=== PATIENT | female | born 1960 | race Caucasian/White ===

== ENCOUNTER → 2017-02-22 | Day surgery (SDC) | payer SELFPAY ==
[~2017-02-22] VITALS: Ht 165.1 cm; Wt 98.7 kg
[~2017-02-22] MED LIST: *morphine SULFATE 8 MG/ML PERIprocedure ONLY ONE; 1/2 NS + KCL 20 MEQ INJ 1,000 ML IV SCH; ACETAMINOPHEN 1000 MG/100 ML VIAL IV SCH; ACETAMINOPHEN 325MG/HYDROcodone 7.5MG/15ML UDC PO PRN; ALLO100T PO; APREPITANT 40 MG CAP PO SCH; BACT800T5 PO; BUPIVACAINE/EPINEPHRINE 0.25% 50 ML VIAL ONE; CHLORHEXIDINE GLUCONATE 2 % 1 PACK (2 CLOTHS) TOPICAL PRN; DO NOT ADM ANY ANTICOAGULANT DRUGS PRN; ENOXAPARIN SODIUM 40 MG/0.4 ML SYRINGE SQ SCH; ESTR0.5T PO; FAMOTIDINE 20 MG/2 ML VIAL ONE; FLUO1TAB3 PO; FLUO20CA4 PO; FOLI1TAB6 PO; FOLI200T PO; FOLI400T PO; INSULIN HUMAN REGULAR 1,000 UNITS/10 ML VIAL SQ PRN; KETAMINE HCL 500 MG/5 ML VIAL ONE; LACTATED RINGER'S 1000 ML INJ 1,000 ML IV ONE; LACTATED RINGER'S 1000 ML IV PRN; LEVO125T4 PO; LEVO150T7 PO; METHYLENE BLUE 10 MG/ML VIAL NG ONE; METOCLOPRAMIDE HCL 10 MG/2 ML VIAL IV PUSH PRN; METOCLOPRAMIDE HCL 10 MG/2 ML VIAL IV PUSH SCH; METOPROLOL TARTRATE 25 MG TAB PO PRN; MIDAZOLAM HCL 2 MG/2 ML VIAL ONE; NEOSTIGMINE 3 MG/3 ML SYR IV ONE; ONDANSETRON HCL 4 MG/2 ML VIAL IV PRN; ONDANSETRON HCL 4 MG/2 ML VIAL IV PUSH ONE; ONDANSETRON HCL 4 MG/2 ML VIAL IV PUSH SCH; PANTOPRAZOLE SOD 40 MG DELAYED RELEASE TAB PO SCH; PHENYLEPH/NS 1000 MCG/10 ML SYR IV ONE; POVIDONE IODINE 5% (ANTISEPSIS KIT) 4 APPLICATIONS EACH NARE PRN; PROPOFOL 200 MG/20 ML AMP IV ONE; Post-op Orders (for Pharmacy) MISC OTHER ONE; SCOPOLAMINE 1.5 MG PATCH T-DERMAL SCH; SODIUM CHLORID 0.9% 500 ML IV PRN; SODIUM CHLORIDE 0.9% FLUSH 10 ML FLUSH IV FLUSH PRN; SODIUM CHLORIDE 0.9% FLUSH 10 ML FLUSH IV FLUSH SCH; TIRO100C PO; ZOFR4TAB PO; ceFAZolin 2 GM PREMIX 50 ML IV SCH; diphenhydrAMINE HCL 50 MG/ML VIAL IV PRN; diphenhydrAMINE HCL ELIXIR 12.5 MG/5 ML CUP PO PRN; metroNIDAZOLE 500 MG INJ 100 ML IV SCH
--- NOTE | 2017-02-22 14:34 | EKG ---
Date Performed: 02/22/2017 Time Performed: 06:18:30 PTAGE: 56 years EKG: Sinus rhythm NORMAL ECG Compared to prior tracing no significant change PREVIOUS TRACING : 04/14/2015 00.36.30 DOCTOR: Mal Haas Interpretating Date/Time 02/22/2017 14:28:36
[2017-02-22 16:05] VITALS: BP 161/82; PULSE 60; RESP 18; TEMP 97.6; O2SAT 96
--- NOTE | 2017-03-11 15:19 | MP ---
cc: DAVID BURNS DATE OF SURGERY: 02/22/2017 DATE OF : 1960 PREOPERATIVE DIAGNOSIS Severe obesity with a BMI of 36. POSTOPERATIVE DIAGNOSIS Severe obesity with a BMI of 36. PROCEDURE Laparoscopic vertical sleeve gastrectomy over a 36-[place] ViSiGi bougie. SURGEON David Burns. FILLER BLENDER SURGEON Jaime Dolan. ANESTHESIA General endotracheal. ESTIMATED BLOOD LOSS Scant. FINDINGS Adhesions of small bowel to the midline, lower abdomen and omental adhesions in the upper abdomen. SPECIMENS None. COMPLICATIONS None. DETAILS OF PROCEDURE The patient was brought to the operating room and placed on the operating table in the supine position. Bilateral sequential inflation devices were placed on the lower extremities. General anesthesia was instituted. Antibiotics were initiated. The abdomen was prepped and draped sterilely. A point 15 cm distal to the xiphoid in the midline was anesthetized with 0.25% Marcaine with epinephrine. A skin incision was made. A 5 mm OptiView port was placed under direct vision and a pneumoperitoneum created. Under direct vision three 5 mm left upper quadrant, one 15 mm right upper quadrant and one 5 mm right upper quadrant ports were placed. Prior to placement of all ports the skin and peritoneum were anesthetized with 0.25% Marcaine with epinephrine. The patient was placed in reverse Trendelenburg position left side up. A Dottie-Flex retractor was placed. The left lobe of the liver was retracted. The vasculature along the greater curvature of the stomach was using a Harmonic scalpel starting a distance 5 cm proximal to the pylorus and carried towards the angle of His. The angle of His was taken down bluntly. Posterior ligamentous attachments were sharply . A 36-[place] ViSiGi bougie was placed at the start of the case and placed on suction. Division of the stomach started 5 cm proximal to the pylorus and carried towards the angle of His to completely excise approximately 80% of the stomach. This was performed using an Crary Flex stapler at the pylorus. The first firing was with a black load, followed by a green load and four gold loads. All staple loads were reinforced with SeamGuard. A distance of 2 cm was left from the angle incisura and the staple line and a distance of 1 cm left from the GE junction and the staple line. The pylorus was then occluded, methylene blue tinged saline was instilled. There was no evidence of extravasation. The gastrocolic ligament was then sutured to the posterior leaflet of the SeamGuard using 2-0 Vicryl suture in a running manner. Bleeding points were controlled with Evicel. The excised stomach was removed from the peritoneal cavity through the 15 mm port site. The fascia at the 15 mm port site was approximated with 0 Vicryl suture. The CO2 was then released. All ports were removed. All skin incisions were closed with 4-0 Monocryl. The abdominal wall was cleaned and a sterile dressing placed. The patient was awakened and taken to the recovery room. MD RACHEL Ivory/CHRISTI /9:17 AM /3:06 PM MTDD
== END | disposition home or self-care (01) ==
LOC: HSDC 05:27
PROVIDERS: ATTEND Surgery
DX: E66.01 Morbid (severe) obesity due to excess calories (principal); Z68.36 Body mass index [BMI] 36.0-36.9, adult; D64.9 Anemia, unspecified; M54.9 Dorsalgia, unspecified; E11.9 Type 2 diabetes mellitus without complications; M79.673 Pain in unspecified foot; E04.9 Nontoxic goiter, unspecified; M10.9 Gout, unspecified; E78.00 Pure hypercholesterolemia, unspecified; E05.90 Thyrotoxicosis, unspecified without thyrotoxic crisis or storm; K58.9 Irritable bowel syndrome, unspecified; M50.20 Other cervical disc displacement, unspecified cervical region; M72.2 Plantar fascial fibromatosis; R06.02 Shortness of breath; R20.2 Paresthesia of skin; E55.9 Vitamin D deficiency, unspecified; I83.90 Asymptomatic varicose veins of unspecified lower extremity; R35.0 Frequency of micturition; M06.9 Rheumatoid arthritis, unspecified; Z01.810 Encounter for preprocedural cardiovascular examination
CPT/HCPCS: 00797; 43775; 93005; J0131; J0690; J1650; J2250; J2270; J2370; J2405; J2710; J2765; J3010; J7120; J8501

== ENCOUNTER 2017-03-20 20:53 | Inpatient (IN) | payer OTHER ==
[~2017-03-20] VITALS: Ht 165.1 cm; Wt 90.3 kg
[~2017-03-20 20:53] MED LIST changes: -*morphine SULFATE 8 MG/ML PERIprocedure ONLY ONE; -1/2 NS + KCL 20 MEQ INJ 1,000 ML IV SCH; -ACETAMINOPHEN 1000 MG/100 ML VIAL IV SCH; -ACETAMINOPHEN 325MG/HYDROcodone 7.5MG/15ML UDC PO PRN; -ALLO100T PO; -APREPITANT 40 MG CAP PO SCH; -BACT800T5 PO; -BUPIVACAINE/EPINEPHRINE 0.25% 50 ML VIAL ONE; -CHLORHEXIDINE GLUCONATE 2 % 1 PACK (2 CLOTHS) TOPICAL PRN; -DO NOT ADM ANY ANTICOAGULANT DRUGS PRN; -ENOXAPARIN SODIUM 40 MG/0.4 ML SYRINGE SQ SCH; -FAMOTIDINE 20 MG/2 ML VIAL ONE; -FLUO20CA4 PO; -FOLI1TAB6 PO; -FOLI200T PO; -INSULIN HUMAN REGULAR 1,000 UNITS/10 ML VIAL SQ PRN; -KETAMINE HCL 500 MG/5 ML VIAL ONE; -LACTATED RINGER'S 1000 ML INJ 1,000 ML IV ONE; -LACTATED RINGER'S 1000 ML IV PRN; -LEVO150T7 PO; -METHYLENE BLUE 10 MG/ML VIAL NG ONE; -METOCLOPRAMIDE HCL 10 MG/2 ML VIAL IV PUSH PRN; -METOCLOPRAMIDE HCL 10 MG/2 ML VIAL IV PUSH SCH; -METOPROLOL TARTRATE 25 MG TAB PO PRN; -MIDAZOLAM HCL 2 MG/2 ML VIAL ONE; -NEOSTIGMINE 3 MG/3 ML SYR IV ONE; -ONDANSETRON HCL 4 MG/2 ML VIAL IV PRN; -ONDANSETRON HCL 4 MG/2 ML VIAL IV PUSH ONE; -ONDANSETRON HCL 4 MG/2 ML VIAL IV PUSH SCH; -PANTOPRAZOLE SOD 40 MG DELAYED RELEASE TAB PO SCH; -PHENYLEPH/NS 1000 MCG/10 ML SYR IV ONE; -POVIDONE IODINE 5% (ANTISEPSIS KIT) 4 APPLICATIONS EACH NARE PRN; -PROPOFOL 200 MG/20 ML AMP IV ONE; -Post-op Orders (for Pharmacy) MISC OTHER ONE; -SCOPOLAMINE 1.5 MG PATCH T-DERMAL SCH; -SODIUM CHLORID 0.9% 500 ML IV PRN; -SODIUM CHLORIDE 0.9% FLUSH 10 ML FLUSH IV FLUSH PRN; -SODIUM CHLORIDE 0.9% FLUSH 10 ML FLUSH IV FLUSH SCH; -TIRO100C PO; -ZOFR4TAB PO; -ceFAZolin 2 GM PREMIX 50 ML IV SCH; -diphenhydrAMINE HCL 50 MG/ML VIAL IV PRN; -diphenhydrAMINE HCL ELIXIR 12.5 MG/5 ML CUP PO PRN; -metroNIDAZOLE 500 MG INJ 100 ML IV SCH
[2017-03-20 20:56] VITALS: BP 142/74; PULSE 90; RESP 15; TEMP 97.9; O2SAT 98
[2017-03-20 22:44] VITALS: BP 152/69; PULSE 71; RESP 18; O2SAT 98
[2017-03-20] MEDS ORDERED: SODIUM CHLOR 0.9% 1000 ML INJ 1,000 ML IV ONE (23:30)
[2017-03-20] MEDS ORDERED: ONDANSETRON HCL 4 MG/2 ML VIAL IV ONE (23:30)
--- NOTE | 2017-03-20 23:51 | PD ---
HPI Chief Complaint: GI Complaint Time Seen by Provider: 23:11 Travel History International Travel<30 days: Yes Contact w/Intl Traveler<30days: Yes Name of Country Traveled to: [place] Traveled to known affect area: No History of Present Illness HPI Is a 56 year-old woman about 3-4 weeks out from a vertical sleeve gastrectomy done by Dr. Ceballos on 02/19/17 who presents with intractable nausea vomiting. She states for the past week and a half she's had progressive nausea and vomiting with attempts to eat or drink any substance. She is not really had any change in her stools. Only abdominal pain or fevers. She has had decreased urine and dark colored urine. When this first started she was scheduled for a trip to [place] which she did go on. She had worsening symptoms will there return from x-ray: Within the past day or so. She feels like she is dehydrated. She is a history of ulcerative colitis and has a continent ileostomy after colectomy that she had some 20 years ago. History Past Medical History Narrative Medical Hyperlipidemia Hypothyroidism History of ulcerative colitis, status post total colectomy, with cotton and ileostomy Vertical sleeve gastrectomy 02/14/17 Social History Alcohol Use: No Tobacco Use: No Allergies-Medications (Allergen,Severity, Reaction): Coded Allergies: red dye (Unverified Allergy, Severe, hives and hot flashes, 02/22/17) acetaminophen (Verified Adverse Reaction, Severe, Nausea/Vomiting, 02/22/17 ) Reported Meds & Prescriptions Reported Meds & Active Scripts Active Reported Fluoxetine (Fluoxetine HCl) 20 Mg Tab 20 Mg PO DAILY Folic Acid 400 Mcg Tab 400 Mcg PO DAILY Levothyroxine (Levothyroxine Sodium) 125 Mcg Tab 125 Mcg PO DAILY Estradiol 0.5 Mg Tab 0.5 Mg PO DAILY Review of Systems Except as stated in HPI: all other systems reviewed are Neg Physical Exam Narrative GENERAL: 56 year-old woman, appears dehydrated, no acute distress. SKIN: Decreased skin turgor. HEAD: Atraumatic. Normocephalic. EYES: Pupils equal and round. No scleral icterus. No injection or drainage. ENT: No nasal bleeding or discharge. Mucous membranes pink and moist. NECK: Trachea midline. No JVD. CARDIOVASCULAR: Regular rate and rhythm. No murmur appreciated. RESPIRATORY: No accessory muscle use. Clear to auscultation. Breath sounds equal bilaterally. GASTROINTESTINAL: Abdomen soft, non-tender, nondistended. Hepatic and splenic margins not palpable. MUSCULOSKELETAL: No obvious deformities. No edema. NEUROLOGICAL: Awake and alert. No obvious cranial nerve deficits. Motor grossly within normal limits. Normal speech. Data Data Last Documented VS Vital Signs Date Time Temp Pulse Resp B/P (MAP) Pulse Ox O2 Delivery O2 Flow Rate FiO2 03/20/17 22:44 71 18 152/69 (96) 98 Room Air 03/20/17 20:56 97.9 Orders Orders Complete Blood Count With Diff (03/20/17 23:18) Comprehensive Metabolic Panel (03/20/17 23:18) Magnesium (Mg) (03/20/17 23:18) Urinalysis - C+S If Indicated (03/20/17 23:18) Iv Access Insert/Monitor (03/20/17 23:18) Sodium Chlor 0.9% 1000 Ml Inj (Ns 1000 M (03/20/17 23:30) Ondansetron Inj (Zofran Inj) (03/20/17 23:30) Admit Order (Ed Use Only) (03/20/17 ) Upper Gi Series With Kub Byproduct Engineer (03/20/17 ) Labs Laboratory Tests Test 03/20/17 23:24 [facility] Medical Decision Making Medical Screen Exam Complete: Yes Emergency Medical Condition: Yes Differential Diagnosis Obstruction, dehydration, vomiting, other Narrative Course Medical decision making Is a 56 year-old woman presents to the emergency department with gentle nausea vomiting dehydration. Recent gastric sleeve. I spoke with Dr. Dolan. Continue labs we'll check labs. GI swallow upper GI series in the morning. IV fluids. He will admit for observation. Diagnosis Primary Impression: Intractable nausea and vomiting Admitting Information Admitting Physician Requests: Observation Sha Berg MD Mar 20, 2017 23:51
[2017-03-20 23:52] LABS: AUTOMATED NEUTROPHIL # 4.6 TH/MM3 (1.8-7.7); BASOPHIL % 0.6 % (0.0-2.0); EOSINOPHIL # 0.1 TH/MM3 (0-0.4); EOSINOPHIL % 0.9 % (0.0-4.0); HEMATOCRIT 46.7 % (35.0-46.0); HEMO FLAGS DIFF FINAL; LYMPH % 31.3 % (9.0-44.0); LYMPHOCYTE # 2.5 TH/MM3 (1.0-4.8); MEAN CELL VOLUME 92.2 FL (80.0-100.0); MEAN CORPUSCULAR HEMOGLOBIN 30.7 PG (27.0-34.0); MEAN CORPUSCULAR HGB CONC 33.3 % (32.0-36.0); MONO % 10.3 % (0.0-8.0); NEUT % 56.9 % (16.0-70.0); PLATELET COUNT 376 TH/MM3 (150-450); RED BLOOD COUNT 5.06 MIL/MM3 (4.00-5.30); RED CELL DISTRIBUTION WIDTH 14.1 % (11.6-17.2)
[2017-03-21 00:06] LABS: ALT (GPT) 36 U/L (10-53)
[2017-03-21 00:08] LABS: ALKALINE PHOSPHATASE 137 U/L (45-117); TOTAL BILIRUBIN ADULT 0.4 MG/DL (0.2-1.0)
[2017-03-21 00:18] LABS: ANION GAP 14 MEQ/L (5-15); AST (GOT) 39 U/L (15-37); BICARBONATE 13.5 MEQ/L (21.0-32.0); BLOOD UREA NITROGEN 119 MG/DL (7-18); CHLORIDE 105 MEQ/L (98-107); GLOMERULAR FILTRATION RATE 8 ML/MIN (>89); POTASSIUM 4.5 MEQ/L (3.5-5.1); SODIUM (NA) 132 MEQ/L (136-145)
[2017-03-21] MEDS ORDERED: SODIUM CHLOR 0.9% 1000 ML INJ 1,000 ML IV SCH (03:56)
[2017-03-21] MEDS ORDERED: SODIUM CHLORIDE 0.9% FLUSH 10 ML FLUSH IV FLUSH PRN ×2 (04:00→14:30)
[2017-03-21 04:52] VITALS: BP 109/58; PULSE 64; RESP 17; TEMP 97.5; O2SAT 100
[2017-03-21] MEDS ORDERED: SODIUM CHLOR 0.45% 1000 ML INJ 1,000 ML IV ONE (07:15)
[2017-03-21 08:41] VITALS: BP 94/50; PULSE 55; RESP 18; TEMP 98; O2SAT 98
[2017-03-21 08:50] LABS: BACTERIA, URINE RARE /hpf; BLOOD, URINE MOD (NEG); COMMENT (UR) CULT NOT INDICATED; CULTURE IF INDICATED CULT NOT INDICATED; GLUCOSE,URINE NEG (NEG); GRANULAR CAST, URINE 1 /lpf; KETONE, URINE NEG (NEG); NITRITE,URINE NEG (NEG); PH, URINE 5.5 (5.0-8.5); SQUAMOUS EPITHELIAL CELL URINE 2 /hpf (0-5); URINE COLOR YELLOW (YELLW/STRAW)
[2017-03-21] MEDS ORDERED: SODIUM CHLORIDE 0.9% FLUSH 10 ML FLUSH IV FLUSH SCH (09:00)
[2017-03-21 12:24] VITALS: BP 98/54; PULSE 61; RESP 18; TEMP 97.7; O2SAT 100
--- NOTE | 2017-03-21 13:42 | HHI.HP ---
[facility] KIRBY Nicholas Admission Diagnosis intractable vomiting Diagnoses: Chief Complaint: Nausea vomiting Travel History International Travel<30 Days: Yes Contact w/Intl Traveler <30 Da: Yes Name of Country Traveled to: [place] Traveled to Known Affected Are: No History of Present Illness Ms. Mota is a pleasant 56-year-old female with a recent vertical sleeve gastrectomy on 02/19/2017 and history of ulcerative colitis who presents to the emergency department today due to intractable nausea and vomiting. For the past 10 days patient reports worsening nausea and vomiting and unable to eat or drink anything. Review of Systems Except as stated in HPI: all other systems reviewed are Neg Past Family Social History Past Medical History Hyperlipidemia Hypothyroidism History of ulcerative colitis Past Surgical History History of ulcerative colitis, status post total colectomy, with cotton and ileostomy Vertical sleeve gastrectomy 02/14/17 Reported Medications Fluoxetine (Fluoxetine HCl) 20 Mg Tab 20 Mg PO DAILY Folic Acid 400 Mcg Tab 400 Mcg PO DAILY Levothyroxine (Levothyroxine Sodium) 125 Mcg Tab 125 Mcg PO DAILY Estradiol 0.5 Mg Tab 0.5 Mg PO DAILY Allergies: Coded Allergies: red dye (Unverified Allergy, Severe, hives and hot flashes, 03/21/17) acetaminophen (Verified Adverse Reaction, Severe, Nausea/Vomiting, 03/21/17 ) Social History Denies using tobacco or alcohol. Denies using illicit drugs. Physical Exam Vital Signs Vital Signs Date Time Temp Pulse Resp B/P (MAP) Pulse Ox O2 Delivery O2 Flow Rate FiO2 03/21/17 12:24 97.7 61 18 98/54 (69) 100 03/21/17 08:41 98.0 55 18 94/50 (65) 98 03/21/17 04:52 97.5 64 17 109/58 (75) 100 03/20/17 22:44 71 18 152/69 (96) 98 Room Air 03/20/17 20:56 97.9 90 15 142/74 (96) 98 Room Air Physical Exam GENERAL: This is a well-nourished, well-developed patient, in no apparent distress. SKIN: No rashes, ecchymoses or lesions. Warm and dry. HEAD: Atraumatic. Normocephalic. No temporal or scalp tenderness. EYES: Pupils equal round and reactive. No injection or drainage. ENT: Nose without bleeding, purulent drainage or septal hematoma. Airway patent. NECK: Trachea midline. No lymphadenopathy. Supple, nontender, no meningeal signs. CARDIOVASCULAR: Regular rate and rhythm without murmurs, gallops, or rubs. No JVD. RESPIRATORY: Clear to auscultation. Breath sounds equal bilaterally. No wheezes , rales, or rhonchi. GASTROINTESTINAL: Abdomen soft, non-tender, nondistended. No guarding. MUSCULOSKELETAL: Extremities without clubbing, cyanosis, or edema. NEUROLOGICAL: Awake and alert. Cranial nerves II through XII intact. No focal neurological deficits. Normal speech. Laboratory Laboratory Tests Test 03/20/17 23:24 03/21/17 08:00 White Blood Count 8.0 Red Blood Count 5.06 Hemoglobin 15.5 Hematocrit 46.7 Mean Corpuscular Volume 92.2 Mean Corpuscular Hemoglobin 30.7 Mean Corpuscular Hemoglobin Concent 33.3 Red Cell Distribution Width 14.1 Platelet Count 376 Mean Platelet Volume 9.7 Neutrophils (%) (Auto) 56.9 Lymphocytes (%) (Auto) 31.3 Monocytes (%) (Auto) 10.3 Eosinophils (%) (Auto) 0.9 Basophils (%) (Auto) 0.6 Neutrophils # (Auto) 4.6 Lymphocytes # (Auto) 2.5 Monocytes # (Auto) 0.8 Eosinophils # (Auto) 0.1 Basophils # (Auto) 0.0 CBC Comment DIFF FINAL Differential Comment Blood Urea Nitrogen 119 Creatinine 5.64 Random Glucose 117 Total Protein 9.3 Albumin 4.6 Calcium Level 9.8 Magnesium Level 3.0 Alkaline Phosphatase 137 Aspartate Amino Transf (AST/SGOT) 39 Alanine Aminotransferase (ALT/SGPT) 36 Total Bilirubin 0.4 Sodium Level 132 Potassium Level 4.5 Chloride Level 105 Carbon Dioxide Level 13.5 Anion Gap 14 Estimat Glomerular Filtration Rate 8 Urine Color YELLOW Urine Turbidity CLEAR Urine pH 5.5 Urine Specific [place] 1.015 Urine Protein 30 Urine Glucose (UA) NEG Urine Ketones NEG Urine Occult Blood MOD Urine Nitrite NEG Urine Bilirubin NEG Urine Urobilinogen LESS THAN 2.0 Urine Leukocyte Esterase SMALL Urine RBC 148 Urine WBC 4 Urine Squamous Epithelial Cells 2 Urine Bacteria RARE Urine Granular Casts 1 Microscopic Urinalysis Comment CULT NOT INDICATED Result Diagram: 03/20/17232303/20/172323 Caprini VTE Risk Assessment Caprini VTE Risk Assessment: Mod/High Risk (score >= 2) Caprini Risk Assessment Model Point Value = 1 Point Value = 2 Point Value = 3 Point Value = 5 Age 41-60 Minor surgery BMI > 25 kg/m2 Swollen legs Varicose veins or History of unexplained or recurrent spontaneous Oral contraceptives or hormone replacement Sepsis (< 1 month) Serious lung disease, including pneumonia (< 1 month) Abnormal pulmonary function Acute myocardial infarction Congestive heart failure (< 1 month) History of inflammatory bowel disease Medical patient at bed rest Age 61-74 Arthroscopic surgery Major open surgery (> 45 min) Laparoscopic surgery (> 45 min) Malignancy Confined to bed (> 72 hours) Immobilizing plaster cast Central venous access Age >= 75 History of VTE Family history of VTE Factor V Leiden Prothrombin [id number] Lupus anticoagulant Anticardiolipin antibodies Elevated serum homocysteine Heparin-induced thrombocytopenia Other congenital or acquired thrombophilia Stroke (< 1 month) Elective arthroplasty Hip, pelvis, or leg fracture Acute spinal cord injury (< 1 month) Prophylaxis Regimen Total Risk Factor Score Risk Level Prophylaxis Regimen 0-1 Low Early ambulation 2 Moderate Order ONE of the following: *Sequential Compression Device (SCD) *Heparin 5000 units SQ BID 3-4 Higher Order ONE of the following medications: *Heparin 5000 units SQ TID *Enoxaparin/Lovenox 40 mg SQ daily (WT < 150 kg, CrCl > 30 mL/min) *Enoxaparin/Lovenox 30 mg SQ daily (WT < 150 kg, CrCl > 10-29 mL/min) *Enoxaparin/Lovenox 30 mg SQ BID (WT < 150 kg, CrCl > 30 mL/min) AND/OR *Sequential Compression Device (SCD) 5 or more Highest Order ONE of the following medications: *Heparin 5000 units SQ TID (Preferred with Epidurals) *Enoxaparin/Lovenox 40 mg SQ daily (WT < 150 kg, CrCl > 30 mL/min) *Enoxaparin/Lovenox 30 mg SQ daily (WT < 150 kg, CrCl > 10-29 mL/min) *Enoxaparin/Lovenox 30 mg SQ BID (WT < 150 kg, CrCl > 30 mL/min) AND *Sequential Compression Device (SCD) Assessment and Plan Problem List: (1) Ulcerative colitis ICD Code: K51.90 - Ulcerative colitis, unspecified, without complications (2) Hypothyroidism ICD Code: E03.9 - Hypothyroidism, unspecified (3) Intractable nausea and vomiting ICD Code: R11.2 - Nausea with vomiting, unspecified Status: Acute Billie Teixeira DO Mar 21, 2017 13:42
--- NOTE | 2017-03-21 13:46 | RADRPT ---
EXAM DATE/TIME: 03/21/2017 10:31 [facility] COMPARISON: No previous studies available for comparison. INDICATIONS : Post Gastric bypass one month ago, Vomiting and abdominal pain FLUORO TIME: 1.6 minutes IMAGE COUNT: 5 CONTRAST: 1. Gastroview Liquid E-Z Paque Barium Sulfate (60% w/v, 41% w.w) MEDICAL HISTORY : Gastroesophageal reflux disease. Ulcers. SURGICAL HISTORY : Gastric sleeve ENCOUNTER: Initial ACUITY: 2 days PAIN SCORE: 5/10 LOCATION: Bilateral abdomen FINDINGS: Dispatcher Clerk view of the abdomen demonstrates a nonobstructive bowel gas pattern. There are clips and staple lines overlying the left upper quadrant. Multiple bowel staple lines also overlie the pelvis. There degenerative changes of the lumbar spine. Initially, Gastroview was administered orally in an upright position. No leak is observed. Therefore, thin liquid barium was administered. There is a tapered narrow stomach characteristic of gastric sle glenn procedure. Contrast flows easily through the esophagus, into the narrowed stomach, and into the d uodenum. Duodenal C-loop and proximal jejunum demonstrates no significant abnormality. There are no s igns of obstruction. There is a small diverticulum arising from the medial aspect of the second porti on of the duodenum. CONCLUSION: Stomach demonstrates a normal appearance following gastric sleeve procedure. No obstruction or acute abnormality is identified. Davy Sifuentes MD on March 21, 2017 at 13:42 Board Certified Radiologist. This report was verified electronically.
--- NOTE | 2017-03-21 14:25 | RADRPT ---
EXAM DATE/TIME: 03/21/2017 13:53 [facility] COMPARISON: No previous studies available for comparison. INDICATIONS : Increased BUN and creatinine. MEDICAL HISTORY : Hypothyroidism. Gastroesophageal reflux disease. Renal calculi. Ulcertive colitis. SURGICAL HISTORY : Hysterectomy. Left breast biopsy. Vertical sleeve gastrectomy. ENCOUNTER: Initial ACUITY: 1 day PAIN SCORE: 4/10 LOCATION: Bilateral flank MEASUREMENTS: RIGHT KIDNEY: 12.6 x 5.1 x 4.7 cm LEFT KIDNEY: 10.3 x 5.1 x 5.4 cm FINDINGS: RIGHT KIDNEY: The right kidney is normal in size and shape with diffuse cortical thinning and atrophy. There is no focal mass or hydronephrosis. The kidney is increased in echogenicity compared to the liver. LEFT KIDNEY: The left kidney is normal in size and shape with diffuse cortical thinning and atrophy. The kidney is increased in echogenicity. There is a large echogenic calculus in the upper pole measuring up to 2 x 1.7 x 2.4 cm posterior shadowing. BLADDER: Decompressed and not well-visualized. CONCLUSION: 1. Cortical thinning and increased echogenicity consistent with medical renal disease. 2. Left renal calculus with posterior shadowing and no hydronephrosis. 3. The bladder is decompressed and not well-visualized. Marcelo Jiménez MD on March 21, 2017 at 14:22 Board Certified Radiologist. This report was verified electronically.
[2017-03-21] MEDS ORDERED: ACETAMINOPHEN 325 MG TAB PO PRN (14:30)
[2017-03-21] MEDS ORDERED: SENNOSIDES 8.6 MG TAB PO PRN (14:30)
[2017-03-21] MEDS ORDERED: SODIUM BICARBONATE 8.4% INJ 50 MEQ in SODIUM CHLOR 0.45% 1000 ML INJ 1,000 ML IV SCH (14:30)
[2017-03-21] MEDS ORDERED: NALOXONE HCL 0.4 MG/ML AMP IV PUSH PRN (14:30)
[2017-03-21] MEDS ORDERED: BISACODYL 10 MG SUPP RECTAL PRN (14:30)
[2017-03-21] MEDS ORDERED: MAGNESIUM HYDROXIDE SUSP 30 ML CUP PO PRN (14:30)
[2017-03-21] MEDS ORDERED: LACTULOSE SYRUP 20 GM/30 ML CUP PO PRN (14:30)
[2017-03-21] MEDS ORDERED: SODIUM BICARBONATE 8.4% INJ 75 MEQ in SODIUM CHLOR 0.45% 1000 ML INJ 1,000 ML IV SCH (15:00)
[2017-03-21 18:17] LABS: BICARBONATE 14.1 MEQ/L (21.0-32.0); POTASSIUM 3.6 MEQ/L (3.5-5.1)
[2017-03-21] MEDS ORDERED: [UNRECOGNIZED DRUG - OTHER] IV SCH (20:00)
[2017-03-21] MEDS ORDERED: SODIUM BICARBONATE IV SCH (20:00)
[2017-03-21] MEDS ORDERED: POTASSIUM CHLORIDE IV SCH (20:00)
--- NOTE | 2017-03-21 20:00 | HHI.HP ---
HPI Service [facility] Primary Care Physician KIRBY Nicholas Admission Diagnosis intractable vomiting Diagnoses: (1) Ulcerative colitis (2) Hypothyroidism (3) Intractable nausea and vomiting Travel History International Travel<30 Days: Yes Contact w/Intl Traveler <30 Da: Yes Name of Country Traveled to: [place] Traveled to Known Affected Are: No History of Present Illness Ms. Mota is a pleasant 56-year-old female with a recent Laparoscopic vertical sleeve gastrectomy on 02/22/2017 and history of ulcerative colitis who presents to the emergency department today due to intractable nausea and vomiting. For the past 10 days patient reports worsening nausea and vomiting and unable to eat or drink anything. Any attempt to eat or drink anything causes her to experience nausea, vomiting. She went to a previously planned trip to [place]. However, her intractable nausea, vomiting started prior to the trip. She thought her symptoms would subside and thus she went on the trip. She reports no abdominal pain, diarrhea or constipation. She does report decreased urine output and concentrated dark urine. Denies any chest pain, cough, dyspnea, fever , chills. Review of Systems Except as stated in HPI: all other systems reviewed are Neg Past Family Social History Past Medical History Hyperlipidemia Hypothyroidism History of ulcerative colitis Past Surgical History History of ulcerative colitis, status post total colectomy, with cotton and ileostomy Vertical sleeve gastrectomy 02/14/17 Reported Medications Fluoxetine (Fluoxetine HCl) 20 Mg Tab 20 Mg PO DAILY Folic Acid 400 Mcg Tab 400 Mcg PO DAILY Levothyroxine (Levothyroxine Sodium) 125 Mcg Tab 125 Mcg PO DAILY Estradiol 0.5 Mg Tab 0.5 Mg PO DAILY Allergies: Coded Allergies: red dye (Unverified Allergy, Severe, hives and hot flashes, 03/21/17) acetaminophen (Verified Adverse Reaction, Severe, Nausea/Vomiting, 03/21/17 ) Family History Both parents had heart disease in their 60s. Social History Denies using tobacco or alcohol. Denies using illicit drugs. Physical Exam Vital Signs Vital Signs Date Time Temp Pulse Resp B/P (MAP) Pulse Ox O2 Delivery O2 Flow Rate FiO2 03/21/17 12:24 97.7 61 18 98/54 (69) 100 03/21/17 08:41 98.0 55 18 94/50 (65) 98 03/21/17 04:52 97.5 64 17 109/58 (75) 100 03/20/17 22:44 71 18 152/69 (96) 98 Room Air 03/20/17 20:56 97.9 90 15 142/74 (96) 98 Room Air Physical Exam GENERAL: This is a well-nourished, well-developed patient, in no apparent distress. SKIN: No rashes, ecchymoses or lesions. Warm and dry. HEAD: Atraumatic. Normocephalic. No temporal or scalp tenderness. EYES: Pupils equal round and reactive. No injection or drainage. ENT: Nose without bleeding, purulent drainage or septal hematoma. Airway patent. NECK: Trachea midline. No lymphadenopathy. Supple, nontender, no meningeal signs. CARDIOVASCULAR: Regular rate and rhythm without murmurs, gallops, or rubs. No JVD. RESPIRATORY: Clear to auscultation. Breath sounds equal bilaterally. No wheezes , rales, or rhonchi. GASTROINTESTINAL: Abdomen soft, non-tender, nondistended. No guarding. MUSCULOSKELETAL: Extremities without clubbing, cyanosis, or edema. NEUROLOGICAL: Awake and alert. Cranial nerves II through XII intact. No focal neurological deficits. Normal speech. Laboratory Laboratory Tests Test 03/20/17 23:24 03/21/17 08:00 03/21/17 17:48 White Blood Count 8.0 Red Blood Count 5.06 Hemoglobin 15.5 Hematocrit 46.7 Mean Corpuscular Volume 92.2 Mean Corpuscular Hemoglobin 30.7 Mean Corpuscular Hemoglobin Concent 33.3 Red Cell Distribution Width 14.1 Platelet Count 376 Mean Platelet Volume 9.7 Neutrophils (%) (Auto) 56.9 Lymphocytes (%) (Auto) 31.3 Monocytes (%) (Auto) 10.3 Eosinophils (%) (Auto) 0.9 Basophils (%) (Auto) 0.6 Neutrophils # (Auto) 4.6 Lymphocytes # (Auto) 2.5 Monocytes # (Auto) 0.8 Eosinophils # (Auto) 0.1 Basophils # (Auto) 0.0 CBC Comment DIFF FINAL Differential Comment Blood Urea Nitrogen 119 92 Creatinine 5.64 3.59 Random Glucose 117 97 Total Protein 9.3 Albumin 4.6 Calcium Level 9.8 8.5 Magnesium Level 3.0 Alkaline Phosphatase 137 Aspartate Amino Transf (AST/SGOT) 39 Alanine Aminotransferase (ALT/SGPT) 36 Total Bilirubin 0.4 Sodium Level 132 138 Potassium Level 4.5 3.6 Chloride Level 105 113 Carbon Dioxide Level 13.5 14.1 Anion Gap 14 11 Estimat Glomerular Filtration Rate 8 13 Urine Color YELLOW Urine Turbidity CLEAR Urine pH 5.5 Urine Specific [place] 1.015 Urine Protein 30 Urine Glucose (UA) NEG Urine Ketones NEG Urine Occult Blood MOD Urine Nitrite NEG Urine Bilirubin NEG Urine Urobilinogen LESS THAN 2.0 Urine Leukocyte Esterase SMALL Urine RBC 148 Urine WBC 4 Urine Squamous Epithelial Cells 2 Urine Bacteria RARE Urine Granular Casts 1 Microscopic Urinalysis Comment CULT NOT INDICATED Result Diagram: 03/20/17 2324 03/21/17 1748 Imaging Last Impressions Upper GI Series 03/21/17 0000 Signed Impressions: Service Date/Time: Tuesday, March 21, 2017 10:31 - CONCLUSION: Stomach demonstrates a normal appearance following gastric sleeve procedure. No obstruction or acute abnormality is identified. Davy Sifuentes MD Renal Ultrasound 03/21/17 0000 Signed Impressions: Service Date/Time: Tuesday, March 21, 2017 13:53 - CONCLUSION: 1. Cortical thinning and increased echogenicity consistent with medical renal disease. 2. Left renal calculus with posterior shadowing and no hydronephrosis. 3. The bladder is decompressed and not well-visualized. MD Deni Kennedy VTE Risk Assessment Caprini VTE Risk Assessment: Mod/High Risk (score >= 2) Caprini Risk Assessment Model Point Value = 1 Point Value = 2 Point Value = 3 Point Value = 5 Age 41-60 Minor surgery BMI > 25 kg/m2 Swollen legs Varicose veins or History of unexplained or recurrent spontaneous Oral contraceptives or hormone replacement Sepsis (< 1 month) Serious lung disease, including pneumonia (< 1 month) Abnormal pulmonary function Acute myocardial infarction Congestive heart failure (< 1 month) History of inflammatory bowel disease Medical patient at bed rest Age 61-74 Arthroscopic surgery Major open surgery (> 45 min) Laparoscopic surgery (> 45 min) Malignancy Confined to bed (> 72 hours) Immobilizing plaster cast Central venous access Age >= 75 History of VTE Family history of VTE Factor V Leiden Prothrombin [id number] Lupus anticoagulant Anticardiolipin antibodies Elevated serum homocysteine Heparin-induced thrombocytopenia Other congenital or acquired thrombophilia Stroke (< 1 month) Elective arthroplasty Hip, pelvis, or leg fracture Acute spinal cord injury (< 1 month) Prophylaxis Regimen Total Risk Factor Score Risk Level Prophylaxis Regimen 0-1 Low Early ambulation 2 Moderate Order ONE of the following: *Sequential Compression Device (SCD) *Heparin 5000 units SQ BID 3-4 Higher Order ONE of the following medications: *Heparin 5000 units SQ TID *Enoxaparin/Lovenox 40 mg SQ daily (WT < 150 kg, CrCl > 30 mL/min) *Enoxaparin/Lovenox 30 mg SQ daily (WT < 150 kg, CrCl > 10-29 mL/min) *Enoxaparin/Lovenox 30 mg SQ BID (WT < 150 kg, CrCl > 30 mL/min) AND/OR *Sequential Compression Device (SCD) 5 or more Highest Order ONE of the following medications: *Heparin 5000 units SQ TID (Preferred with Epidurals) *Enoxaparin/Lovenox 40 mg SQ daily (WT < 150 kg, CrCl > 30 mL/min) *Enoxaparin/Lovenox 30 mg SQ daily (WT < 150 kg, CrCl > 10-29 mL/min) *Enoxaparin/Lovenox 30 mg SQ BID (WT < 150 kg, CrCl > 30 mL/min) AND *Sequential Compression Device (SCD) Assessment and Plan Problem List: (1) Intractable nausea and vomiting ICD Code: R11.2 - Nausea with vomiting, unspecified Status: Acute (2) Metabolic acidosis ICD Code: E87.2 - Acidosis (3) LEIGH (acute kidney injury) ICD Code: N17.9 - Acute kidney failure, unspecified (4) Hypothyroidism ICD Code: E03.9 - Hypothyroidism, unspecified (5) Ulcerative colitis ICD Code: K51.90 - Ulcerative colitis, unspecified, without complications Assessment and Plan Ms. Mota is a pleasant 56 year old female with a history of ulcerative colitis and recent vertical sleeve gastrectomy (02/22/2017) who presents to the ED due to 10 day duration of intractable nausea, vomiting. She has been unable to tolerate any food or drink. ED work up indicates likely volume depletion related acute kidney injury. - Intractable nausea, vomiting - Etiology not known. Patient has a hx of Ulcerative colitis s/p ileostomy - Recent Lap sleeve gastrectomy by Dr. Ceballos on 02/22/2017 - Surgery consulted. - Upper GI series, images reviewed by me indicated no obstruction or acute abnormalities. - Will continue supportive treatments with IV fluid, anti-nausea meds. - Acute kidney injury - Metabolic acidosis - Probable volume contraction alkalosis - Hyponatremia - Creatinine 5.64 with eGFR 8 on admission. Baseline creatinine < 1.0. - Likely due to volume depletion. - Started patient on 1/2 NS with 75meQ sodium bicarb @100cc/hour to provide isotonic fluid. - We checked BMP later in the day, shows Creatinine 5.65 --> 3.59 and Na+ 132 --> 138, K+ 4.5 --> 3.6. - In order to avoid hypokalemia and avoid rapid correction of hyponatremia, we changed fluid to 1/2NS with 50meQ sodium Bicarb + 40meQ KCL @ 100cc/hour. - Discussed with RN. Will check BMP in the AM. - Creatinine, metabolic acidosis improving. If creatinine worsen, we will consider Nephrology consultation. - Renal US, images reviewed by me shows evidence of medical renal disease. No hydronephrosis. - Hypothyroidism - continue Levothyroxine 125mcg Qday. - History of ulcerative colitis - Hx of Morbid obesity s/p gastrectomy (02/22/2017). Full code. SCDs, Ambulation. Physician Certification 2 Midnight Certification Type: Admission for Inpatient Services Order for Inpatient Services The services are ordered in accordance with Medicare regulations or non- Medicare payer requirements, as applicable. In the case of services not specified as inpatient-only, they are appropriately provided as inpatient services in accordance with the 2-midnight benchmark. Estimated LOS (days): 2 days is the estimated time the patient will need to remain in the hospital, assuming treatment plan goals are met and no additional complications. Post-Hospital Plan: Billie Verma DO Mar 21, 2017 20:00
[2017-03-21 20:18] VITALS: BP 98/51; PULSE 59; RESP 18; TEMP 98.7; O2SAT 99
[2017-03-21] MEDS: DOCUSATE SODIUM 50 MG/SENNA 8.6 MG TAB PO SCH (20:31)
[2017-03-21] MEDS: ONDANSETRON HCL 4 MG/2 ML VIAL IV PUSH PRN (20:31)
[2017-03-21] MEDS: SODIUM CHLORIDE 0.9% FLUSH 10 ML FLUSH IV FLUSH SCH (20:31)
[2017-03-21 21:45] VITALS: BP 109/55; PULSE 59; RESP 17; TEMP 97.3; O2SAT 100
[2017-03-22] VITALS: BP 102/55; PULSE 63; RESP 17; TEMP 96.5; O2SAT 97
[2017-03-22] MEDS ORDERED: POTASSIUM CHLORIDE INJ 10 MEQ in SODIUM CHLOR 0.9% 1000 ML INJ 1,000 ML IV SCH (00:15)
[2017-03-22] MEDS ORDERED: [UNRECOGNIZED DRUG - OTHER] IV SCH (00:45)
[2017-03-22] MEDS ORDERED: SODIUM BICARBONATE IV SCH (00:45)
[2017-03-22] MEDS ORDERED: POTASSIUM CHLORIDE IV SCH ×2 (00:45→10:30)
[2017-03-22] MEDS: LEVOTHYROXINE SODIUM 125 MCG TAB PO SCH (06:05)
[2017-03-22] MEDS: ONDANSETRON HCL 4 MG/2 ML VIAL IV PUSH PRN ×2 (06:08→17:53)
[2017-03-22 07:14] LABS: AUTOMATED NEUTROPHIL # 2.5 TH/MM3 (1.8-7.7); BASOPHIL % 0.6 % (0.0-2.0); EOSINOPHIL # 0.2 TH/MM3 (0-0.4); EOSINOPHIL % 3.4 % (0.0-4.0); HEMATOCRIT 39.1 % (35.0-46.0); HEMO FLAGS DIFF FINAL; LYMPH % 44.5 % (9.0-44.0); LYMPHOCYTE # 2.7 TH/MM3 (1.0-4.8); MEAN CELL VOLUME 94.9 FL (80.0-100.0); MEAN CORPUSCULAR HEMOGLOBIN 30.6 PG (27.0-34.0); MEAN CORPUSCULAR HGB CONC 32.2 % (32.0-36.0); MONO % 9.6 % (0.0-8.0); NEUT % 41.9 % (16.0-70.0); PLATELET COUNT 216 TH/MM3 (150-450); RED BLOOD COUNT 4.12 MIL/MM3 (4.00-5.30); RED CELL DISTRIBUTION WIDTH 14.3 % (11.6-17.2)
[2017-03-22 07:20] LABS: BICARBONATE 13.8 MEQ/L (21.0-32.0); POTASSIUM 4.1 MEQ/L (3.5-5.1)
[2017-03-22 08:00] VITALS: BP 102/56; PULSE 54; RESP 16; TEMP 96.2; O2SAT 99
[2017-03-22] MEDS: SODIUM CHLORIDE 0.9% FLUSH 10 ML FLUSH IV FLUSH SCH ×2 (09:00→21:00)
[2017-03-22] MEDS: DOCUSATE SODIUM 50 MG/SENNA 8.6 MG TAB PO SCH ×2 (09:00→21:00)
[2017-03-22] MEDS: FOLIC ACID 1 MG TAB PO SCH (09:36)
[2017-03-22] MEDS: FLUoxetine HCL 20 MG CAP PO SCH (09:36)
[2017-03-22] MEDS ORDERED: [UNRECOGNIZED DRUG - OTHER] IV SCH (10:30)
[2017-03-22] MEDS ORDERED: SODIUM BICARB IV SCH (10:30)
--- NOTE | 2017-03-22 10:49 | HHI.PR ---
Subjective Remarks Follow up for intractable nausea, vomiting and acute kidney injury, metabolic acidosis. Patient is currently doing better. Her nausea is controlled with Zofran, has not had any vomiting. Tolerated full liquid diet well. Wants to advance diet. No fever, chills. Urine output is improved. Objective Vitals Vital Signs Date Time Temp Pulse Resp B/P (MAP) Pulse Ox O2 Delivery O2 Flow Rate FiO2 03/22/17 00:00 96.5 63 17 102/55 (71) 97 03/21/17 21:45 97.3 59 17 109/55 (73) 100 03/21/17 20:18 98.7 59 18 98/51 (67) 99 03/21/17 12:24 97.7 61 18 98/54 (69) 100 I/O 03/21/17 03/21/17 03/21/17 03/22/17 03/22/17 03/22/17 07:00 15:00 23:00 07:00 15:00 23:00 Intake Total 675 ml Output Total 200 ml Balance 475 ml Intake Oral 240 ml IV Total 435 ml Output Urine Total 200 ml Result Diagram: 03/22/17 0540 03/22/17 0540 Imaging Last Impressions Upper GI Series 03/21/17 0000 Signed Impressions: Service Date/Time: Tuesday, March 21, 2017 10:31 - CONCLUSION: Stomach demonstrates a normal appearance following gastric sleeve procedure. No obstruction or acute abnormality is identified. Davy Sifuentes MD Renal Ultrasound 03/21/17 0000 Signed Impressions: Service Date/Time: Tuesday, March 21, 2017 13:53 - CONCLUSION: 1. Cortical thinning and increased echogenicity consistent with medical renal disease. 2. Left renal calculus with posterior shadowing and no hydronephrosis. 3. The bladder is decompressed and not well-visualized. Marcelo Jiménez MD Objective Remarks GENERAL: AOX3, NAD. SKIN: Warm and dry. HEAD: Normocephalic. EYES: No scleral icterus. No injection or drainage. NECK: Supple, trachea midline. No JVD or lymphadenopathy. CARDIOVASCULAR: Regular rate and rhythm without murmurs, gallops, or rubs. RESPIRATORY: Breath sounds equal bilaterally. No accessory muscle use. GASTROINTESTINAL: Abdomen soft, non-tender, nondistended. Lap surgical sites appear well healed, no erythema. BS+ MUSCULOSKELETAL: No cyanosis, or edema. BACK: Nontender without obvious deformity. No CVA tenderness. Procedures None. A/P Problem List: (1) Intractable nausea and vomiting ICD Code: R11.2 - Nausea with vomiting, unspecified Status: Acute (2) Metabolic acidosis ICD Code: E87.2 - Acidosis (3) LEIGH (acute kidney injury) ICD Code: N17.9 - Acute kidney failure, unspecified (4) Hypothyroidism ICD Code: E03.9 - Hypothyroidism, unspecified (5) Ulcerative colitis ICD Code: K51.90 - Ulcerative colitis, unspecified, without complications Assessment and Plan Ms. Mota is a pleasant 56 year old female with a history of ulcerative colitis and recent vertical sleeve gastrectomy (02/22/2017) who presents to the ED due to 10 day duration of intractable nausea, vomiting. She has been unable to tolerate any food or drink. ED work up indicates likely volume depletion related acute kidney injury. - Intractable nausea, vomiting - symptoms improving. - Etiology not known. Patient has a hx of Ulcerative colitis s/p ileostomy - Recent Lap sleeve gastrectomy by Dr. Ceballos on 02/22/2017 - Surgery consulted, will appreciate an input from surgery. - Upper GI series, images reviewed by me indicated no obstruction or acute abnormalities. - Will continue supportive treatments with IV fluid, anti-nausea meds. - Acute kidney injury - Metabolic acidosis - Probable volume contraction alkalosis - Hyponatremia - Creatinine 5.64 with eGFR 8 on admission. Baseline creatinine < 1.0. - Renal US, images reviewed by me shows evidence of medical renal disease. No hydronephrosis. - Likely due to volume depletion. Hgb 15.5 --> 12.6, Plt 376 --> 216. These results reflect improvement of hemoconcentration. - Currently patient is on 1/2 NS with 50meQ sodium bicarb + 40meQ of KCL @ 100cc/hour. Bicarb is still on the lower side - around 13 - 14. - Creatinine 5.65 --> 3.59 --> 2.99 and Na+ 132 --> 138 --> 139, K+ 4.5 --> 3.6 --> 4.1. - Will change fluid to : 1/2 NS + 75 meQ sodium bicarb + 40meQ KCL @ 100cc/ hour. - Will check BMP at 1700 and again in the AM. I suspect she will require 1-2 more days of hospitalization. - Encouraged patient to get up and move about in the room and sit in the chair. - Hypothyroidism - continue Levothyroxine 125mcg Qday. - History of ulcerative colitis - Hx of Morbid obesity s/p gastrectomy (02/22/2017). Full code. Ambulation. Will start heparin SQ tonight. Discussed with RN, Dr. Marques (General Surgery). Billie Teixeira DO Mar 22, 2017 10:49
[2017-03-22 12:00] VITALS: BP 101/56; PULSE 59; RESP 18; TEMP 96.9; O2SAT 98
[2017-03-22] MEDS: POTASSIUM CHLORIDE IV SCH (12:19)
[2017-03-22] MEDS: SODIUM BICARBONATE IV SCH (12:19)
[2017-03-22] MEDS: [UNRECOGNIZED DRUG - OTHER] IV SCH (12:19)
[2017-03-22 16:00] VITALS: BP 106/59; PULSE 58; RESP 16; TEMP 96.5; O2SAT 100
--- NOTE | 2017-03-22 17:11 | HHI.PR ---
Subjective Subjective Notes Laying in bed Tolerating full liquids Ileostomy functioning with liquid output and pt is urinating Nausea improving with medication Objective Vitals/I&O Vital Signs Date Time Temp Pulse Resp B/P (MAP) Pulse Ox O2 Delivery O2 Flow Rate FiO2 03/22/17 08:00 96.2 54 16 102/56 (71) 99 03/20/17 22:44 Room Air Labs Laboratory Tests Test 03/21/17 17:48 03/22/17 05:40 Blood Urea Nitrogen 92 83 Creatinine 3.59 2.99 Random Glucose 97 83 Calcium Level 8.5 8.5 Sodium Level 138 139 Potassium Level 3.6 4.1 Chloride Level 113 114 Carbon Dioxide Level 14.1 13.8 Anion Gap 11 11 Estimat Glomerular Filtration Rate 13 16 White Blood Count 6.0 Red Blood Count 4.12 Hemoglobin 12.6 Hematocrit 39.1 Mean Corpuscular Volume 94.9 Mean Corpuscular Hemoglobin 30.6 Mean Corpuscular Hemoglobin Concent 32.2 Red Cell Distribution Width 14.3 Platelet Count 216 Mean Platelet Volume 9.6 Neutrophils (%) (Auto) 41.9 Lymphocytes (%) (Auto) 44.5 Monocytes (%) (Auto) 9.6 Eosinophils (%) (Auto) 3.4 Basophils (%) (Auto) 0.6 Neutrophils # (Auto) 2.5 Lymphocytes # (Auto) 2.7 Monocytes # (Auto) 0.6 Eosinophils # (Auto) 0.2 Basophils # (Auto) 0.0 CBC Comment DIFF FINAL Differential Comment Radiology Last Impressions Upper GI Series 03/21/17 0000 Signed Impressions: Service Date/Time: Tuesday, March 21, 2017 10:31 - CONCLUSION: Stomach demonstrates a normal appearance following gastric sleeve procedure. No obstruction or acute abnormality is identified. Davy Sifuentes MD Renal Ultrasound 03/21/17 0000 Signed Impressions: Service Date/Time: Tuesday, March 21, 2017 13:53 - CONCLUSION: 1. Cortical thinning and increased echogenicity consistent with medical renal disease. 2. Left renal calculus with posterior shadowing and no hydronephrosis. 3. The bladder is decompressed and not well-visualized. Marcelo Jiménez MD Cardiovascular: Regular Lungs: Clear Abdomen: Non-tender Extremities: Perfused A/P Assessment and Plan 56yo F hx of VSG approximately 4 weeks ago with intractable nausea and vomiting resulting in ELIGH -Ambulate the halls at least QID -Continue to monitor UOP and ileostomy output -Continue with full liquid, if tolerated will increase to soft bariatric diet in the morning -Appreciate input from Medicine The exam, history, and the medical decision-making described in the above note were completed with the assistance of the mid-level provider. I reviewed and agree with the findings presented. I attest that I had a [id number] encounter with the patient on the same day, and personally performed and documented my assessment and findings in the medical record. Discharge Planning Depending on hospital course Niles Fontana Mar 22, 2017 17:11 Sterling Burns MD Apr 21, 2017 12:29
[2017-03-22 20:00] VITALS: BP 98/53; PULSE 60; RESP 16; TEMP 96; O2SAT 99
[2017-03-22] MEDS: HEPARIN SODIUM - SQ 10,000 UNITS/ML VIAL SQ SCH (21:49)
[2017-03-23 00:34] VITALS: BP 112/58; PULSE 65; RESP 16; TEMP 97.2; O2SAT 94
[2017-03-23] MEDS: SODIUM BICARBONATE IV SCH ×2 (02:00→14:53)
[2017-03-23] MEDS: [UNRECOGNIZED DRUG - OTHER] IV SCH ×2 (02:00→14:53)
[2017-03-23] MEDS: POTASSIUM CHLORIDE IV SCH ×2 (02:00→14:53)
[2017-03-23] MEDS: LEVOTHYROXINE SODIUM 125 MCG TAB PO SCH (06:23)
[2017-03-23] MEDS: ONDANSETRON HCL 4 MG/2 ML VIAL IV PUSH PRN (06:24)
--- NOTE | 2017-03-23 06:48 | MB ---
cc: DARYL HEADLEY MD DATE OF CONSULTATION 03/21/2017 REASON FOR CONSULTATION Nausea, vomiting. History of gastric sleeve. HISTORY OF PRESENT ILLNESS The patient is a 56-year-old female who had a recent laparoscopic sleeve gastrectomy on 02/22/2017. The patient also with several other medical issues, presented with intractable nausea and vomiting for the past several weeks. The patient noted nausea and vomiting progressively getting worse. She recently went on a planned trip to [place] without improvement and continued to have decreased p.o. intake and difficulties with nausea and vomiting and some mild abdominal pain. She returned to the [facility] and came to the emergency department for further evaluation including laboratory values showing acute kidney injury with dehydration, creatinine of over 5. She denies any fevers, chills or shortness of breath. PAST MEDICAL HISTORY 1. Hyperlipidemia. 2. Hypothyroidism. 3. Ulcerative colitis. PAST SURGICAL HISTORY 1. Status post total colectomy with end-ileostomy. 2. Vertical sleeve gastrectomy. MEDICATIONS See EMR. ALLERGIES ACETAMINOPHEN. RED DYE. FAMILY HISTORY Coronary artery disease. Denies hypertension. SOCIAL HISTORY Denies smoking, EtOH or IVDA. REVIEW OF SYSTEMS GENERAL: Denies fevers or chills. HEENT: Denies eye pain, ear pain. NECK: Denies swelling or pain. LUNGS: Denies cough or wheeze. HEART: Denies palpitation or chest pain. ABDOMEN: Complained of nausea, vomiting, abdominal pain. : Denies dysuria, hematuria. MUSCULOSKELETAL: Denies arthralgias, myalgias. NEUROLOGIC: denies numbness or sensation changes. PHYSICAL EXAMINATION GENERAL: The patient in no acute distress. VITAL SIGNS: Temperature 97.7, pulse 61, respirations 18, blood pressure 98/54, saturation 100%. HEENT: Pupils equal, round, reactive. LUNGS: Clear to auscultation. Bilateral expansion. HEART: S1-S2, regular rhythm. ABDOMEN: Positive tenderness to palpation. Mild. No rebound, no guarding. Well-healed surgical incisions. NECK: Trachea midline. EXTREMITIES: Warm, well-perfused. LABORATORY AND DIAGNOSTIC DATA WBC 8, hemoglobin 15.5, hematocrit 46.7, platelets 379. Sodium 138, potassium 3.6, chloride 113, creatinine 5.6 on admission, BUN 119, AST 39, ALT 36, T-bili 0.4. IMAGING STUDIES Pending. ASSESSMENT The patient is a 56-year-old female who presents with nausea, vomiting, abdominal pain, history of bariatric surgery, gastric sleeve, dehydration, acute kidney injury. PLAN Full clinical radiologic and laboratory workup. The patient with the above-named issues. The patient with significant intractable nausea and vomiting. 1. At this point recommend obtaining upper GI to evaluate gastric sleeve. 2. Further medicine admission for evaluation of acute kidney injury. 3. Recommend IV fluid bolus and rehydration. 4. Continue to check and correct electrolytes. 5. We will follow closely. 6. Keep the patient n.p.o. until upper GI results obtained. MD STAN [place]/CANDACE /10:22 PM /6:31 AM [id number]
[2017-03-23 08:00] VITALS: BP 108/64; PULSE 66; RESP 16; TEMP 96.9; O2SAT 100
[2017-03-23 08:51] LABS: POTASSIUM 4.3 MEQ/L (3.5-5.1)
[2017-03-23] MEDS: SODIUM CHLORIDE 0.9% FLUSH 10 ML FLUSH IV FLUSH SCH ×2 (09:00→20:40)
[2017-03-23] MEDS: DOCUSATE SODIUM 50 MG/SENNA 8.6 MG TAB PO SCH ×2 (09:00→20:40)
[2017-03-23] MEDS: FLUoxetine HCL 20 MG CAP PO SCH (09:05)
[2017-03-23] MEDS: FOLIC ACID 1 MG TAB PO SCH (09:06)
[2017-03-23] MEDS: HEPARIN SODIUM - SQ 10,000 UNITS/ML VIAL SQ SCH ×2 (09:06→20:39)
--- NOTE | 2017-03-23 10:20 | HHI.PR ---
Subjective Remarks Follow up for intractable nausea, vomiting and acute kidney injury, metabolic acidosis. Patient is doing well. No chest pain, shortness of breath, fever, chills. She is making more urine. She requests an advanced diet. Objective Vitals Vital Signs Date Time Temp Pulse Resp B/P (MAP) Pulse Ox O2 Delivery O2 Flow Rate FiO2 03/23/17 08:00 96.9 66 16 108/64 (79) 100 03/23/17 00:34 97.2 65 16 112/58 (76) 94 03/22/17 20:00 96.0 60 16 98/53 (68) 99 03/22/17 16:00 96.5 58 16 106/59 (75) 100 03/22/17 12:00 96.9 59 18 101/56 (71) 98 I/O 03/22/17 03/22/17 03/22/17 03/23/17 03/23/17 03/23/17 07:00 15:00 23:00 07:00 15:00 23:00 Intake Total 675 ml 565 ml 2516 ml 621 ml Output Total 200 ml 800 ml 500 ml Balance 475 ml 565 ml 1716 ml 121 ml Intake Oral 240 ml 1600 ml IV Total 435 ml 565 ml 916 ml 621 ml Output Urine Total 200 ml 500 ml Stool Total 800 ml # Voids 4 Result Diagram: 03/22/17 0540 03/23/17 0708 Imaging Last Impressions Upper GI Series 03/21/17 0000 Signed Impressions: Service Date/Time: Tuesday, March 21, 2017 10:31 - CONCLUSION: Stomach demonstrates a normal appearance following gastric sleeve procedure. No obstruction or acute abnormality is identified. Davy Sifuentes MD Renal Ultrasound 03/21/17 0000 Signed Impressions: Service Date/Time: Tuesday, March 21, 2017 13:53 - CONCLUSION: 1. Cortical thinning and increased echogenicity consistent with medical renal disease. 2. Left renal calculus with posterior shadowing and no hydronephrosis. 3. The bladder is decompressed and not well-visualized. Marcelo Jiménez MD Objective Remarks GENERAL: AOX3, NAD. SKIN: Warm and dry. HEAD: Normocephalic. EYES: No scleral icterus. No injection or drainage. NECK: Supple, trachea midline. No JVD or lymphadenopathy. CARDIOVASCULAR: Regular rate and rhythm without murmurs, gallops, or rubs. RESPIRATORY: Breath sounds equal bilaterally. No accessory muscle use. GASTROINTESTINAL: Abdomen soft, non-tender, nondistended. Lap surgical sites appear well healed, no erythema. BS+ MUSCULOSKELETAL: No cyanosis, or edema. BACK: Nontender without obvious deformity. No CVA tenderness. Procedures None. A/P Problem List: (1) Intractable nausea and vomiting ICD Code: R11.2 - Nausea with vomiting, unspecified Status: Acute (2) Metabolic acidosis ICD Code: E87.2 - Acidosis (3) LEIGH (acute kidney injury) ICD Code: N17.9 - Acute kidney failure, unspecified (4) Hypothyroidism ICD Code: E03.9 - Hypothyroidism, unspecified (5) Ulcerative colitis ICD Code: K51.90 - Ulcerative colitis, unspecified, without complications Assessment and Plan Ms. Mota is a pleasant 56 year old female with a history of ulcerative colitis and recent vertical sleeve gastrectomy (02/22/2017) who presents to the ED due to 10 day duration of intractable nausea, vomiting. She has been unable to tolerate any food or drink. ED work up indicates likely volume depletion related acute kidney injury. - Intractable nausea, vomiting - symptoms improving. - Etiology not known. Patient has a hx of Ulcerative colitis s/p ileostomy - Recent Lap sleeve gastrectomy by Dr. Ceballos on 02/22/2017 - Surgery consulted. Diet per surgery team. - Upper GI series, images reviewed by me indicated no obstruction or acute abnormalities. - supportive treatments with IV fluid, anti-nausea meds. - Acute kidney injury - Metabolic acidosis - Probable volume contraction alkalosis - Hyponatremia - Creatinine 5.64 with eGFR 8 on admission. Baseline creatinine < 1.0. - Renal US, images reviewed by me shows evidence of medical renal disease. No hydronephrosis. - Likely due to volume depletion. Hgb 15.5 --> 12.6, Plt 376 --> 216. These results reflect improvement of hemoconcentration. - Creatinine 5.65 --> 3.59 --> 2.99--> 2.61 and Na+ 132 --> 138 --> 139 --> 142, K+ 4.5 --> 3.6 --> 4.1 --> 4.3. - Continue 1/2 NS + 75 meQ sodium bicarb + 40meQ KCL @ 100cc/hour. - If Potassium is increased further, consider changing the fluid to 1/2 NS + 75meQ Bicarb + 20meQ KCL @100cc/hour. - BMP in the AM. - Encouraged patient to get up and move about in the room and sit in the chair. - Hypothyroidism - continue Levothyroxine 125mcg Qday. - History of ulcerative colitis - Hx of Morbid obesity s/p gastrectomy (02/22/2017). Full code. Heparin SQ. Billie Teixeira DO Mar 23, 2017 10:20
[2017-03-23 12:00] VITALS: BP 97/58; PULSE 63; RESP 17; TEMP 96.6; O2SAT 99
--- NOTE | 2017-03-23 14:38 | HHI.PR ---
Subjective Subjective Notes Laying in bed Tolerating full liquids Nausea improved Kidney function improving Objective Vitals/I&O Vital Signs Date Time Temp Pulse Resp B/P (MAP) Pulse Ox O2 Delivery O2 Flow Rate FiO2 03/23/17 12:00 96.6 63 17 97/58 (71) 99 03/20/17 22:44 Room Air Labs Laboratory Tests Test 03/23/17 07:08 Blood Urea Nitrogen 58 Creatinine 2.61 Random Glucose 88 Calcium Level 8.3 Sodium Level 142 Potassium Level 4.3 Chloride Level 114 Carbon Dioxide Level 18.0 Anion Gap 10 Estimat Glomerular Filtration Rate 19 Radiology Last Impressions Upper GI Series 03/21/17 0000 Signed Impressions: Service Date/Time: Tuesday, March 21, 2017 10:31 - CONCLUSION: Stomach demonstrates a normal appearance following gastric sleeve procedure. No obstruction or acute abnormality is identified. Davy Sifuentes MD Renal Ultrasound 03/21/17 0000 Signed Impressions: Service Date/Time: Tuesday, March 21, 2017 13:53 - CONCLUSION: 1. Cortical thinning and increased echogenicity consistent with medical renal disease. 2. Left renal calculus with posterior shadowing and no hydronephrosis. 3. The bladder is decompressed and not well-visualized. Marcelo Jiménez MD Cardiovascular: Regular Lungs: Clear Abdomen: Non-tender Extremities: Perfused A/P Assessment and Plan 56yo F hx of VSG approximately 4 weeks ago with intractable nausea and vomiting resulting in LEIGH -Ambulate the halls at least QID -Continue to monitor UOP and ileostomy output -Increase diet to soft bariatric diet, needs to stay away from breads, grains, concentrated sweets, potatoes, and harsher, cloth drier foods like grilled chicken and beef -Appreciate input from Medicine The exam, history, and the medical decision-making described in the above note were completed with the assistance of the mid-level provider. I reviewed and agree with the findings presented. I attest that I had a [id number] encounter with the patient on the same day, and personally performed and documented my assessment and findings in the medical record. Discharge Planning Depending on hospital course, from a bariatric standpoint she is progressing well Niles Fontana Mar 23, 2017 14:38 Sterling Burns MD Apr 21, 2017 12:33
[2017-03-23 16:00] VITALS: BP 109/68; PULSE 58; RESP 18; TEMP 97.3; O2SAT 100
[2017-03-23 20:40] VITALS: BP 107/59; PULSE 64; RESP 16; TEMP 97.2; O2SAT 97
[2017-03-24] VITALS: BP 100/54; PULSE 66; RESP 22; TEMP 97.1; O2SAT 97
[2017-03-24] MEDS: ONDANSETRON HCL 4 MG/2 ML VIAL IV PUSH PRN (00:02)
[2017-03-24] MEDS: POTASSIUM CHLORIDE IV SCH (02:26)
[2017-03-24] MEDS: SODIUM BICARBONATE IV SCH (02:26)
[2017-03-24] MEDS: [UNRECOGNIZED DRUG - OTHER] IV SCH (02:26)
[2017-03-24] MEDS: LEVOTHYROXINE SODIUM 125 MCG TAB PO SCH (06:09)
[2017-03-24 08:00] VITALS: BP 105/63; PULSE 66; RESP 16; TEMP 96.9; O2SAT 98
[2017-03-24] MEDS: HEPARIN SODIUM - SQ 10,000 UNITS/ML VIAL SQ SCH ×2 (08:49→21:15)
[2017-03-24] MEDS: DOCUSATE SODIUM 50 MG/SENNA 8.6 MG TAB PO SCH ×2 (08:49→21:00)
[2017-03-24] MEDS: FOLIC ACID 1 MG TAB PO SCH (08:49)
[2017-03-24] MEDS: FLUoxetine HCL 20 MG CAP PO SCH (08:49)
[2017-03-24] MEDS: SODIUM CHLORIDE 0.9% FLUSH 10 ML FLUSH IV FLUSH SCH ×2 (08:50→21:00)
--- NOTE | 2017-03-24 09:11 | HHI.PR ---
Subjective Subjective Notes Laying in bed Nausea much improved with Zofran Tolerating soft diet UOP improving Objective Vitals/I&O Vital Signs Date Time Temp Pulse Resp B/P (MAP) Pulse Ox O2 Delivery O2 Flow Rate FiO2 03/24/17 08:00 96.9 66 16 105/63 (77) 98 03/20/17 22:44 Room Air Labs Laboratory Tests Test 03/21/17 08:00 03/24/17 13:14 Urine Color YELLOW Urine Turbidity CLEAR Urine pH 5.5 Urine Specific [place] 1.015 Urine Protein 30 mg/dL Urine Glucose (UA) NEG mg/dL Urine Ketones NEG mg/dL Urine Occult Blood MOD Urine Nitrite NEG Urine Bilirubin NEG Urine Urobilinogen LESS THAN 2.0 MG/DL Urine Leukocyte Esterase SMALL Urine RBC 148 /hpf Urine WBC 4 /hpf Urine Squamous Epithelial Cells 2 /hpf Urine Bacteria RARE /hpf Urine Granular Casts 1 /lpf Microscopic Urinalysis Comment CULT NOT INDICATED White Blood Count 6.5 TH/MM3 Red Blood Count 3.80 MIL/MM3 Hemoglobin 11.8 GM/DL Hematocrit 35.2 % Mean Corpuscular Volume 92.7 FL Mean Corpuscular Hemoglobin 31.1 PG Mean Corpuscular Hemoglobin Concent 33.6 % Red Cell Distribution Width 14.1 % Platelet Count 302 TH/MM3 Mean Platelet Volume 9.7 FL Neutrophils (%) (Auto) 54.8 % Lymphocytes (%) (Auto) 32.7 % Monocytes (%) (Auto) 8.3 % Eosinophils (%) (Auto) 3.5 % Basophils (%) (Auto) 0.7 % Neutrophils # (Auto) 3.6 TH/MM3 Lymphocytes # (Auto) 2.1 TH/MM3 Monocytes # (Auto) 0.5 TH/MM3 Eosinophils # (Auto) 0.2 TH/MM3 Basophils # (Auto) 0.0 TH/MM3 CBC Comment DIFF FINAL Differential Comment Blood Urea Nitrogen 32 MG/DL Creatinine 1.92 MG/DL Random Glucose 89 MG/DL Total Protein 6.1 GM/DL Albumin 2.9 GM/DL Calcium Level 8.3 MG/DL Phosphorus Level 1.8 MG/DL Magnesium Level 1.7 MG/DL Alkaline Phosphatase 66 U/L Aspartate Amino Transf (AST/SGOT) 22 U/L Alanine Aminotransferase (ALT/SGPT) 15 U/L Total Bilirubin 0.2 MG/DL Sodium Level 142 MEQ/L Potassium Level 5.0 MEQ/L Chloride Level 115 MEQ/L Carbon Dioxide Level 21.2 MEQ/L Anion Gap 6 MEQ/L Estimat Glomerular Filtration Rate 27 ML/MIN Radiology Last Impressions Upper GI Series 03/21/17 0000 Signed Impressions: Service Date/Time: Tuesday, March 21, 2017 10:31 - CONCLUSION: Stomach demonstrates a normal appearance following gastric sleeve procedure. No obstruction or acute abnormality is identified. Davy Sifuentes MD Renal Ultrasound 03/21/17 0000 Signed Impressions: Service Date/Time: Tuesday, March 21, 2017 13:53 - CONCLUSION: 1. Cortical thinning and increased echogenicity consistent with medical renal disease. 2. Left renal calculus with posterior shadowing and no hydronephrosis. 3. The bladder is decompressed and not well-visualized. Marcelo Jiménez MD Cardiovascular: Regular Lungs: Clear Abdomen: Non-tender Extremities: Perfused A/P Assessment and Plan 56yo F hx of VSG approximately 4 weeks ago with intractable nausea and vomiting resulting in LEIGH -Ambulate the halls at least QID -Continue to monitor UOP and ileostomy output -Increase diet to soft bariatric diet, needs to stay away from breads, grains, concentrated sweets, potatoes, and harsher, tunnel drier operator foods like grilled chicken and beef -From a bariatric stand point pt is ok for discharge The exam, history, and the medical decision-making described in the above note were completed with the assistance of the mid-level provider. I reviewed and agree with the findings presented. I attest that I had a [id number] encounter with the patient on the same day, and personally performed and documented my assessment and findings in the medical record. Discharge Planning When deemed appropriate by Niles Mendez Mar 24, 2017 09:11 Sterling Burns MD Apr 21, 2017 12:34
[2017-03-24 12:00] VITALS: BP 96/65; PULSE 75; RESP 17; TEMP 96.8; O2SAT 98
[2017-03-24 13:40] LABS: AUTOMATED NEUTROPHIL # 3.6 TH/MM3 (1.8-7.7); BASOPHIL % 0.7 % (0.0-2.0); EOSINOPHIL # 0.2 TH/MM3 (0-0.4); EOSINOPHIL % 3.5 % (0.0-4.0); HEMATOCRIT 35.2 % (35.0-46.0); HEMO FLAGS DIFF FINAL; LYMPH % 32.7 % (9.0-44.0); LYMPHOCYTE # 2.1 TH/MM3 (1.0-4.8); MEAN CELL VOLUME 92.7 FL (80.0-100.0); MEAN CORPUSCULAR HEMOGLOBIN 31.1 PG (27.0-34.0); MEAN CORPUSCULAR HGB CONC 33.6 % (32.0-36.0); MONO % 8.3 % (0.0-8.0); NEUT % 54.8 % (16.0-70.0); PLATELET COUNT 302 TH/MM3 (150-450); RED CELL DISTRIBUTION WIDTH 14.1 % (11.6-17.2); WHITE BLOOD COUNT 6.5 TH/MM3 (4.0-11.0)
[2017-03-24 14:03] LABS: ALKALINE PHOSPHATASE 66 U/L (45-117); ALT (GPT) 15 U/L (10-53); ANION GAP 6 MEQ/L (5-15); AST (GOT) 22 U/L (15-37); BICARBONATE 21.2 MEQ/L (21.0-32.0); BLOOD UREA NITROGEN 32 MG/DL (7-18); CHLORIDE 115 MEQ/L (98-107); GLOMERULAR FILTRATION RATE 27 ML/MIN (>89); MAGNESIUM 1.7 MG/DL (1.5-2.5); SODIUM (NA) 142 MEQ/L (136-145); TOTAL BILIRUBIN ADULT 0.2 MG/DL (0.2-1.0)
[2017-03-24 16:00] VITALS: BP 145/59; PULSE 76; RESP 16; TEMP 97.6; O2SAT 99
--- NOTE | 2017-03-24 16:34 | HHI.PR ---
Subjective Remarks Patient denies cp/sob states has good urine output denies fevers or chills nausea improving Objective Vitals Vital Signs Date Time Temp Pulse Resp B/P (MAP) Pulse Ox O2 Delivery O2 Flow Rate FiO2 03/24/17 12:00 96.8 75 17 96/65 (75) 98 03/24/17 08:00 96.9 66 16 105/63 (77) 98 03/24/17 00:00 97.1 66 22 100/54 (69) 97 03/23/17 20:40 97.2 64 16 107/59 (75) 97 I/O 03/23/17 03/23/17 03/23/17 03/24/17 03/24/17 03/24/17 07:00 15:00 23:00 07:00 15:00 23:00 Intake Total 621 ml 653 ml 796 ml 480 ml 800 ml Output Total 500 ml 350 ml Balance 121 ml 653 ml 796 ml 130 ml 800 ml Intake Oral 480 ml 480 ml IV Total 621 ml 653 ml 316 ml 800 ml Output Urine Total 500 ml 350 ml # Voids 4 1 # Bowel Movements 4 2 Result Diagram: 03/24/17 1314 03/24/17 1314 Imaging Last Impressions Upper GI Series 03/21/17 0000 Signed Impressions: Service Date/Time: Tuesday, March 21, 2017 10:31 - CONCLUSION: Stomach demonstrates a normal appearance following gastric sleeve procedure. No obstruction or acute abnormality is identified. Davy Sifuentes MD Renal Ultrasound 03/21/17 0000 Signed Impressions: Service Date/Time: Tuesday, March 21, 2017 13:53 - CONCLUSION: 1. Cortical thinning and increased echogenicity consistent with medical renal disease. 2. Left renal calculus with posterior shadowing and no hydronephrosis. 3. The bladder is decompressed and not well-visualized. Marcelo Jiménez MD Objective Remarks GENERAL: AOX3, NAD. SKIN: Warm and dry. HEAD: Normocephalic. EYES: No scleral icterus. No injection or drainage. NECK: Supple, trachea midline. No JVD or lymphadenopathy. CARDIOVASCULAR: Regular rate and rhythm without murmurs, gallops, or rubs. RESPIRATORY: Breath sounds equal bilaterally. No accessory muscle use. GASTROINTESTINAL: Abdomen soft, non-tender, nondistended. Lap surgical sites appear well healed, no erythema. BS+ MUSCULOSKELETAL: No cyanosis, or edema. BACK: Nontender without obvious deformity. No CVA tenderness. Procedures None. Medications and IVs Current Medications Medications (Trade) Dose Ordered Sig/Espinoza Route Start Time Stop Time Status Last Admin (PROzac) 20 mg DAILY PO 03/22/17 09:00 03/24/17 08:49 (Folate) 1 mg DAILY PO 03/22/17 09:00 03/24/17 08:49 (Synthroid) 125 mcg DAILY@0600 PO 03/22/17 06:00 03/24/17 06:09 (NS Flush) 2 ml UNSCH PRN IV FLUSH 03/21/17 14:30 (NS Flush) 2 ml BID IV FLUSH 03/21/17 21:00 03/21/17 20:31 (Tylenol) 650 mg Q4H PRN PO 03/21/17 14:30 (Narcan Inj) 0.4 mg UNSCH PRN IV PUSH 03/21/17 14:30 (Maria Del Carmen-Colace) 1 tab BID PO 03/21/17 21:00 (Milk Of Magnesia Liq) 30 ml Q12H PRN PO 03/21/17 14:30 (Senokot) 17.2 mg Q12H PRN PO 03/21/17 14:30 (Dulcolax Supp) 10 mg DAILY PRN RECTAL 03/21/17 14:30 (Lactulose Liq) 30 ml DAILY PRN PO 03/21/17 14:30 (Zofran Inj) 4 mg Q6HR PRN IV PUSH 03/21/17 14:30 03/24/17 00:02 (Heparin Inj) 5,000 units Q12HR SQ 03/22/17 21:00 03/24/17 21:15 Sodium Bicarbonate 75 meq/Potassium Chloride 40 meq/ Sodium Chloride 1,095 ml @ 100 mls/hr [id number] IV 03/22/17 12:00 03/24/17 02:26 A/P Problem List: (1) Intractable nausea and vomiting ICD Code: R11.2 - Nausea with vomiting, unspecified Status: Resolved (2) Metabolic acidosis ICD Code: E87.2 - Acidosis Status: Resolved (3) LEIGH (acute kidney injury) ICD Code: N17.9 - Acute kidney failure, unspecified Status: Acute (4) Hypothyroidism ICD Code: E03.9 - Hypothyroidism, unspecified Status: Chronic (5) Ulcerative colitis ICD Code: K51.90 - Ulcerative colitis, unspecified, without complications Status: Chronic Assessment and Plan Ms. Mota is a pleasant 56 year old female with a history of ulcerative colitis and recent vertical sleeve gastrectomy (02/22/2017) who presents to the ED due to 10 day duration of intractable nausea, vomiting. She has been unable to tolerate any food or drink. ED work up indicates likely volume depletion related acute kidney injury. - Intractable nausea, vomiting - symptoms improving. - Etiology not known. Patient has a hx of Ulcerative colitis s/p ileostomy - Recent Lap sleeve gastrectomy by Dr. Ceballos on 02/22/2017 - Surgery consulted. Diet per surgery team. - Upper GI series, images indicated no obstruction or acute abnormalities. - supportive treatments with IV fluid, anti-nausea meds. - Cleared for DC by surgery. - Acute kidney injury - Metabolic acidosis - Hyponatremia - Hypophosphatemia - due to nutritional deficiency. Will give K phos x1. - Creatinine 5.64 with eGFR 8 on admission. Baseline creatinine < 1.0. - Renal US, images reviewed by me shows evidence of medical renal disease. No hydronephrosis. - 03/24 Potassium trending up - switch fluids to normal saline. DC 1/2 ns + Na bicarb + K. Creatinine continues to trend down, today 1.9. - Metabolic acidosis resolving - likely the result of dehydration. Continue IV fluids. - Hypothyroidism - continue Levothyroxine 125mcg Qday. - History of ulcerative colitis - Hx of Morbid obesity s/p gastrectomy (02/22/2017). Full code. Heparin SQ. Discharge Planning DC pending improvement of creatinine to < 1.5. Possible Dc in am. Jameson Robles MD Mar 24, 2017 16:34
[2017-03-24 20:00] VITALS: BP 124/60; PULSE 61; RESP 16; TEMP 98; O2SAT 100
[2017-03-24] MEDS ORDERED: POTASSIUM PHOSPHATE/SODIUM PHOSPHATE 250 MG TAB PO ONE (23:45)
[2017-03-24] MEDS ORDERED: SODIUM CHLOR 0.9% 1000 ML INJ 1,000 ML IV SCH (23:45)
[2017-03-25] VITALS: BP 125/63; PULSE 63; RESP 16; TEMP 98; O2SAT 99
[2017-03-25] MEDS: LEVOTHYROXINE SODIUM 125 MCG TAB PO SCH (06:21)
[2017-03-25 08:00] VITALS: BP 117/50; PULSE 66; RESP 17; TEMP 98; O2SAT 99
[2017-03-25] MEDS: FOLIC ACID 1 MG TAB PO SCH (08:42)
[2017-03-25] MEDS: FLUoxetine HCL 20 MG CAP PO SCH (08:42)
[2017-03-25] MEDS: DOCUSATE SODIUM 50 MG/SENNA 8.6 MG TAB PO SCH ×2 (08:43→21:00)
[2017-03-25] MEDS: HEPARIN SODIUM - SQ 10,000 UNITS/ML VIAL SQ SCH ×2 (08:43→21:27)
[2017-03-25] MEDS: SODIUM CHLORIDE 0.9% FLUSH 10 ML FLUSH IV FLUSH SCH ×2 (09:00→21:00)
[2017-03-25] MEDS: ONDANSETRON HCL 4 MG/2 ML VIAL IV PUSH PRN ×2 (09:37→21:26)
[2017-03-25 12:00] VITALS: BP 107/55; PULSE 64; RESP 17; TEMP 98; O2SAT 98
[2017-03-25 13:54] LABS: BICARBONATE 17.3 MEQ/L (21.0-32.0); POTASSIUM 4.9 MEQ/L (3.5-5.1)
[2017-03-25 16:00] VITALS: BP 112/59; PULSE 66; RESP 17; TEMP 97; O2SAT 100
--- NOTE | 2017-03-25 17:08 | HHI.PR ---
Subjective Remarks Patient felt nauseous and vomited twice today states nausea has resolved denies abdominal or epigastric pain Patient is requesting a regular diet Objective Vitals Vital Signs Date Time Temp Pulse Resp B/P (MAP) Pulse Ox O2 Delivery O2 Flow Rate FiO2 03/25/17 16:00 97.0 66 17 112/59 (76) 100 03/25/17 12:00 98.0 64 17 107/55 (72) 98 03/25/17 08:00 98.0 66 17 117/50 (72) 99 03/25/17 00:00 98.0 63 16 125/63 (83) 99 03/24/17 20:00 98.0 61 16 124/60 (81) 100 I/O 03/24/17 03/24/17 03/24/17 03/25/17 03/25/17 03/25/17 07:00 15:00 23:00 07:00 15:00 23:00 Intake Total 480 ml 800 ml 3450 ml 720 ml Output Total 350 ml 300 ml Balance 130 ml 800 ml 3150 ml 720 ml Intake Oral 480 ml 1450 ml 720 ml IV Total 800 ml 2000 ml Output Urine Total 350 ml 300 ml # Voids 1 3 3 # Bowel Movements 2 3 3 Result Diagram: 03/24/17 1314 03/25/17 1230 Imaging Last Impressions Upper GI Series 03/21/17 0000 Signed Impressions: Service Date/Time: Tuesday, March 21, 2017 10:31 - CONCLUSION: Stomach demonstrates a normal appearance following gastric sleeve procedure. No obstruction or acute abnormality is identified. Davy Sifuentes MD Renal Ultrasound 03/21/17 0000 Signed Impressions: Service Date/Time: Tuesday, March 21, 2017 13:53 - CONCLUSION: 1. Cortical thinning and increased echogenicity consistent with medical renal disease. 2. Left renal calculus with posterior shadowing and no hydronephrosis. 3. The bladder is decompressed and not well-visualized. Marcelo Jiménez MD Objective Remarks GENERAL: AOX3, NAD. SKIN: Warm and dry. HEAD: Normocephalic. EYES: No scleral icterus. No injection or drainage. NECK: Supple, trachea midline. No JVD or lymphadenopathy. CARDIOVASCULAR: Regular rate and rhythm without murmurs, gallops, or rubs. RESPIRATORY: Breath sounds equal bilaterally. No accessory muscle use. GASTROINTESTINAL: Abdomen soft, non-tender, nondistended. Lap surgical sites appear well healed, no erythema. BS+ MUSCULOSKELETAL: No cyanosis, or edema. BACK: Nontender without obvious deformity. No CVA tenderness. Procedures None. Medications and IVs Current Medications Medications (Trade) Dose Ordered Sig/Espinoza Route Start Time Stop Time Status Last Admin (PROzac) 20 mg DAILY PO 03/22/17 09:00 03/25/17 08:42 (Folate) 1 mg DAILY PO 03/22/17 09:00 03/25/17 08:42 (Synthroid) 125 mcg DAILY@0600 PO 03/22/17 06:00 03/25/17 06:21 (NS Flush) 2 ml UNSCH PRN IV FLUSH 03/21/17 14:30 (NS Flush) 2 ml BID IV FLUSH 03/21/17 21:00 03/21/17 20:31 (Tylenol) 650 mg Q4H PRN PO 03/21/17 14:30 (Narcan Inj) 0.4 mg UNSCH PRN IV PUSH 03/21/17 14:30 (Maria Del Carmen-Colace) 1 tab BID PO 03/21/17 21:00 (Milk Of Magnesia Liq) 30 ml Q12H PRN PO 03/21/17 14:30 (Senokot) 17.2 mg Q12H PRN PO 03/21/17 14:30 (Dulcolax Supp) 10 mg DAILY PRN RECTAL 03/21/17 14:30 (Lactulose Liq) 30 ml DAILY PRN PO 03/21/17 14:30 (Zofran Inj) 4 mg Q6HR PRN IV PUSH 03/21/17 14:30 03/25/17 09:37 (Heparin Inj) 5,000 units Q12HR SQ 03/22/17 21:00 03/25/17 08:43 Sodium Chloride 1,000 ml @ 84 mls/hr [id number] IV 03/24/17 23:45 03/25/17 11:59 Urinary Catheter: No Vascular Central Line Catheter: No A/P Problem List: (1) Intractable nausea and vomiting ICD Code: R11.2 - Nausea with vomiting, unspecified Status: Resolved (2) LEIGH (acute kidney injury) ICD Code: N17.9 - Acute kidney failure, unspecified Status: Acute (3) Hypothyroidism ICD Code: E03.9 - Hypothyroidism, unspecified Status: Chronic (4) Ulcerative colitis ICD Code: K51.90 - Ulcerative colitis, unspecified, without complications Status: Chronic (5) Hyperchloremic metabolic acidosis ICD Code: E87.2 - Acidosis Assessment and Plan Ms. Mota is a pleasant 56 year old female with a history of ulcerative colitis and recent vertical sleeve gastrectomy (02/22/2017) who presents to the ED due to 10 day duration of intractable nausea, vomiting. She has been unable to tolerate any food or drink. ED work up indicates likely volume depletion related acute kidney injury. - Intractable nausea, vomiting - symptoms improving. - Etiology not known. Patient has a hx of Ulcerative colitis s/p ileostomy - Recent Lap sleeve gastrectomy by Dr. Ceballos on 02/22/2017 - Surgery consulted. Diet per surgery team. - Upper GI series, images indicated no obstruction or acute abnormalities. - supportive treatments with IV fluid, anti-nausea meds. - Cleared for DC by surgery. - 03/26 Patient had nausea and vomiting, will start on Protonix if nausea and vomiting continues then will consult GI. - Acute kidney injury - Metabolic acidosis - Hyponatremia - Hypophosphatemia - due to nutritional deficiency. Sp K phos. - Hyperchloremic metabolic acidosis - DC NS and start Lactated Ringers. - Creatinine 5.64 with eGFR 8 on admission. Baseline creatinine < 1.0. - Renal US, images reviewed by me shows evidence of medical renal disease. No hydronephrosis. - Creatinine continues to slowly trend down 1.9 - 1.7, Continue IV fluids, monitor Bun and creatinine, avoid nephrotoxins. - Hypothyroidism - continue Levothyroxine 125mcg Qday. - History of ulcerative colitis - Hx of Morbid obesity s/p gastrectomy (02/22/2017). Full code. Heparin SQ. Discharge Planning DC pending improvement of creatinine to < 1.5. and improvement of nausea and vomiting. Poss DC in am. Jameson Robles MD Mar 25, 2017 17:08
[2017-03-25] MEDS: LACTATED RINGER'S 1000 ML INJ 1,000 ML IV SCH (17:48)
[2017-03-25] MEDS: PANTOPRAZOLE SOD 40 MG DELAYED RELEASE TAB PO SCH (17:50)
[2017-03-25 20:00] VITALS: BP 97/60; PULSE 79; RESP 18; TEMP 97.9; O2SAT 98
[2017-03-26] VITALS: BP 114/54; PULSE 71; RESP 18; TEMP 98.4; O2SAT 97
[2017-03-26] MEDS: LACTATED RINGER'S 1000 ML INJ 1,000 ML IV SCH ×2 (01:38→09:32)
[2017-03-26 04:37] VITALS: BP 97/52; PULSE 62; RESP 18; TEMP 96.9; O2SAT 97
[2017-03-26] MEDS: LEVOTHYROXINE SODIUM 125 MCG TAB PO SCH (05:40)
[2017-03-26 08:00] VITALS: BP 103/59; PULSE 66; RESP 19; TEMP 96.9; O2SAT 98
[2017-03-26] MEDS: DOCUSATE SODIUM 50 MG/SENNA 8.6 MG TAB PO SCH (08:07)
[2017-03-26] MEDS: HEPARIN SODIUM - SQ 10,000 UNITS/ML VIAL SQ SCH (08:11)
[2017-03-26] MEDS: FOLIC ACID 1 MG TAB PO SCH (08:11)
[2017-03-26] MEDS: PANTOPRAZOLE SOD 40 MG DELAYED RELEASE TAB PO SCH (08:11)
[2017-03-26] MEDS: FLUoxetine HCL 20 MG CAP PO SCH (08:11)
[2017-03-26] MEDS: SODIUM CHLORIDE 0.9% FLUSH 10 ML FLUSH IV FLUSH SCH (08:11)
[2017-03-26] MEDS ORDERED: FOLI1TAB6 PO (11:39)
[2017-03-26 11:43] LABS: BICARBONATE 18.3 MEQ/L (21.0-32.0); POTASSIUM 4.4 MEQ/L (3.5-5.1)
[2017-03-26 12:00] VITALS: BP 111/59; PULSE 61; RESP 19; TEMP 97.5; O2SAT 99
--- NOTE | 2017-03-26 12:01 | HHI.DCPOC ---
Discharge Care Plan Diagnosis: (1) Intractable nausea and vomiting (2) LEIGH (acute kidney injury) (3) Hyperchloremic metabolic acidosis (4) Hypothyroidism Goals to Promote Your Health * To prevent worsening of your condition and complications * To maintain your health at the optimal level Directions to Meet Your Goals Take your medications as prescribed Follow your dietary instruction Follow activity as directed Keep your appointments as scheduled Take your immunizations and boosters as scheduled If your symptoms worsen call your PCP, if no PCP go to Urgent Care Center or Emergency Room Smoking is Dangerous to Your Health. Avoid second hand smoke Call the 24-hour hour crisis hotline for domestic abuse at Jameson Robles MD Mar 26, 2017 12:01
--- NOTE | 2017-03-26 12:04 | HHI.DS ---
Discharge Summary Admission Date Mar 21, 2017 at 14:41 Discharge Date: Mar 26, 2017 Admitting Diagnosis intractable vomiting (1) Intractable nausea and vomiting ICD Code: R11.2 - Nausea with vomiting, unspecified Diagnosis: Principal Status: Resolved (2) LEIGH (acute kidney injury) ICD Code: N17.9 - Acute kidney failure, unspecified Diagnosis: Principal Status: Acute (3) Hyperchloremic metabolic acidosis ICD Code: E87.2 - Acidosis Diagnosis: Principal (4) Hypothyroidism ICD Code: E03.9 - Hypothyroidism, unspecified Diagnosis: Secondary Status: Chronic (5) Ulcerative colitis ICD Code: K51.90 - Ulcerative colitis, unspecified, without complications Diagnosis: Secondary Status: Chronic Procedures None. Brief History - From Admission Ms. Mota is a pleasant 56-year-old female with a recent Laparoscopic vertical sleeve gastrectomy on 02/22/2017 and history of ulcerative colitis who presents to the emergency department today due to intractable nausea and vomiting. For the past 10 days patient reports worsening nausea and vomiting and unable to eat or drink anything. Any attempt to eat or drink anything causes her to experience nausea, vomiting. She went to a previously planned trip to [place]. However, her intractable nausea, vomiting started prior to the trip. She thought her symptoms would subside and thus she went on the trip. She reports no abdominal pain, diarrhea or constipation. She does report decreased urine output and concentrated dark urine. Denies any chest pain, cough, dyspnea, fever , chills. CBC/BMP: 03/24/17 1314 03/26/17 1109 Significant Findings Laboratory Tests Test 03/24/17 13:14 03/25/17 12:30 03/26/17 11:09 Red Blood Count 3.80 MIL/MM3 (4.00-5.30) Monocytes (%) (Auto) 8.3 % (0.0-8.0) Blood Urea Nitrogen 32 MG/DL (7-18) 24 MG/DL (7-18) Creatinine 1.92 MG/DL (0.50-1.00) 1.71 MG/DL (0.50-1.00) 1.64 MG/DL (0.50-1.00) Total Protein 6.1 GM/DL (6.4-8.2) Albumin 2.9 GM/DL (3.4-5.0) Calcium Level 8.3 MG/DL (8.5-10.1) 8.4 MG/DL (8.5-10.1) 8.4 MG/DL (8.5-10.1) Phosphorus Level 1.8 MG/DL (2.5-4.9) Chloride Level 115 MEQ/L (98-107) 114 MEQ/L (98-107) 114 MEQ/L (98-107) Estimat Glomerular Filtration Rate 27 ML/MIN (>89) 31 ML/MIN (>89) 32 ML/MIN (>89) Carbon Dioxide Level 17.3 MEQ/L (21.0-32.0) 18.3 MEQ/L (21.0-32.0) Imaging Last Impressions Upper GI Series 03/21/17 0000 Signed Impressions: Service Date/Time: Tuesday, March 21, 2017 10:31 - CONCLUSION: Stomach demonstrates a normal appearance following gastric sleeve procedure. No obstruction or acute abnormality is identified. Davy Sifuentes MD Renal Ultrasound 03/21/17 0000 Signed Impressions: Service Date/Time: Tuesday, March 21, 2017 13:53 - CONCLUSION: 1. Cortical thinning and increased echogenicity consistent with medical renal disease. 2. Left renal calculus with posterior shadowing and no hydronephrosis. 3. The bladder is decompressed and not well-visualized. Marcelo Jiménez MD PE at Discharge GENERAL: AOX3, NAD. SKIN: Warm and dry. HEAD: Normocephalic. EYES: No scleral icterus. No injection or drainage. NECK: Supple, trachea midline. No JVD or lymphadenopathy. CARDIOVASCULAR: Regular rate and rhythm without murmurs, gallops, or rubs. RESPIRATORY: Breath sounds equal bilaterally. No accessory muscle use. GASTROINTESTINAL: Abdomen soft, non-tender, nondistended. Lap surgical sites appear well healed, no erythema. BS+ MUSCULOSKELETAL: No cyanosis, or edema. BACK: Nontender without obvious deformity. No CVA tenderness. Pt update on day of discharge The patient denies any nausea or vomiting. Denies diarrhea or abdominal pain. Wants to go home. Hospital Course Ms. Mota is a pleasant 56 year old female with a history of ulcerative colitis and recent vertical sleeve gastrectomy (02/22/2017) who presents to the ED due to 10 day duration of intractable nausea, vomiting. She has been unable to tolerate any food or drink. ED work up indicated likely volume depletion related acute kidney injury. The patient was admitted to the medical floor for intractable nausea and vomiting and treated with IV fluids in the form of half-normal saline with bicarbonate. The patient had a recent lab sleeve gastrectomy by Dr. Ceballos on 02/22/17. Surgery consulted. The patient was placed on clear liquid diet and a GI series did not show any obstruction or acute abnormalities. The patient's nausea and vomiting gradually started improving and the patient was advanced to a bariatric diet. I discussed the case with the surgery PA Esau mora on the day of discharge. Nausea and vomiting is secondary to diet noncompliance. The patient should be on a bariatric diet which she clearly has not been following. Indeed on 03/25 the patient concurs me to change her diet to regular. The patient was advised to continue her diet as indicated by her surgeon. The patient was cleared to be discharged by surgery. Patient's acute kidney injury slowly improved during hospitalization. On admission patient's creatinine was 5.64 with an EGFR of 8, renal ultrasound did not show any hydronephrosis but indeed it showed some evidence of medical renal disease. Creatinine on discharge is 1.6 and is trending down with normal BUNs. Patient was also hyponatremic from hypovolemic hyponatremia which was treated with IV normal saline and resolved prior to discharge. Hypophosphatemia secondary to nutritional deficiency which was repeated orally with K-Phos. We will thyroxine at home dose was continued during hospital stay for the patient's hypothyroidism which seems to be stable. Patient also had history of ulcerative colitis, however this likely was not the problem. The patient history of morbid obesity status post gastrectomy as mentioned above. The patient was placed on heparin subcutaneously for DVT prophylaxis. The patient was advised to follow-up with her primary care physician in 2-3 days and to have a BMP retaken at that time. The patient was also encouraged to follow-up with Dr. Ceballos and apparently the patient has a regular scheduled appointment. 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 like grilled chicken and beef Activities you can perform: Regular-No Restrictions Follow up Referrals: PCP Follow-up - 1 Week Patient needs a follow up BMP Surgical - 2 Weeks with Sterling Burns MD New Medications: Ondansetron (Zofran) 4 Mg Tab 4 MG PO Q6HR PRN for NAUSEA OR VOMITING, #30 TAB 0 Refills Folic Acid (Folic Acid) 1 Mg Tablet 1 MG PO DAILY for gastric bypass, #31 TAB-CAP Continued Medications: Estradiol (Estradiol) 0.5 Mg Tab 0.5 MG PO DAILY for Estrogen Supplements, #30 TAB 0 Refills Fluoxetine (Fluoxetine) 20 Mg Tab 20 MG PO DAILY, #30 TAB 0 Refills Levothyroxine (Levothyroxine) 125 Mcg Tab 125 MCG PO DAILY for Thyroid, #30 TAB 0 Refills Discontinued Medications: Folic Acid (Folic Acid) 400 Mcg Tab 400 MCG PO DAILY for Nutritional Supplement, TAB 0 Refills Jameson Robles MD Mar 26, 2017 12:03
[2017-03-26] MEDS ORDERED: ZOFR4TAB PO (12:15)
== END 2017-03-26 12:43 | disposition home or self-care (01) | DRG 392 ==
LOC: NEPC 20:53 → NEDA 23:27 → NEDH 03-21 03:35 → NEPHCDU 03-21 04:42 → OBSVTOIN 03-21 14:41 → N07A 03-21 21:30
PROVIDERS: ADMIT Hospitalist; ATTEND Hospitalist
DX: R11.2 Nausea with vomiting, unspecified (principal); N17.9 Acute kidney failure, unspecified; E87.4 Mixed disorder of acid-base balance; K51.90 Ulcerative colitis, unspecified, without complications; E87.1 Hypo-osmolality and hyponatremia; E86.0 Dehydration; E03.9 Hypothyroidism, unspecified; Z98.84 Bariatric surgery status; Z91.11 Patient's noncompliance with dietary regimen; Z90.49 Acquired absence of other specified parts of digestive tract; Z93.2 Ileostomy status; E83.39 Other disorders of phosphorus metabolism; E66.01 Morbid (severe) obesity due to excess calories; Z68.33 Body mass index [BMI] 33.0-33.9, adult; E78.5 Hyperlipidemia, unspecified
CPT/HCPCS: 74241; 76775; 76937; 80048; 80053; 81001; 83735; 84100; 85025; 96374; G0378; J1644; J2405; J3480; J7030; J7120

== ENCOUNTER 2017-03-30 09:46 | Emergency (ER) | payer OTHER ==
[~2017-03-30] VITALS: Ht 165.1 cm; Wt 90.0 kg
[~2017-03-30 09:46] MED LIST changes: +FOLI1TAB6 PO; -FOLI400T PO; +ZOFR4TAB PO
[2017-03-30 09:49] VITALS: BP 126/56; PULSE 68; RESP 18; TEMP 98.4; O2SAT 99
[2017-03-30] MEDS ORDERED: SODIUM CHLOR 0.9% 1000 ML INJ 1,000 ML IV SCH (10:07)
[2017-03-30 10:08] VITALS: O2SAT 99
[2017-03-30] MEDS ORDERED: SODIUM CHLORIDE 0.9% FLUSH 10 ML FLUSH IV FLUSH PRN (10:15)
--- NOTE | 2017-03-30 10:36 | PD ---
HPI Chief Complaint: Complaint Time Seen by Provider: 10:06 Travel History International Travel<30 days: Yes Contact w/Intl Traveler<30days: Yes Name of Country Traveled to: [place] Traveled to known affect area: Yes History of Present Illness HPI 56-year-old female patient with history of ulcerative colitis, previous multiple bowel resections, previous renal failure secondary dehydration, recent admission for intractable vomiting, presents to the ER today because of decreased urination for the last 2 days. She states that she has been trying to even drink but has been having intermittent vomiting and only had small amounts urine. She denies any fevers, chest pains, shortness of breath, or any other symptoms. Modifying Factors: None Associated Signs & Symptoms: Intermittent nausea, vomiting, decreased urination Risk Factors: Recent renal issues, dehydration PFSH Past Medical History Arthritis: Yes Asthma: No Autoimmune Disease: No Anxiety: No Depression: Yes (zoloft for 6 yrs) Heart Rhythm Problems: No Cancer: No Cardiovascular Problems: Yes High Cholesterol: No Chemotherapy: No Chest Pain: No Congestive Heart Failure: No COPD: No Cerebrovascular Accident: No Diabetes: No Diminished Hearing: No Endocrine: Yes Gastrointestinal Disorders: Yes (ibs, ulcerative colitis) GERD: Yes (gerd) Genitourinary: Yes Hepatitis: No Hiatal Hernia: No Immune Disorder: No Implanted Vascular Access Dvce: Yes Kidney Stones: Yes Medical other: Yes (ulcerative colitis) Musculoskeletal: Yes (gout, rt tibial frax) Neurologic: Yes (head trauma) Psychiatric: Yes Reproductive: No Respiratory: No Migraines: No Radiation Therapy: No Renal Failure: No Seizures: No Sickle Cell Disease: No Sleep Apnea: No Thyroid Disease: Yes (hypothyroidism) Ulcer: Yes Tetanus Vaccination: < 5 Years ?: Not Past Surgical History Abdominal Surgery: Yes (BCIR procedure, multiple surgeries x26 kock pouch with revision and reversa) AICD: No Arteriovenous Shunt: No Body Medical Devices: GASTRIC SLEEVE Cardiac Surgery: No Ear Surgery: No Endocrine Surgery: No Eye Surgery: No Genitourinary Surgery: Yes (hx of kidney stones) Gynecologic Surgery: Yes (hysterectomy, lt breast bx) Insulin Pump: No Joint Replacement: No Oral Surgery: No Pacemaker: No Thoracic Surgery: No Other Surgery: Yes Social History Alcohol Use: No Tobacco Use: No Substance Use: No Allergies-Medications (Allergen,Severity, Reaction): Coded Allergies: red dye (Unverified Allergy, Severe, hives and hot flashes, 03/30/17) acetaminophen (Verified Adverse Reaction, Severe, Nausea/Vomiting, 03/30/17 ) Reported Meds & Prescriptions Reported Meds & Active Scripts Active Zofran (Ondansetron HCl) 4 Mg Tab 4 Mg PO Q6HR PRN Folic Acid 1 Mg Tablet 1 Mg PO DAILY Reported Fluoxetine (Fluoxetine HCl) 20 Mg Tab 20 Mg PO DAILY Levothyroxine (Levothyroxine Sodium) 125 Mcg Tab 125 Mcg PO DAILY Estradiol 0.5 Mg Tab 0.5 Mg PO DAILY Review of Systems Except as stated in HPI: all other systems reviewed are Neg Physical Exam Narrative GENERAL: Well-developed middle age female patient currently in mild distress. Awake and oriented 3. SKIN: Focused skin assessment warm/dry. HEAD: Atraumatic. Normocephalic. EYES: Pupils equal and round. No scleral icterus. No injection or drainage. ENT: No nasal bleeding or discharge. Mucous membranes pink and moist. NECK: Trachea midline. No JVD. CARDIOVASCULAR: Regular rate and rhythm. No murmur appreciated. RESPIRATORY: No accessory muscle use. Clear to auscultation. Breath sounds equal bilaterally. GASTROINTESTINAL: Abdomen soft, non-tender, nondistended. Hepatic and splenic margins not palpable. MUSCULOSKELETAL: No obvious deformities. No clubbing. No cyanosis. No edema. NEUROLOGICAL: Awake and alert. No obvious cranial nerve deficits. Motor grossly within normal limits. Normal speech. PSYCHIATRIC: Appropriate mood and affect; insight and judgment normal. Data Data Last Documented VS Vital Signs Date Time Temp Pulse Resp B/P (MAP) Pulse Ox O2 Delivery O2 Flow Rate FiO2 03/30/17 10:08 99 03/30/17 09:49 98.4 68 18 Room Air Orders Orders Complete Blood Count With Diff (03/30/17 10:07) Comprehensive Metabolic Panel (03/30/17 10:07) Urinalysis - C+S If Indicated (03/30/17 10:07) Iv Access Insert/Monitor (03/30/17 10:07) Ecg Monitoring (03/30/17 10:07) Oximetry (03/30/17 10:07) Sodium Chlor 0.9% 1000 Ml Inj (Ns 1000 M (03/30/17 10:07) Sodium Chloride 0.9% Flush (Ns Flush) (03/30/17 10:15) Urine Culture (03/30/17 10:10) Labs Laboratory Tests Test 03/30/17 10:10 White Blood Count 9.3 TH/MM3 Red Blood Count 4.28 MIL/MM3 Hemoglobin 13.4 GM/DL Hematocrit 40.4 % Mean Corpuscular Volume 94.4 FL Mean Corpuscular Hemoglobin 31.3 PG Mean Corpuscular Hemoglobin Concent 33.1 % Red Cell Distribution Width 14.3 % Platelet Count 237 TH/MM3 Mean Platelet Volume 9.1 FL Neutrophils (%) (Auto) 63.1 % Lymphocytes (%) (Auto) 26.8 % Monocytes (%) (Auto) 6.1 % Eosinophils (%) (Auto) 3.3 % Basophils (%) (Auto) 0.7 % Neutrophils # (Auto) 5.9 TH/MM3 Lymphocytes # (Auto) 2.5 TH/MM3 Monocytes # (Auto) 0.6 TH/MM3 Eosinophils # (Auto) 0.3 TH/MM3 Basophils # (Auto) 0.1 TH/MM3 CBC Comment DIFF FINAL Differential Comment Urine Color YELLOW Urine Turbidity HAZY Urine pH 5.5 Urine Specific [place] 1.020 Urine Protein 30 mg/dL Urine Glucose (UA) NEG mg/dL Urine Ketones NEG mg/dL Urine Occult Blood TRACE Urine Nitrite NEG Urine Bilirubin NEG Urine Urobilinogen LESS THAN 2.0 MG/DL Urine Leukocyte Esterase SMALL Urine RBC 2 /hpf Urine WBC 12 /hpf Urine Squamous Epithelial Cells 2 /hpf Urine Bacteria RARE /hpf Urine Hyaline Casts 13 /lpf Microscopic Urinalysis Comment CULTURE INDICATED Blood Urea Nitrogen 30 MG/DL Creatinine 2.15 MG/DL Random Glucose 93 MG/DL Total Protein 7.5 GM/DL Albumin 3.6 GM/DL Calcium Level 9.5 MG/DL Alkaline Phosphatase 102 U/L Aspartate Amino Transf (AST/SGOT) 59 U/L Alanine Aminotransferase (ALT/SGPT) 66 U/L Total Bilirubin 0.4 MG/DL Sodium Level 138 MEQ/L Potassium Level 4.4 MEQ/L Chloride Level 111 MEQ/L Carbon Dioxide Level 14.7 MEQ/L Anion Gap 12 MEQ/L Estimat Glomerular Filtration Rate 24 ML/MIN [facility] Medical Decision Making Medical Screen Exam Complete: Yes Emergency Medical Condition: Yes Medical Record Reviewed: Yes Interpretation(s) Laboratory Tests Test 03/30/17 10:10 Urine Turbidity HAZY (CLEAR) Urine Protein 30 mg/dL (NEG-TRACE) Urine Occult Blood TRACE (NEG) Urine Leukocyte Esterase SMALL (NEG) Urine WBC 12 /hpf (0-5) Urine Bacteria RARE /hpf (NONE) Blood Urea Nitrogen 30 MG/DL (7-18) Creatinine 2.15 MG/DL (0.50-1.00) Aspartate Amino Transf (AST/SGOT) 59 U/L (15-37) Alanine Aminotransferase (ALT/SGPT) 66 U/L (10-53) Chloride Level 111 MEQ/L (98-107) Carbon Dioxide Level 14.7 MEQ/L (21.0-32.0) Estimat Glomerular Filtration Rate 24 ML/MIN (>89) Differential Diagnosis Intermittent nausea and vomiting, decreased urination: Acute renal failure versus dehydration versus metabolic issues Narrative Course Abdomen is benign and I do not suspect an acute intra-abdominal process. She has not vomited since yesterday. She was able to take by mouth fluids although she has had decreased fluid intake in the last few days because of her gastric bypass, she states that she only is able to drink a few glasses of milk yesterday. Lab work shows mild elevation of creatinine of 2, up from 1.6, and she may have some underlying dehydration. IV fluids was given in the ER. Other electrolytes are not remarkable. She does have a UTI which I plan to treat. My plan would be to release her at this point with close follow-up to primary care physician for reevaluation for dehydration and renal function. Return for any worsening in vomiting, decreased by mouth intake, or new symptoms as needed. The plan has been discussed with her and she states understanding. Diagnosis Primary Impression: UTI (urinary tract infection) Additional Impression: Dehydration, mild Additional Instructions: Follow-up with your primary care physician in a few days for recheck of your kidney functions. Drink plenty of fluids. Return for any worsening in vomiting , abdominal pains, or new symptoms as needed. Take antibiotics as prescribed. Med/Other Pt SpecificInfo: Prescription(s) given Scripts Sulfamethoxazole-Trimethoprim (Bactrim DS) 800-160 Mg Tab 1 TAB PO BID for Infection, #14 TAB 0 Refills Prov: Michelle Truong MD 03/30/17 Disposition: 01 DISCHARGE HOME Condition: Stable Michelle Truong MD Mar 30, 2017 10:36
[2017-03-30 10:47] LABS: AUTOMATED NEUTROPHIL # 5.9 TH/MM3 (1.8-7.7); BASOPHIL # 0.1 TH/MM3 (0-0.2); BASOPHIL % 0.7 % (0.0-2.0); EOSINOPHIL # 0.3 TH/MM3 (0-0.4); EOSINOPHIL % 3.3 % (0.0-4.0); HEMATOCRIT 40.4 % (35.0-46.0); HEMO FLAGS DIFF FINAL; LYMPH % 26.8 % (9.0-44.0); LYMPHOCYTE # 2.5 TH/MM3 (1.0-4.8); MEAN CELL VOLUME 94.4 FL (80.0-100.0); MEAN CORPUSCULAR HEMOGLOBIN 31.3 PG (27.0-34.0); MEAN CORPUSCULAR HGB CONC 33.1 % (32.0-36.0); MONO % 6.1 % (0.0-8.0); NEUT % 63.1 % (16.0-70.0); PLATELET COUNT 237 TH/MM3 (150-450); RED BLOOD COUNT 4.28 MIL/MM3 (4.00-5.30); RED CELL DISTRIBUTION WIDTH 14.3 % (11.6-17.2); WHITE BLOOD COUNT 9.3 TH/MM3 (4.0-11.0)
[2017-03-30 10:50] LABS: BACTERIA, URINE RARE /hpf; BLOOD, URINE TRACE (NEG); COMMENT (UR) CULTURE INDICATED; CULTURE IF INDICATED CULTURE INDICATED; GLUCOSE,URINE NEG (NEG); HYALINE CAST, URINE 13 /lpf (RARE); KETONE, URINE NEG (NEG); NITRITE,URINE NEG (NEG); PH, URINE 5.5 (5.0-8.5); SQUAMOUS EPITHELIAL CELL URINE 2 /hpf (0-5); URINE COLOR YELLOW (YELLW/STRAW)
[2017-03-30 11:05] LABS: ANION GAP 12 MEQ/L (5-15); AST (GOT) 59 U/L (15-37); BICARBONATE 14.7 MEQ/L (21.0-32.0); BLOOD UREA NITROGEN 30 MG/DL (7-18); CHLORIDE 111 MEQ/L (98-107); GLOMERULAR FILTRATION RATE 24 ML/MIN (>89); POTASSIUM 4.4 MEQ/L (3.5-5.1); SODIUM (NA) 138 MEQ/L (136-145)
[2017-03-30 11:07] LABS: ALKALINE PHOSPHATASE 102 U/L (45-117); ALT (GPT) 66 U/L (10-53); TOTAL BILIRUBIN ADULT 0.4 MG/DL (0.2-1.0)
[2017-03-30] MEDS ORDERED: BACT800T5 PO (11:41)
== END 2017-03-30 12:54 | disposition home or self-care (01) ==
LOC: NEPC 09:46
DX: N39.0 Urinary tract infection, site not specified (principal); B96.89 Other specified bacterial agents as the cause of diseases classified elsewhere; E86.0 Dehydration; E03.9 Hypothyroidism, unspecified; F32.9 Major depressive disorder, single episode, unspecified; Z79.899 Other long term (current) drug therapy
CPT/HCPCS: 80053; 81001; 85025; 87086; 99284; J7030

== ENCOUNTER 2017-05-05 16:08 | Observation (INO) | payer OTHER ==
[~2017-05-05] VITALS: Ht 165.1 cm; Wt 82.0 kg
[~2017-05-05 16:08] MED LIST changes: +BACT800T5 PO
[2017-05-05 16:09] VITALS: BP 103/61; PULSE 75; RESP 14; TEMP 97.9; O2SAT 99
[2017-05-05] MEDS ORDERED: ONDANSETRON HCL 4 MG/2 ML VIAL IV PUSH ONE (18:00)
--- NOTE | 2017-05-05 18:33 | RADRPT ---
EXAM DATE/TIME: 05/05/2017 18:20 [facility] COMPARISON: CHEST SINGLE AP, April 15, 2015, 15:56. INDICATIONS : Shortness of breath. MEDICAL HISTORY : None. SURGICAL HISTORY : None. ENCOUNTER: Initial ACUITY: 1 week PAIN SCORE: 5/10 LOCATION: chest FINDINGS: A single view of the chest demonstrates the lungs to be symmetrically aerated without evidence of mas s, infiltrate or effusion. The cardiomediastinal contours are unremarkable. Osseous structures are intact. CONCLUSION: No acute disease. Edy Jenkins Jr., MD on May 05, 2017 at 18:31 Board Certified Radiologist. This report was verified electronically.
[2017-05-05 19:38] VITALS: PULSE 68; RESP 18
[2017-05-05 20:25] LABS: BACTERIA, URINE OCC /hpf; BLOOD, URINE SMALL (NEG); CALCIUM OXALATE CRYSTALS,URINE MANY /hpf; COMMENT (UR) CULTURE INDICATED; CULTURE IF INDICATED CULTURE INDICATED; GLUCOSE,URINE NEG (NEG); HYALINE CAST, URINE 11 /lpf (RARE); KETONE, URINE NEG (NEG); MUCUS URINE FEW /lpf (OCC); NITRITE,URINE NEG (NEG); SQUAMOUS EPITHELIAL CELL URINE 2 /hpf (0-5); TRANSITIONAL EPI CELLS, URINE 3 /hpf; URINE COLOR YELLOW (YELLW/STRAW)
--- NOTE | 2017-05-05 20:31 | PD ---
HPI Chief Complaint: Medical Clearance Time Seen by Provider: 17:35 Travel History International Travel<30 days: No Contact w/Intl Traveler<30days: No Traveled to known affect area: No History of Present Illness HPI 56-year-old female that presents to the ED for evaluation of possible kidney failure. Per patient she was seen by Dr. Martinez yesterday and had a work done today and was told that if the ball was abnormal she was to come here to the ED. She was told today telling her that her blood work was abnormal. Apparently Dr. Martinez is concerned about her on and off kidney dysfunction. She continues to go from mild kidney injury to chronic kidney disease stage IV. She has been having some nausea and vomiting which is chronic for her as she does have a history gastroparesis. She's not been able to keep much down and has had some nausea and vomiting for the past 2 days that has progressively worsened. The bili to this because of the dehydration but Dr. Martinez was concerned about other disease happening and wanted more testing done. She was told to come here to get admitted for evaluation by Dr. Martinez. She denies any pain at this time. She does state having some nausea. Per patient suffered from work well for her. She denies any urinary or bowel movement issues. PFSH Past Medical History Arthritis: Yes Asthma: No Autoimmune Disease: No Anxiety: No Depression: Yes (zoloft for 6 yrs) Heart Rhythm Problems: No Cancer: No Cardiovascular Problems: Yes High Cholesterol: No Chemotherapy: No Chest Pain: No Congestive Heart Failure: No COPD: No Cerebrovascular Accident: No Diabetes: No Diminished Hearing: No Endocrine: Yes Gastrointestinal Disorders: Yes (ibs, ulcerative colitis) GERD: Yes (gerd) Genitourinary: Yes Hepatitis: No Hiatal Hernia: No Immune Disorder: No Implanted Vascular Access Dvce: Yes Kidney Stones: Yes Medical other: Yes (ulcerative colitis) Musculoskeletal: Yes (gout, rt tibial frax) Neurologic: Yes (head trauma) Psychiatric: Yes Reproductive: No Respiratory: No Migraines: No Radiation Therapy: No Renal Failure: Yes Seizures: No Sickle Cell Disease: No Sleep Apnea: No Thyroid Disease: Yes (hypothyroidism) Ulcer: Yes ?: Not Past Surgical History Abdominal Surgery: Yes (BCIR procedure, multiple surgeries x26 kock pouch with revision and reversa) AICD: No Arteriovenous Shunt: No Body Medical Devices: GASTRIC SLEEVE Cardiac Surgery: No Ear Surgery: No Endocrine Surgery: No Eye Surgery: No Genitourinary Surgery: Yes (hx of kidney stones) Gynecologic Surgery: Yes (hysterectomy, lt breast bx) Insulin Pump: No Joint Replacement: No Oral Surgery: No Pacemaker: No Thoracic Surgery: No Other Surgery: Yes Social History Alcohol Use: No Tobacco Use: No Substance Use: No Allergies-Medications (Allergen,Severity, Reaction): Coded Allergies: red dye (Unverified Allergy, Severe, hives and hot flashes, 03/30/17) acetaminophen (Verified Adverse Reaction, Severe, Nausea/Vomiting, 03/30/17 ) Reported Meds & Prescriptions Reported Meds & Active Scripts Active Zofran (Ondansetron HCl) 4 Mg Tab 4 Mg PO Q6HR PRN Folic Acid 1 Mg Tablet 1 Mg PO DAILY Reported Fluoxetine (Fluoxetine HCl) 20 Mg Tab 20 Mg PO DAILY Levothyroxine (Levothyroxine Sodium) 125 Mcg Tab 125 Mcg PO DAILY Estradiol 0.5 Mg Tab 0.5 Mg PO DAILY Review of Systems Except as stated in HPI: all other systems reviewed are Neg Physical Exam Narrative GENERAL: SKIN: Warm and dry. HEAD: Atraumatic. Normocephalic. EYES: Pupils equal and round. No scleral icterus. No injection or drainage. ENT: No nasal bleeding or discharge. Mucous membranes pink and moist. Tongue is midline. No uvula deviation. NECK: Trachea midline. No JVD. CARDIOVASCULAR: Regular rate and rhythm. No murmurs, S3, S4. RESPIRATORY: No accessory muscle use. Clear to auscultation. Breath sounds equal bilaterally. GASTROINTESTINAL: Abdomen soft, non-tender, nondistended. Hepatic and splenic margins not palpable. MUSCULOSKELETAL: Extremities without clubbing, cyanosis, or edema. No obvious deformities. Full range of motion of the upper and lower extremities bilaterally. 2+ pulses bilaterally. No CVA tenderness. NEUROLOGICAL: Awake and alert. No obvious cranial nerve deficits. Motor grossly within normal limits. Five out of 5 muscle strength in the arms and legs. Normal speech. PSYCHIATRIC: Appropriate mood and affect; insight and judgment normal. Data Data Last Documented VS Vital Signs Date Time Temp Pulse Resp B/P (MAP) Pulse Ox O2 Delivery O2 Flow Rate FiO2 05/05/17 19:38 68 18 05/05/17 16:09 97.9 99 Room Air Orders Orders Electrocardiogram (05/05/17 17:46) Complete Blood Count With Diff (05/05/17 17:46) Comprehensive Metabolic Panel (05/05/17 17:46) B-Type Natriuretic Peptide (05/05/17 17:46) Magnesium (Mg) (05/05/17 17:46) Thyroid Stimulating Hormone (05/05/17 17:46) Chest, Single Ap (05/05/17 17:46) Iv Access Insert/Monitor (05/05/17 17:46) Ondansetron Inj (Zofran Inj) (05/05/17 18:00) Vascular Poc Ultrasound (05/05/17 ) Urinalysis - C+S If Indicated (05/05/17 20:08) Urine Culture (05/05/17 20:03) Vascular Access Team Consult/P PRN (05/05/17 20:56) Admit Order (Ed Use Only) (05/05/17 22:21) Consult Nephrology (05/05/17 ) Vital Signs (Adult) Q4H (05/05/17 22:21) Diet Renal (05/06/17 Breakfast) Activity Bed Rest (05/05/17 22:21) Notify Dr: Other (05/05/17 22:21) Labs Laboratory Tests Test 05/05/17 20:03 05/05/17 21:00 Urine Color YELLOW Urine Turbidity HAZY Urine pH 6.0 Urine Specific [place] 1.021 Urine Protein 100 mg/dL Urine Glucose (UA) NEG mg/dL Urine Ketones NEG mg/dL Urine Occult Blood SMALL Urine Nitrite NEG Urine Bilirubin NEG Urine Urobilinogen LESS THAN 2.0 MG/DL Urine Leukocyte Esterase LARGE Urine RBC 15 /hpf Urine WBC /hpf Urine WBC Clumps RARE Urine Squamous Epithelial Cells 2 /hpf Urine Transitional Epithelial Cells 3 /hpf Urine Calcium Oxalate Crystals MANY /hpf Urine Amorphous Sediment RARE Urine Bacteria OCC /hpf Urine Hyaline Casts 11 /lpf Urine Mucus FEW /lpf Microscopic Urinalysis Comment CULTURE INDICATED White Blood Count 7.7 TH/MM3 Red Blood Count 4.33 MIL/MM3 Hemoglobin 13.7 GM/DL Hematocrit 40.2 % Mean Corpuscular Volume 92.8 FL Mean Corpuscular Hemoglobin 31.7 PG Mean Corpuscular Hemoglobin Concent 34.2 % Red Cell Distribution Width 14.2 % Platelet Count 326 TH/MM3 Mean Platelet Volume 8.9 FL Neutrophils (%) (Auto) 43.8 % Lymphocytes (%) (Auto) 44.9 % Monocytes (%) (Auto) 7.7 % Eosinophils (%) (Auto) 2.9 % Basophils (%) (Auto) 0.7 % Neutrophils # (Auto) 3.4 TH/MM3 Lymphocytes # (Auto) 3.5 TH/MM3 Monocytes # (Auto) 0.6 TH/MM3 Eosinophils # (Auto) 0.2 TH/MM3 Basophils # (Auto) 0.1 TH/MM3 CBC Comment DIFF FINAL Differential Comment Blood Urea Nitrogen 41 MG/DL Creatinine 2.93 MG/DL Random Glucose 88 MG/DL Total Protein 7.7 GM/DL Albumin 3.8 GM/DL Calcium Level 9.5 MG/DL Magnesium Level 2.2 MG/DL Alkaline Phosphatase 100 U/L Aspartate Amino Transf (AST/SGOT) 23 U/L Alanine Aminotransferase (ALT/SGPT) 22 U/L Total Bilirubin 0.4 MG/DL Sodium Level 136 MEQ/L Potassium Level 4.3 MEQ/L Chloride Level 110 MEQ/L Carbon Dioxide Level 14.3 MEQ/L Anion Gap 12 MEQ/L Estimat Glomerular Filtration Rate 17 ML/MIN B-Type Natriuretic Peptide 9 PG/ML Thyroid Stimulating Hormone 3rd Gen 9.530 uIU/ML MDM Medical Decision Making Medical Screen Exam Complete: Yes Emergency Medical Condition: Yes Medical Record Reviewed: Yes Interpretation(s) CBC & BMP Diagram 05/05/17 21:00 Total Protein 7.7, Albumin 3.8 #, Calcium Level 9.5, Magnesium Level 2.2, Alkaline Phosphatase 100, Aspartate Amino Transf (AST/SGOT) 23, Alanine Aminotransferase (ALT/SGPT) 22, Total Bilirubin 0.4 UA shows UTI Differential Diagnosis Kidney injury versus chronic kidney disease versus UTI versus dehydration versus kidney failure Narrative Course 56-year-old female that presents to the ED for evaluation of possible acute kidney injury. Labs were ordered. Patient had blood work done today and there is records that showed that the patient's skin function did worsen in the past 2 weeks. She does appear to be somewhat dehydrated. She will be given IV fluids and labs will be ordered here. Per patient she was sent by Dr. Martinez for admission. Cannot get in touch with Dr. Martinez. Labs and imaging discharged her worsening kidney function. Appears to be acute on chronic. Unclear as to the cause of it. Patient also has UTI. She was given ceftriaxone fluids here. Case discussed with Dr. Garcia who agrees to admission for AND consult to Dr. Martinez was placed by me. Diagnosis Primary Impression: LEIGH (acute kidney injury) Additional Impression: UTI (urinary tract infection) Qualified Codes: N30.01 - Acute cystitis with hematuria Admitting Information Admitting Physician Requests: Ehsan Irwin May 05, 2017 20:31
[2017-05-05 21:27] LABS: AUTOMATED NEUTROPHIL # 3.4 TH/MM3 (1.8-7.7); BASOPHIL # 0.1 TH/MM3 (0-0.2); BASOPHIL % 0.7 % (0.0-2.0); EOSINOPHIL # 0.2 TH/MM3 (0-0.4); EOSINOPHIL % 2.9 % (0.0-4.0); HEMATOCRIT 40.2 % (35.0-46.0); HEMO FLAGS DIFF FINAL; LYMPH % 44.9 % (9.0-44.0); LYMPHOCYTE # 3.5 TH/MM3 (1.0-4.8); MEAN CELL VOLUME 92.8 FL (80.0-100.0); MEAN CORPUSCULAR HEMOGLOBIN 31.7 PG (27.0-34.0); MEAN CORPUSCULAR HGB CONC 34.2 % (32.0-36.0); MONO % 7.7 % (0.0-8.0); NEUT % 43.8 % (16.0-70.0); PLATELET COUNT 326 TH/MM3 (150-450); RED BLOOD COUNT 4.33 MIL/MM3 (4.00-5.30); RED CELL DISTRIBUTION WIDTH 14.2 % (11.6-17.2); WHITE BLOOD COUNT 7.7 TH/MM3 (4.0-11.0)
[2017-05-05 21:54] LABS: ALT (GPT) 22 U/L (10-53); ANION GAP 12 MEQ/L (5-15); AST (GOT) 23 U/L (15-37); BICARBONATE 14.3 MEQ/L (21.0-32.0); BLOOD UREA NITROGEN 41 MG/DL (7-18); CHLORIDE 110 MEQ/L (98-107); GLOMERULAR FILTRATION RATE 17 ML/MIN (>89); MAGNESIUM 2.2 MG/DL (1.5-2.5); SODIUM (NA) 136 MEQ/L (136-145)
[2017-05-05 21:55] LABS: POTASSIUM 4.3 MEQ/L (3.5-5.1)
[2017-05-05 22:06] LABS: ALKALINE PHOSPHATASE 100 U/L (45-117); TOTAL BILIRUBIN ADULT 0.4 MG/DL (0.2-1.0)
[2017-05-05] MEDS ORDERED: SODIUM CHLOR 0.9% 1000 ML INJ 1,000 ML IV SCH (22:24)
[2017-05-05] MEDS ORDERED: NALOXONE HCL 0.4 MG/ML AMP IV PUSH PRN (22:30)
[2017-05-05] MEDS ORDERED: SODIUM CHLORIDE 0.9% FLUSH 10 ML FLUSH IV FLUSH PRN (22:30)
[2017-05-06 01:11] VITALS: BP 102/56; PULSE 59; RESP 18; TEMP 98.2; O2SAT 99
[2017-05-06 03:05] VITALS: BP 100/53; PULSE 59; RESP 18; TEMP 98; O2SAT 100
--- NOTE | 2017-05-06 03:31 | HHI.HP ---
[facility]Staff Ad[facility] Diagnosis acute on chronic kidney injury, UTI Diagnoses: Chief Complaint: dehydrated Travel History International Travel<30 Days: Yes (three months ago traveled to [place]) Contact w/Intl Traveler <30 Da: [place] Country Traveled to: [place] Traveled to Known Affected Are: No History of Present Illness Written by Nazario Hamm acting as scribe for [Jose] on 05/06/17 at 03: 28. 56 y/o female with a history of ckd, hypothyroid, and depression, was sent to the ED from Dr. Martinez office for evaluation of elevated kidney function. Patient states she feels dehydrated and has not been taking in enough liquids or food. She states this has been going on since her gastric sleeve surgery in January. She states since her surgery she does have daily nausea and vomits 1-2 times a day. She states Dr. Martinez also wanted her to see a GI specialist and be ruled out for h pylori. She denies any fever, chill, chest pain, or dysuria. She does complain of intermittent shortness of breath, and concentrated urine. Review of Systems Except as stated in HPI: all other systems reviewed are Neg Past Family Social History Past Medical History CKD Hypothyroid Depression Past Surgical History Ileostomy Gastric sleeve 26 GI and abdominal surgeries Hysterectomy Knee repair Wrist repair Reported Medications Reported Meds & Active Scripts Active Zofran (Ondansetron HCl) 4 Mg Tab 4 Mg PO Q6HR PRN Folic Acid 1 Mg Tablet 1 Mg PO DAILY Reported Fluoxetine (Fluoxetine HCl) 20 Mg Tab 20 Mg PO DAILY Levothyroxine (Levothyroxine Sodium) 125 Mcg Tab 125 Mcg PO DAILY Estradiol 0.5 Mg Tab 0.5 Mg PO DAILY Allergies: Coded Allergies: red dye (Unverified Allergy, Severe, hives and hot flashes, 03/30/17) acetaminophen (Verified Adverse Reaction, Severe, Nausea/Vomiting, 03/30/17 ) Active Ordered Medications Current Medications Medications (Trade) Dose Ordered Sig/Espinoza Route Start Time Stop Time Status Last Admin Sodium Chloride 1,000 ml @ 100 mls/hr Q10H IV 05/05/17 22:24 05/05/17 22:51 (NS Flush) 2 ml UNSCH PRN IV FLUSH 05/05/17 22:30 (NS Flush) 2 ml BID IV FLUSH 05/06/17 09:00 (Narcan Inj) 0.4 mg UNSCH PRN IV PUSH 05/05/17 22:30 Family History Mom and grandfather: Kidney disease Social History Denies any tobacco, alcohol or illicit drug use. Physical Exam Vital Signs Vital Signs Date Time Temp Pulse Resp B/P (MAP) Pulse Ox O2 Delivery O2 Flow Rate FiO2 05/06/17 03:05 98.0 59 18 100/53 (69) 100 05/06/17 01:11 98.2 59 18 102/56 (71) 99 05/05/17 19:38 68 18 05/05/17 17:23 70 18 05/05/17 16:09 97.9 75 14 103/61 (75) 99 Room Air Physical Exam GENERAL: This is a well-nourished, obese patient, in NAD. SKIN: No rashes, ecchymoses or lesions. Cool and dry. HEAD: Atraumatic. Normocephalic. EYES: Pupils equal round and reactive. ENT: Nose without bleeding, purulent drainage or septal hematoma. Airway patent. NECK: Trachea midline. No JVD or lymphadenopathy. CARDIOVASCULAR: Regular rate and rhythm without murmurs, gallops, or rubs. RESPIRATORY: Clear to auscultation. Breath sounds equal bilaterally. No wheezes , rales, or rhonchi. GASTROINTESTINAL: Abdomen soft, non-tender, nondistended. No guarding. Left lower quadrant ileostomy conduit. MUSCULOSKELETAL: Extremities without clubbing, cyanosis, or edema. No joint tenderness, effusion, or edema noted. No calf tenderness. NEUROLOGICAL: Awake and alert. Motor and sensory grossly within normal limits. Normal speech. Laboratory Laboratory Tests Test 05/05/17 20:03 05/05/17 21:00 Urine Color YELLOW Urine Turbidity HAZY Urine pH 6.0 Urine Specific [place] 1.021 Urine Protein 100 Urine Glucose (UA) NEG Urine Ketones NEG Urine Occult Blood SMALL Urine Nitrite NEG Urine Bilirubin NEG Urine Urobilinogen LESS THAN 2.0 Urine Leukocyte Esterase LARGE Urine RBC 15 Urine WBC Urine WBC Clumps RARE Urine Squamous Epithelial Cells 2 Urine Transitional Epithelial Cells 3 Urine Calcium Oxalate Crystals MANY Urine Amorphous Sediment RARE Urine Bacteria OCC Urine Hyaline Casts 11 Urine Mucus FEW Microscopic Urinalysis Comment CULTURE INDICATED White Blood Count 7.7 Red Blood Count 4.33 Hemoglobin 13.7 Hematocrit 40.2 Mean Corpuscular Volume 92.8 Mean Corpuscular Hemoglobin 31.7 Mean Corpuscular Hemoglobin Concent 34.2 Red Cell Distribution Width 14.2 Platelet Count 326 Mean Platelet Volume 8.9 Neutrophils (%) (Auto) 43.8 Lymphocytes (%) (Auto) 44.9 Monocytes (%) (Auto) 7.7 Eosinophils (%) (Auto) 2.9 Basophils (%) (Auto) 0.7 Neutrophils # (Auto) 3.4 Lymphocytes # (Auto) 3.5 Monocytes # (Auto) 0.6 Eosinophils # (Auto) 0.2 Basophils # (Auto) 0.1 CBC Comment DIFF FINAL Differential Comment Blood Urea Nitrogen 41 Creatinine 2.93 Random Glucose 88 Total Protein 7.7 Albumin 3.8 Calcium Level 9.5 Magnesium Level 2.2 Alkaline Phosphatase 100 Aspartate Amino Transf (AST/SGOT) 23 Alanine Aminotransferase (ALT/SGPT) 22 Total Bilirubin 0.4 Sodium Level 136 Potassium Level 4.3 Chloride Level 110 Carbon Dioxide Level 14.3 Anion Gap 12 Estimat Glomerular Filtration Rate 17 B-Type Natriuretic Peptide 9 Thyroid Stimulating Hormone 3rd Gen 9.530 Date/Time Source Procedure Growth Status 05/05/17 20:03 Urine Random Urine Urine Culture Pending Received Result Diagram: 05/05/17 2100 05/05/17 2100 Imaging Last Impressions Chest X-Ray 05/05/17 1746 Signed Impressions: Service Date/Time: Friday, May 05, 2017 18:20 - CONCLUSION: No acute disease. MD Kezia Waldron Jr.i VTE Risk Assessment Caprini VTE Risk Assessment: Mod/High Risk (score >= 2) Caprini Risk Assessment Model Point Value = 1 Point Value = 2 Point Value = 3 Point Value = 5 Age 41-60 Minor surgery BMI > 25 kg/m2 Swollen legs Varicose veins or History of unexplained or recurrent spontaneous Oral contraceptives or hormone replacement Sepsis (< 1 month) Serious lung disease, including pneumonia (< 1 month) Abnormal pulmonary function Acute myocardial infarction Congestive heart failure (< 1 month) History of inflammatory bowel disease Medical patient at bed rest Age 61-74 Arthroscopic surgery Major open surgery (> 45 min) Laparoscopic surgery (> 45 min) Malignancy Confined to bed (> 72 hours) Immobilizing plaster cast Central venous access Age >= 75 History of VTE Family history of VTE Factor V Leiden Prothrombin [id number] Lupus anticoagulant Anticardiolipin antibodies Elevated serum homocysteine Heparin-induced thrombocytopenia Other congenital or acquired thrombophilia Stroke (< 1 month) Elective arthroplasty Hip, pelvis, or leg fracture Acute spinal cord injury (< 1 month) Prophylaxis Regimen Total Risk Factor Score Risk Level Prophylaxis Regimen 0-1 Low Early ambulation 2 Moderate Order ONE of the following: *Sequential Compression Device (SCD) *Heparin 5000 units SQ BID 3-4 Higher Order ONE of the following medications: *Heparin 5000 units SQ TID *Enoxaparin/Lovenox 40 mg SQ daily (WT < 150 kg, CrCl > 30 mL/min) *Enoxaparin/Lovenox 30 mg SQ daily (WT < 150 kg, CrCl > 10-29 mL/min) *Enoxaparin/Lovenox 30 mg SQ BID (WT < 150 kg, CrCl > 30 mL/min) AND/OR *Sequential Compression Device (SCD) 5 or more Highest Order ONE of the following medications: *Heparin 5000 units SQ TID (Preferred with Epidurals) *Enoxaparin/Lovenox 40 mg SQ daily (WT < 150 kg, CrCl > 30 mL/min) *Enoxaparin/Lovenox 30 mg SQ daily (WT < 150 kg, CrCl > 10-29 mL/min) *Enoxaparin/Lovenox 30 mg SQ BID (WT < 150 kg, CrCl > 30 mL/min) AND *Sequential Compression Device (SCD) Assessment and Plan Problem List: (1) Asymptomatic bacteriuria ICD Code: R82.71 - Bacteriuria (2) LEIGH (acute kidney injury) ICD Code: N17.9 - Acute kidney failure, unspecified Status: Acute Assessment and Plan 56 y/o female with a history of ckd, hypothyroid, and depression, was sent to the ED from Dr. Martinez office for evaluation of elevated kidney function. Acute kidney injury on chronic kidney disease suspected due to dehydration related to malabsorption from ileostomy and gastric sleeve Creatine 2.9, baseline around 1.6 -Consult nephrology for recommendations, Dr Gambino will follow -Consult GI for recommendations -H pylori stool antigian ordered -IVF for hydration -Avoid nephrotoxins -If needed will consult general surgery to evaluate gastric sleeve, Dr. Ceballos is patients surgeon Asymptomatic bacteriuria, patient denies dysuria, or fevers, no leukocytosis UA shows large leukocyte esterase and occult blood -Urine culture pending -Hold antibiotics for now DVT prophylaxis: SCDs Discussed Condition With Patient and ED physician Kerri Sauceda May 06, 2017 03:31
--- NOTE | 2017-05-06 05:16 | EKG ---
Date Performed: 05/05/2017 Time Performed: 20:37:17 PTAGE: 56 years EKG: Baseline artifact present Sinus rhythm NONSPECIFIC ST & T-WAVE ABNORMALITY BORDERLINE ECG Would repeat EKG DOCTOR: Freddy Cabral Interpretating Date/Time 05/06/2017 05:14:25
[2017-05-06] MEDS ORDERED: SENNOSIDES 8.6 MG TAB PO PRN (06:15)
[2017-05-06] MEDS ORDERED: LACTULOSE SYRUP 20 GM/30 ML CUP PO PRN (06:15)
[2017-05-06] MEDS ORDERED: BISACODYL 10 MG SUPP RECTAL PRN (06:15)
[2017-05-06] MEDS ORDERED: PILL SPLITTER OTHER PRN (06:45)
[2017-05-06 06:54] LABS: AUTOMATED NEUTROPHIL # 3.3 TH/MM3 (1.8-7.7); BASOPHIL % 0.5 % (0.0-2.0); EOSINOPHIL # 0.3 TH/MM3 (0-0.4); EOSINOPHIL % 3.7 % (0.0-4.0); HEMATOCRIT 40.5 % (35.0-46.0); HEMO FLAGS DIFF FINAL; LYMPH % 44.5 % (9.0-44.0); LYMPHOCYTE # 3.5 TH/MM3 (1.0-4.8); MEAN CELL VOLUME 94.2 FL (80.0-100.0); MEAN CORPUSCULAR HEMOGLOBIN 31.1 PG (27.0-34.0); NEUT % 42.3 % (16.0-70.0); PLATELET COUNT 304 TH/MM3 (150-450); RED CELL DISTRIBUTION WIDTH 14.3 % (11.6-17.2); WHITE BLOOD COUNT 7.8 TH/MM3 (4.0-11.0)
[2017-05-06 07:14] LABS: BICARBONATE 12.9 MEQ/L (21.0-32.0)
[2017-05-06 08:52] VITALS: BP 88/55; PULSE 62; RESP 16; TEMP 98; O2SAT 98
[2017-05-06] MEDS: DOCUSATE SODIUM 50 MG/SENNA 8.6 MG TAB PO SCH ×2 (09:00→21:15)
[2017-05-06] MEDS: SODIUM CHLORIDE 0.9% FLUSH 10 ML FLUSH IV FLUSH SCH ×2 (10:39→21:00)
[2017-05-06] MEDS: FLUoxetine HCL 20 MG CAP PO SCH (10:40)
[2017-05-06] MEDS: FOLIC ACID 1 MG TAB PO SCH (10:40)
--- NOTE | 2017-05-06 10:58 | PD.CONS ---
HPI History of Present Illness This is a 56 year old with hx h pylori, gastric sleeve 01/2017,ulcerative colitis s/p ileostomy who presented with vomiting, dehydration, and sent by bill of lading clerk for worsening kidney function. She was diagnosed with h pylori found during EGD at [facility] within the last year, she did do treatment for h pylori, otherwise the EGD was normal. She has had N/V since her surgery. She is nauseous constantly, vomits 1-2 x day. She feels the n/v is associated with certain foods and also movements, like when she stands up too fast or does fast movements. She does admit sensation of the room spinning when she moves quickly or stands up or turns her head or lays down. She was seen in ER 1 m ago and US showed sleeve functioning properly. She has been having fluctuating renal insufficiency. She has a continent ileostomy currently. Denies change in ileostomy output. Cites decreased urination. Denies abdominal pain. Has some difficulty swallowing, sensation of food getting stuck, since her gastric sleeve. (Barbie Ramos) PFSH Past Medical History CKD Hypothyroid Depression Past Surgical History Ileostomy Gastric sleeve 26 GI and abdominal surgeries Hysterectomy Knee repair Wrist repair (Barbie Ramos) Coded Allergies: red dye (Unverified Allergy, Severe, hives and hot flashes, 03/30/17) acetaminophen (Verified Adverse Reaction, Severe, Nausea/Vomiting, 03/30/17 ) Family History Mom and grandfather: Kidney disease Social History Denies any tobacco, alcohol or illicit drug use. (Barbie Ramos) Review of Systems Constitutional: DENIES: Fever Eyes: DENIES: Blurred vision Ears, nose, mouth, throat: COMPLAINS OF: Vertigo, DENIES: Hearing loss Respiratory: DENIES: Hemoptysis Cardiovascular: DENIES: Chest pain Gastrointestinal: COMPLAINS OF: Nausea, Vomiting, Difficulty Swallowing, DENIES : Abdominal pain, Black stools, Bloody stools, Constipation, Diarrhea Genitourinary: DENIES: Hematuria Musculoskeletal: DENIES: Joint Swelling Integumentary: DENIES: Jaundice Neurologic: DENIES: Abnormal gait Psychiatric: DENIES: Confusion (Barbie Ramos) GI Exam Vitals I&O Vital Signs Date Time Temp Pulse Resp B/P (MAP) Pulse Ox O2 Delivery O2 Flow Rate FiO2 05/06/17 08:52 98.0 62 16 88/55 (66) 98 05/06/17 03:05 98.0 59 18 100/53 (69) 100 05/06/17 01:11 98.2 59 18 102/56 (71) 99 05/05/17 19:38 68 18 05/05/17 17:23 70 18 05/05/17 16:09 97.9 75 14 103/61 (75) 99 Room Air I/O 05/05/17 05/05/17 05/05/17 05/06/17 05/06/17 05/06/17 07:00 15:00 23:00 07:00 15:00 23:00 Intake Total 300 ml Balance 300 ml Intake Oral 300 ml Laboratory Test 05/05/17 20:03 05/05/17 21:00 05/06/17 05:55 05/06/17 09:40 Urine Color YELLOW Urine Turbidity HAZY Urine pH 6.0 Urine Specific [place] 1.021 Urine Protein 100 mg/dL Urine Glucose (UA) NEG mg/dL Urine Ketones NEG mg/dL Urine Occult Blood SMALL Urine Nitrite NEG Urine Bilirubin NEG Urine Urobilinogen LESS THAN 2.0 MG/DL Urine Leukocyte Esterase LARGE Urine RBC 15 /hpf Urine WBC /hpf Urine WBC Clumps RARE Urine Squamous Epithelial Cells 2 /hpf Urine Transitional Epithelial Cells 3 /hpf Urine Calcium Oxalate Crystals MANY /hpf Urine Amorphous Sediment RARE Urine Bacteria OCC /hpf Urine Hyaline Casts 11 /lpf Urine Mucus FEW /lpf Microscopic Urinalysis Comment CULTURE INDICATED White Blood Count 7.7 TH/MM3 7.8 TH/MM3 Red Blood Count 4.33 MIL/MM3 4.30 MIL/MM3 Hemoglobin 13.7 GM/DL 13.4 GM/DL Hematocrit 40.2 % 40.5 % Mean Corpuscular Volume 92.8 FL 94.2 FL Mean Corpuscular Hemoglobin 31.7 PG 31.1 PG Mean Corpuscular Hemoglobin Concent 34.2 % 33.0 % Red Cell Distribution Width 14.2 % 14.3 % Platelet Count 326 TH/MM3 304 TH/MM3 Mean Platelet Volume 8.9 FL 8.4 FL Neutrophils (%) (Auto) 43.8 % 42.3 % Lymphocytes (%) (Auto) 44.9 % 44.5 % Monocytes (%) (Auto) 7.7 % 9.0 % Eosinophils (%) (Auto) 2.9 % 3.7 % Basophils (%) (Auto) 0.7 % 0.5 % Neutrophils # (Auto) 3.4 TH/MM3 3.3 TH/MM3 Lymphocytes # (Auto) 3.5 TH/MM3 3.5 TH/MM3 Monocytes # (Auto) 0.6 TH/MM3 0.7 TH/MM3 Eosinophils # (Auto) 0.2 TH/MM3 0.3 TH/MM3 Basophils # (Auto) 0.1 TH/MM3 0.0 TH/MM3 CBC Comment DIFF FINAL DIFF FINAL Differential Comment Blood Urea Nitrogen 41 MG/DL 42 MG/DL Creatinine 2.93 MG/DL 2.96 MG/DL Random Glucose 88 MG/DL 81 MG/DL Total Protein 7.7 GM/DL Albumin 3.8 GM/DL Calcium Level 9.5 MG/DL 9.3 MG/DL Magnesium Level 2.2 MG/DL Alkaline Phosphatase 100 U/L Aspartate Amino Transf (AST/SGOT) 23 U/L Alanine Aminotransferase (ALT/SGPT) 22 U/L Total Bilirubin 0.4 MG/DL Sodium Level 136 MEQ/L 138 MEQ/L Potassium Level 4.3 MEQ/L 4.0 MEQ/L Chloride Level 110 MEQ/L 113 MEQ/L Carbon Dioxide Level 14.3 MEQ/L 12.9 MEQ/L Anion Gap 12 MEQ/L 12 MEQ/L Estimat Glomerular Filtration Rate 17 ML/MIN 16 ML/MIN B-Type Natriuretic Peptide 9 PG/ML Thyroid Stimulating Hormone 3rd Gen 9.530 uIU/ML Date/Time Source Procedure Growth Status 05/05/17 20:03 Urine Random Urine Urine Culture Pending Received Physical Examination HEENT: Pupils round and reactive to light; normocephalic; atraumatic; no jaundice. Throat is clear. NECK: Neck is supple, no JVD, no lymphadenopathy. CHEST: Chest is clear to auscultation and percussion. CARDIAC: Regular rate and rhythm with no murmur gallop or rubs. ABDOMEN: Soft, nondistended, nontender; no hepatosplenomegaly; bowel sounds are present in all four quadrants. EXTREMITIES: No clubbing, cyanosis, or edema. SKIN: Normal; no rash; no jaundice. ASSEMBLING MOTOR BUILDER: No focal deficits; alert and oriented times three. (Barbie Ramos) Assessment and Plan Plan ASSESSMENT - n/v - unclear etiology, has had since gastric sleeve procedure 01/2017. hx h pylori s/p tx. suspect there maybe component of vertigo based on hx obtained. will do EGD to r/o gastritis, h pylori - renal insufficiency - nephrology following PLAN - EGD tomorrow - NPO after midnight - obtain consent - if EGD neg, consider w/u for vertigo - further recs to follow This pt seen by myself and Dr Abernathy and this note is written on his behalf (Barbie Ramos) Plan Patient was seen and examined, agree with above-noted, recent sleeve surgery, nausea vomiting could be related to ulcer or stricture or just getting used to the fact that she has small stomach with sleeve, other possibility would be gastroenteritis also, we will plan on doing upper endoscopy for evaluation H and agreeable for that (Frank Abernathy MD) Barbie Ramos May 06, 2017 10:58 Frank Abernathy MD May 06, 2017 19:29
[2017-05-06] MEDS ORDERED: ONDANSETRON ODT 4 MG TAB PO ONE (11:00)
--- NOTE | 2017-05-06 11:35 | RADRPT ---
EXAM DATE/TIME: 05/06/2017 09:21 [place] COMPARISON: US KIDNEY/RENAL/BLADDER, March 21, 2017, 13:53. EXTERNAL COMPARISON : [facility], CT ABDOMEN & PELVIS W CONTRAST March 13, 2016. [facility], MRI ABDOME N W & W/O CONTRAST June 25, 2015. INDICATIONS : Increased BUN/Creatinine. MEDICAL HISTORY : Hypothyroidism. Gastroesophageal reflux disease. Renalcalculi. Ulcertive colitis. SURGICAL HISTORY : Hysterectomy. Left breast biopsy. Vertical sleeve gastrectomy. ENCOUNTER: Subsequent ACUITY: 1 day PAIN SCORE: 2/10 LOCATION: Bilateral flank MEASUREMENTS: RIGHT KIDNEY: 11.1 x 6.6 x 4.6 cm LEFT KIDNEY: 9.2 x 5.4 x 4.9 cm FINDINGS: RIGHT KIDNEY: Small nonobstructing upper pole calculus. Diffuse increase in cortical echogenicity and cortical thin annabella. No hydronephrosis. LEFT KIDNEY: Nonobstructing midpole stone. Diffuse increase in cortical echogenicity and cortical thinning. No hyd ronephrosis. BLADDER: Decompressed CONCLUSION: Increased renal cortical echogenicity and renal cortical thinning consistent with medical renal disea se. No hydronephrosis. Bilateral stones. Davy Palacios MD on May 06, 2017 at 11:31 Board Certified Radiologist. This report was verified electronically.
[2017-05-06] MEDS: ESTRADIOL 1 MG TAB PO SCH (11:44)
[2017-05-06] MEDS: ONDANSETRON HCL 4 MG/2 ML VIAL IVP PRN ×2 (11:44→21:18)
[2017-05-06] MEDS: SODIUM BICARBONATE 8.4% INJ 75 MEQ in SODIUM CHLOR 0.45% 1000 ML INJ 1,000 ML IV SCH (11:53)
--- NOTE | 2017-05-06 13:39 | HHI.PR ---
Subjective Remarks Follow-up nausea, vomiting and dehydration. Improving nausea. Agrees with endoscopy. Severe family. Discussed with RN Objective Vitals Vital Signs Date Time Temp Pulse Resp B/P (MAP) Pulse Ox O2 Delivery O2 Flow Rate FiO2 05/06/17 08:52 98.0 62 16 88/55 (66) 98 05/06/17 03:05 98.0 59 18 100/53 (69) 100 05/06/17 01:11 98.2 59 18 102/56 (71) 99 05/05/17 19:38 68 18 05/05/17 17:23 70 18 05/05/17 16:09 97.9 75 14 103/61 (75) 99 Room Air I/O 05/05/17 05/05/17 05/05/17 05/06/17 05/06/17 05/06/17 07:00 15:00 23:00 07:00 15:00 23:00 Intake Total 300 ml Balance 300 ml Intake Oral 300 ml Result Diagram: 05/06/17 0555 05/06/17 0555 Imaging Last Impressions Renal Ultrasound 05/06/17 0000 Signed Impressions: Service Date/Time: April 09:21 - CONCLUSION: Increased renal cortical echogenicity and renal cortical thinning consistent with medical renal disease. No hydronephrosis. Bilateral stones. Davy Palacios MD Chest X-Ray 05/05/17 0986 Signed Impressions: Service Date/Time: Friday, May 05, 2017 18:20 - CONCLUSION: No acute disease. Edy Jenkins Jr., MD Objective Remarks GENERAL: This is a well-nourished, obese patient, in NAD. SKIN: No rashes, ecchymoses or lesions. Cool and dry. HEAD: Atraumatic. Normocephalic. EYES: Pupils equal round and reactive. ENT: Nose without bleeding, purulent drainage or septal hematoma. Airway patent. NECK: Trachea midline. No JVD or lymphadenopathy. CARDIOVASCULAR: Regular rate and rhythm without murmurs, gallops, or rubs. RESPIRATORY: Clear to auscultation. Breath sounds equal bilaterally. No wheezes , rales, or rhonchi. GASTROINTESTINAL: Abdomen soft, non-tender, nondistended. No guarding. Left lower quadrant ileostomy conduit. MUSCULOSKELETAL: Extremities without clubbing, cyanosis, or edema. No joint tenderness, effusion, or edema noted. No calf tenderness. NEUROLOGICAL: Awake and alert. Motor and sensory grossly within normal limits. Normal speech. A/P Problem List: (1) Asymptomatic bacteriuria ICD Code: R82.71 - Bacteriuria (2) LEIGH (acute kidney injury) ICD Code: N17.9 - Acute kidney failure, unspecified Status: Acute Assessment and Plan 56 y/o female with a history of ckd, hypothyroid, and depression, was sent to the ED from Dr. Martinez office for evaluation of elevated kidney function. Acute kidney injury on chronic kidney disease III suspected due to dehydration related to malabsorption from ileostomy and gastric sleeve Creatine 2.9, baseline around 1.6 -Consult nephrology for recommendations, Dr Gambino will follow -Consulted GI for recommendations, EGD in am -H pylori stool antigien ordered -IVF for hydration -Avoid nephrotoxins -If needed will consult general surgery to evaluate gastric sleeve, Dr. Ceballos is patients surgeon. Pt states Dr Burns aware of her condition and already evaluated her gastric sleeve Asymptomatic bacteriuria, patient denies dysuria, or fevers, no leukocytosis UA shows large leukocyte esterase and occult blood -Urine culture pending -Hold antibiotics for now DVT prophylaxis: Mo Johnson MD May 06, 2017 13:39
[2017-05-06 14:10] LABS: TOTAL PROTEIN SPE 7.9 GM/DL (6.0-7.6)
--- NOTE | 2017-05-06 17:57 | PD.CONS ---
HPI Consult Requested By Reason for Consult Acute on chronic renal insufficiency. Dehydration. Metabolic acidosis. Primary Care Physician Non-Staff History of Present Illness This is a 56-year-old female whom was seen in our office for her initial visit May 04, 2017. The patient has a complicated medical history with a history of ulcerative colitis status post colectomy and ileostomy, gastric sleeve surgery February 22, 2017. After that procedure she was initially doing well but developed pain nausea and vomiting for 3 weeks postoperatively and was hospitalized at this institution back in February with acute renal failure with serum creatinine level rising to 5.6. Fortunately renal function did improve although not normalizing. Patient indicates she was still having significant nausea or vomiting poor oral intake of food and fluids. She was referred to our office for further evaluation and it was noted back in March her creatinine was 2.15 with BUN of 30. Laboratory studies were ordered. She was subsequently found to have a GFR less than 20 significant metabolic acidosis and was advised to come to the emergency room for inpatient management of acute renal insufficiency severe, dehydration with inability to maintain adequate oral hydration as well as worsening metabolic acidosis. No history of NSAID usage for analgesia prior to presentation. Review of Systems Constitutional: COMPLAINS OF: Fatigue, Weight loss, Dizziness, DENIES: Diaphoretic episodes, Fever, Weight gain, Chills, Change in appetite, Night Sweats Eyes: DENIES: Blurred vision, Diplopia, Eye inflammation, Eye pain, Vision loss , Photosensitivity, Double Vision Respiratory: DENIES: Apneas, Cough, Snoring, Wheezing, Hemoptysis, Sputum production, Shortness of breath Cardiovascular: DENIES: Chest pain, Palpitations, Syncope, Dyspnea on Exertion , PND, Lower Extremity Edema, Orthopnea, Claudication Gastrointestinal: COMPLAINS OF: Nausea, Vomiting, Anorexia, DENIES: Abdominal pain, Black stools, Bloody stools, Constipation, Diarrhea, Difficulty Swallowing Musculoskeletal: DENIES: Joint pain, Muscle aches, Stiffness, Joint Swelling, Back pain, Neck pain Past Family Social History Allergies: Coded Allergies: red dye (Unverified Allergy, Severe, hives and hot flashes, 03/30/17) acetaminophen (Verified Adverse Reaction, Severe, Nausea/Vomiting, 03/30/17 ) Past Medical History Acute renal insufficiency February, secondary to dehydration. Probable chronic kidney disease stage II or 3 with renal ultrasound showing bilateral increased echogenicity. History of ulcerative colitis with partial colectomy and ileostomy formation. Slit disease. Diabetes mellitus controlled by diet. Gout. Hypothyroidism. Gastroesophageal reflux disease. History of nephrolithiasis requiring previous lithotripsy and urinary stenting previously. Follows with urology.. Past Surgical History Colostomy Vertical sleeve gastrectomy January 2017 Hysterectomy Appendectomy Ileostomy Reported Medications Reported Meds & Active Scripts Active Zofran (Ondansetron HCl) 4 Mg Tab 4 Mg PO Q6HR PRN Folic Acid 1 Mg Tablet 1 Mg PO DAILY Reported Fluoxetine (Fluoxetine HCl) 20 Mg Tab 20 Mg PO DAILY Levothyroxine (Levothyroxine Sodium) 125 Mcg Tab 125 Mcg PO DAILY Estradiol 0.5 Mg Tab 0.5 Mg PO DAILY Active Ordered Medications Current Medications Ondansetron HCl (Zofran Inj) 4 mg ONCE ONCE IV PUSH Last administered on 21:15; Start 05/05/17 at 18:00; Stop 05/05/17 at 18:01; Status DC Sodium Chloride 1,000 ml @ 100 mls/hr Q10H IV Last administered on 05/05/17 22:51; Start 05/05/17 at 22:24; Stop 05/06/17 at 09:03; Status DC Sodium Chloride (NS Flush) 2 ml UNSCH PRN IV FLUSH FLUSH AFTER USING IV ACCESS ; Start 05/05/17 at 22:30 Sodium Chloride (NS Flush) 2 ml BID IV FLUSH ; Start 05/06/17 at 09:00 Naloxone HCl (Narcan Inj) 0.4 mg UNSCH PRN IV PUSH SEE LABEL COMMENTS; Start 05/05/17 at 22:30 Ondansetron HCl (Zofran Inj) 4 mg Q6H PRN IVP NAUSEA OR VOMITING Last administered on 05/06/17 11:44; Start 05/06/17 at 06:15 Senna/Docusate Sodium ([place]-Colace) 1 tab BID PO ; Start 05/06/17 at 09:00 Sennosides (Senokot) 17.2 mg Q12H PRN PO Moderate constipation; Start 05/06/17 at 06:15 Bisacodyl (Dulcolax Supp) 10 mg DAILY PRN RECTAL SEVERE CONSITIPATION; Start 05/06/17 at 06:15 Lactulose (Lactulose Liq) 30 ml DAILY PRN PO SEVERE CONSITIPATION; Start at 06:15 Estradiol (Estradiol) 0.5 mg DAILY PO Last administered on 05/06/17 11:44; Start 05/06/17 at 09:00 Fluoxetine HCl (PROzac) 20 mg DAILY PO Last administered on 05/06/17 10:40; Start 05/06/17 at 09:00 Folic Acid (Folate) 1 mg DAILY PO Last administered on 05/06/17 10:40; Start 05/06/17 at 09:00 Miscellaneous (Pill Splitter) 1 ea UNSCH PRN OTHER SEE LABEL COMMENTS; Start 05/06/17 at 06:45 Sodium Bicarbonate 75 meq/Sodium Chloride 1,075 ml @ 100 mls/hr [id number] IV Last administered on 05/06/17 11:53; Start 05/06/17 at 11:00 Ondansetron HCl (Zofran Odt) 4 mg ONCE ONCE PO ; Start 05/06/17 at 11:00; Stop 05/06/17 at 11:01; Status DC Family History Father . No family history of end-stage renal disease. Social History Indicating nonsmoker. No alcohol for the last year secondary to recent bariatric surgery Physical Exam Vital Signs Vital Signs Date Time Temp Pulse Resp B/P (MAP) Pulse Ox O2 Delivery O2 Flow Rate FiO2 05/06/17 08:52 98.0 62 16 88/55 (66) 98 05/06/17 03:05 98.0 59 18 100/53 (69) 100 05/06/17 01:11 98.2 59 18 102/56 (71) 99 05/05/17 19:38 68 18 Physical Exam GENERAL: Patient not in respiratory distress. Mucous membranes slightly dry and improved from the office. SKIN: Warm and dry. Skin turgor slightly diminished and improved from the office HEAD: Normocephalic. EYES: No scleral icterus. No injection or drainage. NECK: Supple, trachea midline. No JVD or lymphadenopathy. CARDIOVASCULAR: Regular rate and rhythm without murmurs, gallops, or rubs. RESPIRATORY: Breath sounds equal bilaterally. No accessory muscle use. GASTROINTESTINAL: Abdomen soft, non-tender, nondistended. MUSCULOSKELETAL: No cyanosis, or edema. BACK: Nontender without obvious deformity. No CVA tenderness. Laboratory Laboratory Tests Test 05/05/17 20:03 05/05/17 21:00 05/06/17 05:55 05/06/17 09:40 Urine Color YELLOW Urine Turbidity HAZY Urine pH 6.0 Urine Specific [place] 1.021 Urine Protein 100 Urine Glucose (UA) NEG Urine Ketones NEG Urine Occult Blood SMALL Urine Nitrite NEG Urine Bilirubin NEG Urine Urobilinogen LESS THAN 2.0 Urine Leukocyte Esterase LARGE Urine RBC 15 Urine WBC Urine WBC Clumps RARE Urine Squamous Epithelial Cells 2 Urine Transitional Epithelial Cells 3 Urine Calcium Oxalate Crystals MANY Urine Amorphous Sediment RARE Urine Bacteria OCC Urine Hyaline Casts 11 Urine Mucus FEW Microscopic Urinalysis Comment CULTURE INDICATED White Blood Count 7.7 7.8 Red Blood Count 4.33 4.30 Hemoglobin 13.7 13.4 Hematocrit 40.2 40.5 Mean Corpuscular Volume 92.8 94.2 Mean Corpuscular Hemoglobin 31.7 31.1 Mean Corpuscular Hemoglobin Concent 34.2 33.0 Red Cell Distribution Width 14.2 14.3 Platelet Count 326 304 Mean Platelet Volume 8.9 8.4 Neutrophils (%) (Auto) 43.8 42.3 Lymphocytes (%) (Auto) 44.9 44.5 Monocytes (%) (Auto) 7.7 9.0 Eosinophils (%) (Auto) 2.9 3.7 Basophils (%) (Auto) 0.7 0.5 Neutrophils # (Auto) 3.4 3.3 Lymphocytes # (Auto) 3.5 3.5 Monocytes # (Auto) 0.6 0.7 Eosinophils # (Auto) 0.2 0.3 Basophils # (Auto) 0.1 0.0 CBC Comment DIFF FINAL DIFF FINAL Differential Comment Blood Urea Nitrogen 41 42 Creatinine 2.93 2.96 Random Glucose 88 81 Total Protein 7.7 Albumin 3.8 Calcium Level 9.5 9.3 Magnesium Level 2.2 Alkaline Phosphatase 100 Aspartate Amino Transf (AST/SGOT) 23 Alanine Aminotransferase (ALT/SGPT) 22 Total Bilirubin 0.4 Sodium Level 136 138 Potassium Level 4.3 4.0 Chloride Level 110 113 Carbon Dioxide Level 14.3 12.9 Anion Gap 12 12 Estimat Glomerular Filtration Rate 17 16 B-Type Natriuretic Peptide 9 Thyroid Stimulating Hormone 3rd Gen 9.530 Test 05/06/17 12:48 Phosphorus Level 3.8 Total Protein 7.9 Parathyroid Hormone (Intact) 29.7 Complement C3 136 Complement C4 36 Date/Time Source Procedure Growth Status 05/05/17 20:03 Urine Random Urine Urine Culture - Preliminary NO GROWTH IN 24 HOURS. Resulted Result Diagram: 05/06/17 0555 05/06/17 0555 Imaging Last 48 hours Impressions Renal Ultrasound 05/06/17 0000 Signed Impressions: Service Date/Time: April 09:21 - CONCLUSION: Increased renal cortical echogenicity and renal cortical thinning consistent with medical renal disease. No hydronephrosis. Bilateral stones. Davy Palacios MD Chest X-Ray 05/05/17 1746 Signed Impressions: Service Date/Time: Friday, May 05, 2017 18:20 - CONCLUSION: No acute disease. Edy Jenkins Jr., MD Assessment and Plan Problem List: (1) LEIGH (acute kidney injury) ICD Codes: N17.9 - Acute kidney failure, unspecified Status: Acute Plan: Secondary to intravascular volume depletion related to ongoing GI issues with nausea, vomiting and poor oral intake. Continue IV hydration with sodium bicarbonate containing solutions to improve her volume status and metabolic acidosis. Agree with GI consultation to determine if her GI symptomatology can be improved to enable adequate oral hydration as an outpatient. In addition we will screen for other contributory factors. Serological screening as ordered. I discussed with patient and also her and parents with her permission current status of her renal function, plan of management. All of their questions were addressed to their satisfaction based on data available. Medications should be adjusted for the patient's estimated GFR if clinically indicated. Avoid agents with significant potential for nephrotoxicity possible including NSAIDs for analgesia, iodine contrast agents. Gadolinium is contraindicated if the GFR is below 30. (2) Metabolic acidosis ICD Codes: E87.2 - Acidosis Status: Acute Plan: Sodium bicarbonate added to the IV fluids as ordered to improve acid- base status. We'll subsequently convert patient to by mouth sodium bicarbonate if required upon discharge. (3) Dehydration ICD Codes: E86.0 - Dehydration Status: Chronic Plan: IV fluids as above. Hopefully gastroenterology can improve issues impeding adequate enteral fluid intake. (4) Chronic kidney disease (CKD), stage III (moderate) ICD Codes: N18.3 - Chronic kidney disease, stage 3 (moderate) Status: Chronic Plan: Suggested by results of renal ultrasound. Etiology of same uncertain but may be related to previous episodes of UTI in obstructive uropathy secondary to recurrent nephrolithiasis in the past. (5) Nephrolithiasis ICD Codes: N20.0 - Calculus of kidney Status: Chronic Plan: May be related to increased oxalate absorption secondary to ileostomy. 24-hour urine has been ordered to screen for hyperoxaluria , hypercalciuria and hypocitraturia. (6) Ileostomy present ICD Codes: Z93.2 - Ileostomy status Status: Chronic Plan: Management per GI. Myah Martinez MD May 06, 2017 17:57
[2017-05-06 21:06] VITALS: BP 104/59; PULSE 62; RESP 18; TEMP 98.1; O2SAT 97
[2017-05-06 23:35] VITALS: BP 89/53; PULSE 58; RESP 16; TEMP 98; O2SAT 100
[2017-05-07] VITALS (11 sets, daily range): BP systolic 91–108; BP diastolic 51–59; PULSE 49–85; RESP 16–18; TEMP 97.2–98; O2SAT 97–100
[2017-05-07] MEDS ORDERED: CHLORHEXIDINE GLUCONATE 2 % 1 PACK (2 CLOTHS) TOPICAL PRN (03:15)
[2017-05-07] MEDS ORDERED: INSULIN HUMAN REGULAR 1,000 UNITS/10 ML VIAL SQ PRN (03:15)
[2017-05-07] MEDS ORDERED: METOPROLOL TARTRATE 25 MG TAB PO PRN (03:15)
[2017-05-07] MEDS ORDERED: SODIUM CHLORID 0.9% 500 ML IV PRN (03:15)
[2017-05-07] MEDS ORDERED: POVIDONE IODINE 5% (ANTISEPSIS KIT) 4 APPLICATIONS EACH NARE PRN (03:15)
[2017-05-07] MEDS ORDERED: LACTATED RINGER'S 1000 ML IV PRN (03:15)
[2017-05-07] MEDS: LEVOTHYROXINE SODIUM 125 MCG TAB PO SCH (05:19)
[2017-05-07] MEDS: SODIUM BICARBONATE 8.4% INJ 75 MEQ in SODIUM CHLOR 0.45% 1000 ML INJ 1,000 ML IV SCH ×4 (05:19→23:06)
[2017-05-07 07:02] LABS: HEMATOCRIT 35.7 % (35.0-46.0); MEAN CELL VOLUME 92.4 FL (80.0-100.0); MEAN CORPUSCULAR HEMOGLOBIN 31.5 PG (27.0-34.0); PLATELET COUNT 270 TH/MM3 (150-450); RED BLOOD COUNT 3.87 MIL/MM3 (4.00-5.30); RED CELL DISTRIBUTION WIDTH 14.1 % (11.6-17.2); REVIEW FLAG FINAL; WHITE BLOOD COUNT 5.8 TH/MM3 (4.0-11.0)
[2017-05-07 07:35] LABS: BICARBONATE 14.5 MEQ/L (21.0-32.0); POTASSIUM 3.5 MEQ/L (3.5-5.1)
[2017-05-07] MEDS: DOCUSATE SODIUM 50 MG/SENNA 8.6 MG TAB PO SCH ×2 (09:00→20:08)
[2017-05-07] MEDS ORDERED: FAMOTIDINE 20 MG/2 ML VIAL ONE (09:13)
--- NOTE | 2017-05-07 09:51 | GIPROC ---
[facility] [address] [facility]. [facility], [id number] EGD PROCEDURE REPORT EXAM DATE: 05/07/2017 PATIENT NAME: Kerri Mota MR #: [id number] BIRTHDATE: 1960 ATTENDING: Shila Goetz MD ORDER #: [id number] MARKET ANALYST: Miles Salas Jones, Julie, and Trini Johnson STATUS: inpatient INDICATIONS: The patient is a 56 yr old female here for an EGD due to epigastric abdominal pain and vomiting PROCEDURE PERFORMED: EGD w/ biopsy MEDICATIONS: None and Per Anesthesia. TOPICAL ANESTHETIC: none CONSENT: The patient understands the risks and benefits of the procedure and understands that these risks include, but are not limited to: sedation, allergic reaction, infection, perforation and/or bleeding. Alternative means of evaluation and treatment include, among others: physical exam, x-rays, and/or surgical intervention. The patient elects to proceed with this endoscopic procedure. medical equipment was checked for proper function. Hand hygiene and appropriate measures for infection prevention was taken. After the risks, benefits and alternatives of the procedure were thoroughly explained, Informed consent was verified, confirmed and timeout was successfully executed by the treatment team. The patient was anesthetized with topical anesthesia and the Pentax [id number] endoscope was introduced through the mouth and advanced to the second portion of the duodenum. Retroflexion was not performed The gastroscope was then slowly withdrawn and removed. ESOPHAGUS: The esophagus was otherwise normal. STOMACH: Evidence of Sleeve surgery was found in the entire examined stomach characterized as healthy in appearance. Multiple biopsies were performed using cold forceps. Sample sent for histology. ADVERSE EVENTS: There were no complications. IMPRESSIONS: 1. The esophagus was otherwise normal 2. Sleeve gastrectomy was found in the entire examined stomach, no strictures; multiple biopsies were performed for H.Pylori ( patient has history of positive H.Pylori ) 3. Retroflexion was not performed RECOMMENDATIONS: Await biopsy results. Biopsy results will not be ready for 7-10 days. If you don't hear from us in two weeks, call our office for biopsy results. PATIENT CONDITION: stable DISPOSITION: Observation REPEAT EXAM: NONE Shila Goetz MD eSigned: Shila Goetz MD 05/07/2017 9:50 AM cc: PATIENT NAME: Kerri Mota MR#: [id number]
[2017-05-07] MEDS: ESTRADIOL 1 MG TAB PO SCH (10:46)
[2017-05-07] MEDS: FOLIC ACID 1 MG TAB PO SCH (10:47)
[2017-05-07] MEDS: FLUoxetine HCL 20 MG CAP PO SCH (10:47)
[2017-05-07] MEDS: SODIUM CHLORIDE 0.9% FLUSH 10 ML FLUSH IV FLUSH SCH ×2 (10:49→20:08)
[2017-05-07] MEDS ORDERED: THIAMINE HCL 100 MG TAB PO SCH (12:00)
[2017-05-07] MEDS ORDERED: DO NOT ADM ANY ANTICOAGULANT DRUGS PRN (12:15)
[2017-05-07] MEDS ORDERED: PROMETHAZINE HCL 12.5 MG SUPP RECTAL PRN (12:30)
[2017-05-07 12:44] LABS: ANA SCREEN NEG (NEG)
--- NOTE | 2017-05-07 13:20 | HHI.NPPN ---
Subjective History of Present Illness This is a 56-year-old female whom was seen in our office for her initial visit May 04, 2017. The patient has a complicated medical history with a history of ulcerative colitis status post colectomy and ileostomy, gastric sleeve surgery February 22, 2017. After that procedure she was initially doing well but developed pain nausea and vomiting for 3 weeks postoperatively and was hospitalized at this institution back in February with acute renal failure with serum creatinine level rising to 5.6. Fortunately renal function did improve although not normalizing. Patient indicates she was still having significant nausea or vomiting poor oral intake of food and fluids. She was referred to our office for further evaluation and it was noted back in March her creatinine was 2.15 with BUN of 30. Laboratory studies were ordered. She was subsequently found to have a GFR less than 20 significant metabolic acidosis and was advised to come to the emergency room for inpatient management of acute renal insufficiency severe, dehydration with inability to maintain adequate oral hydration as well as worsening metabolic acidosis. No history of NSAID usage for analgesia prior to presentation. Interval History Pt feeling better today Some nausea but no vomiting since yesterday AM s/p EGD this AM. Going for barium swallow to eval sleeve. Review of Systems Gastrointestinal Gastrointestinal: Nausea & Vomiting Objective Data Data 05/07/17 05/08/17 19:00 07:00 Intake Total 750 ml Balance 750 ml IV Total 400 ml Other 350 ml Vital Signs Date Time Temp Pulse Resp B/P (MAP) Pulse Ox O2 Delivery O2 Flow Rate FiO2 05/07/17 11:47 97.8 57 16 100/57 (71) 100 05/07/17 10:12 63 15 99 05/07/17 10:00 63 18 103/53 (70) 99 Room Air 05/07/17 09:47 97.9 68 15 107/53 (71) 97 05/07/17 07:55 97.2 60 16 104/59 (74) 99 05/07/17 07:11 49 05/07/17 03:49 97.5 55 16 91/51 (64) 99 05/06/17 23:35 98.0 58 16 89/53 (65) 100 05/06/17 21:06 98.1 62 18 104/59 (74) 97 -: 05/07/17 0610 05/07/17 0610 Imaging Last Impressions Renal Ultrasound 05/06/17 0000 Signed Impressions: Service Date/Time: April 09:21 - CONCLUSION: Increased renal cortical echogenicity and renal cortical thinning consistent with medical renal disease. No hydronephrosis. Bilateral stones. Davy Palacios MD Chest X-Ray 05/05/17 0983 Signed Impressions: Service Date/Time: Friday, May 05, 2017 18:20 - CONCLUSION: No acute disease. Edy Jenkins Jr., MD Medication Review Current Medications Medications (Trade) Dose Ordered Sig/Espinoza Route Start Time Stop Time Status Last Admin (NS Flush) 2 ml UNSCH PRN IV FLUSH 05/05/17 22:30 (NS Flush) 2 ml BID IV FLUSH 05/06/17 09:00 05/07/17 10:49 (Narcan Inj) 0.4 mg UNSCH PRN IV PUSH 05/05/17 22:30 (Zofran Inj) 4 mg Q6H PRN IVP 05/06/17 06:15 05/06/17 21:18 (Maria Del Carmen-Colace) 1 tab BID PO 05/06/17 09:00 05/06/17 21:15 (Senokot) 17.2 mg Q12H PRN PO 05/06/17 06:15 (Dulcolax Supp) 10 mg DAILY PRN RECTAL 05/06/17 06:15 (Lactulose Liq) 30 ml DAILY PRN PO 05/06/17 06:15 (Estradiol) 0.5 mg DAILY PO 05/06/17 09:00 05/07/17 10:46 (PROzac) 20 mg DAILY PO 05/06/17 09:00 05/07/17 10:47 (Folate) 1 mg DAILY PO 05/06/17 09:00 05/07/17 10:47 (Pill Splitter) 1 ea UNSCH PRN OTHER 05/06/17 06:45 Sodium Bicarbonate 75 meq/Sodium Chloride 1,075 ml @ 125 mls/hr Q8H36M IV 05/06/17 11:00 05/07/17 05:19 (Synthroid) 125 mcg DAILY@0600 PO 05/07/17 06:00 05/07/17 05:19 Lactated Ringer's 1,000 ml @ 30 mls/hr Q24H PRN IV 05/07/17 03:15 05/10/17 03:14 05/07/17 08:36 Sodium Chloride 500 ml @ 30 mls/hr [id number] PRN IV 05/07/17 03:15 05/10/17 03:14 (Lopressor) 25 mg SILK SCREEN CUTTER PRN PO 05/07/17 03:15 05/10/17 03:14 (Betadine 5% Antisepsis Kit) 1 applic SILK SCREEN CUTTER PRN EACH NARE 05/07/17 03:15 05/10/17 03:14 (Chlorhexidine 2% Cloth) 3 pack SILK SCREEN CUTTER PRN TOPICAL 05/07/17 03:15 05/10/17 03:14 (Vitamin B1) 12 mg DAILY PO 05/07/17 12:00 UNV Miscellaneous Information ALL NURSING DEPARTME... UNSCH PRN .XX 05/07/17 12:15 05/08/17 12:14 Multivitamins 10 ml/Thiamine HCl 100 mg/Folic Acid 1 mg/Sodium Chloride 511.2 ml @ 125 mls/hr DAILY IV 05/07/17 14:00 (Transderm-Scop 1.5 Mg Patch.72 Hr) 1 patch Q3D T-DERMAL 05/07/17 13:00 (Phenergan Supp) 12.5 mg Q6H PRN RECTAL 05/07/17 12:30 Miscellaneous Information 1 Q3D T-DERMAL 05/10/17 13:00 Physical Exam General Appearance: No Acute Distress, Comfortable Eyes Eye Exam: Pupils Equal, Pupils Reactive Neck Neck Exam: Neck Supple, Trachea Midline Pulmonary Resp Exam: Clear Bilaterally, Breath Sounds Equal Cardiology CV Exam: Regular, Normal Sinus Rhythm Gastrointestinal/Abdomen GI Exam: Soft, Non-Tender Integumentary Skin Exam: Clear, Warm Extremeties Extremities Exam: No Edema Neurologic Neuro Exam: Alert, Awake Psychiatric Psych Exam: Appropriate Responses Assessment/Plan Problem List: (1) LEIGH (acute kidney injury) ICD Codes: N17.9 - Acute kidney failure, unspecified Status: Acute Plan: Secondary to intravascular volume depletion related to ongoing GI issues with nausea, vomiting and poor oral intake. Continue IV hydration with sodium bicarbonate containing solutions to improve her volume status and metabolic acidosis. Awaiting report from GI as well as bariatric surgeon Additional screening labs are still pending. Medications should be adjusted for the patient's estimated GFR if clinically indicated. Avoid agents with significant potential for nephrotoxicity possible including NSAIDs for analgesia, iodine contrast agents. Gadolinium is contraindicated if the GFR is below 30. (2) Metabolic acidosis ICD Codes: E87.2 - Acidosis Status: Acute Plan: Sodium bicarbonate added to the IV fluids as ordered to improve acid- base status. We'll subsequently convert patient to by mouth sodium bicarbonate if required upon discharge. (3) Dehydration ICD Codes: E86.0 - Dehydration Status: Chronic Plan: IV fluids as above. Hopefully gastroenterology can improve issues impeding adequate enteral fluid intake. (4) Chronic kidney disease (CKD), stage III (moderate) ICD Codes: N18.3 - Chronic kidney disease, stage 3 (moderate) Status: Chronic Plan: Suggested by results of renal ultrasound. Etiology of same uncertain but may be related to previous episodes of UTI in obstructive uropathy secondary to recurrent nephrolithiasis in the past. (5) Nephrolithiasis ICD Codes: N20.0 - Calculus of kidney Status: Chronic Plan: May be related to increased oxalate absorption secondary to ileostomy. 24-hour urine has been ordered to screen for hyperoxaluria , hypercalciuria and hypocitraturia. (6) Ileostomy present ICD Codes: Z93.2 - Ileostomy status Status: Chronic Plan: Management per GI. Clemencia Lucero May 07, 2017 13:20
--- NOTE | 2017-05-07 13:32 | PD.CONS ---
[facility] Service Bariatrics Consult Requested By Dr. North Reason for Consult Patient with recent bariatric surgery with persistent nausea and vomiting Primary Care Physician Non-Staff History of Present Illness This is a 56 year old with a history of gastric sleeve 01/2017,ulcerative colitis s/p ileostomy who presented with vomiting, dehydration, and sent by injection molding process technician for worsening kidney function. She states she has had nausea and vomiting since her surgery. She feels the n/v is associated with certain foods and also movements, like when she stands up too fast or does fast movements. She does admit a sensation of spinning when she moves quickly or stands up or turns her head or lays down. She was seen in ER 1 m ago and US showed sleeve functioning properly. She has been having fluctuating renal insufficiency. She has a continent ileostomy currently that has been functioning well. She states her urine about has decreased and is very dark. Denies abdominal pain. Has some difficulty swallowing, sensation of food getting stuck, particularly with dry foods Review of Systems Constitutional: DENIES: Diaphoretic episodes, Fatigue, Fever, Weight gain, Weight loss, Chills, Dizziness, Change in appetite, Night Sweats Endocrine: DENIES: Abnorml menstrual pattern, Heat/cold intolerance, Polydipsia , Polyuria, Polyphagia Eyes: DENIES: Blurred vision, Diplopia, Eye inflammation, Eye pain, Vision loss , Photosensitivity, Double Vision Ears, nose, mouth, throat: DENIES: Tinnitus, Hearing loss, Vertigo, Nasal discharge, Oral lesions, Throat pain, Hoarseness, Ear Pain, Running Nose, Epistaxis, Sinus Pain, Toothache, Odynophagia Respiratory: DENIES: Apneas, Cough, Snoring, Wheezing, Hemoptysis, Sputum production, Shortness of breath Gastrointestinal: COMPLAINS OF: Nausea, Vomiting Genitourinary: DENIES: Abnormal vaginal bleeding, Dysmenorrhea, Dyspareunia, Sexual dysfunction, Urinary frequency, Urinary incontinence, Urgency, Hematuria , Dysuria, Nocturia, Vaginal discharge Musculoskeletal: DENIES: Joint pain, Muscle aches, Stiffness, Joint Swelling, Back pain, Neck pain Integumentary: DENIES: Abnormal pigmentation, Pruritus, Rash, Nail changes, Breast masses, Breast skin changes, Nipple discharge Hematologic/lymphatic: DENIES: Bruising, Lymphadenopathy Immunologic/allergic: DENIES: Eczema, Urticaria Neurologic: DENIES: Abnormal gait, Headache, Localized weakness, Paresthesias, Seizures, Speech Problems, Tremor, Poor Balance Psychiatric: DENIES: Anxiety, Confusion, Mood changes, Depression, Hallucinations, Agitation, Suicidal Ideation, Homicidal Ideation, Delusions Past Family Social History Past Medical History Hypothyroidism Hypercholesterolemia Gout Rheumatoid arthritis Ulcerative Colitis Past Surgical History Colostomy Hysterectomy Ileostomy Reported Medications Current Medications Medications (Trade) Dose Ordered Sig/Espinoza Route Start Time Stop Time Status Last Admin (NS Flush) 2 ml UNSCH PRN IV FLUSH 05/05/17 22:30 (NS Flush) 2 ml BID IV FLUSH 05/06/17 09:00 05/07/17 10:49 (Narcan Inj) 0.4 mg UNSCH PRN IV PUSH 05/05/17 22:30 (Zofran Inj) 4 mg Q6H PRN IVP 05/06/17 06:15 05/06/17 21:18 (Maria Del Carmen-Colace) 1 tab BID PO 05/06/17 09:00 05/06/17 21:15 (Senokot) 17.2 mg Q12H PRN PO 05/06/17 06:15 (Dulcolax Supp) 10 mg DAILY PRN RECTAL 05/06/17 06:15 (Lactulose Liq) 30 ml DAILY PRN PO 05/06/17 06:15 (Estradiol) 0.5 mg DAILY PO 05/06/17 09:00 05/07/17 10:46 (PROzac) 20 mg DAILY PO 05/06/17 09:00 05/07/17 10:47 (Folate) 1 mg DAILY PO 05/06/17 09:00 05/07/17 10:47 (Pill Splitter) 1 ea UNSCH PRN OTHER 05/06/17 06:45 Sodium Bicarbonate 75 meq/Sodium Chloride 1,075 ml @ 125 mls/hr Q8H36M IV 05/06/17 11:00 05/07/17 05:19 (Synthroid) 125 mcg DAILY@0600 PO 05/07/17 06:00 05/07/17 05:19 Lactated Ringer's 1,000 ml @ 30 mls/hr Q24H PRN IV 05/07/17 03:15 05/10/17 03:14 05/07/17 08:36 Sodium Chloride 500 ml @ 30 mls/hr [id number] PRN IV 05/07/17 03:15 05/10/17 03:14 (Lopressor) 25 mg BLEACH MAKER PRN PO 05/07/17 03:15 05/10/17 03:14 (Betadine 5% Antisepsis Kit) 1 applic BLEACH MAKER PRN EACH NARE 05/07/17 03:15 05/10/17 03:14 (Chlorhexidine 2% Cloth) 3 pack BLEACH MAKER PRN TOPICAL 05/07/17 03:15 05/10/17 03:14 (Vitamin B1) 12 mg DAILY PO 05/07/17 12:00 UNV Miscellaneous Information ALL NURSING DEPARTME... UNSCH PRN .XX 05/07/17 12:15 05/08/17 12:14 Multivitamins 10 ml/Thiamine HCl 100 mg/Folic Acid 1 mg/Sodium Chloride 511.2 ml @ 125 mls/hr DAILY IV 05/07/17 12:30 UNV (Transderm-Scop 1.5 Mg Patch.72 Hr) 1 patch Q3D T-DERMAL 05/07/17 13:00 (Phenergan Supp) 12.5 mg Q6H PRN RECTAL 05/07/17 12:30 Miscellaneous Information 1 Q3D T-DERMAL 05/10/17 13:00 Allergies: Coded Allergies: red dye (Unverified Allergy, Severe, hives and hot flashes, 05/07/17) acetaminophen (Verified Adverse Reaction, Severe, Nausea/Vomiting, ) Active Ordered Medications Current Medications Medications (Trade) Dose Ordered Sig/Espinoza Route Start Time Stop Time Status Last Admin (NS Flush) 2 ml UNSCH PRN IV FLUSH 05/05/17 22:30 (NS Flush) 2 ml BID IV FLUSH 05/06/17 09:00 05/07/17 10:49 (Narcan Inj) 0.4 mg UNSCH PRN IV PUSH 05/05/17 22:30 (Zofran Inj) 4 mg Q6H PRN IVP 05/06/17 06:15 05/06/17 21:18 (Maria Del Carmen-Colace) 1 tab BID PO 05/06/17 09:00 05/06/17 21:15 (Senokot) 17.2 mg Q12H PRN PO 05/06/17 06:15 (Dulcolax Supp) 10 mg DAILY PRN RECTAL 05/06/17 06:15 (Lactulose Liq) 30 ml DAILY PRN PO 05/06/17 06:15 (Estradiol) 0.5 mg DAILY PO 05/06/17 09:00 05/07/17 10:46 (PROzac) 20 mg DAILY PO 05/06/17 09:00 05/07/17 10:47 (Folate) 1 mg DAILY PO 05/06/17 09:00 05/07/17 10:47 (Pill Splitter) 1 ea UNSCH PRN OTHER 05/06/17 06:45 Sodium Bicarbonate 75 meq/Sodium Chloride 1,075 ml @ 125 mls/hr Q8H36M IV 05/06/17 11:00 05/07/17 05:19 (Synthroid) 125 mcg DAILY@0600 PO 05/07/17 06:00 05/07/17 05:19 Lactated Ringer's 1,000 ml @ 30 mls/hr Q24H PRN IV 05/07/17 03:15 05/10/17 03:14 05/07/17 08:36 Sodium Chloride 500 ml @ 30 mls/hr [id number] PRN IV 05/07/17 03:15 05/10/17 03:14 (Lopressor) 25 mg BLEACH MAKER PRN PO 05/07/17 03:15 05/10/17 03:14 (Betadine 5% Antisepsis Kit) 1 applic BLEACH MAKER PRN EACH NARE 05/07/17 03:15 05/10/17 03:14 (Chlorhexidine 2% Cloth) 3 pack BLEACH MAKER PRN TOPICAL 05/07/17 03:15 05/10/17 03:14 (Vitamin B1) 12 mg DAILY PO 05/07/17 12:00 UNV Miscellaneous Information ALL NURSING DEPARTME... UNSCH PRN .XX 05/07/17 12:15 05/08/17 12:14 Multivitamins 10 ml/Thiamine HCl 100 mg/Folic Acid 1 mg/Sodium Chloride 511.2 ml @ 125 mls/hr DAILY IV 05/07/17 12:30 UNV (Transderm-Scop 1.5 Mg Patch.72 Hr) 1 patch Q3D T-DERMAL 05/07/17 13:00 (Phenergan Supp) 12.5 mg Q6H PRN RECTAL 05/07/17 12:30 Miscellaneous Information 1 Q3D T-DERMAL 05/10/17 13:00 Family History Hypertension Myocardial Infarction Diabetes Physical Exam Vital Signs Vital Signs Date Time Temp Pulse Resp B/P (MAP) Pulse Ox O2 Delivery O2 Flow Rate FiO2 05/07/17 11:47 97.8 57 16 100/57 (71) 100 05/07/17 10:12 63 15 99 05/07/17 10:00 63 18 103/53 (70) 99 Room Air 05/07/17 09:47 97.9 68 15 107/53 (71) 97 05/07/17 07:55 97.2 60 16 104/59 (74) 99 05/07/17 07:11 49 05/07/17 03:49 97.5 55 16 91/51 (64) 99 05/06/17 23:35 98.0 58 16 89/53 (65) 100 05/06/17 21:06 98.1 62 18 104/59 (74) 97 Physical Exam SKIN: Warm and dry. HEAD: Normocephalic. EYES: No scleral icterus. No injection or drainage. NECK: Supple, trachea midline. No JVD or lymphadenopathy. CARDIOVASCULAR: Regular rate and rhythm without murmurs, gallops, or rubs. RESPIRATORY: Breath sounds equal bilaterally. No accessory muscle use. GASTROINTESTINAL: Abdomen soft, non-tender, nondistended. MUSCULOSKELETAL: No cyanosis, or edema. Laboratory Laboratory Tests Test 05/07/17 06:10 White Blood Count 5.8 Red Blood Count 3.87 Hemoglobin 12.2 Hematocrit 35.7 Mean Corpuscular Volume 92.4 Mean Corpuscular Hemoglobin 31.5 Mean Corpuscular Hemoglobin Concent 34.0 Red Cell Distribution Width 14.1 Platelet Count 270 Mean Platelet Volume 8.3 Blood Urea Nitrogen 39 Creatinine 2.79 Random Glucose 85 Calcium Level 8.7 Magnesium Level 2.0 Sodium Level 137 Potassium Level 3.5 Chloride Level 109 Carbon Dioxide Level 14.5 Anion Gap 14 Estimat Glomerular Filtration Rate 17 Total Creatine Kinase 49 Date/Time Source Procedure Growth Status 05/05/17 20:03 Urine Random Urine Urine Culture - Final 50-100,000 CFU/ML MIXED GRAM POSITIVE... Complete Result Diagram: 05/07/17 0610 05/07/17 0610 Imaging Last Impressions Renal Ultrasound 05/06/17 0000 Signed Impressions: Service Date/Time: April 09:21 - CONCLUSION: Increased renal cortical echogenicity and renal cortical thinning consistent with medical renal disease. No hydronephrosis. Bilateral stones. Davy Palacios MD Chest X-Ray 05/05/17 1746 Signed Impressions: Service Date/Time: Friday, May 05, 2017 18:20 - CONCLUSION: No acute disease. Edy Jenkins Jr., MD Assessment and Plan Problem List: (1) Nausea & vomiting ICD Codes: R11.2 - Nausea with vomiting, unspecified Status: Acute Plan: -Add scopolamine and Phenergan suppository -Appreciate input from medicine and GI -Will consult neurology for possible vertigo (2) Bariatric surg stat-unsp ICD Codes: Z98.84 - Bariatric surgery status Plan: -Sleeve appears to be functioning well -Will check B1 level and add multivitamin bag with thiamin and folate -Switch to bariatric diet (3) LEIGH (acute kidney injury) ICD Codes: N17.9 - Acute kidney failure, unspecified Status: Acute Plan: -Continue with hydration -Appreciate input from Nephrology Assessment and Plan This patient was seen by myself and Dr. Burns and this note is written on his behalf The exam, history, and the medical decision-making described in the above note were completed with the assistance of the mid-level provider. I reviewed and agree with the findings presented. I attest that I had a [id number] encounter with the patient on the same day, and personally performed and documented my assessment and findings in the medical record. Problem Qualifiers (1) Nausea & vomiting: Niles Fontana May 07, 2017 13:32 Sterling Burns MD May 09, 2017 08:34
--- NOTE | 2017-05-07 13:35 | HHI.PR ---
Subjective Remarks Follow-up nausea and vertigo. Was nauseous this morning prior to EGD. Also reports of intermittent vertigo and ringing. Discussed with bariatric surgery and RN Objective Vitals Vital Signs Date Time Temp Pulse Resp B/P (MAP) Pulse Ox O2 Delivery O2 Flow Rate FiO2 05/07/17 11:47 97.8 57 16 100/57 (71) 100 05/07/17 10:12 63 15 99 05/07/17 10:00 63 18 103/53 (70) 99 Room Air 05/07/17 09:47 97.9 68 15 107/53 (71) 97 05/07/17 07:55 97.2 60 16 104/59 (74) 99 05/07/17 07:11 49 05/07/17 03:49 97.5 55 16 91/51 (64) 99 05/06/17 23:35 98.0 58 16 89/53 (65) 100 05/06/17 21:06 98.1 62 18 104/59 (74) 97 I/O 05/06/17 05/06/17 05/06/17 05/07/17 05/07/17 05/07/17 07:00 15:00 23:00 07:00 15:00 23:00 Intake Total 300 ml 300 ml 750 ml Balance 300 ml 300 ml 750 ml Intake Oral 300 ml 300 ml IV Total 400 ml Other 350 ml # Voids 2 Result Diagram: 05/07/17 0610 05/07/17 0610 Imaging Last Impressions Abdomen X-Ray 05/07/17 0000 Signed Impressions: Service Date/Time: Sunday, May 07, 2017 13:22 - CONCLUSION: Negative Shukri Venegas MD FACR Renal Ultrasound 05/06/17 0000 Signed Impressions: Service Date/Time: April 09:21 - CONCLUSION: Increased renal cortical echogenicity and renal cortical thinning consistent with medical renal disease. No hydronephrosis. Bilateral stones. Davy Palacios MD Chest X-Ray 05/05/17 6918 Signed Impressions: Service Date/Time: Friday, May 05, 2017 18:20 - CONCLUSION: No acute disease. Edy Jenkins Jr., MD Objective Remarks GENERAL: This is a well-nourished, obese patient, in NAD. SKIN: No rashes, ecchymoses or lesions. Cool and dry. HEAD: Atraumatic. Normocephalic. EYES: Pupils equal round and reactive. ENT: Nose without bleeding, purulent drainage or septal hematoma. Airway patent. NECK: Trachea midline. No JVD or lymphadenopathy. CARDIOVASCULAR: Regular rate and rhythm without murmurs, gallops, or rubs. RESPIRATORY: Clear to auscultation. Breath sounds equal bilaterally. No wheezes , rales, or rhonchi. GASTROINTESTINAL: Abdomen soft, non-tender, nondistended. No guarding. Left lower quadrant ileostomy conduit. MUSCULOSKELETAL: Extremities without clubbing, cyanosis, or edema. No joint tenderness, effusion, or edema noted. No calf tenderness. NEUROLOGICAL: Awake and alert. Motor and sensory grossly within normal limits. Normal speech. Procedures EGD A/P Problem List: (1) Asymptomatic bacteriuria ICD Code: R82.71 - Bacteriuria (2) LEIGH (acute kidney injury) ICD Code: N17.9 - Acute kidney failure, unspecified Status: Acute Assessment and Plan 56 y/o female with a history of ckd, hypothyroid, and depression, was sent to the ED from Dr. Martinez office for evaluation of elevated kidney function. Acute kidney injury on chronic kidney disease III suspected due to dehydration related to malabsorption from ileostomy and gastric sleeve. Improving Creatine 2.9, baseline around 1.6 -Unremarkable EGD follow up pathology -H pylori stool antigien ordered -IVF for hydration -Avoid nephrotoxins -Discussed with bariatric surgery, check upper GI series and thiamine level Vertigo. She is nonfocal. Neurology has been consulted Asymptomatic bacteriuria, patient denies dysuria, or fevers, no leukocytosis UA shows large leukocyte esterase and occult blood -Urine culture with contaminants -Hold antibiotics for now DVT prophylaxis: SCDs Discharge Planning Not ready for discharge Mo North MD May 07, 2017 13:35
--- NOTE | 2017-05-07 13:53 | RADRPT ---
EXAM DATE/TIME: 05/07/2017 13:22 [facility] COMPARISON: No previous studies available for comparison. INDICATIONS : Pneumatic System Conveyor Operator for cancelled upper GI series. MEDICAL HISTORY : Hypothyroidism. Gastroesophageal reflux disease.Renalcalculi. Ulcertive colitis. SURGICAL HISTORY : Hysterectomy. Left breast biopsy. Vertical sleeve gastrectomy. ENCOUNTER: Subsequent ACUITY: 1 day PAIN SCORE: 3/10 LOCATION: abdomen FINDINGS: Nonspecific bowel gas pattern. Multiple surgical clips in the pelvis. Degenerative changes lumbar s pine. CONCLUSION: Negative Shukri Venegas MD FACR on May 07, 2017 at 13:52 Board Certified Radiologist. This report was verified electronically.
[2017-05-07] MEDS: SCOPOLAMINE 1.5 MG PATCH T-DERMAL SCH (13:59)
[2017-05-07] MEDS ORDERED: MULTIVITAMIN INJ 10 ML, THIAMINE INJ 100 MG, FOLIC ACID INJ 1 MG in SODIUM CHLOR 0.45% ... IV SCH (14:00)
[2017-05-07] MEDS: THIAMINE IV SCH (16:13)
[2017-05-07] MEDS: SODIUM CHLOR 0.45% IV SCH (16:13)
[2017-05-07] MEDS: MULTIVITAMIN IV SCH (16:13)
--- NOTE | 2017-05-07 18:04 | MB ---
cc: ROSA HUTCHINSON M.D. DATE OF CONSULTATION: 05/07/2017. REASON FOR CONSULTATION: Vertigo. HISTORY OF PRESENT ILLNESS: Ms. Mota is a 56-year-old female who relates about a month history of intermittent vertigo and a lightheaded feeling. She states she first began to experience a vertigo feeling while in [place] where she would feel a sense of movement. The vertigo seems to be worse if she is standing upright but also if she gets it when she is lying down and turns from [id number]. If she gets up too quickly, she gets lightheaded as well. She has a history of significant nausea and vomiting with dehydration and recent elevation of BUN and creatinine. She has recently been found to have a GFR of less than 20 with significant metabolic acidosis by Dr. Martinez and was advised to come to the emergency room. PAST MEDICAL HISTORY: 1. History of ulcerative colitis. 2. Colectomy and ileostomy. 3. Gastric sleeve surgery. 4. History of diet-controlled diabetes. 5. Gout. 6. Hypothyroidism. 7. Gastrointestinal reflux. 8. Hysterectomy. 9. Appendectomy. 10. Vertical sleeve gastrectomy. CURRENT MEDICATIONS: 1. Vitamin D3. 2. Folate. 3. Transdermal scopolamine patch. 4. Phenergan. 5. Synthroid. 6. Metoprolol 25 milligrams as needed. 7. Sodium bicarbonate. 8. Fluoxetine. 9. Zofran PRN. 10. Lactulose. NEUROLOGICAL EXAMINATION: VITAL SIGNS: Blood pressure 103/59 supine, pulse 79, respiratory rate is 16, temperature is 97.4 degrees. HIGHER CORTICAL FUNCTIONS: Normal. CRANIAL NERVES: Intact. The extraocular movements are normal with no nystagmus. MOTOR: Motor exam demonstrates 5/5 strength of all groups. There is no drift. REFLEXES: Symmetric. LABS: The white count is 5800, hemoglobin 12.2, hematocrit 35%, platelet count 270,000. Sodium is 137, potassium 3.5, chloride 109, carbon dioxide 14.5, BUN is 39, creatinine 2.79. PTH 29.2. Hepatitis C antibody negative. Urinalysis: The pH is 6, specific gravity 1.021, protein is 100. There are 15 RBCs, innumerable WBCs. IMPRESSION: 1. Vertigo. I suspect that there may be an element of orthostatic hypotension. Also, a vestibular dysfunction as well. RECOMMENDATIONS: 1. Will check orthostatic blood pressure and pulse. 2. Also recommend MRI of the brain without contrast. 3. Echocardiogram. 4. Carotid ultrasound. MD LYLE Ames/LALO /5:04 PM /5:58 PM
--- NOTE | 2017-05-07 19:55 | RADRPT ---
EXAM DATE/TIME: 05/07/2017 17:48 [facility] COMPARISON: No previous studies available for comparison. INDICATIONS : Presyncope. MEDICAL HISTORY : Hypothyroidism. Gout. SURGICAL HISTORY : Hysterectomy. Appendectomy. Colectomy. Ileostomy. ENCOUNTER: Initial ACUITY: 1 day PAIN SCORE: 0/10 LOCATION: Bilateral neck PEAK SYSTOLIC VELOCITIES (cm/sec): ICA/CCA RATIO: Right: 0.7 Left: 0.9 ICA: Right: 86 Left: 108 CCA: Right: 122 Left: 120 ECA: Right: 96 Left: 114 VERTEBRAL: Right: 54 antegrade Left: 74 antegrade Elevated flow velocities and ICA/CCA ratios have been found to correlate with increased degrees of vessel stenosis, calculated as percentage of diameter relative to a normal segment of distal ICA/CCA FINDINGS: RIGHT CAROTID: No significant stenosis is visualized. The waveforms are within normal limits. LEFT CAROTID: No significant stenosis is visualized. The waveforms are within normal limits. VERTEBRAL ARTERIES: Antegrade flow is seen in both vertebral arteries. MISCELLANEOUS: None. CONCLUSION: 1. Patent carotid arteries bilaterally. 2. Antegrade flow involving both vertebral arteries. Edy Jenkins Jr., MD on May 07, 2017 at 19:52 Board Certified Radiologist. This report was verified electronically.
--- NOTE | 2017-05-07 21:43 | RADRPT ---
EXAM DATE/TIME: 05/07/2017 21:06 [facility] COMPARISON: No previous studies available for comparison. INDICATIONS : CVA. Dizziness. MEDICAL HISTORY : Renal failure. Hypothyroidism. Gout. SURGICAL HISTORY : Hysterectomy. Appendectomy. Colectomy. Ileostomy. ENCOUNTER: Subsequent ACUITY: 1 day PAIN SCORE: 3/10 LOCATION: cranial Patient was premedicated per protocol for underlying contrast media allergy. TECHNIQUE: Multiplanar, multisequence MRI of the brain was performed without contrast. FINDINGS: CEREBRUM: The ventricles are normal for age. No evidence of midline shift, mass lesion, hemorrhage or acute in farction. No extraaxial fluid collections are seen. The pituitary gland and suprasellar cistern are normal in configuration. WHITE MATTER: No significant signal abnormalities are seen in the white matter. POSTERIOR FOSSA: The cerebellum and brainstem are intact. The 4th ventricle is midline. The cerebellopontine angle is unremarkable. The cerebellar tonsils are normal in position. DIFFUSION IMAGING: No focal areas of restricted diffusion are seen. No evidence of acute infarction. EXTRACRANIAL: The visualized portions of the orbits and paranasal sinuses are unremarkable. CONCLUSION: Normal examination. Edy Jenkins Jr., MD on May 07, 2017 at 21:40 Board Certified Radiologist. This report was verified electronically.
[2017-05-08] VITALS (9 sets, daily range): BP systolic 91–127; BP diastolic 51–69; PULSE 47–64; RESP 18–20; TEMP 96.8–98; O2SAT 95–100
[2017-05-08] MEDS: LEVOTHYROXINE SODIUM 125 MCG TAB PO SCH (06:19)
[2017-05-08] MEDS ORDERED: CHOL1000 PO (08:29)
[2017-05-08] MEDS: DOCUSATE SODIUM 50 MG/SENNA 8.6 MG TAB PO SCH ×2 (09:00→21:00)
[2017-05-08 09:32] LABS: MAGNESIUM 1.9 MG/DL (1.5-2.5)
[2017-05-08] MEDS: SODIUM CHLOR 0.45% IV SCH (09:54)
[2017-05-08] MEDS: MULTIVITAMIN IV SCH (09:54)
[2017-05-08] MEDS: THIAMINE IV SCH (09:54)
[2017-05-08] MEDS: SODIUM CHLORIDE 0.9% FLUSH 10 ML FLUSH IV FLUSH SCH ×2 (09:55→21:00)
[2017-05-08] MEDS: SODIUM BICARBONATE 8.4% INJ 75 MEQ in SODIUM CHLOR 0.45% 1000 ML INJ 1,000 ML IV SCH ×2 (09:55→16:02)
[2017-05-08] MEDS: FLUoxetine HCL 20 MG CAP PO SCH (10:11)
[2017-05-08] MEDS: CHOLECALCIFEROL (VIT D3) 1000 UNIT TAB PO SCH (10:12)
[2017-05-08] MEDS: FOLIC ACID 1 MG TAB PO SCH (10:12)
[2017-05-08] MEDS: ESTRADIOL 1 MG TAB PO SCH (10:12)
--- NOTE | 2017-05-08 10:29 | HHI.GIFU ---
Subjective Remarks Patient reports continued issues with nausea and vomiting. Reports symptoms are worse when she moves around. Tolerating diet. Denies abdominal pain. (Corinne Power) Objective Vitals I&O Vital Signs Date Time Temp Pulse Resp B/P (MAP) Pulse Ox O2 Delivery O2 Flow Rate FiO2 05/08/17 10:00 52 98/54 (69) 103/59 (74) 97/53 (68) 05/08/17 08:32 96.8 47 20 127/69 (88) 95 05/08/17 04:03 97.6 51 18 93/51 (65) 96 05/07/17 23:50 56 05/07/17 23:23 97.5 56 18 95/52 (66) 97 05/07/17 20:28 98.0 60 18 105/57 (73) 97 05/07/17 19:59 65 05/07/17 18:10 108/59 (75) 97/52 (67) 05/07/17 17:17 85 05/07/17 16:30 97.4 79 16 103/59 (74) 97 05/07/17 11:47 97.8 57 16 100/57 (71) 100 I/O 05/07/17 05/07/17 05/07/17 05/08/17 05/08/17 05/08/17 07:00 15:00 23:00 07:00 15:00 23:00 Intake Total 750 ml 1075 ml Balance 750 ml 1075 ml IV Total 400 ml 1075 ml Other 350 ml # Voids 2 5 Laboratory Laboratory Tests Test 05/07/17 13:55 05/08/17 08:45 Blood Urea Nitrogen 35 Creatinine 2.47 Random Glucose 96 Calcium Level 8.6 Magnesium Level 1.9 Sodium Level 139 Potassium Level 4.0 Chloride Level 112 Carbon Dioxide Level 17.0 Anion Gap 10 Estimat Glomerular Filtration Rate 20 Date/Time Source Procedure Growth Status 05/05/17 20:03 Urine Random Urine Urine Culture - Final 50-100,000 CFU/ML MIXED GRAM POSITIVE... Complete Imaging Last Impressions Carotid Artery Ultrasound 05/07/17 0000 Signed Impressions: Service Date/Time: Sunday, May 07, 2017 17:48 - CONCLUSION: 1. Patent carotid arteries bilaterally. 2. Antegrade flow involving both vertebral arteries. Edy Jenkins Jr., MD Brain MRI 05/07/17 0000 Signed Impressions: Service Date/Time: Sunday, May 07, 2017 21:06 - CONCLUSION: Normal examination. Edy Jenkins Jr., MD Abdomen X-Ray 05/07/17 0000 Signed Impressions: Service Date/Time: Sunday, May 07, 2017 13:22 - CONCLUSION: Negative Shukri Venegas MD FACR Renal Ultrasound 05/06/17 0000 Signed Impressions: Service Date/Time: April 09:21 - CONCLUSION: Increased renal cortical echogenicity and renal cortical thinning consistent with medical renal disease. No hydronephrosis. Bilateral stones. Davy Palacios MD Chest X-Ray 05/05/17 1746 Signed Impressions: Service Date/Time: Friday, May 05, 2017 18:20 - CONCLUSION: No acute disease. Edy Jenkins Jr., MD Physical Exam HEENT: Normocephalic; atraumatic; no jaundice. Throat is clear. NECK: Neck is supple. CHEST: CTA CARDIAC: RRR ABDOMEN: Soft, obese, nondistended, nontender; no hepatosplenomegaly; bowel sounds are present. EXTREMITIES: No clubbing, cyanosis, or edema. SKIN: Normal; no rash; no jaundice. MANAGER APPLICATION: No focal deficits; alert and oriented x 3 (Corinne Power) Assessment and Plan Plan ASSESSMENT - Nausea/vomiting - unclear etiology, has had since gastric sleeve procedure 2016. History of h pylori s/p treatment. EGD 05/07/17--Normal, multiple biopsies obtained. Reports symptoms worse with movement, vertigo? Neurology following, who suspect vertigo with orthostatic component. - Renal insufficiency - Nephrology following. Cr 2.47, GFR 20 PLAN - Await biopsies - IV hydration - Monitor labs - Neurology following - Anti-emetics - Supportive care - Further recommendations to follow based on results of above. Patient seen and examined by Dr. Goetz and myself and this note is written on his behalf. (Corinne Power) Physician Comments Seen and examined, plan as above. Further recommendations to follow. (Shila Goetz MD) Corinne Power May 08, 2017 10:29 Shila Goetz MD May 08, 2017 22:57
--- NOTE | 2017-05-08 12:30 | HHI.PR ---
Subjective Remarks Follow-up nausea and vertigo. Continue still nausea despite on scopolamine patch. Improving vertigo. Also was orthostatic on IV hydration. Discussed with RN Objective Vitals Vital Signs Date Time Temp Pulse Resp B/P (MAP) Pulse Ox O2 Delivery O2 Flow Rate FiO2 05/08/17 10:00 52 98/54 (69) 103/59 (74) 97/53 (68) 05/08/17 08:32 96.8 47 20 127/69 (88) 95 05/08/17 04:03 97.6 51 18 93/51 (65) 96 05/07/17 23:50 56 05/07/17 23:23 97.5 56 18 95/52 (66) 97 05/07/17 20:28 98.0 60 18 105/57 (73) 97 05/07/17 19:59 65 05/07/17 18:10 108/59 (75) 97/52 (67) 05/07/17 17:17 85 05/07/17 16:30 97.4 79 16 103/59 (74) 97 I/O 05/07/17 05/07/17 05/07/17 05/08/17 05/08/17 05/08/17 07:00 15:00 23:00 07:00 15:00 23:00 Intake Total 750 ml 1075 ml Balance 750 ml 1075 ml IV Total 400 ml 1075 ml Other 350 ml # Voids 2 5 Result Diagram: 05/07/17 0610 05/08/17 0845 Imaging Last Impressions Carotid Artery Ultrasound 05/07/17 0000 Signed Impressions: Service Date/Time: Sunday, May 07, 2017 17:48 - CONCLUSION: 1. Patent carotid arteries bilaterally. 2. Antegrade flow involving both vertebral arteries. Edy Jenkins Jr., MD Brain MRI 05/07/17 0000 Signed Impressions: Service Date/Time: Sunday, May 07, 2017 21:06 - CONCLUSION: Normal examination. Edy Jenkins Jr., MD Abdomen X-Ray 05/07/17 0000 Signed Impressions: Service Date/Time: Sunday, May 07, 2017 13:22 - CONCLUSION: Negative Shukri Venegas MD FACR Renal Ultrasound 05/06/17 0000 Signed Impressions: Service Date/Time: April 09:21 - CONCLUSION: Increased renal cortical echogenicity and renal cortical thinning consistent with medical renal disease. No hydronephrosis. Bilateral stones. Davy Palacios MD Chest X-Ray 05/05/17 6486 Signed Impressions: Service Date/Time: Friday, May 05, 2017 18:20 - CONCLUSION: No acute disease. Edy Jenkins Jr., MD Objective Remarks GENERAL: This is a well-nourished, obese patient, in NAD. SKIN: No rashes, ecchymoses or lesions. Cool and dry. CARDIOVASCULAR: Regular rate and rhythm without murmurs, gallops, or rubs. RESPIRATORY: Clear to auscultation. Breath sounds equal bilaterally. No wheezes , rales, or rhonchi. GASTROINTESTINAL: Abdomen soft, non-tender, nondistended. No guarding. Left lower quadrant ileostomy conduit. MUSCULOSKELETAL: Extremities without clubbing, cyanosis, or edema. No joint tenderness, effusion, or edema noted. No calf tenderness. NEUROLOGICAL: Awake and alert. Motor and sensory grossly within normal limits. Normal speech. Procedures EGD A/P Problem List: (1) Asymptomatic bacteriuria ICD Code: R82.71 - Bacteriuria (2) LEIGH (acute kidney injury) ICD Code: N17.9 - Acute kidney failure, unspecified Status: Acute Assessment and Plan 56 y/o female with a history of ckd, hypothyroid, and depression, was sent to the ED from Dr. Martinez office for evaluation of elevated kidney function. Acute kidney injury on chronic kidney disease III with metabolic acidosis due to dehydration related to malabsorption from ileostomy and gastric sleeve. Improving Creatine 2.9, baseline around 1.6 -Unremarkable EGD follow up pathology -H pylori stool antigen ordered -IVF for hydration -Avoid nephrotoxins Vertigo. She is nonfocal. Workup negative so far pending echocardiogram. Neurology has been consulted suspect vestibular dysfunction versus orthostasis. Ct IVF fall precautions. Physical therapy evaluation Asymptomatic bacteriuria, patient denies dysuria, or fevers, no leukocytosis UA shows large leukocyte esterase and occult blood -Urine culture with contaminants -Hold antibiotics for now DVT prophylaxis: SCDs Discharge Planning Not ready for discharge Mo North MD May 08, 2017 12:30
--- NOTE | 2017-05-08 16:03 | HHI.NPPN ---
Subjective History of Present Illness This is a 56-year-old female whom was seen in our office for her initial visit May 04, 2017. The patient has a complicated medical history with a history of ulcerative colitis status post colectomy and ileostomy, gastric sleeve surgery February 22, 2017. After that procedure she was initially doing well but developed pain nausea and vomiting for 3 weeks postoperatively and was hospitalized at this institution back in February with acute renal failure with serum creatinine level rising to 5.6. Fortunately renal function did improve although not normalizing. Patient indicates she was still having significant nausea or vomiting poor oral intake of food and fluids. She was referred to our office for further evaluation and it was noted back in March her creatinine was 2.15 with BUN of 30. Laboratory studies were ordered. She was subsequently found to have a GFR less than 20 significant metabolic acidosis and was advised to come to the emergency room for inpatient management of acute renal insufficiency severe, dehydration with inability to maintain adequate oral hydration as well as worsening metabolic acidosis. No history of NSAID usage for analgesia prior to presentation. Interval History Complaining of generalized aching otherwise no verbal complaints. Review of Systems Gastrointestinal Gastrointestinal: Nausea & Vomiting Objective Data Data Vital Signs Date Time Temp Pulse Resp B/P (MAP) Pulse Ox O2 Delivery O2 Flow Rate FiO2 05/08/17 10:00 52 98/54 (69) 103/59 (74) 97/53 (68) 05/08/17 09:50 55 05/08/17 08:32 96.8 47 20 127/69 (88) 95 05/08/17 04:03 97.6 51 18 93/51 (65) 96 05/07/17 23:50 56 05/07/17 23:23 97.5 56 18 95/52 (66) 97 05/07/17 20:28 98.0 60 18 105/57 (73) 97 05/07/17 19:59 65 05/07/17 18:10 108/59 (75) 97/52 (67) 05/07/17 17:17 85 05/07/17 16:30 97.4 79 16 103/59 (74) 97 -: 05/07/17 0610 05/08/17 0845 Physical Exam General Appearance: No Acute Distress, Comfortable Eyes Eye Exam: Pupils Equal, Pupils Reactive Neck Neck Exam: Neck Supple, Trachea Midline Pulmonary Resp Exam: Clear Bilaterally, Breath Sounds Equal Cardiology CV Exam: Regular, Normal Sinus Rhythm Gastrointestinal/Abdomen GI Exam: Soft, Non-Tender Integumentary Skin Exam: Clear, Warm Extremeties Extremities Exam: No Edema Neurologic Neuro Exam: Alert, Awake Psychiatric Psych Exam: Appropriate Responses Assessment/Plan Discussed Condition With: Patient, Parent Problem List: (1) LEIGH (acute kidney injury) ICD Codes: N17.9 - Acute kidney failure, unspecified Status: Acute Plan: Secondary to intravascular volume depletion related to ongoing GI issues with nausea, vomiting and poor oral intake. Continue IV hydration with sodium bicarbonate containing solutions to improve her volume status and metabolic acidosis. Patient's creatinine level is improving albeit slowly. Blood pressure is relatively low standing. Will check renin, aldosterone level as well as cortisol level. GI note reviewed as well as neurology's. Discussed with family and patient current status of renal function. I recommended post discharge the patient utilize Pedialyte as a hydration solution. Medications should be adjusted for the patient's estimated GFR if clinically indicated. Avoid agents with significant potential for nephrotoxicity possible including NSAIDs for analgesia, iodine contrast agents. Gadolinium is contraindicated if the GFR is below 30. (2) Metabolic acidosis ICD Codes: E87.2 - Acidosis Status: Acute Plan: Improving. When bicarbonate level approaching normal will switch to by mouth bicarbonate. (3) Dehydration ICD Codes: E86.0 - Dehydration Status: Chronic Plan: IV fluids as above. Hopefully gastroenterology can improve issues impeding adequate enteral fluid intake. (4) Chronic kidney disease (CKD), stage III (moderate) ICD Codes: N18.3 - Chronic kidney disease, stage 3 (moderate) Status: Chronic Plan: Suggested by results of renal ultrasound. Etiology of same uncertain but may be related to previous episodes of UTI in obstructive uropathy secondary to recurrent nephrolithiasis in the past. (5) Nephrolithiasis ICD Codes: N20.0 - Calculus of kidney Status: Chronic Plan: May be related to increased oxalate absorption secondary to ileostomy. 24-hour urine has been ordered to screen for hyperoxaluria , hypercalciuria and hypocitraturia. (6) Ileostomy present ICD Codes: Z93.2 - Ileostomy status Status: Chronic Plan: Management per GI. Myah Martinez MD May 08, 2017 16:03
[2017-05-09] VITALS (9 sets, daily range): BP systolic 84–92; BP diastolic 42–53; PULSE 50–74; RESP 16–18; TEMP 97–98.4; O2SAT 97–100
[2017-05-09] MEDS: SODIUM BICARBONATE 8.4% INJ 75 MEQ in SODIUM CHLOR 0.45% 1000 ML INJ 1,000 ML IV SCH (00:40)
[2017-05-09] MEDS: LEVOTHYROXINE SODIUM 125 MCG TAB PO SCH (06:27)
[2017-05-09] MEDS: ONDANSETRON HCL 4 MG/2 ML VIAL IVP PRN (06:31)
[2017-05-09 08:25] LABS: BICARBONATE 21.7 MEQ/L (21.0-32.0); MAGNESIUM 1.9 MG/DL (1.5-2.5); POTASSIUM 3.6 MEQ/L (3.5-5.1)
--- NOTE | 2017-05-09 08:53 | HHI.PR ---
Subjective Subjective Notes pt comfortable states nausea better shweta half sandwich last evening Objective Vitals/I&O Vital Signs Date Time Temp Pulse Resp B/P (MAP) Pulse Ox O2 Delivery O2 Flow Rate FiO2 05/09/17 07:43 84/47 (59) 85/49 (61) 05/09/17 07:25 97.0 50 16 100 05/07/17 10:00 Room Air Labs Laboratory Tests Test 05/08/17 16:45 05/09/17 07:45 Blood Urea Nitrogen 32 Creatinine 2.20 Random Glucose 79 Calcium Level 8.3 Magnesium Level 1.9 Sodium Level 142 Potassium Level 3.6 Chloride Level 110 Carbon Dioxide Level 21.7 Anion Gap 10 Estimat Glomerular Filtration Rate 23 Date/Time Source Procedure Growth Status 05/05/17 20:03 Urine Random Urine Urine Culture - Final 50-100,000 CFU/ML MIXED GRAM POSITIVE... Complete Radiology Last Impressions Renal Ultrasound 05/06/17 0000 Signed Impressions: Service Date/Time: April 09:21 - CONCLUSION: Increased renal cortical echogenicity and renal cortical thinning consistent with medical renal disease. No hydronephrosis. Bilateral stones. Davy Palacios MD Chest X-Ray 05/05/17 1746 Signed Impressions: Service Date/Time: Friday, May 05, 2017 18:20 - CONCLUSION: No acute disease. Edy Jenkins Jr., MD Abdomen: Non-tender Extremities: Perfused A/P Problem List: (1) Nausea & vomiting ICD Codes: R11.2 - Nausea with vomiting, unspecified Status: Acute Plan: improving cont current care (2) Bariatric surg stat-unsp ICD Codes: Z98.84 - Bariatric surgery status Status: Chronic Plan: add Glucerna with each meal (3) LEIGH (acute kidney injury) ICD Codes: N17.9 - Acute kidney failure, unspecified Status: Acute Problem Qualifiers (1) Nausea & vomiting: Qualified Codes: R11.2 - Nausea with vomiting, unspecified Sterling Burns MD May 09, 2017 08:53
--- NOTE | 2017-05-09 08:54 | RADRPT ---
EXAM DATE/TIME: 05/09/2017 08:29 [facility] COMPARISON: No previous studies available for comparison. INDICATIONS : Nausea and vomiting since gastric sleeve. FLUORO TIME: 1.3 minutes IMAGE COUNT: 12 CONTRAST: 1. Liquid E-Z Paque Barium Sulfate (60% w/v, 41% w.w) MEDICAL HISTORY : Ulcerative colitis. Renal failure. Hypothyroidism. Gout. SURGICAL HISTORY : Inguinal hernia repair. Colostomy. Gastric bypass. sleeve ENCOUNTER: Initial ACUITY: 4 - 6 months PAIN SCORE: 7/10 LOCATION: Bilateral upper quadrant FINDINGS: Air-contrast views of the hypopharynx demonstrate a normal mucosal surface without filling defect. R apid sequence images of the hypopharynx and cervical esophagus during the passage of barium demonstra te a normal swallowing function. No evidence of aspiration. Multiphasic examination of the esophagu s demonstrates no esophageal fold thickening, ulceration, or filling defect. The gastroesophageal ju nction is normal in configuration without evidence of hiatal hernia. CONCLUSION: Normal examination. Jacob King MD on May 09, 2017 at 8:52 Board Certified Radiologist. This report was verified electronically.
[2017-05-09] MEDS: DOCUSATE SODIUM 50 MG/SENNA 8.6 MG TAB PO SCH ×2 (09:00→21:00)
[2017-05-09] MEDS: THIAMINE IV SCH (09:43)
[2017-05-09] MEDS: SODIUM CHLOR 0.45% IV SCH (09:43)
[2017-05-09] MEDS: FOLIC ACID 1 MG TAB PO SCH (09:43)
[2017-05-09] MEDS: SODIUM CHLORIDE 0.9% FLUSH 10 ML FLUSH IV FLUSH SCH ×2 (09:43→21:02)
[2017-05-09] MEDS: MULTIVITAMIN IV SCH (09:43)
[2017-05-09] MEDS: CHOLECALCIFEROL (VIT D3) 1000 UNIT TAB PO SCH (09:44)
[2017-05-09] MEDS: FLUoxetine HCL 20 MG CAP PO SCH (09:44)
[2017-05-09] MEDS: ESTRADIOL 1 MG TAB PO SCH (09:44)
--- NOTE | 2017-05-09 13:46 | HHI.PR ---
Subjective Remarks Follow-up nausea. Reports of improved nausea. Also complaining of generalized soreness and earlier had occipital headache and dizziness when she got up. She has history of low BP systolic usually in the 90s discussed with RN Objective Vitals Vital Signs Date Time Temp Pulse Resp B/P (MAP) Pulse Ox O2 Delivery O2 Flow Rate FiO2 05/09/17 11:21 98.0 51 16 88/50 (63) 100 05/09/17 09:30 59 05/09/17 07:43 84/47 (59) 85/49 (61) 05/09/17 07:25 97.0 50 16 86/50 (62) 100 05/09/17 03:41 97.9 74 18 86/46 (59) 98 05/09/17 03:24 50 05/08/17 23:14 98.0 59 18 97/51 (66) 97 05/08/17 22:43 48 05/08/17 20:08 64 05/08/17 19:43 97.9 58 18 92/56 (68) 100 95/51 (66) 91/51 (64) 05/08/17 16:27 96.8 55 20 97/55 (69) 96 I/O 05/08/17 05/08/17 05/08/17 05/09/17 05/09/17 05/09/17 07:00 15:00 23:00 07:00 15:00 23:00 Intake Total 500 ml 120 ml 800 ml Balance 500 ml 120 ml 800 ml Intake Oral 120 ml IV Total 500 ml 800 ml # Voids 5 2 2 # Bowel Movements 0 Result Diagram: 05/07/17 0610 05/09/17 0745 Imaging Last Impressions Barium Swallow X-Ray 05/09/17 0000 Signed Impressions: Service Date/Time: Tuesday, May 09, 2017 08:29 - CONCLUSION: Normal examination. Jacob King MD Carotid Artery Ultrasound 05/07/17 0000 Signed Impressions: Service Date/Time: Sunday, May 07, 2017 17:48 - CONCLUSION: 1. Patent carotid arteries bilaterally. 2. Antegrade flow involving both vertebral arteries. Edy Jenkins Jr., MD Brain MRI 05/07/17 0000 Signed Impressions: Service Date/Time: Sunday, May 07, 2017 21:06 - CONCLUSION: Normal examination. Edy Jenkins Jr., MD Abdomen X-Ray 05/07/17 0000 Signed Impressions: Service Date/Time: Sunday, May 07, 2017 13:22 - CONCLUSION: Negative Shukri Venegas MD FACR Renal Ultrasound 05/06/17 0000 Signed Impressions: Service Date/Time: April 09:21 - CONCLUSION: Increased renal cortical echogenicity and renal cortical thinning consistent with medical renal disease. No hydronephrosis. Bilateral stones. Davy Palacios MD Chest X-Ray 05/05/17 1746 Signed Impressions: Service Date/Time: Friday, May 05, 2017 18:20 - CONCLUSION: No acute disease. Edy Jenkins Jr., MD Objective Remarks GENERAL: This is a well-nourished, obese patient, in NAD. SKIN: No rashes, ecchymoses or lesions. Cool and dry. CARDIOVASCULAR: Regular rate and rhythm without murmurs, gallops, or rubs. RESPIRATORY: Clear to auscultation. Breath sounds equal bilaterally. No wheezes , rales, or rhonchi. GASTROINTESTINAL: Abdomen soft, non-tender, nondistended. No guarding. Left lower quadrant ileostomy conduit. MUSCULOSKELETAL: Extremities without clubbing, cyanosis, or edema. No joint tenderness, effusion, or edema noted. No calf tenderness. NEUROLOGICAL: Awake and alert. Motor and sensory grossly within normal limits. Normal speech. Procedures EGD A/P Problem List: (1) Asymptomatic bacteriuria ICD Code: R82.71 - Bacteriuria (2) LEIGH (acute kidney injury) ICD Code: N17.9 - Acute kidney failure, unspecified Status: Acute Assessment and Plan 56 y/o female with a history of ckd, hypothyroid, and depression, was sent to the ED from Dr. Martinez office for evaluation of elevated kidney function. Acute kidney injury on chronic kidney disease III with metabolic acidosis due to dehydration related to malabsorption from ileostomy and gastric sleeve. Improving Creatine 2.9, baseline around 1.6 -Unremarkable EGD follow up pathology -H pylori stool antigen negative -IVF for hydration -Avoid nephrotoxins Low BP. Workup underway follow-up creatinine, aldosterone and cortisol. Echocardiogram also ordered. Vertigo. She is nonfocal. Workup negative so far pending echocardiogram. Neurology has been consulted suspect vestibular dysfunction versus orthostasis. Ct IVF fall precautions. Physical therapy evaluation Asymptomatic bacteriuria, patient denies dysuria, or fevers, no leukocytosis UA shows large leukocyte esterase and occult blood -Urine culture with contaminants -Hold antibiotics for now DVT prophylaxis: SCDs Discharge Planning Discharge home soon Mo North MD May 09, 2017 13:46
[2017-05-09] MEDS: D5-1/2 NS + KCL 10 MEQ INJ 1,000 ML IV SCH (14:19)
[2017-05-09] MEDS: SODIUM BICARBONATE 650 MG TAB PO SCH ×2 (14:19→21:03)
[2017-05-09 15:52] LABS: MYELOPEROXIDASE LESS THAN 1.0 AI (<1.0); PROTEINASE-3 LESS THAN 1.0 AI (<1.0)
[2017-05-10] VITALS (9 sets, daily range): BP systolic 89–103; BP diastolic 44–57; PULSE 40–56; RESP 18–22; TEMP 97.6–98.5; O2SAT 98–100
[2017-05-10] MEDS: D5-1/2 NS + KCL 10 MEQ INJ 1,000 ML IV SCH ×2 (01:24→18:21)
[2017-05-10 05:23] LABS: BICARBONATE 19.4 MEQ/L (21.0-32.0); MAGNESIUM 1.8 MG/DL (1.5-2.5); POTASSIUM 3.7 MEQ/L (3.5-5.1)
[2017-05-10] MEDS: LEVOTHYROXINE SODIUM 125 MCG TAB PO SCH (05:57)
[2017-05-10] MEDS: SODIUM BICARBONATE 650 MG TAB PO SCH ×3 (05:57→22:40)
--- NOTE | 2017-05-10 06:21 | HHI.PR ---
Review/Management Diagnosis dizzyness--probably secondary to orthostatic hypotension. THere may be an element of benign positional vertigo as well Diagnosis/Plan: Subjective Subjective Comments No acute events reported Patient reports dizzyness when standing and has been noted to have low BP standing. She states the dizzyness improves when she is supine Active Medications Current Medications Medications (Trade) Dose Ordered Sig/Espinoza Route Start Time Stop Time Status Last Admin (NS Flush) 2 ml UNSCH PRN IV FLUSH 05/05/17 22:30 (NS Flush) 2 ml BID IV FLUSH 05/06/17 09:00 05/09/17 21:02 (Narcan Inj) 0.4 mg UNSCH PRN IV PUSH 05/05/17 22:30 (Zofran Inj) 4 mg Q6H PRN IVP 05/06/17 06:15 05/09/17 06:31 ([place]en-Colace) 1 tab BID PO 05/06/17 09:00 05/06/17 21:15 (Senokot) 17.2 mg Q12H PRN PO 05/06/17 06:15 (Dulcolax Supp) 10 mg DAILY PRN RECTAL 05/06/17 06:15 (Lactulose Liq) 30 ml DAILY PRN PO 05/06/17 06:15 (Estradiol) 0.5 mg DAILY PO 05/06/17 09:00 05/09/17 09:44 (PROzac) 20 mg DAILY PO 05/06/17 09:00 05/09/17 09:44 (Pill Splitter) 1 ea UNSCH PRN OTHER 05/06/17 06:45 (Synthroid) 125 mcg DAILY@0600 PO 05/07/17 06:00 05/10/17 05:57 (Transderm-Scop 1.5 Mg Patch.72 Hr) 1 patch Q3D T-DERMAL 05/07/17 13:00 05/07/17 13:59 (Phenergan Supp) 12.5 mg Q6H PRN RECTAL 05/07/17 12:30 Miscellaneous Information 1 Q3D T-DERMAL 05/10/17 13:00 (Vitamin D3) 2,000 units DAILY PO 05/08/17 09:00 05/09/17 09:44 (Folate) 1 mg DAILY PO 05/08/17 09:00 05/09/17 09:43 Multivitamins 10 ml/Thiamine HCl 100 mg/Sodium Chloride 511 ml @ 125 mls/hr DAILY IV 05/07/17 14:00 05/09/17 09:43 Potassium Chloride/Dextrose/ Sod Cl 1,000 ml @ 100 mls/hr Q10H IV 05/09/17 13:00 05/10/17 01:24 (Sodium Bicarbonate) 650 mg Q8HR PO 05/09/17 14:00 05/10/17 05:57 Allergies Allergies Coded Allergies red dye (Unverified Allergy, Severe, hives and hot flashes, 05/07/17) acetaminophen (Verified Adverse Reaction, Severe, Nausea/Vomiting, 05/07/17) Exam I&O / VS Vital Signs Date Time Temp Pulse Resp B/P (MAP) Pulse Ox O2 Delivery O2 Flow Rate FiO2 05/10/17 03:55 98.4 51 18 100/44 (62) 100 05/09/17 23:40 98.4 57 18 85/42 (56) 97 05/09/17 19:51 98.1 61 18 87/50 (62) 98 87/51 (63) 92/53 (66) 05/09/17 16:01 98.3 62 18 86/50 (62) 100 05/09/17 11:21 98.0 51 16 88/50 (63) 100 05/09/17 09:30 59 05/09/17 07:43 84/47 (59) 85/49 (61) 05/09/17 07:25 97.0 50 16 86/50 (62) 100 Respiratory: Lungs CTA, Non-labored respirations Cardiology: Normal rate Exam Comments alert, oriented, speech normal CN 2-12 normal MOTOR--no focal deficits Objective Radiology Results MRI brain is normal carotid US normal Micro and Labs Laboratory Tests Test 05/09/17 07:45 05/10/17 04:40 Blood Urea Nitrogen 32 30 Creatinine 2.20 1.99 Random Glucose 79 81 Calcium Level 8.3 7.9 Magnesium Level 1.9 1.8 Sodium Level 142 142 Potassium Level 3.6 3.7 Chloride Level 110 113 Carbon Dioxide Level 21.7 19.4 Anion Gap 10 10 Estimat Glomerular Filtration Rate 23 26 Random Cortisol 10.2 Date/Time Source Procedure Growth Status 05/05/17 20:03 Urine Random Urine Urine Culture - Final 50-100,000 CFU/ML MIXED GRAM POSITIVE... Complete Art Vigil PhD May 10, 2017 06:21
[2017-05-10] MEDS: ESTRADIOL 1 MG TAB PO SCH (09:13)
[2017-05-10] MEDS: FLUoxetine HCL 20 MG CAP PO SCH (09:13)
[2017-05-10] MEDS: CHOLECALCIFEROL (VIT D3) 1000 UNIT TAB PO SCH (09:13)
[2017-05-10] MEDS: THIAMINE IV SCH (09:14)
[2017-05-10] MEDS: FOLIC ACID 1 MG TAB PO SCH (09:14)
[2017-05-10] MEDS: SODIUM CHLOR 0.45% IV SCH (09:14)
[2017-05-10] MEDS: MULTIVITAMIN IV SCH (09:14)
[2017-05-10] MEDS: SODIUM CHLORIDE 0.9% FLUSH 10 ML FLUSH IV FLUSH SCH ×2 (09:14→20:29)
[2017-05-10] MEDS: DOCUSATE SODIUM 50 MG/SENNA 8.6 MG TAB PO SCH ×2 (09:14→20:29)
--- NOTE | 2017-05-10 11:04 | HHI.NPPN ---
Subjective History of Present Illness This is a 56-year-old female whom was seen in our office for her initial visit May 04, 2017. The patient has a complicated medical history with a history of ulcerative colitis status post colectomy and ileostomy, gastric sleeve surgery February 22, 2017. After that procedure she was initially doing well but developed pain nausea and vomiting for 3 weeks postoperatively and was hospitalized at this institution back in February with acute renal failure with serum creatinine level rising to 5.6. Fortunately renal function did improve although not normalizing. Patient indicates she was still having significant nausea or vomiting poor oral intake of food and fluids. She was referred to our office for further evaluation and it was noted back in March her creatinine was 2.15 with BUN of 30. Laboratory studies were ordered. She was subsequently found to have a GFR less than 20 significant metabolic acidosis and was advised to come to the emergency room for inpatient management of acute renal insufficiency severe, dehydration with inability to maintain adequate oral hydration as well as worsening metabolic acidosis. No history of NSAID usage for analgesia prior to presentation. Interval History Patient indicating oral intake has improved. Losing about 5 cups of fluid daily via ileostomy by history. Review of Systems Gastrointestinal Gastrointestinal: Nausea & Vomiting Objective Data Data Vital Signs Date Time Temp Pulse Resp B/P (MAP) Pulse Ox O2 Delivery O2 Flow Rate FiO2 05/10/17 08:06 98.2 48 20 97/55 (69) 100 05/10/17 07:19 40 05/10/17 03:55 98.4 51 18 100/44 (62) 100 05/09/17 23:40 98.4 57 18 85/42 (56) 97 05/09/17 19:51 98.1 61 18 87/50 (62) 98 87/51 (63) 92/53 (66) 05/09/17 16:01 98.3 62 18 86/50 (62) 100 05/09/17 11:21 98.0 51 16 88/50 (63) 100 -: 05/07/17 0610 05/10/17 0440 Physical Exam General Appearance: No Acute Distress, Comfortable Eyes Eye Exam: Pupils Equal, Pupils Reactive Neck Neck Exam: Neck Supple, Trachea Midline Pulmonary Resp Exam: Clear Bilaterally, Breath Sounds Equal Cardiology CV Exam: Regular, Normal Sinus Rhythm Gastrointestinal/Abdomen GI Exam: Soft, Non-Tender Integumentary Skin Exam: Clear, Warm Extremeties Extremities Exam: No Edema Neurologic Neuro Exam: Alert, Awake Psychiatric Psych Exam: Appropriate Responses Assessment/Plan Discussed Condition With: Patient Problem List: (1) LEIGH (acute kidney injury) ICD Codes: N17.9 - Acute kidney failure, unspecified Status: Acute Plan: Patient advised maintain a fluid intake of about 4509-6707 mL daily to compensate for enteral fluid losses. Will reduce IV fluid rate to 40 mL an hour with repeat renal panel in a.m. I recommended post discharge the patient utilize Pedialyte as a hydration solution. Serological studies not suggestive of autoimmune related GN. Medications should be adjusted for the patient's estimated GFR if clinically indicated. Avoid agents with significant potential for nephrotoxicity possible including NSAIDs for analgesia, iodine contrast agents. Gadolinium is contraindicated if the GFR is below 30. (2) Metabolic acidosis ICD Codes: E87.2 - Acidosis Status: Acute Plan: Patient's bicarbonate level has fallen below normal. Will increase by mouth sodium bicarbonate. Metabolic acidosis most likely related to ileostomy bicarbonate fluid losses however she does have CKD. I will also check urinary studies to determine whether or not the patient has evidence of a renal tubular acidosis. Urine anion gap as well as an osmolar study. (3) Dehydration ICD Codes: E86.0 - Dehydration Status: Chronic Plan: IV fluids as above. Hopefully gastroenterology can improve issues impeding adequate enteral fluid intake. (4) Orthostasis ICD Codes: I95.1 - Orthostatic hypotension Status: Chronic (5) Chronic kidney disease (CKD), stage III (moderate) ICD Codes: N18.3 - Chronic kidney disease, stage 3 (moderate) Status: Chronic Plan: Suggested by results of renal ultrasound. Etiology of same uncertain but may be related to previous episodes of UTI in obstructive uropathy secondary to recurrent nephrolithiasis in the past. (6) Nephrolithiasis ICD Codes: N20.0 - Calculus of kidney Status: Chronic Plan: May be related to increased oxalate absorption secondary to ileostomy. 24-hour urine has been ordered to screen for hyperoxaluria , hypercalciuria and hypocitraturia. (7) Ileostomy present ICD Codes: Z93.2 - Ileostomy status Status: Chronic Plan: Management per GI. Plan Renin and aldosterone level pending. Cortisol level was within normal range. We'll add Florinef in the interim. I counseled the patient regarding the nature of this medication and she has agreed to start taking same. Myah Martinez MD May 10, 2017 11:04
--- NOTE | 2017-05-10 12:39 | ECHRPT ---
Indication: presyncope CONCLUSIONS The transthoracic study is normal by two-dimensional, color flow imaging and Doppler interrogation. BP: 93 / 51 HR: Rhythm: MEASUREMENTS (Male / Female) Normal Values Technical Quality:Good 2D ECHO LV Diastolic Diameter PLAX 4.5 cm 4.2 - 5.9 / 3.9 - 5.3 cm LV Systolic Diameter PLAX 3.2 cm IVS Diastolic Thickness 1.3 cm 0.6 - 1.0 / 0.6 - 0.9 cm LVPW Diastolic Thickness 1.0 cm 0.6 - 1.0 / 0.6 - 0.9 cm LV Relative Wall Thickness 0.5 RV Internal Dim ED PLAX 2.0 cm M-MODE Aortic Root Diameter MM 2.9 cm LA Systolic Diameter MM 4.0 cm LA Ao Ratio MM 1.4 AV Cusp Separation MM 1.6 cm FINDINGS LEFT VENTRICLE Normal left ventricular size and wall thickness. The left ventricular systolic function is normal wi th an estimated ejection fraction in the range of 60-65%. Left ventricular diastolic function parameters a re normal. RIGHT VENTRICLE Normal right ventricular size and systolic function. LEFT ATRIUM The left atrial size is normal. RIGHT ATRIUM The right atrial size is normal. ATRIAL SEPTUM Normal atrial septal thickness without atrial level shunting by limited color doppler interrogation. AORTA The aortic root and proximal ascending aorta are not well visualized. MITRAL VALVE Structurally normal mitral valve. No mitral valve stenosis or regurgitation. AORTIC VALVE Trileaflet aortic valve. No aortic valve stenosis or regurgitation. TRICUSPID VALVE Structurally normal tricuspid valve. No tricuspid valve stenosis or regurgitation. PULMONARY VALVE The pulmonary valve is not well visualized. VESSELS The inferior vena cava is normal in size. PERICARDIUM No pericardial effusion. Jacey Giordano MD, FACC (Electronically Signed) Final Date:10 May 2017 12:38
[2017-05-10] MEDS: FLUDROCORTISONE ACETATE 0.1 MG TAB PO SCH (12:50)
[2017-05-10] MEDS ORDERED: REMOVE OLD SCOPOLAMINE PATCH T-DERMAL SCH (13:00)
--- NOTE | 2017-05-10 13:40 | HHI.PR ---
Subjective Remarks Follow-up acute kidney injury with metabolic acidosis. She is feeling better and wants to go home. Improving by mouth. Discussed with GI who will give recommendations regarding IV hydration outpatient Objective Vitals Vital Signs Date Time Temp Pulse Resp B/P (MAP) Pulse Ox O2 Delivery O2 Flow Rate FiO2 05/10/17 12:14 97.6 50 22 90/53 (65) 100 05/10/17 08:06 98.2 48 20 97/55 (69) 100 05/10/17 07:19 40 05/10/17 03:55 98.4 51 18 100/44 (62) 100 05/09/17 23:40 98.4 57 18 85/42 (56) 97 05/09/17 19:51 98.1 61 18 87/50 (62) 98 87/51 (63) 92/53 (66) 05/09/17 16:01 98.3 62 18 86/50 (62) 100 I/O 05/09/17 05/09/17 05/09/17 05/10/17 05/10/17 05/10/17 07:00 15:00 23:00 07:00 15:00 23:00 Intake Total 120 ml 800 ml Balance 120 ml 800 ml Intake Oral 120 ml IV Total 800 ml # Voids 2 2 # Bowel Movements 0 Result Diagram: 05/07/17 0610 05/10/17 0440 Imaging Last Impressions Barium Swallow X-Ray 05/09/17 0000 Signed Impressions: Service Date/Time: Tuesday, May 09, 2017 08:29 - CONCLUSION: Normal examination. Jacob King MD Carotid Artery Ultrasound 05/07/17 0000 Signed Impressions: Service Date/Time: Sunday, May 07, 2017 17:48 - CONCLUSION: 1. Patent carotid arteries bilaterally. 2. Antegrade flow involving both vertebral arteries. Edy Jenkins Jr., MD Brain MRI 05/07/17 0000 Signed Impressions: Service Date/Time: Sunday, May 07, 2017 21:06 - CONCLUSION: Normal examination. Edy Jenkins Jr., MD Abdomen X-Ray 05/07/17 0000 Signed Impressions: Service Date/Time: Sunday, May 07, 2017 13:22 - CONCLUSION: Negative Shukri Venegas MD FACR Renal Ultrasound 05/06/17 0000 Signed Impressions: Service Date/Time: April 09:21 - CONCLUSION: Increased renal cortical echogenicity and renal cortical thinning consistent with medical renal disease. No hydronephrosis. Bilateral stones. Davy Palacios MD Chest X-Ray 05/05/17 3322 Signed Impressions: Service Date/Time: Friday, May 05, 2017 18:20 - CONCLUSION: No acute disease. Edy Jenkins Jr., MD Objective Remarks GENERAL: This is a well-nourished, obese patient, in NAD. SKIN: No rashes, ecchymoses or lesions. Cool and dry. CARDIOVASCULAR: Regular rate and rhythm without murmurs, gallops, or rubs. RESPIRATORY: Clear to auscultation. Breath sounds equal bilaterally. No wheezes , rales, or rhonchi. GASTROINTESTINAL: Abdomen soft, non-tender, nondistended. No guarding. Left lower quadrant ileostomy conduit. MUSCULOSKELETAL: Extremities without clubbing, cyanosis, or edema. No joint tenderness, effusion, or edema noted. No calf tenderness. NEUROLOGICAL: Awake and alert. Motor and sensory grossly within normal limits. Normal speech. No significant change in PE from previous Procedures EGD A/P Problem List: (1) Asymptomatic bacteriuria ICD Code: R82.71 - Bacteriuria (2) LEIGH (acute kidney injury) ICD Code: N17.9 - Acute kidney failure, unspecified Status: Acute Assessment and Plan 56 y/o female with a history of ckd, hypothyroid, and depression, was sent to the ED from Dr. Martinez office for evaluation of elevated kidney function. Acute kidney injury on chronic kidney disease III with metabolic acidosis due to dehydration related to GI loss from ileostomy. Improving will likely need outpatient daily IV fluids if inadequate by mouth intake Creatine 2.9, baseline around 1.6 -Unremarkable EGD follow up pathology -H pylori stool antigen negative -IVF for hydration -Avoid nephrotoxins Low BP. Workup underway follow-up creatinine and aldosterone. Cortisol and echocardiogram within normal limits. Started on Florinef Vertigo. She is nonfocal. Workup negative so far pending echocardiogram. Neurology has been consulted suspect vestibular dysfunction versus orthostasis. Ct IVF fall precautions. Physical therapy evaluation Asymptomatic bacteriuria, patient denies dysuria, or fevers, no leukocytosis UA shows large leukocyte esterase and occult blood -Urine culture with contaminants -Hold antibiotics for now DVT prophylaxis: SCDs Discharge Planning Likely will be discharged today Mo North MD May 10, 2017 13:40
[2017-05-10] MEDS: SCOPOLAMINE 1.5 MG PATCH T-DERMAL SCH (13:55)
--- NOTE | 2017-05-10 14:13 | HHI.GIFU ---
Subjective Remarks Ambulating in room. States that she had a piece of turkey get lodged in her middle esophagus during lunch and has had some nausea since. She reports that she had a hx of U.C. and has had multiple surgeries. 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 She empties her stool about every 1.5-2 hours. She does not measure the amount, but states that it is her normal output amount and that she has not had any increase in her stool output. She states that it is working better than it ever has and does not want to change anything with the management of her BCIR/ Stool output. (Domenica Martines) Objective Vitals I&O Vital Signs Date Time Temp Pulse Resp B/P (MAP) Pulse Ox O2 Delivery O2 Flow Rate FiO2 05/10/17 12:14 97.6 50 22 90/53 (65) 100 05/10/17 08:06 98.2 48 20 97/55 (69) 100 05/10/17 07:19 40 05/10/17 03:55 98.4 51 18 100/44 (62) 100 05/09/17 23:40 98.4 57 18 85/42 (56) 97 05/09/17 19:51 98.1 61 18 87/50 (62) 98 87/51 (63) 92/53 (66) 05/09/17 16:01 98.3 62 18 86/50 (62) 100 I/O 05/09/17 05/09/17 05/09/17 05/10/17 05/10/17 05/10/17 07:00 15:00 23:00 07:00 15:00 23:00 Intake Total 120 ml 800 ml Balance 120 ml 800 ml Intake Oral 120 ml IV Total 800 ml # Voids 2 2 # Bowel Movements 0 Laboratory Laboratory Tests Test 05/10/17 04:40 05/10/17 10:40 Blood Urea Nitrogen 30 Creatinine 1.99 Random Glucose 81 Calcium Level 7.9 Magnesium Level 1.8 Sodium Level 142 Potassium Level 3.7 Chloride Level 113 Carbon Dioxide Level 19.4 Anion Gap 10 Estimat Glomerular Filtration Rate 26 Urine Glucose (UA) NEG Urine Eosinophils RARE Urine Osmolality 173 Urine Random Creatinine 64 Urine Random Total Protein 15 Urine Random Sodium 9 Urine Random Potassium 9 Urine Random Chloride 12 Urine Protein/Creatinine Ratio 0.23 Date/Time Source Procedure Growth Status 05/05/17 20:03 Urine Random Urine Urine Culture - Final 50-100,000 CFU/ML MIXED GRAM POSITIVE... Complete Imaging Last Impressions Barium Swallow X-Ray 05/09/17 0000 Signed Impressions: Service Date/Time: Tuesday, May 09, 2017 08:29 - CONCLUSION: Normal examination. Jacob iKng MD Carotid Artery Ultrasound 05/07/17 0000 Signed Impressions: Service Date/Time: Sunday, May 07, 2017 17:48 - CONCLUSION: 1. Patent carotid arteries bilaterally. 2. Antegrade flow involving both vertebral arteries. Edy Jenkins Jr., MD Brain MRI 05/07/17 0000 Signed Impressions: Service Date/Time: Sunday, May 07, 2017 21:06 - CONCLUSION: Normal examination. Edy Jenkins Jr., MD Abdomen X-Ray 05/07/17 0000 Signed Impressions: Service Date/Time: Sunday, May 07, 2017 13:22 - CONCLUSION: Negative Shukri Venegas MD FACR Renal Ultrasound 05/06/17 0000 Signed Impressions: Service Date/Time: April 09:21 - CONCLUSION: Increased renal cortical echogenicity and renal cortical thinning consistent with medical renal disease. No hydronephrosis. Bilateral stones. Davy Palacios MD Chest X-Ray 05/05/17 1746 Signed Impressions: Service Date/Time: Friday, May 05, 2017 18:20 - CONCLUSION: No acute disease. Edy Jenkins Jr., MD Physical Exam HEENT: Normocephalic; atraumatic; no jaundice. Throat is clear. NECK: Neck is supple. CHEST: CTA CARDIAC: RRR ABDOMEN: Soft, obese, nondistended, nontender; no hepatosplenomegaly; bowel sounds are present. Stoma to left lower quadrant EXTREMITIES: No clubbing, cyanosis, or edema. SKIN: Normal; no rash; no jaundice. 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 History of h pylori s/p treatment. EGD (05/07/17)----> 1. The esophagus was otherwise normal 2. Sleeve gastrectomy was found in the entire examined stomach, no strictures; multiple biopsies were performed for H.Pylori (patient has history of positive H.Pylori ). 3. Retroflexion was not performed. Pathology pending. Also complains of dry solids getting caught in mid esophagus and has had more nausea after turkey became lodged in esophagus during lung today. Will get Upper GI series.Neurology is also following and suspects some degree of vertigo with orthostatic component. Phenergan. Scopolamine. - Dysphagia. C/O dry solids getting caught in mid esophageal area. This occurred with piece of turkey today and she has since had more nausea. Barium swallow (05/09/17)--> normal examination. - Hx U.C. Dx age 17. 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 She empties her stool about every 1.5-2 hours. She does not measure the amount, but states that it is her normal output amount and that she has not had any increase in her stool output. She states that it is working better than it ever has and does not want to change anything with the management of her BCIR/Stool output. - Renal insufficiency - Nephrology following. Cr 1.99, GFR 26 PLAN - [place] - Await pathology - Upper GI series - IVF - Scopolamine - Phenergan prn - Monitor labs - Neurology following - Anti-emetics - Supportive care - Suspect that her dehydration is more related to her nausea and vomiting rather than stool output, as she has had her BCIR x 30 years and reports that she has not had any increased stool output. She is draining this every 1.5 to 2 hours and reports this her her norm. Her weight is stable. Will get Upper GI series to further evaluate her n/v. - Further recommendations to follow based on results of above. - Patient seen and examined by Dr. Lala and myself and this note is written on his behalf. (Domenica Martines) Physician Comments Patient seen and examined Agree with above Continue with current supportive care Monitor labs The patient has been stable for over 30 years with no significant change regarding her bowel habits and the only new development has been that of the gastric sleeve with resulting nausea and vomiting We'll await the upper GI series Further recommendations shall depend on the above (Koko Lala MD) Domenica Martines May 10, 2017 14:13 Koko Lala MD May 10, 2017 23:52
[2017-05-10] MEDS: ONDANSETRON HCL 4 MG/2 ML VIAL IVP PRN (14:16)
[2017-05-10] MEDS ORDERED: MAGNESIUM CITRATE SOLN 300 ML BTL PO ONE ×2 (15:00→18:00)
[2017-05-10] MEDS: BISACODYL EC 5 MG TABEC PO SCH ×2 (18:20→20:29)
[2017-05-10 21:55] LABS: ALBUMIN SPE 4.69 GM/DL (3.50-5.00); ALPHA 1 GLOBULIN 0.17 GM/DL (0.11-0.29); ALPHA 2 GLOBULIN 0.9 GM/DL (0.22-1.00); BETA GLOBULINS (SPE) 1.04 GM/DL (0.53-1.03)
[2017-05-11 00:10] VITALS: PULSE 50
[2017-05-11 04:00] VITALS: PULSE 56
[2017-05-11 04:35] VITALS: BP 94/48; PULSE 55; RESP 18; TEMP 98.7; O2SAT 99
[2017-05-11] MEDS: LEVOTHYROXINE SODIUM 125 MCG TAB PO SCH (05:49)
[2017-05-11] MEDS: SODIUM BICARBONATE 650 MG TAB PO SCH ×2 (05:49→13:27)
--- NOTE | 2017-05-11 07:55 | HHI.GIFU ---
Subjective Remarks Resting in bed. Continues to have intermittent nausea, slightly improved today. States she is having her normal stool output from BCIR. (Domenica Martines) Objective Vitals I&O Vital Signs Date Time Temp Pulse Resp B/P (MAP) Pulse Ox O2 Delivery O2 Flow Rate FiO2 05/11/17 04:35 98.7 55 18 94/48 (63) 99 05/11/17 04:00 56 05/11/17 00:10 50 05/10/17 23:51 98.1 50 18 92/54 (67) 98 05/10/17 20:37 98.1 51 18 103/57 (72) 99 05/10/17 20:05 48 05/10/17 16:04 52 05/10/17 15:48 98.5 56 22 89/51 (64) 99 05/10/17 12:14 97.6 50 22 90/53 (65) 100 05/10/17 08:06 98.2 48 20 97/55 (69) 100 Laboratory Laboratory Tests Test 05/10/17 10:40 Urine Glucose (UA) NEG Urine Eosinophils RARE Urine Osmolality 173 Urine Random Creatinine 64 Urine Random Total Protein 15 Urine Random Sodium 9 Urine Random Potassium 9 Urine Random Chloride 12 Urine Protein/Creatinine Ratio 0.23 Date/Time Source Procedure Growth Status 05/05/17 20:03 Urine Random Urine Urine Culture - Final 50-100,000 CFU/ML MIXED GRAM POSITIVE... Complete Imaging Last Impressions Barium Swallow X-Ray 05/09/17 0000 Signed Impressions: Service Date/Time: Tuesday, May 09, 2017 08:29 - CONCLUSION: Normal examination. Jacob King MD Carotid Artery Ultrasound 05/07/17 0000 Signed Impressions: Service Date/Time: Sunday, May 07, 2017 17:48 - CONCLUSION: 1. Patent carotid arteries bilaterally. 2. Antegrade flow involving both vertebral arteries. Edy Jenkins Jr., MD Brain MRI 05/07/17 0000 Signed Impressions: Service Date/Time: Sunday, May 07, 2017 21:06 - CONCLUSION: Normal examination. Edy Jenkins Jr., MD Abdomen X-Ray 05/07/17 0000 Signed Impressions: Service Date/Time: Sunday, May 07, 2017 13:22 - CONCLUSION: Negative Shukri Venegas MD FACR Renal Ultrasound 05/06/17 0000 Signed Impressions: Service Date/Time: April 09:21 - CONCLUSION: Increased renal cortical echogenicity and renal cortical thinning consistent with medical renal disease. No hydronephrosis. Bilateral stones. Davy Palacios MD Chest X-Ray 05/05/17 1746 Signed Impressions: Service Date/Time: Friday, May 05, 2017 18:20 - CONCLUSION: No acute disease. Edy Jenkins Jr., MD Physical Exam HEENT: Normocephalic; atraumatic; no jaundice. Throat is clear. NECK: Neck is supple. CHEST: CTA CARDIAC: RRR ABDOMEN: Soft, obese, nondistended, nontender; no hepatosplenomegaly; bowel sounds are present. Stoma to left lower quadrant EXTREMITIES: No clubbing, cyanosis, or edema. SKIN: Normal; no rash; no jaundice. ACADEMIC RECORDS SPECIALIST: No focal deficits; alert and oriented x 3 (Domenica Martines) Assessment and Plan Plan ASSESSMENT - Nausea/vomiting - unclear etiology, has had since gastric sleeve procedure 2016. History of h pylori s/p treatment. EGD (05/07/17)----> The esophagus was otherwise normal 2. Sleeve gastrectomy was found in the entire examined stomach, no strictures; multiple biopsies were performed for H.Pylori (patient has history of positive H.Pylori ). 3. Retroflexion was not performed. Pathology pending. Pathology with moderately active chronic antral gastritis, scattered H. Pylori like organisms are present. Also complains of dry solids getting caught in mid esophagus. Neurology is also following and suspects some degree of vertigo with orthostatic component. Going for upper GI series today. Phenergan. Scopolamine. - H. Pylori. She was treated a year ago. May need retreatment. - Dysphagia. C/O dry solids getting caught in mid esophageal area. Barium swallow (05/09/17)--> normal examination. EGD as above. - Hx U.C. Dx age 17. 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 She empties her stool about every 1.5-2 hours. She does not measure the amount, but states that it is her normal output amount and that she has not had any increase in her stool output. She states that it is working better than it ever has and does not want to change anything with the management of her BCIR/Stool output. - Renal insufficiency - Nephrology following. Cr 1.99, GFR 26 yesterday PLAN - PAYTON - Add Pepcid - Await Upper GI series - Scopolamine - Phenergan prn - Monitor labs - Neurology following - Supportive care - Will need FU in office to decide if she needs retreatment for H. Pylori - Suspect that her dehydration is more related to her nausea and vomiting rather than stool output, as she has had her BCIR x 30 years and reports that she has not had any increased stool output. She is draining this every 1.5 to 2 hours and reports this her her norm. Her weight is stable. Will get Upper GI series to further evaluate her n/v. - Further recommendations to follow based on results of above. - Patient seen and examined by Dr. Lala and myself and this note is written on his behalf. (Domenica Martines) Physician Comments Patient seen and examined Agree with above Continue with current supportive care Monitor labs Upper GI series noted Consideration could be made for surgical evaluation Patient follow-up with GI post discharge (Koko Lala MD) Domenica Martines May 11, 2017 07:55 Koko Lala MD May 11, 2017 19:03
[2017-05-11 08:01] VITALS: BP 112/59; PULSE 51; RESP 24; TEMP 97.6; O2SAT 100
[2017-05-11] MEDS ORDERED: AMOXICILLIN (TRIHYDRATE) 500 MG CAP PO SCH (09:00)
[2017-05-11] MEDS ORDERED: PANTOPRAZOLE SOD 40 MG DELAYED RELEASE TAB PO SCH (09:00)
[2017-05-11] MEDS ORDERED: CLARITHROMYCIN 500 MG TAB PO SCH (09:00)
--- NOTE | 2017-05-11 09:02 | HHI.NPPN ---
Subjective History of Present Illness This is a 56-year-old female whom was seen in our office for her initial visit May 04, 2017. The patient has a complicated medical history with a history of ulcerative colitis status post colectomy and ileostomy, gastric sleeve surgery February 22, 2017. After that procedure she was initially doing well but developed pain nausea and vomiting for 3 weeks postoperatively and was hospitalized at this institution back in February with acute renal failure with serum creatinine level rising to 5.6. Fortunately renal function did improve although not normalizing. Patient indicates she was still having significant nausea or vomiting poor oral intake of food and fluids. She was referred to our office for further evaluation and it was noted back in March her creatinine was 2.15 with BUN of 30. Laboratory studies were ordered. She was subsequently found to have a GFR less than 20 significant metabolic acidosis and was advised to come to the emergency room for inpatient management of acute renal insufficiency severe, dehydration with inability to maintain adequate oral hydration as well as worsening metabolic acidosis. No history of NSAID usage for analgesia prior to presentation. Interval History She is overall feeling better today. Did have barium swallow yesterday and is going to UGI series today. Had episode of dysphagia yesterday with turkey. Gastric bx showed moderately active chronic antral gastritis with positive H. pylori and has been started on regimen of Biaxin, Flagyl, and Protonix IVF decreased yesterday and renal functions continuing to improve. Review of Systems Gastrointestinal Gastrointestinal: Nausea & Vomiting Objective Data Data Vital Signs Date Time Temp Pulse Resp B/P (MAP) Pulse Ox O2 Delivery O2 Flow Rate FiO2 05/11/17 08:01 97.6 51 24 112/59 (76) 100 05/11/17 04:35 98.7 55 18 94/48 (63) 99 05/11/17 04:00 56 05/11/17 00:10 50 05/10/17 23:51 98.1 50 18 92/54 (67) 98 05/10/17 20:37 98.1 51 18 103/57 (72) 99 05/10/17 20:05 48 05/10/17 16:04 52 05/10/17 15:48 98.5 56 22 89/51 (64) 99 05/10/17 12:14 97.6 50 22 90/53 (65) 100 -: 05/07/17 0610 05/10/17 0440 Imaging Last Impressions Barium Swallow X-Ray 05/09/17 0000 Signed Impressions: Service Date/Time: Tuesday, May 09, 2017 08:29 - CONCLUSION: Normal examination. Jacob King MD Carotid Artery Ultrasound 05/07/17 0000 Signed Impressions: Service Date/Time: Sunday, May 07, 2017 17:48 - CONCLUSION: 1. Patent carotid arteries bilaterally. 2. Antegrade flow involving both vertebral arteries. Edy Jenkins Jr., MD Brain MRI 05/07/17 0000 Signed Impressions: Service Date/Time: Sunday, May 07, 2017 21:06 - CONCLUSION: Normal examination. Edy Jenkins Jr., MD Abdomen X-Ray 05/07/17 0000 Signed Impressions: Service Date/Time: Sunday, May 07, 2017 13:22 - CONCLUSION: Negative Shukri Venegas MD FACR Renal Ultrasound 05/06/17 0000 Signed Impressions: Service Date/Time: April 09:21 - CONCLUSION: Increased renal cortical echogenicity and renal cortical thinning consistent with medical renal disease. No hydronephrosis. Bilateral stones. Davy Palacios MD Chest X-Ray 05/05/17 1746 Signed Impressions: Service Date/Time: Friday, May 05, 2017 18:20 - CONCLUSION: No acute disease. Edy Jenkins Jr., MD Medication Review Current Medications Medications (Trade) Dose Ordered Sig/Espinoza Route Start Time Stop Time Status Last Admin (NS Flush) 2 ml UNSCH PRN IV FLUSH 05/05/17 22:30 (NS Flush) 2 ml BID IV FLUSH 05/06/17 09:00 05/10/17 09:14 (Narcan Inj) 0.4 mg UNSCH PRN IV PUSH 05/05/17 22:30 (Zofran Inj) 4 mg Q6H PRN IVP 05/06/17 06:15 05/10/17 14:16 ([place]-Colace) 1 tab BID PO 05/06/17 09:00 05/06/17 21:15 (Senokot) 17.2 mg Q12H PRN PO 05/06/17 06:15 (Dulcolax Supp) 10 mg DAILY PRN RECTAL 05/06/17 06:15 (Lactulose Liq) 30 ml DAILY PRN PO 05/06/17 06:15 (Estradiol) 0.5 mg DAILY PO 05/06/17 09:00 05/10/17 09:13 (PROzac) 20 mg DAILY PO 05/06/17 09:00 05/10/17 09:13 (Pill Splitter) 1 ea UNSCH PRN OTHER 05/06/17 06:45 (Synthroid) 125 mcg DAILY@0600 PO 05/07/17 06:00 05/11/17 05:49 (Transderm-Scop 1.5 Mg Patch.72 Hr) 1 patch Q3D T-DERMAL 05/07/17 13:00 05/10/17 13:55 (Phenergan Supp) 12.5 mg Q6H PRN RECTAL 05/07/17 12:30 Miscellaneous Information 1 Q3D T-DERMAL 05/10/17 13:00 05/10/17 13:55 (Vitamin D3) 2,000 units DAILY PO 05/08/17 09:00 05/10/17 09:13 (Folate) 1 mg DAILY PO 05/08/17 09:00 05/10/17 09:14 Multivitamins 10 ml/Thiamine HCl 100 mg/Sodium Chloride 511 ml @ 125 mls/hr DAILY IV 05/07/17 14:00 05/10/17 09:14 Potassium Chloride/Dextrose/ Sod Cl 1,000 ml @ 40 mls/hr Q24H IV 05/09/17 13:00 05/10/17 18:21 (Sodium Bicarbonate) 1,300 mg Q8HR PO 05/10/17 14:00 05/11/17 05:49 (Florinef) 0.1 mg DAILY PO 05/10/17 11:45 05/10/17 12:50 (Biaxin) 500 mg Q12HR PO 05/11/17 09:00 05/21/17 08:59 (Protonix) 40 mg Q12HR PO 05/11/17 09:00 05/21/17 08:59 (Flagyl) 500 mg BID PO 05/11/17 20:00 Physical Exam General Appearance: No Acute Distress, Comfortable Eyes Eye Exam: Pupils Equal, Pupils Reactive Neck Neck Exam: Neck Supple, Trachea Midline Pulmonary Resp Exam: Clear Bilaterally, Breath Sounds Equal Cardiology CV Exam: Regular, Normal Sinus Rhythm Gastrointestinal/Abdomen GI Exam: Soft, Non-Tender Integumentary Skin Exam: Clear, Warm Extremeties Extremities Exam: No Edema Neurologic Neuro Exam: Alert, Awake Psychiatric Psych Exam: Appropriate Responses Assessment/Plan Discussed Condition With: Patient Problem List: (1) LEIGH (acute kidney injury) ICD Codes: N17.9 - Acute kidney failure, unspecified Status: Acute Plan: Renal functions improving slowly. Patient advised maintain a fluid intake of about 8112-5617 mL daily to compensate for enteral fluid losses. Of interest, urine showed eosinophils which can be suggestive, but not diagnostic, of interstitial nephritis. Discussed with patient further regarding outpatient medications. States she was given abx at this facility ( Bactrim) in March but she did not take as she cannot digest properly with her ileostomy. Review of her PCP notes show that she was instead placed on Macrobid for 7 days. Denies any chronic PPI use, but did take for approximately 1-2 weeks post gastric sleeve in January. Also recently started on Compazine as Zofran not covered on her insurance. Otherwise says her medications are the same as she has been taking for several years (Prozac, Synthroid, Estrace, and Vitamins). Again denies any NSAID use. As her renal functions are improving, we can likely continue to monitor. Did discuss for the potential of kidney biopsy for confirmation, however, we will hold off on this for the present given her improvement. Serological studies not suggestive of autoimmune related GN. Medications should be adjusted for the patient's estimated GFR if clinically indicated. Avoid agents with significant potential for nephrotoxicity possible including NSAIDs for analgesia, iodine contrast agents. Gadolinium is contraindicated if the GFR is below 30. I recommended post discharge the patient utilize Pedialyte as a hydration solution. OK to be discharged after GI procedure if cleared by other specialists. Needs to keep outpatient appointment as scheduled on 05/25 with repeat renal function panel & urine for eosinophils 1 week post-discharge. (2) Metabolic acidosis ICD Codes: E87.2 - Acidosis Status: Acute Plan: Metabolic acidosis most likely related to ileostomy bicarbonate fluid losses however she does have CKD. Urinary studies pending to determine whether or not the patient has evidence of a renal tubular acidosis--urine anion gap as well as an osmolar study. To continue on po bicarbonate 1300mg TID. She should be discharged on this and has been advised this will likely be a lifelong medication. (3) Dehydration ICD Codes: E86.0 - Dehydration Status: Chronic Plan: Hydration much improved. OK to discontinue IVF today as her N/V has resolved. GI is completing testing today. (4) Helicobacter pylori (H. pylori) ICD Codes: A04.8 - Other specified bacterial intestinal infections Plan: Potential cause of N/V? Noted that she has been started on medication regimen including Protonix. As she has urine eosinophils, requesting that another agent besides PPI be considered if possible as PPIs can be associated with AIN. Will defer to GI. (5) Orthostasis ICD Codes: I95.1 - Orthostatic hypotension Status: Chronic Plan: To continue on Florinef as before. This should be continued as outpatient. Await renin/aldosterone levels (6) Chronic kidney disease (CKD), stage III (moderate) ICD Codes: N18.3 - Chronic kidney disease, stage 3 (moderate) Status: Chronic Plan: Suggested by results of renal ultrasound. Etiology of same uncertain but may be related to previous episodes of UTI in obstructive uropathy secondary to recurrent nephrolithiasis in the past. (7) Nephrolithiasis ICD Codes: N20.0 - Calculus of kidney Status: Chronic Plan: May be related to increased oxalate absorption secondary to ileostomy. 24-hour urine has been ordered to screen for hyperoxaluria , hypercalciuria and hypocitraturia. (8) Ileostomy present ICD Codes: Z93.2 - Ileostomy status Status: Chronic Plan: Management per GI. Clemencia Lucero May 11, 2017 09:02
[2017-05-11 09:05] LABS: BICARBONATE 18.8 MEQ/L (21.0-32.0); POTASSIUM 3.7 MEQ/L (3.5-5.1)
[2017-05-11 11:53] VITALS: BP 122/64; PULSE 52; RESP 24; TEMP 98.4; O2SAT 100
[2017-05-11] MEDS: SODIUM CHLOR 0.45% IV SCH (11:58)
[2017-05-11] MEDS: THIAMINE IV SCH (11:58)
[2017-05-11] MEDS: MULTIVITAMIN IV SCH (11:58)
[2017-05-11] MEDS: FLUDROCORTISONE ACETATE 0.1 MG TAB PO SCH (12:06)
[2017-05-11] MEDS: FOLIC ACID 1 MG TAB PO SCH (12:07)
[2017-05-11] MEDS: ESTRADIOL 1 MG TAB PO SCH (12:08)
[2017-05-11] MEDS: FLUoxetine HCL 20 MG CAP PO SCH (12:08)
[2017-05-11] MEDS: CHOLECALCIFEROL (VIT D3) 1000 UNIT TAB PO SCH (12:08)
[2017-05-11] MEDS: DOCUSATE SODIUM 50 MG/SENNA 8.6 MG TAB PO SCH (12:09)
[2017-05-11] MEDS: SODIUM CHLORIDE 0.9% FLUSH 10 ML FLUSH IV FLUSH SCH (12:09)
--- NOTE | 2017-05-11 13:21 | RADRPT ---
EXAM DATE/TIME: 05/11/2017 09:20 [facility] COMPARISON: BARIUM SWALLOW, May 09, 2017, 8:29. EXTERNAL COMPARISON : [facility] abdomen and pelvis CT dated 03/13/2016. INDICATIONS : Nausea and vomitting since gastric sleeve surgery. FLUORO TIME: 1.30 minutes IMAGE COUNT: 18 CONTRAST: Liquid E-Z Paque Barium Sulfate (60% w/v, 41% w/w) IMAGING TIME(S): 15 min, 30 min, 45 min, 1 hr, 1.5 hrs MEDICAL HISTORY : Ulcerative colitis. Renal failure. Hypothyroidism. Gout. SURGICAL HISTORY : Inguinal hernia repair. Colostomy. Gastric bypass. sleeve ENCOUNTER: Subsequent ACUITY: 3 months PAIN SCORE: 0/10 LOCATION: abdomen FINDINGS: Initial dealmaker view of the abdomen demonstrates a nonobstructive bowel gas pattern. Stable line is pre sent in the left upper quadrant related to prior gastric sleeve procedure. There are multiple staple lines within the pelvis. No organomegaly is appreciated. Lung bases are clear. There are degenerative changes of the lumbar spine. Upper GI examination demonstrates a no esophageal stricture or definite mucosal abnormality. There is a tapered narrowed stomach characteristic of gastric sleeve procedure. Contrast flows easily through the narrowed tapered stomach and into the duodenum. There is a diverticulum arising from the second portion of the duodenum. Otherwise, the duodenum has a normal appearance. No ulceration or mass is vi sualized. Next, additional contrast was administered orally and serial images were obtained to follow the cours e of contrast throughout the small bowel. A segment of small bowel extends into a peristomal hernia i n the left lower quadrant, identical to outside CT. Both the afferent and efferent limbs are mildly n arrowed but there are no signs of obstruction. Contrast fills clustered segment of bowel in the infer ior pelvis again similar to prior CT. The patient has a left lower quadrant ileostomy. A 13 mm barium tablet was administered orally in a semi-upright position and it passed into the stomach with only t ransient delay at the GE junction. CONCLUSION: 1. Normal upper GI examination in this patient post sleeve gastrectomy. 2. 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 3. There is a stable segment of bowel extending into a left lower quadrant parastomal hernia. 4. Stable clustered small bowel segment in the pelvis. No acute small bowel abnormality is identified . Davy Sifuentes MD on May 11, 2017 at 13:13 Board Certified Radiologist. This report was verified electronically.
[2017-05-11] MEDS ORDERED: SODI650T PO (13:40)
[2017-05-11] MEDS ORDERED: FAMO20TA2 PO (13:40)
[2017-05-11] MEDS ORDERED: ZOFR4TAB PO (13:40)
[2017-05-11] MEDS ORDERED: FLUD.1 PO (13:40)
--- NOTE | 2017-05-11 13:42 | HHI.DCPOC ---
Discharge Care Plan Diagnosis: (1) Orthostatic hypotension (2) Nausea & vomiting (3) Helicobacter pylori (H. pylori) Goals to Promote Your Health * To prevent worsening of your condition and complications * To maintain your health at the optimal level Directions to Meet Your Goals Take your medications as prescribed Follow your dietary instruction Follow activity as directed Keep your appointments as scheduled Take your immunizations and boosters as scheduled If your symptoms worsen call your PCP, if no PCP go to Urgent Care Center or Emergency Room Smoking is Dangerous to Your Health. Avoid second hand smoke Call the 24-hour hour crisis hotline for domestic abuse at [facility] May 11, 2017 13:42
[2017-05-11] MEDS ORDERED: SCOP1PAT2 T-DERMAL (14:07)
--- NOTE | 2017-05-11 14:15 | HHI.DS ---
Discharge Summary Admission Date May 05, 2017 at 22:24 Discharge Date: May 11, 2017 Admitting Diagnosis acute on chronic kidney injury, UTI (1) Asymptomatic bacteriuria ICD Code: R82.71 - Bacteriuria Diagnosis: Principal (2) LEIGH (acute kidney injury) ICD Code: N17.9 - Acute kidney failure, unspecified Diagnosis: Principal Status: Acute Procedures EGD Brief History - From Admission Written by Nazario Hamm acting as scribe for [Adrianng] on 05/06/17 at 03: 28. 56 y/o female with a history of ckd, hypothyroid, and depression, was sent to the ED from Dr. Martinez office for evaluation of elevated kidney function. Patient states she feels dehydrated and has not been taking in enough liquids or food. She states this has been going on since her gastric sleeve surgery in January. She states since her surgery she does have daily nausea and vomits 1-2 times a day. She states Dr. Martinez also wanted her to see a GI specialist and be ruled out for h pylori. She denies any fever, chill, chest pain, or dysuria. She does complain of intermittent shortness of breath, and concentrated urine. CBC/BMP: 05/07/17 0610 05/11/17 0740 Significant Findings Laboratory Tests Test 05/08/17 16:45 05/09/17 07:45 05/10/17 04:40 05/10/17 10:40 Urine Calcium 24 Hour 23 MG/24HR (42-353) Blood Urea Nitrogen 32 MG/DL (7-18) 30 MG/DL (7-18) Creatinine 2.20 MG/DL (0.50-1.00) 1.99 MG/DL (0.50-1.00) Calcium Level 8.3 MG/DL (8.5-10.1) 7.9 MG/DL (8.5-10.1) Chloride Level 110 MEQ/L (98-107) 113 MEQ/L (98-107) Estimat Glomerular Filtration Rate 23 ML/MIN (>89) 26 ML/MIN (>89) Carbon Dioxide Level 19.4 MEQ/L (21.0-32.0) Urine Eosinophils RARE /HPF (NONE SEEN) Urine Osmolality 173 MOSM/KG (300-1300) Urine Random Total Protein 15 MG/DL (0-11.8) Urine Protein/Creatinine Ratio 0.23 (0.00-0.14) Test 05/11/17 07:40 Blood Urea Nitrogen 24 MG/DL (7-18) Creatinine 1.83 MG/DL (0.50-1.00) Chloride Level 113 MEQ/L (98-107) Carbon Dioxide Level 18.8 MEQ/L (21.0-32.0) Estimat Glomerular Filtration Rate 28 ML/MIN (>89) Imaging Last Impressions Upper GI and Small Bowel X-Ray 05/11/17 0000 Signed Impressions: Service Date/Time: Thursday, May 11, 2017 09:20 - CONCLUSION: 1. Normal upper GI examination in this patient post sleeve gastrectomy. 2. 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 3. There is a stable segment of bowel extending into a left lower quadrant parastomal hernia. 4. Stable clustered small bowel segment in the pelvis. No acute small bowel abnormality is identified. Davy Sifuentes MD Barium Swallow X-Ray 05/09/17 0000 Signed Impressions: Service Date/Time: Tuesday, May 09, 2017 08:29 - CONCLUSION: Normal examination. Jacob King MD Carotid Artery Ultrasound 05/07/17 0000 Signed Impressions: Service Date/Time: Sunday, May 07, 2017 17:48 - CONCLUSION: 1. Patent carotid arteries bilaterally. 2. Antegrade flow involving both vertebral arteries. Edy Jenkins Jr., MD Brain MRI 05/07/17 0000 Signed Impressions: Service Date/Time: Sunday, May 07, 2017 21:06 - CONCLUSION: Normal examination. Edy Jenkins Jr., MD Abdomen X-Ray 05/07/17 0000 Signed Impressions: Service Date/Time: Sunday, May 07, 2017 13:22 - CONCLUSION: Negative Shukri Venegas MD FACR Renal Ultrasound 05/06/17 0000 Signed Impressions: Service Date/Time: April 09:21 - CONCLUSION: Increased renal cortical echogenicity and renal cortical thinning consistent with medical renal disease. No hydronephrosis. Bilateral stones. Davy Palacios MD Chest X-Ray 05/05/17 [id number] Signed Impressions: Service Date/Time: Friday, May 05, 2017 18:20 - CONCLUSION: No acute disease. Edy Jenkins Jr., MD PE at Discharge GENERAL: This is a well-nourished, obese patient, in NAD. SKIN: No rashes, ecchymoses or lesions. Cool and dry. CARDIOVASCULAR: Regular rate and rhythm without murmurs, gallops, or rubs. RESPIRATORY: Clear to auscultation. Breath sounds equal bilaterally. No wheezes , rales, or rhonchi. GASTROINTESTINAL: Abdomen soft, non-tender, nondistended. No guarding. Left lower quadrant ileostomy conduit. MUSCULOSKELETAL: Extremities without clubbing, cyanosis, or edema. No joint tenderness, effusion, or edema noted. No calf tenderness. NEUROLOGICAL: Awake and alert. Motor and sensory grossly within normal limits. Normal speech. No significant change in PE from previous Hospital Course 56 y/o female with a history of ckd, hypothyroid, and depression, was sent to the ED from Dr. Martinez office for evaluation of elevated kidney function. Acute kidney injury on chronic kidney disease III with metabolic acidosis due to dehydration related to decreased oral intake from nausea and vomiting rather than from ileostomy output per GI. Suspect interstitial nephritis with positive eosinophilia. Improving renal function. Creatine 2.9, baseline around 1.6 -Unremarkable EGD follow up pathology -H pylori stool antigen negative -Status post IVF for hydration. To use Pedialyte for replacement outpatient -Avoid nephrotoxins Low BP. Workup underway follow-up creatinine and aldosterone. Cortisol and echocardiogram within normal limits. Continue Florinef Vertigo. She is nonfocal. Workup negative so far pending echocardiogram. Neurology has been consulted suspect vestibular dysfunction versus orthostasis. Ct IVF fall precautions. Physical therapy evaluation Asymptomatic bacteriuria, patient denies dysuria, or fevers, no leukocytosis UA shows large leukocyte esterase and occult blood -Urine culture with contaminants -Hold antibiotics for now DVT prophylaxis: SCDs Pt Condition on Discharge: Fair Discharge Disposition: Discharge Home Discharge Time: > 30 minutes Discharge Instructions DIET: Follow Instructions for: As Tolerated, No Restrictions Activities you can perform: Regular-No Restrictions Activities to Avoid: Driving Follow up Referrals: Gastroenterology - 1 Week @ [facility] - 1 Week with Myah Martinez MD PCP Follow-up - 1 Week New Medications: Scopolamine Patch 72 HR (Scopolamine Patch 72 HR) 1 Mg Patch 1 PATCH T-DERMAL Q72H for nausea, #5 PATCH 0 Refills Cholecalciferol (Gnp Vitamin D3 Extra Stre) 1,000 Unit Tab 2000 UNITS PO DAILY for vitamin D replacement, #30 TAB Famotidine (Famotidine) 20 Mg Tab 10 MG PO BID for Dyspepsia, #60 TAB Fludrocortisone (Fludrocortisone) 0.1 Mg Tab 0.1 MG PO DAILY for Blood Pressure Management, #30 TAB Sodium Bicarbonate (Sodium Bicarbonate) 650 Mg Tab 1300 MG PO Q8HR for Calcium Supplement, #90 TAB Continued Medications: Estradiol (Estradiol) 0.5 Mg Tab 0.5 MG PO DAILY for Estrogen Supplements, #30 TAB 0 Refills Fluoxetine (Fluoxetine) 20 Mg Tab 20 MG PO DAILY, #30 TAB 0 Refills Folic Acid (Folic Acid) 1 Mg Tablet 1 MG PO DAILY for gastric bypass, #31 TAB-CAP Levothyroxine (Levothyroxine) 125 Mcg Tab 125 MCG PO DAILY for Thyroid, #30 TAB 0 Refills Ondansetron (Zofran) 4 Mg Tab 4 MG PO Q6HR PRN for NAUSEA OR VOMITING, #30 TAB 0 Refills (This prescription has been renewed) Mo North MD May 11, 2017 14:15
--- NOTE | 2017-05-11 16:13 | HHI.PR ---
Subjective Subjective Notes Laying in bed, nausea improved. Still feels like solids get stuck when eating Objective Vitals/I&O Vital Signs Date Time Temp Pulse Resp B/P (MAP) Pulse Ox O2 Delivery O2 Flow Rate FiO2 05/11/17 11:53 98.4 52 24 122/64 (83) 100 05/07/17 10:00 Room Air Labs Laboratory Tests Test 05/11/17 07:40 Blood Urea Nitrogen 24 Creatinine 1.83 Random Glucose 83 Calcium Level 8.6 Sodium Level 143 Potassium Level 3.7 Chloride Level 113 Carbon Dioxide Level 18.8 Anion Gap 11 Estimat Glomerular Filtration Rate 28 Date/Time Source Procedure Growth Status 05/05/17 20:03 Urine Random Urine Urine Culture - Final 50-100,000 CFU/ML MIXED GRAM POSITIVE... Complete Radiology Last Impressions Upper GI and Small Bowel X-Ray 05/11/17 0000 Signed Impressions: Service Date/Time: Thursday, May 11, 2017 09:20 - CONCLUSION: 1. Normal upper GI examination in this patient post sleeve gastrectomy. 2. 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 3. There is a stable segment of bowel extending into a left lower quadrant parastomal hernia. 4. Stable clustered small bowel segment in the pelvis. No acute small bowel abnormality is identified. Davy Sifuentes MD Barium Swallow X-Ray 05/09/17 0000 Signed Impressions: Service Date/Time: Tuesday, May 09, 2017 08:29 - CONCLUSION: Normal examination. Jacob King MD Carotid Artery Ultrasound 05/07/17 0000 Signed Impressions: Service Date/Time: Sunday, May 07, 2017 17:48 - CONCLUSION: 1. Patent carotid arteries bilaterally. 2. Antegrade flow involving both vertebral arteries. Edy Jenkins Jr., MD Brain MRI 05/07/17 0000 Signed Impressions: Service Date/Time: Sunday, May 07, 2017 21:06 - CONCLUSION: Normal examination. Edy Jenkins Jr., MD Abdomen X-Ray 05/07/17 0000 Signed Impressions: Service Date/Time: Sunday, May 07, 2017 13:22 - CONCLUSION: Negative Shukri Venegas MD FACR Renal Ultrasound 05/06/17 0000 Signed Impressions: Service Date/Time: April 09:21 - CONCLUSION: Increased renal cortical echogenicity and renal cortical thinning consistent with medical renal disease. No hydronephrosis. Bilateral stones. Davy Palacios MD Chest X-Ray 05/05/17 1746 Signed Impressions: Service Date/Time: Friday, May 05, 2017 18:20 - CONCLUSION: No acute disease. Edy Jenkins Jr., MD Last Impressions Renal Ultrasound 05/06/17 0000 Signed Impressions: Service Date/Time: April 09:21 - CONCLUSION: Increased renal cortical echogenicity and renal cortical thinning consistent with medical renal disease. No hydronephrosis. Bilateral stones. Davy Palacios MD Chest X-Ray 05/05/17 1746 Signed Impressions: Service Date/Time: Friday, May 05, 2017 18:20 - CONCLUSION: No acute disease. Edy Jenkins Jr., MD Cardiovascular: Regular Lungs: Clear Abdomen: Non-tender Extremities: Perfused A/P Problem List: (1) Nausea & vomiting ICD Codes: R11.2 - Nausea with vomiting, unspecified Status: Acute Plan: -Re-educated on taking small slow bites of food, chewing thoroughly and keeping food moist -Continue with antiemetics -OK to discharge from bariatric surgery standpoint Problem Qualifiers (1) Nausea & vomiting: Qualified Codes: R11.2 - Nausea with vomiting, unspecified Niles Fontana [facility] May 11, 2017 16:13
[2017-05-11 16:58] LABS: CITRATE CONCENTRATION 2.8 mg/dL
[2017-05-11 18:17] LABS: UR UREA/CREAT RATIO 11.98 mg/mg
[2017-05-11] MEDS ORDERED: metroNIDAZOLE 500 MG TAB PO SCH (20:00)
[2017-05-11] MEDS ORDERED: FAMOTIDINE 20 MG TAB PO SCH (21:00)
[2017-05-14 23:53] LABS: CREAT OXALATE 24 HR 0.72 g/24 h (0.63-2.50); OXALATE 24 HR URINE 8.3 mg/24 h (3.6-38.0)
== END 2017-05-11 16:25 | disposition home or self-care (01) ==
LOC: NEPE 16:08 → NEDA 22:24 → NEPFCDU 05-06 00:41
PROVIDERS: ADMIT Internal Medicine; ATTEND Internal Medicine
DX: K29.60 Other gastritis without bleeding (principal); B96.81 Helicobacter pylori [H. pylori] as the cause of diseases classified elsewhere; N30.01 Acute cystitis with hematuria; I95.1 Orthostatic hypotension; E03.9 Hypothyroidism, unspecified; F32.9 Major depressive disorder, single episode, unspecified; R06.02 Shortness of breath; E87.2 Acidosis; Z98.84 Bariatric surgery status; N19 Unspecified kidney failure; R55 Syncope and collapse
CPT/HCPCS: 00740; 43239; 70551; 71010; 74000; 74230; 74249; 76775; 76937; 80048; 80053; 81001; 81003; 82088; 82306; 82340; 82436; 82507; 82533; 82550; 82570; 83735; 83880; 83935; 83945; 83970; 84100; 84133; 84156; 84165; 84244; 84300; 84425; 84443; 84540; 85025; 85027; 86021; 86038; 86160; 86803; 87086; 87205; 87338; 88305; 88312; 93005; 93306; 93880; 96361; 96365; 96366; 96367; 96368; 96375; 96376; 97162; 99285; G0378; G8987; G8988; J2405; J3411; J3480; J7030; J7120

== ENCOUNTER 2017-07-01 13:07 | Inpatient (IN) | payer OTHER ==
[~2017-07-01] VITALS: Ht 165.1 cm; Wt 75.0 kg
[~2017-07-01 13:07] MED LIST changes: -BACT800T5 PO; +CHOL1000 PO; +FAMO20TA2 PO; +FLUD.1 PO; +SCOP1PAT2 T-DERMAL; +SODI650T PO
[2017-07-01 13:10] VITALS: BP 112/72; PULSE 72; RESP 18; TEMP 97.7; O2SAT 99
[2017-07-01] MEDS ORDERED: SODIUM CHLOR 0.9% 1000 ML INJ 1,000 ML IV SCH (16:40)
--- NOTE | 2017-07-01 16:44 | PD ---
HPI Chief Complaint: Abdominal Pain Time Seen by Provider: 16:29 Travel History International Travel<30 days: No Contact w/Intl Traveler<30days: No Traveled to known affect area: No History of Present Illness HPI 56-year-old female presents for evaluation. This patient has a history of ulcerative colitis status post colectomy and ileostomy, gastric sleeve surgery in January 2017. She's been having issues with recurrent nausea, vomiting, dehydration since then with associated renal insufficiency. She reports that 2 days ago she saw her cab starter Dr. Martinez and had lab work which revealed acute renal insufficiency. They've recommended that the patient come for admission however she initially was reluctant to be admitted. She now presents today for further evaluation. She reports that she has difficulty staying hydrated-she reports that she has significant fluid losses through her ileostomy. She has been having difficulty maintaining adequate oral hydration. Denies abdominal pain, fevers, chills. No other complaints. PFSH Past Medical History Arthritis: Yes Asthma: No Autoimmune Disease: No Blood Disorders: No Anxiety: No Depression: No Heart Rhythm Problems: No Cancer: No Cardiovascular Problems: No High Cholesterol: No Chemotherapy: No Chest Pain: No Congestive Heart Failure: No COPD: No Cerebrovascular Accident: No Diabetes: No Diminished Hearing: No Endocrine: No Gastrointestinal Disorders: Yes (ibs, ulcerative colitis) GERD: Yes (gerd) Genitourinary: No Hepatitis: No Hiatal Hernia: No Immune Disorder: No Implanted Vascular Access Dvce: Yes Kidney Stones: Yes Musculoskeletal: No Neurologic: No Psychiatric: No Reproductive: No Respiratory: No Migraines: No Radiation Therapy: No Renal Failure: Yes Seizures: No Sickle Cell Disease: No Sleep Apnea: No Thyroid Disease: Yes (hyperthyroid) Ulcer: Yes Past Surgical History Abdominal Surgery: Yes (BCIR procedure, multiple surgeries x26 kock pouch with revision and reversa) AICD: No Arteriovenous Shunt: No Body Medical Devices: GASTRIC SLEEVE Cardiac Surgery: No Ear Surgery: No Endocrine Surgery: No Eye Surgery: No Genitourinary Surgery: Yes (hx of kidney stones) Gynecologic Surgery: Yes (hysterectomy, lt breast bx) Insulin Pump: No Joint Replacement: No Oral Surgery: No Pacemaker: No Thoracic Surgery: No Other Surgery: Yes Social History Alcohol Use: No Tobacco Use: No Substance Use: No Allergies-Medications (Allergen,Severity, Reaction): Coded Allergies: red dye (Unverified Allergy, Severe, hives and hot flashes, 07/01/17) acetaminophen (Verified Adverse Reaction, Severe, Nausea/Vomiting, 07/01/17) Reported Meds & Prescriptions Reported Meds & Active Scripts Active Famotidine 20 Mg Tab 10 Mg PO BID Sodium Bicarbonate 650 Mg Tab 1,300 Mg PO Q8HR Fludrocortisone (Fludrocortisone Acetate) 0.1 Mg Tab 0.1 Mg PO DAILY Folic Acid 1 Mg Tablet 1 Mg PO DAILY Reported Fluoxetine (Fluoxetine HCl) 20 Mg Tab 20 Mg PO DAILY Levothyroxine (Levothyroxine Sodium) 125 Mcg Tab 125 Mcg PO DAILY Estradiol 0.5 Mg Tab 0.5 Mg PO DAILY Review of Systems Except as stated in HPI: all other systems reviewed are Neg Physical Exam Narrative GENERAL: Well-developed well-nourished female in no acute distress SKIN: Warm and dry. HEAD: Atraumatic. Normocephalic. EYES: Pupils equal and round. No scleral icterus. No injection or drainage. ENT: No nasal bleeding or discharge. Mucous membranes pink and moist. NECK: Trachea midline. No JVD. CARDIOVASCULAR: Regular rate and rhythm. No murmur appreciated. RESPIRATORY: No accessory muscle use. Clear to auscultation. Breath sounds equal bilaterally. GASTROINTESTINAL: Abdomen soft, non-tender, nondistended. Hepatic and splenic margins not palpable. MUSCULOSKELETAL: No obvious deformities. No clubbing. No cyanosis. No edema. NEUROLOGICAL: Awake and alert. No obvious cranial nerve deficits. Motor grossly within normal limits. Normal speech. PSYCHIATRIC: Appropriate mood and affect; insight and judgment normal. Data Data Last Documented VS Vital Signs Date Time Temp Pulse Resp B/P (MAP) Pulse Ox O2 Delivery O2 Flow Rate FiO2 07/01/17 17:00 78 18 142/61 (88) 99 Room Air 07/01/17 13:10 97.7 Orders Orders Complete Blood Count With Diff (07/01/17 16:40) Comprehensive Metabolic Panel (07/01/17 16:40) Iv Access Insert/Monitor (07/01/17 16:40) Ecg Monitoring (07/01/17 16:40) Ondansetron Inj (Zofran Inj) (07/01/17 16:45) Sodium Chlor 0.9% 1000 Ml Inj (Ns 1000 M (07/01/17 16:40) Magnesium (Mg) (07/01/17 16:40) Admit Order (Ed Use Only) (07/01/17 19:10) Labs Laboratory Tests Test 07/01/17 16:55 White Blood Count 6.4 TH/MM3 Red Blood Count 3.76 MIL/MM3 Hemoglobin 13.0 GM/DL Hematocrit 35.1 % Mean Corpuscular Volume 93.5 FL Mean Corpuscular Hemoglobin 34.5 PG Mean Corpuscular Hemoglobin Concent 36.9 % Red Cell Distribution Width 13.8 % Platelet Count 315 TH/MM3 Mean Platelet Volume 8.7 FL Neutrophils (%) (Auto) 50.9 % Lymphocytes (%) (Auto) 38.6 % Monocytes (%) (Auto) 6.8 % Eosinophils (%) (Auto) 3.1 % Basophils (%) (Auto) 0.6 % Neutrophils # (Auto) 3.3 TH/MM3 Lymphocytes # (Auto) 2.5 TH/MM3 Monocytes # (Auto) 0.4 TH/MM3 Eosinophils # (Auto) 0.2 TH/MM3 Basophils # (Auto) 0.0 TH/MM3 CBC Comment AUTO DIFF Differential Comment AUTO DIFF CONFIRMED Blood Urea Nitrogen 73 MG/DL Creatinine 3.04 MG/DL Random Glucose 109 MG/DL Total Protein 8.1 GM/DL Albumin 4.3 GM/DL Calcium Level 9.2 MG/DL Magnesium Level 2.2 MG/DL Alkaline Phosphatase 95 U/L Aspartate Amino Transf (AST/SGOT) 18 U/L Alanine Aminotransferase (ALT/SGPT) 19 U/L Total Bilirubin 0.4 MG/DL Sodium Level 139 MEQ/L Potassium Level 3.5 MEQ/L Chloride Level 110 MEQ/L Carbon Dioxide Level 16.6 MEQ/L Anion Gap 12 MEQ/L Estimat Glomerular Filtration Rate 16 ML/MIN [facility] Medical Decision Making Medical Screen Exam Complete: Yes Emergency Medical Condition: Yes Medical Record Reviewed: Yes Differential Diagnosis Acute renal insufficiency, dehydration, electrolyte abnormality Narrative Course The patient's GFR today is 16. Discussed with her cab starter Dr. Martinez would like her admitted, likely GI consultation given her difficulty with oral hydration. Diagnosis Primary Impression: LEIGH (acute kidney injury) Admitting Information Admitting Physician Requests: Admit Boone Carlos Jul 01, 2017 16:44
[2017-07-01] MEDS ORDERED: ONDANSETRON HCL 4 MG/2 ML VIAL IVP ONE (16:45)
[2017-07-01 17:00] VITALS: BP 142/61; PULSE 78; RESP 18; O2SAT 99
[2017-07-01 17:46] LABS: AUTOMATED NEUTROPHIL # 3.3 TH/MM3 (1.8-7.7); BASOPHIL % 0.6 % (0.0-2.0); EOSINOPHIL # 0.2 TH/MM3 (0-0.4); EOSINOPHIL % 3.1 % (0.0-4.0); HEMATOCRIT 35.1 % (35.0-46.0); LYMPH % 38.6 % (9.0-44.0); LYMPHOCYTE # 2.5 TH/MM3 (1.0-4.8); MEAN CELL VOLUME 93.5 FL (80.0-100.0); MEAN CORPUSCULAR HEMOGLOBIN 34.5 PG (27.0-34.0); MEAN PLATELET VOLUME 8.7 FL (7.0-11.0); MONO % 6.8 % (0.0-8.0); MONOCYTE # 0.4 TH/MM3 (0-0.9); NEUT % 50.9 % (16.0-70.0); PLATELET COUNT 315 TH/MM3 (150-450); RED BLOOD COUNT 3.76 MIL/MM3 (4.00-5.30); RED CELL DISTRIBUTION WIDTH 13.8 % (11.6-17.2); WHITE BLOOD COUNT 6.4 TH/MM3 (4.0-11.0)
[2017-07-01 17:51] LABS: MEAN CORPUSCULAR HGB CONC 36.9 % (32.0-36.0)
[2017-07-01 18:05] LABS: ALBUMIN 4.3 GM/DL (3.4-5.0); ALT (GPT) 19 U/L (10-53); AST (GOT) 18 U/L (15-37); BICARBONATE 16.6 MEQ/L (21.0-32.0); BLOOD UREA NITROGEN 73 MG/DL (7-18); CALCIUM 9.2 MG/DL (8.5-10.1); CHLORIDE 110 MEQ/L (98-107); CREATININE 3.04 MG/DL (0.50-1.00); GLOMERULAR FILTRATION RATE 16 ML/MIN (>89); GLUCOSE,RANDOM 109 MG/DL (74-106); MAGNESIUM 2.2 MG/DL (1.5-2.5); SODIUM (NA) 139 MEQ/L (136-145)
[2017-07-01 18:07] LABS: ALKALINE PHOSPHATASE 95 U/L (45-117); TOTAL BILIRUBIN ADULT 0.4 MG/DL (0.2-1.0); TOTAL PROTEIN 8.1 GM/DL (6.4-8.2)
[2017-07-01] MEDS ORDERED: BISACODYL 10 MG SUPP RECTAL PRN (19:15)
[2017-07-01] MEDS ORDERED: NALOXONE HCL 0.4 MG/ML AMP IV PUSH PRN (19:15)
[2017-07-01] MEDS ORDERED: MAGNESIUM HYDROXIDE SUSP 30 ML CUP PO PRN (19:15)
[2017-07-01] MEDS ORDERED: LACTULOSE SYRUP 20 GM/30 ML CUP PO PRN (19:15)
[2017-07-01] MEDS ORDERED: ACETAMINOPHEN 325 MG TAB PO PRN (19:15)
[2017-07-01] MEDS ORDERED: SENNOSIDES 8.6 MG TAB PO PRN (19:15)
[2017-07-01] MEDS ORDERED: SODIUM CHLORIDE 0.9% FLUSH 10 ML FLUSH IV FLUSH PRN (19:15)
[2017-07-01 19:35] VITALS: BP 118/82
[2017-07-01 19:46] VITALS: BP 127/62; PULSE 70; RESP 18; TEMP 97.3; O2SAT 98
[2017-07-01] MEDS: FAMOTIDINE 20 MG TAB PO SCH (20:48)
[2017-07-01] MEDS: DOCUSATE SODIUM 50 MG/SENNA 8.6 MG TAB PO SCH (20:49)
[2017-07-01] MEDS: SODIUM CHLORIDE 0.9% FLUSH 10 ML FLUSH IV FLUSH SCH (20:49)
[2017-07-02] MEDS: ONDANSETRON HCL 4 MG/2 ML VIAL IVP PRN ×3 (00:07→13:14)
[2017-07-02] MEDS: SODIUM BICARBONATE 650 MG TAB PO SCH ×3 (00:07→13:14)
[2017-07-02 00:10] VITALS: BP 100/49; PULSE 62; RESP 18; TEMP 98; O2SAT 99
--- NOTE | 2017-07-02 03:04 | HHI.HP ---
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 The patient reports ever since her gastric sleeve surgery in January2017 by Dr. Yepez, she has had problems with increased stool output, decreased oral intake. She denies any recent fevers /chills, abdominal pain, or nausea/vomiting. She states a few days ago she saw her appointment clerk Dr. Martinez who recommended she come to the hospital for IVF hydration and further evaluation by gastroenterology. She states she tried to avoid admission however she continues to have increasing watery diarrhea output. She empties her BCIR every few hours. She reports occasional minimal streaks of bright red blood in the stool but none more than usual. Denies any melena. The patient reports she was recently diagnosed with H.pylori on EGD done 05/07/17, and she recently completed a 3 week course of antibiotics 1 week ago. She has been following with [facility] however does not recall the name of her mathematical engineer. The patient has no other medical complaints at this time including no headache, cough, chest pain, shortness of breath, or urinary complaints. Review of Systems Except as stated in HPI: all other systems reviewed are Neg Past Family Social History Past Medical History ulcerative colitis diagnosed at age 17 IBS H.pylori Gastritis GERD Hypothyroidism Past Surgical History 26 abdominal surgeries including total colectomy, colostomy, failed Kock pouch, now with Cooper continent intestinal reservoir (BCIR) placed 20+ years ago gastric sleeve surgery January 2017 hysterectomy EGDs left breast biopsy right wrist surgery s/p fracture Reported Medications Famotidine 20 Mg Tab 10 Mg PO BID Sodium Bicarbonate 650 Mg Tab 1,300 Mg PO Q8HR Fludrocortisone (Fludrocortisone Acetate) 0.1 Mg Tab 0.1 Mg PO DAILY Folic Acid 1 Mg Tablet 1 Mg PO DAILY Fluoxetine (Fluoxetine HCl) 20 Mg Tab 20 Mg PO DAILY Levothyroxine (Levothyroxine Sodium) 125 Mcg Tab 125 Mcg PO DAILY Estradiol 0.5 Mg Tab 0.5 Mg PO DAILY Allergies: Coded Allergies: red dye (Unverified Allergy, Severe, hives and hot flashes, 07/01/17) acetaminophen (Verified Adverse Reaction, Severe, Nausea/Vomiting, 07/01/17) Active Ordered Medications Current Medications Medications (Trade) Dose Ordered Sig/Espinoza Route Start Time Stop Time Status Last Admin (NS Flush) 2 ml UNSCH PRN IV FLUSH 07/01/17 19:15 (NS Flush) 2 ml BID IV FLUSH 07/01/17 21:00 07/01/17 20:49 (Tylenol) 650 mg Q4H PRN PO 07/01/17 19:15 (Zofran Inj) 4 mg Q6H PRN IVP 07/01/17 19:15 07/02/17 00:07 (Narcan Inj) 0.4 mg UNSCH PRN IV PUSH 07/01/17 19:15 (Maria Del Carmen-Colace) 1 tab BID PO 07/01/17 21:00 (Milk Of Magnesia Liq) 30 ml Q12H PRN PO 07/01/17 19:15 (Senokot) 17.2 mg Q12H PRN PO 07/01/17 19:15 (Dulcolax Supp) 10 mg DAILY PRN RECTAL 07/01/17 19:15 (Lactulose Liq) 30 ml DAILY PRN PO 07/01/17 19:15 (Estradiol) 0.5 mg DAILY PO 07/02/17 09:00 (Pepcid) 10 mg BID PO 07/01/17 21:00 07/01/17 20:48 (Florinef) 0.1 mg DAILY PO 07/02/17 09:00 (PROzac) 20 mg DAILY PO 07/02/17 09:00 (Folate) 1 mg DAILY PO 07/02/17 09:00 (Synthroid) 125 mcg DAILY@0600 PO 07/02/17 06:00 (Sodium Bicarbonate) 1,300 mg Q8HR PO 07/01/17 22:00 07/02/17 00:07 (Flu (Quadrivalent) Vaccine Inj) 0.5 ml ONCE ONCE IM 07/02/17 10:00 07/02/17 10:01 Sodium Chloride 1,000 ml @ 125 mls/hr Q8H IV 07/02/17 01:45 Family History Mother with heart disease Father with heart disease and ulcerative colitis Social History Denies any tobacco, alcohol, or illicit drug use. Physical Exam Vital Signs Vital Signs Date Time Temp Pulse Resp B/P (MAP) Pulse Ox O2 Delivery O2 Flow Rate FiO2 07/02/17 00:10 98.0 62 18 100/49 (66) 99 07/01/17 19:46 97.3 70 18 127/62 (83) 98 07/01/17 19:35 68 16 118/82 (94) 96 07/01/17 19:32 16 07/01/17 17:00 78 18 142/61 (88) 99 Room Air 07/01/17 13:10 97.7 72 18 112/72 (85) 99 Room Air Physical Exam GENERAL: Well-nourished, well-developed very pleasant middle aged female patient in [facility]. SKIN: Warm and dry. No rash. HEAD: Normocephalic. Atraumatic. EYES: Pupils equal and round. No scleral icterus. No injection or drainage. ENT: No nasal bleeding or discharge. Mucous membranes slightly dry. NECK: Supple. Trachea midline. CARDIOVASCULAR: Regular rate and rhythm. S1, S2 noted. No murmur appreciated. RESPIRATORY: No accessory muscle use. Clear to auscultation. Breath sounds equal bilaterally. GASTROINTESTINAL: Abdomen soft, non-tender, nondistended. Normoactive bowel sounds x4. Stoma at LLQ, no surrounding erythema/edema. Multiple old abdominal surgical scars. MUSCULOSKELETAL: No obvious deformities. Extremities without clubbing, cyanosis , or edema. NEUROLOGICAL: Awake and alert. No obvious cranial nerve deficits. Motor grossly within normal limits. Moving all extremities spontaneously. Normal speech. PSYCHIATRIC: Appropriate mood and affect; insight and judgment normal. Laboratory Laboratory Tests Test 07/01/17 16:55 White Blood Count 6.4 Red Blood Count 3.76 Hemoglobin 13.0 Hematocrit 35.1 Mean Corpuscular Volume 93.5 Mean Corpuscular Hemoglobin 34.5 Mean Corpuscular Hemoglobin Concent 36.9 Red Cell Distribution Width 13.8 Platelet Count 315 Mean Platelet Volume 8.7 Neutrophils (%) (Auto) 50.9 Lymphocytes (%) (Auto) 38.6 Monocytes (%) (Auto) 6.8 Eosinophils (%) (Auto) 3.1 Basophils (%) (Auto) 0.6 Neutrophils # (Auto) 3.3 Lymphocytes # (Auto) 2.5 Monocytes # (Auto) 0.4 Eosinophils # (Auto) 0.2 Basophils # (Auto) 0.0 CBC Comment AUTO DIFF Differential Comment AUTO DIFF CONFIRMED Blood Urea Nitrogen 73 Creatinine 3.04 Random Glucose 109 Total Protein 8.1 Albumin 4.3 Calcium Level 9.2 Magnesium Level 2.2 Alkaline Phosphatase 95 Aspartate Amino Transf (AST/SGOT) 18 Alanine Aminotransferase (ALT/SGPT) 19 Total Bilirubin 0.4 Sodium Level 139 Potassium Level 3.5 Chloride Level 110 Carbon Dioxide Level 16.6 Anion Gap 12 Estimat Glomerular Filtration Rate 16 Result Diagram: 07/01/175 07/01/171654 Caprini VTE Risk Assessment Caprini VTE Risk Assessment: No/Low Risk (score <= 1) Caprini Risk Assessment Model Point Value = 1 Point Value = 2 Point Value = 3 Point Value = 5 Age 41-60 Minor surgery BMI > 25 kg/m2 Swollen legs Varicose veins or History of unexplained or recurrent spontaneous Oral contraceptives or hormone replacement Sepsis (< 1 month) Serious lung disease, including pneumonia (< 1 month) Abnormal pulmonary function Acute myocardial infarction Congestive heart failure (< 1 month) History of inflammatory bowel disease Medical patient at bed rest Age 61-74 Arthroscopic surgery Major open surgery (> 45 min) Laparoscopic surgery (> 45 min) Malignancy Confined to bed (> 72 hours) Immobilizing plaster cast Central venous access Age >= 75 History of VTE Family history of VTE Factor V Leiden Prothrombin [id number] Lupus anticoagulant Anticardiolipin antibodies Elevated serum homocysteine Heparin-induced thrombocytopenia Other congenital or acquired thrombophilia Stroke (< 1 month) Elective arthroplasty Hip, pelvis, or leg fracture Acute spinal cord injury (< 1 month) Prophylaxis Regimen Total Risk Factor Score Risk Level Prophylaxis Regimen 0-1 Low Early ambulation 2 Moderate Order ONE of the following: *Sequential Compression Device (SCD) *Heparin 5000 units SQ BID 3-4 Higher Order ONE of the following medications: *Heparin 5000 units SQ TID *Enoxaparin/Lovenox 40 mg SQ daily (WT < 150 kg, CrCl > 30 mL/min) *Enoxaparin/Lovenox 30 mg SQ daily (WT < 150 kg, CrCl > 10-29 mL/min) *Enoxaparin/Lovenox 30 mg SQ BID (WT < 150 kg, CrCl > 30 mL/min) AND/OR *Sequential Compression Device (SCD) 5 or more Highest Order ONE of the following medications: *Heparin 5000 units SQ TID (Preferred with Epidurals) *Enoxaparin/Lovenox 40 mg SQ daily (WT < 150 kg, CrCl > 30 mL/min) *Enoxaparin/Lovenox 30 mg SQ daily (WT < 150 kg, CrCl > 10-29 mL/min) *Enoxaparin/Lovenox 30 mg SQ BID (WT < 150 kg, CrCl > 30 mL/min) AND *Sequential Compression Device (SCD) Assessment and Plan Problem List: (1) Diarrhea ICD Code: R19.7 - Diarrhea, unspecified (2) LEIGH (acute kidney injury) ICD Code: N17.9 - Acute kidney failure, unspecified Status: Acute (3) Dehydration ICD Code: E86.0 - Dehydration Status: Chronic Assessment and Plan 56-year-old female with history of ulcerative colitis diagnosed at age 17 s/p 26 abdominal surgeries including total colectomy, colostomy, failed Kock pouch, 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 Diarrhea, Increased Ileostomy/BCIR Stool Output: unclear etiology. Patient reports output worsening since gastric sleeve procedure in . -EMR reviewed, s/p EGD on 05/07/17 which showed gastritis and pathology positive for H.pylori, s/p 3weeks antibiotics treatment, completed 1 week ago -Check stool for C.diff, culture, h.pylori -Consult gastroenterology -Continue patient's famotidine and folic acid -Supportive treatment with IVF hydration, antiemetics prn -Monitor Is&Os LEIGH on CKD stage IV, secondary to Dehydration: due to increased stool output as above. Cr 3.04, previously 1.83 on 05/11/17. -Patient follows with appointment clerk Dr. Martinez, will consult -Avoid nephrotoxins -Give IVF with NS at 125cc/hr x1L -Monitor BMP Hypothyroidism: chronic, stable -continue patient's home synthroid Depression: chronic, stable -continue patient's home fluoxetine DVT Prophylaxis: heparin sq Discussed Condition With Patient, RN, Dr. Hunter Physician Certification 2 Midnight Certification Type: Admission for Inpatient Services Order for Inpatient Services The services are ordered in accordance with Medicare regulations or non- Medicare payer requirements, as applicable. In the case of services not specified as inpatient-only, they are appropriately provided as inpatient services in accordance with the 2-midnight benchmark. Estimated LOS (days): 3 days is the estimated time the patient will need to remain in the hospital, assuming treatment plan goals are met and no additional complications. Post-Hospital Plan: Home Fabiana Smalls PA-C Jul 02, 2017 3:04 am
[2017-07-02] MEDS: SODIUM CHLOR 0.9% 1000 ML INJ 1,000 ML IV SCH ×2 (03:20→11:12)
[2017-07-02 04:50] VITALS: BP 101/51; PULSE 60; RESP 17; TEMP 98.5; O2SAT 98
[2017-07-02] MEDS: LEVOTHYROXINE SODIUM 125 MCG TAB PO SCH (06:25)
[2017-07-02 07:42] LABS: AUTOMATED NEUTROPHIL # 2.5 TH/MM3 (1.8-7.7); BASOPHIL % 0.9 % (0.0-2.0); EOSINOPHIL # 0.2 TH/MM3 (0-0.4); EOSINOPHIL % 3.4 % (0.0-4.0); HEMATOCRIT 32.8 % (35.0-46.0); HEMOGLOBIN 11.1 GM/DL (11.6-15.3); LYMPH % 41.1 % (9.0-44.0); LYMPHOCYTE # 2.2 TH/MM3 (1.0-4.8); MEAN CELL VOLUME 96.9 FL (80.0-100.0); MEAN CORPUSCULAR HEMOGLOBIN 32.8 PG (27.0-34.0); MEAN CORPUSCULAR HGB CONC 33.8 % (32.0-36.0); MEAN PLATELET VOLUME 8.4 FL (7.0-11.0); MONOCYTE # 0.5 TH/MM3 (0-0.9); NEUT % 45.6 % (16.0-70.0); PLATELET COUNT 249 TH/MM3 (150-450); RED BLOOD COUNT 3.39 MIL/MM3 (4.00-5.30); RED CELL DISTRIBUTION WIDTH 13.6 % (11.6-17.2); WHITE BLOOD COUNT 5.4 TH/MM3 (4.0-11.0)
[2017-07-02 08:00] VITALS: BP 104/65; PULSE 70; RESP 20; TEMP 96.7; O2SAT 100
[2017-07-02 08:10] LABS: BICARBONATE 14.2 MEQ/L (21.0-32.0); CALCIUM 8.7 MG/DL (8.5-10.1); CREATININE 2.55 MG/DL (0.50-1.00)
[2017-07-02] MEDS: DOCUSATE SODIUM 50 MG/SENNA 8.6 MG TAB PO SCH ×2 (09:00→20:44)
[2017-07-02] MEDS: SODIUM CHLORIDE 0.9% FLUSH 10 ML FLUSH IV FLUSH SCH ×2 (09:00→20:44)
[2017-07-02] MEDS ORDERED: INFLUENZA VIRUS VACCINE (QUADRIVALENT) 0.5 ML SYR IM ONE (10:00)
[2017-07-02] MEDS: FLUoxetine HCL 20 MG CAP PO SCH (11:01)
[2017-07-02] MEDS: FOLIC ACID 1 MG TAB PO SCH (11:01)
[2017-07-02] MEDS: FAMOTIDINE 20 MG TAB PO SCH ×2 (11:02→20:43)
[2017-07-02] MEDS: FLUDROCORTISONE ACETATE 0.1 MG TAB PO SCH (11:02)
[2017-07-02] MEDS: ESTRADIOL 1 MG TAB PO SCH (11:02)
[2017-07-02] MEDS: HEPARIN SODIUM - SQ 10,000 UNITS/ML VIAL SQ SCH ×2 (11:03→20:44)
[2017-07-02 12:00] VITALS: BP 98/54; PULSE 84; RESP 18; TEMP 97.6; O2SAT 97
--- NOTE | 2017-07-02 15:14 | PD.CONS ---
HPI History of Present Illness This is a 56 year old female who presented to the hospital on 07/01/17 with decreased stool output from her ileostomy/ BCIR and decreased by mouth intake. Patient states that she predominantly has symptoms of nausea all the time, but no active vomiting. She complains of decreased appetite and states that she's eaten approximately 2 meals a day, and still having problems with dysphasia from several months ago. Last EGD was done in April 2017; patient was also treated for recent positive H. pylori and finished up her course of antibiotics approximately 1 week ago. She denies any constipation, diarrhea is chronic but waxes and wanes in the amounts of output. She notes some streaks of bright red blood 2 days ago but none since. She's currently being hydrated with IV fluids at 1 25 cc an hour, and is eating a large salad with kuwaiti fries on top. She states that she will eat 50% of her meal. PFSH Past Medical History ulcerative colitis diagnosed at age 17 IBS H.pylori Gastritis GERD Hypothyroidism Has BCIR from 20 years ago Ileostomy Past Surgical History 26 abdominal surgeries including total colectomy, colostomy, failed Kock pouch, now with Cooper continent intestinal reservoir (BCIR) placed 20+ years ago gastric sleeve surgery January 2017 hysterectomy EGDs left breast biopsy right wrist surgery s/p fracture Coded Allergies: red dye (Unverified Allergy, Severe, hives and hot flashes, 07/01/17) acetaminophen (Verified Adverse Reaction, Severe, Nausea/Vomiting, 07/01/17) Medications Administered Medications Medications (Trade) Dose Ordered Sig/Espinoza Route PRN Reason Start Time Stop Time Status Last Admin Dose Admin Sodium Chloride (NS Flush) 2 ml BID IV FLUSH 07/01/17 21:00 07/01/17 20:49 Ondansetron HCl (Zofran Inj) 4 mg Q6H PRN IVP NAUSEA OR VOMITING 07/01/17 19:15 07/02/17 13:14 Estradiol (Estradiol) 0.5 mg DAILY PO 07/02/17 09:00 07/02/17 11:02 Famotidine (Pepcid) 10 mg BID PO 07/01/17 21:00 07/02/17 11:02 Fludrocortisone Acetate (Florinef) 0.1 mg DAILY PO 07/02/17 09:00 07/02/17 11:02 Fluoxetine HCl (PROzac) 20 mg DAILY PO 07/02/17 09:00 07/02/17 11:01 Folic Acid (Folate) 1 mg DAILY PO 07/02/17 09:00 07/02/17 11:01 Levothyroxine Sodium (Synthroid) 125 mcg DAILY@0600 PO 07/02/17 06:00 07/02/17 06:25 Sodium Bicarbonate (Sodium Bicarbonate) 1,300 mg Q8HR PO 07/01/17 22:00 07/02/17 13:14 Sodium Chloride 1,000 ml @ 125 mls/hr Q8H IV 07/02/17 01:45 07/02/17 11:12 Heparin Sodium (Porcine) (Heparin Inj) 5,000 units Q12HR SQ 07/02/17 09:00 07/02/17 11:03 Family History Mother with heart disease Father with heart disease and ulcerative colitis Social History Denies any tobacco, alcohol, or illicit drug use. Review of Systems Gastrointestinal: COMPLAINS OF: Nausea, Difficulty Swallowing GI Exam Vitals I&O Vital Signs Date Time Temp Pulse Resp B/P (MAP) Pulse Ox O2 Delivery O2 Flow Rate FiO2 07/02/17 12:00 97.6 84 18 98/54 (69) 97 07/02/17 08:00 96.7 70 20 104/65 (78) 100 07/02/17 04:50 98.5 60 17 101/51 (68) 98 07/02/17 00:10 98.0 62 18 100/49 (66) 99 07/01/17 19:46 97.3 70 18 127/62 (83) 98 07/01/17 19:35 68 16 118/82 (94) 96 07/01/17 19:32 16 07/01/17 17:00 78 18 142/61 (88) 99 Room Air I/O 07/01/17 07/01/17 07/01/17 07/02/17 07/02/17 07/02/17 07:00 15:00 23:00 07:00 15:00 23:00 Intake Total 1480 ml 480 ml 1072 ml Balance 1480 ml 480 ml 1072 ml Intake Oral 480 ml 480 ml IV Total 1000 ml 1072 ml # Voids 1 1 # Bowel Movements 0 1 Laboratory Test 07/01/17 16:55 07/02/17 06:53 1/5/18 10:55 White Blood Count 6.4 TH/MM3 5.4 TH/MM3 Red Blood Count 3.76 MIL/MM3 3.39 MIL/MM3 Hemoglobin 13.0 GM/DL 11.1 GM/DL Hematocrit 35.1 % 32.8 % Mean Corpuscular Volume 93.5 FL 96.9 FL Mean Corpuscular Hemoglobin 34.5 PG 32.8 PG Mean Corpuscular Hemoglobin Concent 36.9 % 33.8 % Red Cell Distribution Width 13.8 % 13.6 % Platelet Count 315 TH/MM3 249 TH/MM3 Mean Platelet Volume 8.7 FL 8.4 FL Neutrophils (%) (Auto) 50.9 % 45.6 % Lymphocytes (%) (Auto) 38.6 % 41.1 % Monocytes (%) (Auto) 6.8 % 9.0 % Eosinophils (%) (Auto) 3.1 % 3.4 % Basophils (%) (Auto) 0.6 % 0.9 % Neutrophils # (Auto) 3.3 TH/MM3 2.5 TH/MM3 Lymphocytes # (Auto) 2.5 TH/MM3 2.2 TH/MM3 Monocytes # (Auto) 0.4 TH/MM3 0.5 TH/MM3 Eosinophils # (Auto) 0.2 TH/MM3 0.2 TH/MM3 Basophils # (Auto) 0.0 TH/MM3 0.0 TH/MM3 CBC Comment AUTO DIFF DIFF FINAL Differential Comment AUTO DIFF CONFIRMED Blood Urea Nitrogen 73 MG/DL 67 MG/DL Creatinine 3.04 MG/DL 2.55 MG/DL Random Glucose 109 MG/DL 84 MG/DL Total Protein 8.1 GM/DL Albumin 4.3 GM/DL Calcium Level 9.2 MG/DL 8.7 MG/DL Magnesium Level 2.2 MG/DL Alkaline Phosphatase 95 U/L Aspartate Amino Transf (AST/SGOT) 18 U/L Alanine Aminotransferase (ALT/SGPT) 19 U/L Total Bilirubin 0.4 MG/DL Sodium Level 139 MEQ/L 143 MEQ/L Potassium Level 3.5 MEQ/L 4.0 MEQ/L Chloride Level 110 MEQ/L 117 MEQ/L Carbon Dioxide Level 16.6 MEQ/L 14.2 MEQ/L Anion Gap 12 MEQ/L 12 MEQ/L Estimat Glomerular Filtration Rate 16 ML/MIN 19 ML/MIN Stool C. difficile Toxin (PCR) NEGATIVE Stl C. difficile Toxin Epiderm 027 PRESUMPTIVE NEGATIVE Date/Time Source Procedure Growth Status 07/02/17 10:55 Stool Stool - Final NO ENTERIC PATHOGENS DETECTED BY PCR... Complete Physical Examination HEENT: Pupils round and reactive to light; normocephalic; atraumatic; no jaundice. Throat is moist NECK: Neck is supple, no JVD, no lymphadenopathy. CHEST: Chest is clear CARDIAC: Regular rate ABDOMEN: Soft, nondistended, nontender; no hepatosplenomegaly; bowel sounds are present in all four quadrants. EXTREMITIES: No edema. SKIN: Pale, Normal; no rash; no jaundice. BELLMAN: No focal deficits; alert and oriented times three. Assessment and Plan Assessment: (1) Nausea ICD Codes: R11.0 - Nausea (2) Dysphasia ICD Codes: R47.02 - Dysphasia Plan Nausea, states bouts of nausea a good bit of the time, currently no vomiting Dysphasia, last EGD done 05/07/17 Currently patient states that she's eaten 2 meals a day, large salad with kuwaiti fries currently in front of her. Last upper GI and barium swallow and EGD show no stricture. [address] EGD PLAN CT scan abdomen and pelvis without contrast Hemoccult stools 2 today and tomorrow check for any blood Monitor her labs and monitor for any acute bleeding Encourage patient to eat very small bites and chew her food slowly. Swallow and follow with liquids On discharge patient will need outpatient breath test for evaluation of resolution of H. pylori. Patient will need to be off her Pepcid and Protonix for one week before this test is done. She will then need to follow up in the GI office, Dr. Lala. Case discussed in depth with Dr. Diallo, patient visited per myself and Dr. Diallo, no written on his behalf Juani Hinojosa Jul 02, 2017 15:14
--- NOTE | 2017-07-02 15:23 | HHI.PR ---
Subjective Remarks Follow-up for dehydration Per patient she is here for dehydration. She stated that her diarrhea is constant. She stated that it has not worsened this is her baseline. Patient stated that she did not come here for diarrhea but that she came here for dehydration. Patient does report decreased urine output. She had 2 episodes of urine output yesterday. Patient stated that she feels dry. She also stated that she feels nauseous but no emesis. Patient asking if she can eat a regular diet. She stated that based on her diet she was told she is on a fluid restriction. Patient stated that she did not understand why she is on fluid restriction when she was dehydrated. Patient remains afebrile. Objective Vitals Vital Signs Date Time Temp Pulse Resp B/P (MAP) Pulse Ox O2 Delivery O2 Flow Rate FiO2 07/02/17 12:00 97.6 84 18 98/54 (69) 97 07/02/17 08:00 96.7 70 20 104/65 (78) 100 07/02/17 04:50 98.5 60 17 101/51 (68) 98 07/02/17 00:10 98.0 62 18 100/49 (66) 99 07/01/17 19:46 97.3 70 18 127/62 (83) 98 07/01/17 19:35 68 16 118/82 (94) 96 07/01/17 19:32 16 07/01/17 17:00 78 18 142/61 (88) 99 Room Air I/O 07/01/17 07/01/17 07/01/17 07/02/17 07/02/17 07/02/17 07:00 15:00 23:00 07:00 15:00 23:00 Intake Total 1480 ml 480 ml 1072 ml Balance 1480 ml 480 ml 1072 ml Intake Oral 480 ml 480 ml IV Total 1000 ml 1072 ml # Voids 1 1 # Bowel Movements 0 1 Result Diagram: 07/02/17 0653 07/02/17 0653 Objective Remarks GENERAL: in NAD CARDIOVASCULAR: Regular rate and rhythm without murmurs, gallops, or rubs. RESPIRATORY: Breath sounds equal bilaterally. No accessory muscle use. GASTROINTESTINAL: Abdomen soft, non-tender, nondistended. LLL stoma. MUSCULOSKELETAL: No cyanosis, or edema. BACK: Nontender without obvious deformity. No CVA tenderness. Medications and IVs Current Medications Ondansetron HCl (Zofran Inj) 4 mg ONCE ONCE IVP Last administered on 07/01/17at 17:01; Start 07/01/17 at 16:45; Stop 07/01/17 at 16:46; Status DC Sodium Chloride 1,000 ml @ 1,000 mls/hr Q1H IV Last administered on 07/01/17at 17:01; Start 07/01/17 at 16:40; Stop 07/01/17 at 17:39; Status DC Sodium Chloride (NS Flush) 2 ml UNSCH PRN IV FLUSH FLUSH AFTER USING IV ACCESS ; Start 07/01/17 at 19:15 Sodium Chloride (NS Flush) 2 ml BID IV FLUSH Last administered on 07/01/17at 20: 49; Start 07/01/17 at 21:00 Acetaminophen (Tylenol) 650 mg Q4H PRN PO TEMP > 100.4; Start 07/01/17 at 19:15 Ondansetron HCl (Zofran Inj) 4 mg Q6H PRN IVP NAUSEA OR VOMITING Last administered on 07/02/17at 13:14; Start 07/01/17 at 19:15 Naloxone HCl (Narcan Inj) 0.4 mg UNSCH PRN IV PUSH SEE LABEL COMMENTS; Start at 19:15 Senna/Docusate Sodium (Maria Del Carmen-Colace) 1 tab BID PO ; Start 07/01/17 at 21:00 Magnesium Hydroxide (Milk Of Magnesia Liq) 30 ml Q12H PRN PO Mild constipation ; Start 07/01/17 at 19:15 Sennosides (Senokot) 17.2 mg Q12H PRN PO Moderate constipation; Start 07/01/17 at 19:15 Bisacodyl (Dulcolax Supp) 10 mg DAILY PRN RECTAL SEVERE CONSITIPATION; Start at 19:15 Lactulose (Lactulose Liq) 30 ml DAILY PRN PO SEVERE CONSITIPATION; Start at 19:15 Estradiol (Estradiol) 0.5 mg DAILY PO Last administered on 07/02/17at 11:02; Start 07/02/17 at 09:00 Famotidine (Pepcid) 10 mg BID PO Last administered on 07/02/17at 11:02; Start 07/01/17 at 21:00 Fludrocortisone Acetate (Florinef) 0.1 mg DAILY PO Last administered on 11:02; Start 07/02/17 at 09:00 Fluoxetine HCl (PROzac) 20 mg DAILY PO Last administered on 07/02/17at 11:01; Start 07/02/17 at 09:00 Folic Acid (Folate) 1 mg DAILY PO Last administered on 07/02/17at 11:01; Start at 09:00 Levothyroxine Sodium (Synthroid) 125 mcg DAILY@0600 PO Last administered on 07/02at 06:25; Start 07/02/17 at 06:00 Sodium Bicarbonate (Sodium Bicarbonate) 1,300 mg Q8HR PO Last administered on 13:14; Start 07/01/17 at 22:00 Influenza Virus Vaccine (Flu (Quadrivalent) Vaccine Inj) 0.5 ml ONCE ONCE IM Last administered on 07/02/17 11:13; Start 07/02/17 at 10:00; Stop 07/02/17 at 10: 02; Status DC Sodium Chloride 1,000 ml @ 125 mls/hr Q8H IV Last administered on 07/02/17 11: 12; Start 07/02/17 at 01:45 Heparin Sodium (Porcine) (Heparin Inj) 5,000 units Q12HR SQ Last administered on 07/02/17 11:03; Start 07/02/17 at 09:00 A/P Problem List: (1) Diarrhea ICD Code: R19.7 - Diarrhea, unspecified (2) LEIGH (acute kidney injury) ICD Code: N17.9 - Acute kidney failure, unspecified Status: Acute (3) Dehydration ICD Code: E86.0 - Dehydration Status: Chronic Assessment and Plan 56-year-old female with history of ulcerative colitis diagnosed at age 17 s/p 26 abdominal surgeries including total colectomy, colostomy, failed Kock pouch, 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 LEIGH on CKD stage IV, secondary to Dehydration. Cr 3.04, previously 1.83 on 11/14 /17. -Patient follows with print room worker Dr. Martinez, will consult. Improving. -Avoid nephrotoxins -Give IVF with NS at 125cc/hr x1L -Monitor BMP Chronic diarrhea Diarrhea, Ileostomy/status post gastric sleeve -EMR reviewed, s/p EGD on 05/07/17 which showed gastritis and pathology positive for H.pylori, s/p 3weeks antibiotics treatment, completed 1 week ago -Pending C.diff, culture, h.pylori but per patient her stools are the same. She stated that she always has diarrhea and that this is her baseline. -Consult gastroenterology Hypothyroidism: chronic, stable -Continue with home medication. Depression: chronic, stable -Continue home medication. DVT Prophylaxis: heparin sq Debra Canchola MD Jul 02, 2017 15:23
--- NOTE | 2017-07-02 15:58 | PD.CONS ---
[facility] Service Nephrology Consult Requested By Dr. Hunter Reason for Consult Known to our services. ARF Primary Care Physician Non-Staff History of Present Illness The patient is a 56 yo [place] female who was asked to come to the ED by our office for further evaluation of ARF. She has a hx of significant GI issues post from gastric sleeve surgery including chronic nausea, vomiting, dysphagia which in turn leads to dehydration. She also has an ileostomy and has reported recent diarrhea that she thought was related to recent abx use for H. pylori. She was admitted here on 05/06 after her outpatient labs showed she was in acute renal failure with a SCr of 2.9 and GFR 16. She responded well to IVF and was discharged on 05/11 with SCr 1.8 and GFR 28. Was discharged on 3 weeks of abx for H. pylori, but she admits that she has not followed up with GI as outpatient as she had a change in insurance. States that since her discharge, her symptoms of nausea, vomiting, diarrhea, and dysphagia have slowly started to get worse daily. She says she is not able to keep up with fluid intake as recommended to keep a UOP of 2-2.5L daily ( reports her UOP only about 500mL daily). Her renal functions have also slowly started to deteriorate since her Nov discharge with SCr 05/19 2.19 eGFR 24, SCr 2.64 GFR 19, and 06/23 SCr 2.97 eGFR 16 (this is what prompted us urging her to be readmitted for IV hydration). Her admitting SCr was 3.04, but has fortunately already improved overnight with IV fluids to 2.55. Review of Systems Constitutional: COMPLAINS OF: Weight loss, Change in appetite Gastrointestinal: COMPLAINS OF: Diarrhea, Nausea, Vomiting, Difficulty Swallowing, Anorexia Past Family Social History Allergies: Coded Allergies: red dye (Unverified Allergy, Severe, hives and hot flashes, 07/01/17) acetaminophen (Verified Adverse Reaction, Severe, Nausea/Vomiting, 07/01/17) Past Medical History Acute renal insufficiency February, secondary to dehydration. CKD stage 3/4 History of ulcerative colitis with partial colectomy and ileostomy formation. Diabetes mellitus controlled by diet. Gout. Hypothyroidism. Gastroesophageal reflux disease. History of nephrolithiasis requiring previous lithotripsy and urinary stenting previously. Follows with urology Past Surgical History Colostomy Vertical sleeve gastrectomy January 2017 Hysterectomy Appendectomy Ileostomy Reported Medications Famotidine 20 Mg Tab 10 Mg PO BID Sodium Bicarbonate 650 Mg Tab 1,300 Mg PO Q8HR Fludrocortisone (Fludrocortisone Acetate) 0.1 Mg Tab 0.1 Mg PO DAILY Folic Acid 1 Mg Tablet 1 Mg PO DAILY Fluoxetine (Fluoxetine HCl) 20 Mg Tab 20 Mg PO DAILY Levothyroxine (Levothyroxine Sodium) 125 Mcg Tab 125 Mcg PO DAILY Estradiol 0.5 Mg Tab 0.5 Mg PO DAILY Active Ordered Medications Current Medications Medications (Trade) Dose Ordered Sig/Espinoza Route Start Time Stop Time Status Last Admin (NS Flush) 2 ml UNSCH PRN IV FLUSH 07/01/17 19:15 (NS Flush) 2 ml BID IV FLUSH 07/01/17 21:00 07/01/17 20:49 (Tylenol) 650 mg Q4H PRN PO 07/01/17 19:15 (Zofran Inj) 4 mg Q6H PRN IVP 07/01/17 19:15 07/02/17 13:14 (Narcan Inj) 0.4 mg UNSCH PRN IV PUSH 07/01/17 19:15 (Maria Del Carmen-Colace) 1 tab BID PO 07/01/17 21:00 (Milk Of Magnesia Liq) 30 ml Q12H PRN PO 07/01/17 19:15 (Senokot) 17.2 mg Q12H PRN PO 07/01/17 19:15 (Dulcolax Supp) 10 mg DAILY PRN RECTAL 07/01/17 19:15 (Lactulose Liq) 30 ml DAILY PRN PO 07/01/17 19:15 (Estradiol) 0.5 mg DAILY PO 07/02/17 09:00 07/02/17 11:02 (Pepcid) 10 mg BID PO 07/01/17 21:00 07/02/17 11:02 (Florinef) 0.1 mg DAILY PO 07/02/17 09:00 07/02/17 11:02 (PROzac) 20 mg DAILY PO 07/02/17 09:00 07/02/17 11:01 (Folate) 1 mg DAILY PO 07/02/17 09:00 07/02/17 11:01 (Synthroid) 125 mcg DAILY@0600 PO 07/02/17 06:00 07/02/17 06:25 (Sodium Bicarbonate) 1,300 mg Q8HR PO 07/01/17 22:00 07/02/17 13:14 Sodium Chloride 1,000 ml @ 125 mls/hr Q8H IV 07/02/17 01:45 07/02/17 11:12 (Heparin Inj) 5,000 units Q12HR SQ 07/02/17 09:00 07/02/17 11:03 Family History NC Social History Denies EtOH, tobacco use, illicit drug use Physical Exam Vital Signs Vital Signs Date Time Temp Pulse Resp B/P (MAP) Pulse Ox O2 Delivery O2 Flow Rate FiO2 07/02/17 12:00 97.6 84 18 98/54 (69) 97 07/02/17 08:00 96.7 70 20 104/65 (78) 100 07/02/17 04:50 98.5 60 17 101/51 (68) 98 07/02/17 00:10 98.0 62 18 100/49 (66) 99 07/01/17 19:46 97.3 70 18 127/62 (83) 98 07/01/17 19:35 68 16 118/82 (94) 96 07/01/17 19:32 16 07/01/17 17:00 78 18 142/61 (88) 99 Room Air Physical Exam GENERAL: NAD SKIN: Warm and dry. HEAD: Atraumatic. Normocephalic. EYES: Pupils equal and round. No scleral icterus. No injection or drainage. ENT: No nasal bleeding or discharge. Mucous membranes pink and moist. NECK: Trachea midline. No JVD. CARDIOVASCULAR: Regular rate and rhythm. RESPIRATORY: No accessory muscle use. Clear to auscultation. Breath sounds equal bilaterally. GASTROINTESTINAL: Abdomen soft, non-tender, nondistended. Hepatic and splenic margins not palpable. MUSCULOSKELETAL: Extremities without clubbing, cyanosis, or edema. No obvious deformities. NEUROLOGICAL: Awake and alert. No obvious cranial nerve deficits. Normal speech. PSYCHIATRIC: Appropriate mood and affect; insight and judgment normal. Laboratory Laboratory Tests Test 07/01/17 16:55 07/02/17 06:53 07/02/17 10:55 White Blood Count 6.4 5.4 Red Blood Count 3.76 3.39 Hemoglobin 13.0 11.1 Hematocrit 35.1 32.8 Mean Corpuscular Volume 93.5 96.9 Mean Corpuscular Hemoglobin 34.5 32.8 Mean Corpuscular Hemoglobin Concent 36.9 33.8 Red Cell Distribution Width 13.8 13.6 Platelet Count 315 249 Mean Platelet Volume 8.7 8.4 Neutrophils (%) (Auto) 50.9 45.6 Lymphocytes (%) (Auto) 38.6 41.1 Monocytes (%) (Auto) 6.8 9.0 Eosinophils (%) (Auto) 3.1 3.4 Basophils (%) (Auto) 0.6 0.9 Neutrophils # (Auto) 3.3 2.5 Lymphocytes # (Auto) 2.5 2.2 Monocytes # (Auto) 0.4 0.5 Eosinophils # (Auto) 0.2 0.2 Basophils # (Auto) 0.0 0.0 CBC Comment AUTO DIFF DIFF FINAL Differential Comment AUTO DIFF CONFIRMED Blood Urea Nitrogen 73 67 Creatinine 3.04 2.55 Random Glucose 109 84 Total Protein 8.1 Albumin 4.3 Calcium Level 9.2 8.7 Magnesium Level 2.2 Alkaline Phosphatase 95 Aspartate Amino Transf (AST/SGOT) 18 Alanine Aminotransferase (ALT/SGPT) 19 Total Bilirubin 0.4 Sodium Level 139 143 Potassium Level 3.5 4.0 Chloride Level 110 117 Carbon Dioxide Level 16.6 14.2 Anion Gap 12 12 Estimat Glomerular Filtration Rate 16 19 Stool C. difficile Toxin (PCR) NEGATIVE Stl C. difficile Toxin Epiderm 027 PRESUMPTIVE NEGATIVE Date/Time Source Procedure Growth Status 07/02/17 10:55 Stool Stool - Final NO ENTERIC PATHOGENS DETECTED BY PCR... Complete Result Diagram: 07/02/17 0653 07/02/17 0653 Assessment and Plan Problem List: (1) Acute renal failure ICD Codes: N17.9 - Acute kidney failure, unspecified Plan: Related to volume depletion. She unfortunately has continued difficulties with keeping up with enteral intake. GI is on her case and hopefully can help in this regard. Will change IVF to 1/2NS with bicarb for the present. Will continue to follow intermittently. Medications should be adjusted for the patient's acute renal dysfunction. (2) Acidosis ICD Codes: E87.2 - Acidosis Plan: Related to ileostomy losses as well as acute renal failure. As above,will change IVF (3) Bariatric surg stat-unsp ICD Codes: Z98.84 - Bariatric surgery status Status: Chronic (4) Dehydration ICD Codes: E86.0 - Dehydration Status: Chronic (5) Dysphasia ICD Codes: R47.02 - Dysphasia Clemencia Lucero Jul 02, 2017 15:58
[2017-07-02 16:00] VITALS: BP 103/49; PULSE 69; RESP 18; TEMP 97.7; O2SAT 96
[2017-07-02] MEDS: SODIUM BICARBONATE 8.4% INJ 75 MEQ in SODIUM CHLOR 0.45% 1000 ML INJ 1,000 ML IV SCH (16:53)
--- NOTE | 2017-07-02 17:48 | RADRPT ---
EXAM DATE/TIME: 07/02/2017 17:36 [place] COMPARISON: No previous studies available for comparison. INDICATIONS : Nausea, vomiting diarrhea. ORAL CONTRAST: No oral contrast ingested. RADIATION DOSE: 9.76 CTDIvol (mGy) MEDICAL HISTORY : Hypothyroidism. Gastroesophageal reflux disease. Renal failure, chronic.Renal calculi, Ulcer, acute k idney injury SURGICAL HISTORY : Hysterectomy. Mendoza pouch, gastric sleeve, ileostomy. ENCOUNTER: Initial ACUITY: 1 day PAIN SCALE: 6/10 LOCATION: abdomen TECHNIQUE: Volumetric scanning of the abdomen and pelvis was performed. Using automated exposure control and ad justment of the mA and/or kV according to patient size, radiation dose was kept as low as reasonably achievable to obtain optimal diagnostic quality images. DICOM format image data is available electro nically for review and comparison. FINDINGS: Lung base e are clear. The liver, spleen and pancreas are unremarkable. Previous gastric surgery is evident. 1 mm stones nonobstructing right kidney lower pole Staghorn stone nonobstructing midportion left kidney There is no adenopathy There is no ascites Abdominal wall is intact In the pelvis evidence of previous surgery is noted. There is no adnexal mass. There is no free flu id. There is no obturator adenopathy Abdominal wall is intact Ileostomy left lower quadrant. CONCLUSION: 1. Evidence for previous surgery ostomy left or quadrant. Bowel gas pattern is unremarkable 2. Bilateral renal stones as Staghorn calculus on the left, nonobstructing 3. There is no free fluid 4. There is no abscess 5. There is no free air. Shukri Venegas MD FACR on July 02, 2017 at 17:43 Board Certified Radiologist. This report was verified electronically.
[2017-07-02 20:40] VITALS: BP 103/59; PULSE 76; RESP 16; TEMP 98.3; O2SAT 100
[2017-07-03] VITALS (7 sets, daily range): BP systolic 83–105; BP diastolic 42–58; PULSE 59–76; RESP 16–18; TEMP 97.4–98.4; O2SAT 98–100
[2017-07-03] MEDS: SODIUM BICARBONATE 8.4% INJ 75 MEQ in SODIUM CHLOR 0.45% 1000 ML INJ 1,000 ML IV SCH ×4 (04:19→20:05)
[2017-07-03] MEDS: LEVOTHYROXINE SODIUM 125 MCG TAB PO SCH (06:25)
[2017-07-03 07:24] LABS: HEMATOCRIT 28.5 % (35.0-46.0); HEMOGLOBIN 9.9 GM/DL (11.6-15.3); MEAN CELL VOLUME 95.7 FL (80.0-100.0); MEAN CORPUSCULAR HEMOGLOBIN 33.2 PG (27.0-34.0); MEAN CORPUSCULAR HGB CONC 34.7 % (32.0-36.0); MEAN PLATELET VOLUME 8.9 FL (7.0-11.0); PLATELET COUNT 228 TH/MM3 (150-450); RED BLOOD COUNT 2.98 MIL/MM3 (4.00-5.30); RED CELL DISTRIBUTION WIDTH 13.8 % (11.6-17.2); WHITE BLOOD COUNT 5.6 TH/MM3 (4.0-11.0)
[2017-07-03 08:04] LABS: BICARBONATE 18.2 MEQ/L (21.0-32.0); CALCIUM 8.2 MG/DL (8.5-10.1); CREATININE 2.04 MG/DL (0.50-1.00); PHOSPHORUS 3.9 MG/DL (2.5-4.9)
[2017-07-03] MEDS: DOCUSATE SODIUM 50 MG/SENNA 8.6 MG TAB PO SCH ×2 (09:00→20:04)
[2017-07-03] MEDS: SODIUM CHLORIDE 0.9% FLUSH 10 ML FLUSH IV FLUSH SCH ×2 (09:00→20:04)
[2017-07-03] MEDS: ESTRADIOL 1 MG TAB PO SCH (09:14)
[2017-07-03] MEDS: HEPARIN SODIUM - SQ 10,000 UNITS/ML VIAL SQ SCH ×2 (09:14→20:04)
[2017-07-03] MEDS: FOLIC ACID 1 MG TAB PO SCH (09:14)
[2017-07-03] MEDS: FAMOTIDINE 20 MG TAB PO SCH ×2 (09:14→20:04)
[2017-07-03] MEDS: FLUoxetine HCL 20 MG CAP PO SCH (09:14)
[2017-07-03] MEDS: FLUDROCORTISONE ACETATE 0.1 MG TAB PO SCH (11:52)
--- NOTE | 2017-07-03 16:07 | HHI.PR ---
Subjective Remarks f/u for ARF due to chronic diarrhea She stated she has had this problem since January. Asking if there's anything she can do to get IVFs in her without coming to hospital. She stated since surgery her stomach is small so unable to drink a lot. Otherwise no complaints. Objective Vitals Vital Signs Date Time Temp Pulse Resp B/P (MAP) Pulse Ox O2 Delivery O2 Flow Rate FiO2 07/03/17 12:00 98.0 70 18 105/52 (69) 100 07/03/17 08:00 97.6 65 18 85/42 (56) 98 07/03/17 04:40 97.4 63 16 91/58 (69) 98 Automatic Cuff 07/03/17 00:45 97.8 64 16 93/42 (59) 99 83/58 (66) 07/02/17 20:40 98.3 76 16 103/59 (74) 100 I/O 07/02/17 07/02/17 07/02/17 07/03/17 07/03/17 07/03/17 07:00 15:00 23:00 07:00 15:00 23:00 Intake Total 480 ml 1672 ml 480 ml 360 ml Balance 480 ml 1672 ml 480 ml 360 ml Intake Oral 480 ml 600 ml 480 ml 360 ml IV Total 1072 ml # Voids 1 8 2 2 # Bowel Movements 1 1 0 0 Result Diagram: 07/03/17 0530 07/03/17 0530 Objective Remarks GENERAL: in NAD CARDIOVASCULAR: Regular rate and rhythm without murmurs, gallops, or rubs. RESPIRATORY: Breath sounds equal bilaterally. No accessory muscle use. GASTROINTESTINAL: Abdomen soft, non-tender, nondistended. LLL stoma. MUSCULOSKELETAL: No cyanosis, or edema. BACK: Nontender without obvious deformity. No CVA tenderness. Medications and IVs Current Medications Ondansetron HCl (Zofran Inj) 4 mg ONCE ONCE IVP Last administered on 07/01/17at 17:01; Start 07/01/17 at 16:45; Stop 07/01/17 at 16:46; Status DC Sodium Chloride 1,000 ml @ 1,000 mls/hr Q1H IV Last administered on 07/01/17at 17:01; Start 07/01/17 at 16:40; Stop 07/01/17 at 17:39; Status DC Sodium Chloride (NS Flush) 2 ml UNSCH PRN IV FLUSH FLUSH AFTER USING IV ACCESS ; Start 07/01/17 at 19:15 Sodium Chloride (NS Flush) 2 ml BID IV FLUSH Last administered on 07/01/17at 20: 49; Start 07/01/17 at 21:00 Acetaminophen (Tylenol) 650 mg Q4H PRN PO TEMP > 100.4; Start 07/01/17 at 19:15 Ondansetron HCl (Zofran Inj) 4 mg Q6H PRN IVP NAUSEA OR VOMITING Last administered on 07/02/17at 13:14; Start 07/01/17 at 19:15 Naloxone HCl (Narcan Inj) 0.4 mg UNSCH PRN IV PUSH SEE LABEL COMMENTS; Start at 19:15 Senna/Docusate Sodium (Maria Del Carmen-Colace) 1 tab BID PO ; Start 07/01/17 at 21:00 Magnesium Hydroxide (Milk Of Magnesia Liq) 30 ml Q12H PRN PO Mild constipation ; Start 07/01/17 at 19:15 Sennosides (Senokot) 17.2 mg Q12H PRN PO Moderate constipation; Start 07/01/17 at 19:15 Bisacodyl (Dulcolax Supp) 10 mg DAILY PRN RECTAL SEVERE CONSITIPATION; Start at 19:15 Lactulose (Lactulose Liq) 30 ml DAILY PRN PO SEVERE CONSITIPATION; Start at 19:15 Estradiol (Estradiol) 0.5 mg DAILY PO Last administered on 07/03/17at 09:14; Start 07/02/17 at 09:00 Famotidine (Pepcid) 10 mg BID PO Last administered on 07/03/17at 09:14; Start 07/01/17 at 21:00 Fludrocortisone Acetate (Florinef) 0.1 mg DAILY PO Last administered on at 11:52; Start 07/02/17 at 09:00 Fluoxetine HCl (PROzac) 20 mg DAILY PO Last administered on 07/03/17at 09:14; Start 07/02/17 at 09:00 Folic Acid (Folate) 1 mg DAILY PO Last administered on 07/03/17at 09:14; Start at 09:00 Levothyroxine Sodium (Synthroid) 125 mcg DAILY@0600 PO Last administered on 07/03at 06:25; Start 07/02/17 at 06:00 Sodium Bicarbonate (Sodium Bicarbonate) 1,300 mg Q8HR PO Last administered on at 13:14; Start 07/01/17 at 22:00; Stop 07/02/17 at 16:00; Status DC Influenza Virus Vaccine (Flu (Quadrivalent) Vaccine Inj) 0.5 ml ONCE ONCE IM Last administered on 07/02/17at 11:13; Start 07/02/17 at 10:00; Stop 07/02/17 at 10: 02; Status DC Sodium Chloride 1,000 ml @ 125 mls/hr Q8H IV Last administered on 07/02/17at 11: 12; Start 07/02/17 at 01:45; Stop 07/02/17 at 16:00; Status DC Heparin Sodium (Porcine) (Heparin Inj) 5,000 units Q12HR SQ Last administered on 07/03/17at 09:14; Start 07/02/17 at 09:00 Sodium Bicarbonate 75 meq/Sodium Chloride 1,075 ml @ 125 mls/hr Q8H36M IV Last administered on 07/03/17at 11:53; Start 07/02/17 at 17:00 A/P Problem List: (1) Diarrhea ICD Code: R19.7 - Diarrhea, unspecified (2) LEIGH (acute kidney injury) ICD Code: N17.9 - Acute kidney failure, unspecified Status: Acute (3) Dehydration ICD Code: E86.0 - Dehydration Status: Chronic Assessment and Plan 56-year-old female with history of ulcerative colitis diagnosed at age 17 s/p 26 abdominal surgeries including total colectomy, colostomy, failed Kock pouch, 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 LEIGH on CKD stage IV, secondary to Dehydration. Cr 3.04, previously 1.83 on 05/11. -Patient follows with mind reader Dr. Martinez. consulted. ff. -Cr improving. -Avoid nephrotoxins -on 2NS with bicarb. Chronic diarrhea Diarrhea, Ileostomy/status post gastric sleeve -EMR reviewed, s/p EGD on 05/07/17 which showed gastritis and pathology positive for H.pylori, s/p 3weeks antibiotics treatment, completed 1 week ago -so far stool studies negative. GI ff. pending H pylori. Hypothyroidism: chronic, stable -Continue with home medication. Depression: chronic, stable -Continue home medication. DVT Prophylaxis: heparin sq extensive discussion with and in regards to decreasing hospitalization. Debra Canchola MD Jul 03, 2017 16:07
--- NOTE | 2017-07-03 17:56 | HHI.NPPN ---
Subjective History of Present Illness The patient is a 56 yo [place] female who was asked to come to the ED by our office for further evaluation of ARF. She has a hx of significant GI issues post from gastric sleeve surgery including chronic nausea, vomiting, dysphagia which in turn leads to dehydration. She also has an ileostomy and has reported recent diarrhea that she thought was related to recent abx use for H. pylori. She was admitted here on 05/06 after her outpatient labs showed she was in acute renal failure with a SCr of 2.9 and GFR 16. She responded well to IVF and was discharged on 05/11 with SCr 1.8 and GFR 28. Was discharged on 3 weeks of abx for H. pylori, but she admits that she has not followed up with GI as outpatient as she had a change in insurance. States that since her discharge, her symptoms of nausea, vomiting, diarrhea, and dysphagia have slowly started to get worse daily. She says she is not able to keep up with fluid intake as recommended to keep a UOP of 2-2.5L daily ( reports her UOP only about 500mL daily). Her renal functions have also slowly started to deteriorate since her Nov discharge with SCr 05/19 2.19 eGFR 24, SCr 2.64 GFR 19, and 06/23 SCr 2.97 eGFR 16 (this is what prompted us urging her to be readmitted for IV hydration). Interval History Patient indicated that she was feeling better and was eating well. Objective Data Data Vital Signs Date Time Temp Pulse Resp B/P (MAP) Pulse Ox O2 Delivery O2 Flow Rate FiO2 07/03/17 12:00 98.0 70 18 105/52 (69) 100 07/03/17 08:00 97.6 65 18 85/42 (56) 98 07/03/17 04:40 97.4 63 16 91/58 (69) 98 Automatic Cuff 07/03/17 00:45 97.8 64 16 93/42 (59) 99 83/58 (66) 07/02/17 20:40 98.3 76 16 103/59 (74) 100 -: 07/03/17 0530 07/03/17 0530 Physical Exam General Appearance: Well Developed, Well Nourished, No Acute Distress, Comfortable Eyes Eye Exam: Sclera White Pulmonary Resp Exam: Clear Bilaterally, Breath Sounds Equal, No Distress Cardiology CV Exam: Regular, Normal Sinus Rhythm, Good Perfusion Gastrointestinal/Abdomen GI Exam: Soft, Non-Tender Integumentary Skin Exam: Clear, Warm, Dry Extremeties Extremities Exam: No Edema Neurologic Neuro Exam: Alert, Awake, Oriented, Speech Clear, Moving All Extremities Psychiatric Psych Exam: Appropriate Responses Assessment/Plan Discussed Condition With: Patient, Spouse Problem List: (1) Acute renal failure ICD Codes: N17.9 - Acute kidney failure, unspecified Plan: Related to volume depletion. Patient's creatinine level is approaching baseline and her acid base status has improved with IV bicarbonate. Patient will be clear for discharge from renal point of view if she is maintaining adequate fluid intake to match enteral losses. This was discussed with her. If IV fluids discontinued recommend that patient resume her oral sodium bicarbonate as discussed with her 1300 mg 3 times a day and the fluid intake of approximately enteral fluid losses plus an additional 2500 MLS. Importance of doing so discussed with her. Would like see the patient in the office approximately 2 weeks post discharge. Please call if any questions. Medications should be adjusted for the patient's acute renal dysfunction. Avoid gadolinium and NSAIDs for analgesia. (2) Acidosis ICD Codes: E87.2 - Acidosis Plan: Related to ileostomy losses as well as acute renal failure. Management per GI. (3) Bariatric surg stat-unsp ICD Codes: Z98.84 - Bariatric surgery status Status: Chronic (4) Dehydration ICD Codes: E86.0 - Dehydration Status: Chronic Plan: Much improved. (5) Dysphasia ICD Codes: R47.02 - Dysphasia Myah Martinez MD Jul 03, 2017 17:56
[2017-07-03 19:03] LABS: BICARBONATE 21.8 MEQ/L (21.0-32.0); CALCIUM 8.3 MG/DL (8.5-10.1); CREATININE 1.91 MG/DL (0.50-1.00)
[2017-07-04 04:20] VITALS: BP 91/46; PULSE 66; RESP 18; TEMP 97.7; O2SAT 97
[2017-07-04] MEDS: LEVOTHYROXINE SODIUM 125 MCG TAB PO SCH (05:04)
[2017-07-04] MEDS: SODIUM BICARBONATE 8.4% INJ 75 MEQ in SODIUM CHLOR 0.45% 1000 ML INJ 1,000 ML IV SCH (05:04)
[2017-07-04 08:00] VITALS: BP 89/46; PULSE 64; RESP 18; TEMP 97.9; O2SAT 97
[2017-07-04] MEDS: DOCUSATE SODIUM 50 MG/SENNA 8.6 MG TAB PO SCH ×2 (09:00→20:31)
[2017-07-04] MEDS: SODIUM CHLORIDE 0.9% FLUSH 10 ML FLUSH IV FLUSH SCH ×2 (09:00→20:42)
[2017-07-04] MEDS: FLUoxetine HCL 20 MG CAP PO SCH (09:19)
[2017-07-04] MEDS: FOLIC ACID 1 MG TAB PO SCH (09:19)
[2017-07-04] MEDS: ESTRADIOL 1 MG TAB PO SCH (09:19)
[2017-07-04] MEDS: FAMOTIDINE 20 MG TAB PO SCH ×2 (09:19→20:42)
[2017-07-04] MEDS: FLUDROCORTISONE ACETATE 0.1 MG TAB PO SCH (09:19)
[2017-07-04] MEDS: HEPARIN SODIUM - SQ 10,000 UNITS/ML VIAL SQ SCH ×2 (09:20→20:42)
[2017-07-04 09:41] LABS: HEMATOCRIT 27.3 % (35.0-46.0); HEMOGLOBIN 9.5 GM/DL (11.6-15.3); MEAN CELL VOLUME 93.9 FL (80.0-100.0); MEAN CORPUSCULAR HEMOGLOBIN 32.7 PG (27.0-34.0); MEAN CORPUSCULAR HGB CONC 34.9 % (32.0-36.0); MEAN PLATELET VOLUME 8.3 FL (7.0-11.0); PLATELET COUNT 220 TH/MM3 (150-450); RED BLOOD COUNT 2.91 MIL/MM3 (4.00-5.30); RED CELL DISTRIBUTION WIDTH 13.5 % (11.6-17.2); WHITE BLOOD COUNT 5.1 TH/MM3 (4.0-11.0)
[2017-07-04 10:06] LABS: CALCIUM 8.2 MG/DL (8.5-10.1); CREATININE 1.6 MG/DL (0.50-1.00)
[2017-07-04] MEDS: SODIUM CHLORIDE 1 GRAM TAB PO SCH ×2 (11:49→20:42)
[2017-07-04 12:00] VITALS: BP 87/48; PULSE 69; RESP 18; TEMP 98.8; O2SAT 99
[2017-07-04] MEDS: ONDANSETRON HCL 4 MG/2 ML VIAL IVP PRN ×2 (12:08→20:38)
--- NOTE | 2017-07-04 13:18 | HHI.PR ---
Subjective Remarks Follow-up for high output with ileostomy and acute renal failure Blood pressure has been low in the 80s. Patient stated that she is not tolerating a lot of oral intake. She says she pancakes and a glass of milk. Patient says she is unable to drink a lot of water. Deny any chest pain, SOB, palpitation, lightheadedness, dizziness. Discussed case with patient's nurse. Objective Vitals Vital Signs Date Time Temp Pulse Resp B/P (MAP) Pulse Ox O2 Delivery O2 Flow Rate FiO2 07/04/17 12:00 98.8 69 18 87/48 (61) 99 07/04/17 08:00 97.9 64 18 89/46 (60) 97 07/04/17 04:20 97.7 66 18 91/46 (61) 97 07/03/17 23:26 98.1 63 18 90/51 (64) 99 07/03/17 19:58 97.7 76 18 96/56 (69) 99 07/03/17 16:00 98.4 59 18 89/43 (58) 99 I/O 07/03/17 07/03/17 07/03/17 07/04/17 07/04/17 07/04/17 07:00 15:00 23:00 07:00 15:00 23:00 Intake Total 360 ml 720 ml 360 ml 1895 ml Balance 360 ml 720 ml 360 ml 1895 ml Intake Oral 360 ml 720 ml 360 ml 720 ml IV Total 1175 ml # Voids 2 4 4 2 # Bowel Movements 0 4 4 1 Result Diagram: 07/04/17 0849 07/04/17 0849 Objective Remarks GENERAL: in NAD CARDIOVASCULAR: Regular rate and rhythm without murmurs, gallops, or rubs. RESPIRATORY: Breath sounds equal bilaterally. No accessory muscle use. GASTROINTESTINAL: Abdomen soft, non-tender, nondistended. LLL stoma. MUSCULOSKELETAL: No cyanosis, or edema. BACK: Nontender without obvious deformity. No CVA tenderness. Medications and IVs Current Medications Ondansetron HCl (Zofran Inj) 4 mg ONCE ONCE IVP Last administered on 07/01/17at 17:01; Start 07/01/17 at 16:45; Stop 07/01/17 at 16:46; Status DC Sodium Chloride 1,000 ml @ 1,000 mls/hr Q1H IV Last administered on 07/01/17at 17:01; Start 07/01/17 at 16:40; Stop 07/01/17 at 17:39; Status DC Sodium Chloride (NS Flush) 2 ml UNSCH PRN IV FLUSH FLUSH AFTER USING IV ACCESS ; Start 07/01/17 at 19:15 Sodium Chloride (NS Flush) 2 ml BID IV FLUSH Last administered on 07/01/17at 20: 49; Start 07/01/17 at 21:00 Acetaminophen (Tylenol) 650 mg Q4H PRN PO TEMP > 100.4; Start 07/01/17 at 19:15 Ondansetron HCl (Zofran Inj) 4 mg Q6H PRN IVP NAUSEA OR VOMITING Last administered on 07/04/17at 12:08; Start 07/01/17 at 19:15 Naloxone HCl (Narcan Inj) 0.4 mg UNSCH PRN IV PUSH SEE LABEL COMMENTS; Start at 19:15 Senna/Docusate Sodium (Maria Del Carmen-Colace) 1 tab BID PO ; Start 07/01/17 at 21:00 Magnesium Hydroxide (Milk Of Magnesia Liq) 30 ml Q12H PRN PO Mild constipation ; Start 07/01/17 at 19:15 Sennosides (Senokot) 17.2 mg Q12H PRN PO Moderate constipation; Start 07/01/17 at 19:15 Bisacodyl (Dulcolax Supp) 10 mg DAILY PRN RECTAL SEVERE CONSITIPATION; Start at 19:15 Lactulose (Lactulose Liq) 30 ml DAILY PRN PO SEVERE CONSITIPATION; Start at 19:15 Estradiol (Estradiol) 0.5 mg DAILY PO Last administered on 07/04/17 09:19; Start 07/02/17 at 09:00 Famotidine (Pepcid) 10 mg BID PO Last administered on 07/04/17 09:19; Start 07/01/17 at 21:00 Fludrocortisone Acetate (Florinef) 0.1 mg DAILY PO Last administered on 09:19; Start 07/02/17 at 09:00 Fluoxetine HCl (PROzac) 20 mg DAILY PO Last administered on 1/7/18at 09:19; Start 07/02/17 at 09:00 Folic Acid (Folate) 1 mg DAILY PO Last administered on 07/04/17at 09:19; Start at 09:00 Levothyroxine Sodium (Synthroid) 125 mcg DAILY@0600 PO Last administered on 07/04at 05:04; Start 07/02/17 at 06:00 Sodium Bicarbonate (Sodium Bicarbonate) 1,300 mg Q8HR PO Last administered on at 13:14; Start 07/01/17 at 22:00; Stop 07/02/17 at 16:00; Status DC Influenza Virus Vaccine (Flu (Quadrivalent) Vaccine Inj) 0.5 ml ONCE ONCE IM Last administered on 07/02/17at 11:13; Start 07/02/17 at 10:00; Stop 07/02/17 at 10: 02; Status DC Sodium Chloride 1,000 ml @ 125 mls/hr Q8H IV Last administered on 07/02/17at 11: 12; Start 07/02/17 at 01:45; Stop 07/02/17 at 16:00; Status DC Heparin Sodium (Porcine) (Heparin Inj) 5,000 units Q12HR SQ Last administered on 07/04/17at 09:20; Start 07/02/17 at 09:00 Sodium Bicarbonate 75 meq/Sodium Chloride 1,075 ml @ 125 mls/hr Q8H36M IV Last administered on 07/04/17at 05:04; Start 07/02/17 at 17:00 Sodium Chloride (Sodium Chloride) 1 gm BID PO Last administered on 07/04/17at 11: 49; Start 07/04/17 at 11:30 A/P Problem List: (1) Diarrhea ICD Code: R19.7 - Diarrhea, unspecified (2) LEIGH (acute kidney injury) ICD Code: N17.9 - Acute kidney failure, unspecified Status: Acute (3) Dehydration ICD Code: E86.0 - Dehydration Status: Chronic Assessment and Plan 56-year-old female with history of ulcerative colitis diagnosed at age 17 s/p 26 abdominal surgeries including total colectomy, colostomy, failed Kock pouch, 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 LEIGH on CKD stage IV, secondary to Dehydration. Cr 3.04, previously 1.83 on 05/11. -Patient follows with decorating kiln operator Dr. Martinez. consulted. ff. -Cr improving. -Avoid nephrotoxins -on 1/2NS with bicarb. -Per decorating kiln operator patient will be clear for discharge from renal point of view if she is maintaining adequate fluid intake to match enteral losses. If IV fluids discontinued recommend that patient resume her oral sodium bicarbonate as discussed with her 1300 mg 3 times a day and the fluid intake of approximately enteral fluid losses plus an additional 2500 MLS. -avoid gadolinium and NSAIDs for analgesia. Hypotension -Secondary to high output from ileostomy tube and unable to tolerate enough oral intake due to gastric sleeve. -Encourage oral intake. Will add salt tablets. Chronic diarrhea Diarrhea, Ileostomy/status post gastric sleeve -EMR reviewed, s/p EGD on 05/07/17 which showed gastritis and pathology positive for H.pylori, s/p 3weeks antibiotics treatment, completed 1 week ago -so far stool studies negative. GI ff. pending H pylori. Hypothyroidism: chronic, stable -Continue with home medication. Depression: chronic, stable -Continue home medication. DVT Prophylaxis: heparin sq extensive discussion with and in regards to decreasing hospitalization. Discharge Planning Unable to discharge patient secondary to hypotension. Debra Canchola MD Jul 04, 2017 13:18
--- NOTE | 2017-07-04 14:23 | HHI.GIFU ---
Subjective Remarks Pt resting in bed, c/o she cannot hold enough fluid in her stomach to stay hydrated, asking for "port". Objective Vitals I&O Vital Signs Date Time Temp Pulse Resp B/P (MAP) Pulse Ox O2 Delivery O2 Flow Rate FiO2 07/04/17 12:00 98.8 69 18 87/48 (61) 99 07/04/17 08:00 97.9 64 18 89/46 (60) 97 07/04/17 04:20 97.7 66 18 91/46 (61) 97 07/03/17 23:26 98.1 63 18 90/51 (64) 99 07/03/17 19:58 97.7 76 18 96/56 (69) 99 07/03/17 16:00 98.4 59 18 89/43 (58) 99 I/O 07/03/17 07/03/17 07/03/17 07/04/17 07/04/17 07/04/17 07:00 15:00 23:00 07:00 15:00 23:00 Intake Total 360 ml 720 ml 360 ml 1895 ml Balance 360 ml 720 ml 360 ml 1895 ml Intake Oral 360 ml 720 ml 360 ml 720 ml IV Total 1175 ml # Voids 2 4 4 2 # Bowel Movements 0 4 4 1 Laboratory Laboratory Tests Test 07/03/17 18:00 07/04/17 08:49 Blood Urea Nitrogen 43 34 Creatinine 1.91 1.60 Random Glucose 99 86 Calcium Level 8.3 8.2 Sodium Level 144 144 Potassium Level 3.6 3.4 Chloride Level 115 113 Carbon Dioxide Level 21.8 23.0 Anion Gap 7 8 Estimat Glomerular Filtration Rate 27 33 White Blood Count 5.1 Red Blood Count 2.91 Hemoglobin 9.5 Hematocrit 27.3 Mean Corpuscular Volume 93.9 Mean Corpuscular Hemoglobin 32.7 Mean Corpuscular Hemoglobin Concent 34.9 Red Cell Distribution Width 13.5 Platelet Count 220 Mean Platelet Volume 8.3 Date/Time Source Procedure Growth Status 07/02/17 10:55 Stool Stool Stool Occult Blood (TAMY) - Final HEMOCCULT NEGATIVE Complete Imaging Last Impressions Abdomen/Pelvis CT 07/02/17 0000 Signed Impressions: Service Date/Time: Sunday, July 02, 2017 17:36 - CONCLUSION: 1. Evidence for previous surgery ostomy left or quadrant. Bowel gas pattern is unremarkable 2. Bilateral renal stones as Staghorn calculus on the left, nonobstructing 3. There is no free fluid 4. There is no abscess 5. There is no free air. Shukri Venegas MD FACR Physical Exam HEENT: PERRL; normocephalic; atraumatic; no jaundice. CHEST: CTA CARDIAC: RRR ABDOMEN: Soft, nondistended, nontender; no hepatosplenomegaly; bowel sounds are present in all four quadrants. EXTREMITIES: No clubbing, cyanosis, or edema. SKIN: Normal; no rash; no jaundice. DRYLAND FARMER: No focal deficits; alert and oriented times three. Assessment and Plan Assessment: (1) Nausea ICD Codes: R11.0 - Nausea (2) Dysphasia ICD Codes: R47.02 - Dysphasia Plan Nausea, states bouts of nausea a good bit of the time, currently no vomiting Dysphasia, last EGD done 05/07/17 Last upper GI and barium swallow and EGD show no stricture. 2 soon for EGD states she has had problems staying hydrated and with diarrhea since her gastric sleeve, wants port could consider PEG for hydration or PICC for night time hydration she would need to see Bariatric surgeon CT unremarkable, stool neg for blood PLAN - f/u with bariatric surgery - could consider PEG tube placement for hydration, with bariatric clearance - On discharge patient will need outpatient breath test for evaluation of resolution of H. pylori. Patient will need to be off her Pepcid and Protonix for one week before this test is done. She will then need to follow up in the GI office, Dr. Lala. - GI will sign off, please reconsult if needed Pt seen by myself and Dr Diallo and this note on his behalf Barbie Ramos Jul 04, 2017 14:23
[2017-07-04 16:00] VITALS: BP 93/53; PULSE 62; RESP 18; TEMP 99.1; O2SAT 100
[2017-07-04 19:46] VITALS: BP 88/59; PULSE 61; RESP 18; TEMP 96.9; O2SAT 100
[2017-07-04 23:20] VITALS: BP 103/64; PULSE 55; RESP 17; TEMP 97.7; O2SAT 99
[2017-07-05] MEDS: SODIUM BICARBONATE 8.4% INJ 75 MEQ in SODIUM CHLOR 0.45% 1000 ML INJ 1,000 ML IV SCH ×2 (01:09→09:45)
[2017-07-05 04:00] VITALS: BP 97/57; PULSE 70; RESP 18; TEMP 97.2; O2SAT 98
[2017-07-05] MEDS: LEVOTHYROXINE SODIUM 125 MCG TAB PO SCH (06:24)
[2017-07-05 08:00] VITALS: BP 113/68; PULSE 62; RESP 16; TEMP 98.2; O2SAT 99
[2017-07-05] MEDS: SODIUM CHLORIDE 0.9% FLUSH 10 ML FLUSH IV FLUSH SCH ×2 (09:00→20:19)
[2017-07-05] MEDS: DOCUSATE SODIUM 50 MG/SENNA 8.6 MG TAB PO SCH ×2 (09:00→20:14)
[2017-07-05] MEDS: FLUoxetine HCL 20 MG CAP PO SCH (09:45)
[2017-07-05] MEDS: ESTRADIOL 1 MG TAB PO SCH (09:45)
[2017-07-05] MEDS: SODIUM CHLORIDE 1 GRAM TAB PO SCH ×2 (09:45→20:19)
[2017-07-05] MEDS: FOLIC ACID 1 MG TAB PO SCH (09:45)
[2017-07-05] MEDS: FLUDROCORTISONE ACETATE 0.1 MG TAB PO SCH (09:46)
[2017-07-05] MEDS: FAMOTIDINE 20 MG TAB PO SCH ×2 (09:46→20:19)
[2017-07-05] MEDS: HEPARIN SODIUM - SQ 10,000 UNITS/ML VIAL SQ SCH ×2 (09:46→20:19)
[2017-07-05] MEDS: ONDANSETRON HCL 4 MG/2 ML VIAL IVP PRN ×2 (09:51→16:40)
--- NOTE | 2017-07-05 11:06 | HHI.NPPN ---
Subjective History of Present Illness The patient is a 56 yo [place] female who was asked to come to the ED by our office for further evaluation of ARF. She has a hx of significant GI issues post from gastric sleeve surgery including chronic nausea, vomiting, dysphagia which in turn leads to dehydration. She also has an ileostomy and has reported recent diarrhea that she thought was related to recent abx use for H. pylori. She was admitted here on 05/06 after her outpatient labs showed she was in acute renal failure with a SCr of 2.9 and GFR 16. She responded well to IVF and was discharged on 05/11 with SCr 1.8 and GFR 28. Was discharged on 3 weeks of abx for H. pylori, but she admits that she has not followed up with GI as outpatient as she had a change in insurance. States that since her discharge, her symptoms of nausea, vomiting, diarrhea, and dysphagia have slowly started to get worse daily. She says she is not able to keep up with fluid intake as recommended to keep a UOP of 2-2.5L daily ( reports her UOP only about 500mL daily). Her renal functions have also slowly started to deteriorate since her Nov discharge with SCr 05/19 2.19 eGFR 24, SCr 2.64 GFR 19, and 06/23 SCr 2.97 eGFR 16 (this is what prompted us urging her to be readmitted for IV hydration). Interval History Patient indicated she is not tolerating the sodium chloride pills well. She developed nausea. Otherwise no verbal complaints. Objective Data Data Vital Signs Date Time Temp Pulse Resp B/P (MAP) Pulse Ox O2 Delivery O2 Flow Rate FiO2 07/05/17 08:00 98.2 62 16 113/68 (83) 99 07/05/17 07:27 Room Air 07/05/17 04:00 97.2 70 18 97/57 (70) 98 07/04/17 23:20 97.7 55 17 103/64 (77) 99 07/04/17 19:46 96.9 61 18 88/59 (69) 100 07/04/17 16:00 99.1 62 18 93/53 (66) 100 07/04/17 12:00 98.8 69 18 87/48 (61) 99 -: 07/04/17 0849 07/04/17 0849 Physical Exam General Appearance: Well Developed, Well Nourished, No Acute Distress, Comfortable Eyes Eye Exam: Sclera White Pulmonary Resp Exam: Clear Bilaterally, Breath Sounds Equal, No Distress Cardiology CV Exam: Regular, Normal Sinus Rhythm, Good Perfusion Gastrointestinal/Abdomen GI Exam: Soft, Non-Tender Integumentary Skin Exam: Clear, Warm, Dry Extremeties Extremities Exam: No Edema Neurologic Neuro Exam: Alert, Awake, Oriented, Speech Clear, Moving All Extremities Psychiatric Psych Exam: Appropriate Responses Assessment/Plan Discussed Condition With: Patient, Spouse Problem List: (1) Acute renal failure ICD Codes: N17.9 - Acute kidney failure, unspecified Plan: Related to volume depletion. Potassium chloride supplemented as ordered. We'll discontinue sodium chloride pills which are not being tolerated. Discontinue sodium bicarbonate in IV fluids as acid-base status improved. Resume by mouth sodium bicarbonate as ordered. Reduce IV fluid rate in view of improved hydration and renal indices. I will defer to GI and barometric surgery in regard to whether or not it is feasible to provide the patient with enteral hydration via G tube. At this point in time patient will be seen on a when necessary basis only. Please recall if needed. Would like see the patient in the office approximately 2 weeks post discharge. Medications should be adjusted for the patient's acute renal dysfunction. Avoid gadolinium and NSAIDs for analgesia. (2) Acidosis ICD Codes: E87.2 - Acidosis Plan: Related to ileostomy losses as well as acute renal failure. Management per GI. (3) Bariatric surg stat-unsp ICD Codes: Z98.84 - Bariatric surgery status Status: Chronic (4) Dehydration ICD Codes: E86.0 - Dehydration Status: Resolved Plan: Much improved. Myah Martinez MD Jul 05, 2017 11:06
[2017-07-05 12:00] VITALS: BP 108/43; PULSE 70; RESP 16; TEMP 98.1; O2SAT 100
[2017-07-05] MEDS ORDERED: POTASSIUM CHLORIDE 25 MEQ EFFERVESCENT TAB NG ONE (12:00)
[2017-07-05 13:01] LABS: BICARBONATE 24.4 MEQ/L (21.0-32.0); CALCIUM 8.2 MG/DL (8.5-10.1); CREATININE 1.67 MG/DL (0.50-1.00); MAGNESIUM 1.4 MG/DL (1.5-2.5)
--- NOTE | 2017-07-05 13:33 | HHI.PR ---
Subjective Remarks Follow-up for dehydration and acute renal failure Patient still have decreased oral intake. She did not tolerate the sodium tablets well. Patient stated that she saw Dr. Oliveira and he recommended a feeding tube. Otherwise no complaints. On any known any he didn't Objective Vitals Vital Signs Date Time Temp Pulse Resp B/P (MAP) Pulse Ox O2 Delivery O2 Flow Rate FiO2 07/05/17 12:00 98.1 70 16 108/43 (64) 100 07/05/17 08:00 98.2 62 16 113/68 (83) 99 07/05/17 07:27 Room Air 07/05/17 04:00 97.2 70 18 97/57 (70) 98 07/04/17 23:20 97.7 55 17 103/64 (77) 99 07/04/17 19:46 96.9 61 18 88/59 (69) 100 07/04/17 16:00 99.1 62 18 93/53 (66) 100 I/O 07/04/17 07/04/17 07/04/17 07/05/17 07/05/17 07/05/17 06:59 14:59 22:59 06:59 14:59 22:59 Intake Total 1895 ml 600 ml 480 ml 480 ml Balance 1895 ml 600 ml 480 ml 480 ml Intake Oral 720 ml 600 ml 480 ml 480 ml IV Total 1175 ml # Voids 2 7 4 3 # Bowel Movements 1 1 2 1 Result Diagram: 07/04/17 0849 07/05/17 1215 Objective Remarks GENERAL: in NAD CARDIOVASCULAR: Regular rate and rhythm without murmurs, gallops, or rubs. RESPIRATORY: Breath sounds equal bilaterally. No accessory muscle use. GASTROINTESTINAL: Abdomen soft, non-tender, nondistended. LLL stoma. MUSCULOSKELETAL: No cyanosis, or edema. BACK: Nontender without obvious deformity. No CVA tenderness. Medications and IVs Current Medications Ondansetron HCl (Zofran Inj) 4 mg ONCE ONCE IVP Last administered on 07/01/17at 17:01; Start 07/01/17 at 16:45; Stop 07/01/17 at 16:46; Status DC Sodium Chloride 1,000 ml @ 1,000 mls/hr Q1H IV Last administered on 07/01/17at 17:01; Start 07/01/17 at 16:40; Stop 07/01/17 at 17:39; Status DC Sodium Chloride (NS Flush) 2 ml UNSCH PRN IV FLUSH FLUSH AFTER USING IV ACCESS ; Start 07/01/17 at 19:15 Sodium Chloride (NS Flush) 2 ml BID IV FLUSH Last administered on 07/01/17at 20: 49; Start 07/01/17 at 21:00 Acetaminophen (Tylenol) 650 mg Q4H PRN PO TEMP > 100.4; Start 07/01/17 at 19:15 Ondansetron HCl (Zofran Inj) 4 mg Q6H PRN IVP NAUSEA OR VOMITING Last administered on 07/05/17at 09:51; Start 07/01/17 at 19:15 Naloxone HCl (Narcan Inj) 0.4 mg UNSCH PRN IV PUSH SEE LABEL COMMENTS; Start at 19:15 Senna/Docusate Sodium (Maria Del Carmen-Colace) 1 tab BID PO ; Start 07/01/17 at 21:00 Magnesium Hydroxide (Milk Of Magnesia Liq) 30 ml Q12H PRN PO Mild constipation ; Start 07/01/17 at 19:15 Sennosides (Senokot) 17.2 mg Q12H PRN PO Moderate constipation; Start 07/01/17 at 19:15 Bisacodyl (Dulcolax Supp) 10 mg DAILY PRN RECTAL SEVERE CONSITIPATION; Start at 19:15 Lactulose (Lactulose Liq) 30 ml DAILY PRN PO SEVERE CONSITIPATION; Start at 19:15 Estradiol (Estradiol) 0.5 mg DAILY PO Last administered on 07/05/17at 09:45; Start 07/02/17 at 09:00 Famotidine (Pepcid) 10 mg BID PO Last administered on 07/05/17at 09:46; Start 07/01/17 at 21:00 Fludrocortisone Acetate (Florinef) 0.1 mg DAILY PO Last administered on 09:46; Start 07/02/17 at 09:00 Fluoxetine HCl (PROzac) 20 mg DAILY PO Last administered on 07/05/17 09:45; Start 07/02/17 at 09:00 Folic Acid (Folate) 1 mg DAILY PO Last administered on 07/05/17 09:45; Start at 09:00 Levothyroxine Sodium (Synthroid) 125 mcg DAILY@0600 PO Last administered on 07/05 06:24; Start 07/02/17 at 06:00 Sodium Bicarbonate (Sodium Bicarbonate) 1,300 mg Q8HR PO Last administered on 13:14; Start 07/01/17 at 22:00; Stop 07/02/17 at 16:00; Status DC Influenza Virus Vaccine (Flu (Quadrivalent) Vaccine Inj) 0.5 ml ONCE ONCE IM Last administered on 07/02/17 11:13; Start 07/02/17 at 10:00; Stop 07/02/17 at 10: 02; Status DC Sodium Chloride 1,000 ml @ 125 mls/hr Q8H IV Last administered on 07/02/17 11: 12; Start 07/02/17 at 01:45; Stop 07/02/17 at 16:00; Status DC Heparin Sodium (Porcine) (Heparin Inj) 5,000 units Q12HR SQ Last administered on 07/05/17at 09:46; Start 07/02/17 at 09:00 Sodium Bicarbonate 75 meq/Sodium Chloride 1,075 ml @ 125 mls/hr Q8H36M IV Last administered on 07/05/17 09:45; Start 07/02/17 at 17:00; Stop 07/05/17 at 11: 09; Status DC Sodium Chloride (Sodium Chloride) 1 gm BID PO Last administered on 07/05/17 09: 45; Start 07/04/17 at 11:30 Potassium Bicarb/ Potassium Chloride (K-Lyte Cl Eff) 25 meq ONCE ONCE NG Last administered on 07/05/17 13:49; Start 07/05/17 at 12:00; Stop 07/05/17 at 12: 01; Status DC Sodium Chloride 1,000 ml @ 83 mls/hr Q12H3M IV ; Start 07/05/17 at 17:00 Sodium Bicarbonate (Sodium Bicarbonate) 1,300 mg TID PO ; Start 07/05/17 at 13:00 A/P Problem List: (1) Diarrhea ICD Code: R19.7 - Diarrhea, unspecified (2) LEIGH (acute kidney injury) ICD Code: N17.9 - Acute kidney failure, unspecified Status: Acute (3) Dehydration ICD Code: E86.0 - Dehydration Status: Resolved Assessment and Plan 56-year-old female with history of ulcerative colitis diagnosed at age 17 s/p 26 abdominal surgeries including total colectomy, colostomy, failed Kock pouch, 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 LEIGH on CKD stage IV, secondary to Dehydration. Cr 3.04, previously 1.83 on 05/11. -Patient follows with manager heart Dr. Martinez. consulted. ff. -Cr improving. -Avoid nephrotoxins -Rough Rice Tender decrease IV fluids. -Per manager heart patient will be clear for discharge from renal point of view if she is maintaining adequate fluid intake to match enteral losses. If IV fluids discontinued recommend that patient resume her oral sodium bicarbonate as discussed with her 1300 mg 3 times a day and the fluid intake of approximately enteral fluid losses plus an additional 2500 MLS. -avoid gadolinium and NSAIDs for analgesia. -Rough Rice Tender sign off and stated to follow up in 2 weeks. Hypotension, improving with IV fluids. -Secondary to high output from ileostomy tube and unable to tolerate enough oral intake due to gastric sleeve. -Unable to tolerate oral intake. On IV fluids. Unable to tolerate sodium tablets. Sodiums tab was DC'd. Chronic diarrhea Diarrhea, Ileostomy/status post gastric sleeve -EMR reviewed, s/p EGD on 05/07/17 which showed gastritis and pathology positive for H.pylori, s/p 3weeks antibiotics treatment, completed 1 week ago -so far stool studies negative. GI ff. pending H pylori. -Consult Dr. Yepez for possible feeding tube. Hypothyroidism: chronic, stable -Continue with home medication. Depression: chronic, stable -Continue home medication. DVT Prophylaxis: heparin sq . Discharge Planning may need feeding tube cannot tolerate enough oral intake. Debra Canchola MD Jul 05, 2017 13:33
[2017-07-05 16:00] VITALS: BP 121/69; PULSE 71; RESP 17; TEMP 98.1; O2SAT 100
[2017-07-05] MEDS: SODIUM BICARBONATE 650 MG TAB PO SCH ×2 (16:36→16:43)
[2017-07-05] MEDS: SODIUM CHLOR 0.45% 1000 ML INJ 1,000 ML IV SCH (16:36)
--- NOTE | 2017-07-05 17:28 | HHI.PR ---
Subjective Subjective Notes Nausea improved. Tolerating diet and liquids. States she has to empty ileostomy every 1-2 hours which she states is her baseline Objective Vitals/I&O Vital Signs Date Time Temp Pulse Resp B/P (MAP) Pulse Ox O2 Delivery O2 Flow Rate FiO2 07/05/17 12:00 98.1 70 16 108/43 (64) 100 07/05/17 07:27 Room Air Labs Laboratory Tests Test 07/05/17 12:15 Blood Urea Nitrogen 24 Creatinine 1.67 Random Glucose 88 Calcium Level 8.2 Magnesium Level 1.4 Sodium Level 145 Potassium Level 3.3 Chloride Level 111 Carbon Dioxide Level 24.4 Anion Gap 10 Estimat Glomerular Filtration Rate 32 Date/Time Source Procedure Growth Status 07/02/17 10:55 Stool Stool Stool Occult Blood (TAMY) - Final HEMOCCULT NEGATIVE Complete Radiology Last Impressions Abdomen/Pelvis CT 07/02/17 0000 Signed Impressions: Service Date/Time: Sunday, July 02, 2017 17:36 - CONCLUSION: 1. Evidence for previous surgery ostomy left or quadrant. Bowel gas pattern is unremarkable 2. Bilateral renal stones as Staghorn calculus on the left, nonobstructing 3. There is no free fluid 4. There is no abscess 5. There is no free air. Shukri Venegas MD FACR Abdomen: Non-tender Extremities: Perfused A/P Assessment and Plan 56yo F with dehydration and prior sleeve gastrectomy in January -Renal function improving -Tolerating PO intake -Will discuss with GI, do not recommend PEG at this time as patient is able to tolerate PO intake. Due to ileostomy, may benefit more from PICC/port placement Niles Fontana Jul 05, 2017 17:28
[2017-07-05 19:14] VITALS: BP 94/49; PULSE 76; RESP 18; TEMP 98.8; O2SAT 100
[2017-07-05 23:10] VITALS: BP 97/47; PULSE 73; RESP 18; TEMP 98.6; O2SAT 100
[2017-07-06 03:20] VITALS: BP 103/54; PULSE 74; RESP 18; TEMP 98.9; O2SAT 100
[2017-07-06] MEDS: SODIUM CHLOR 0.45% 1000 ML INJ 1,000 ML IV SCH (03:45)
[2017-07-06] MEDS: LEVOTHYROXINE SODIUM 125 MCG TAB PO SCH (05:46)
[2017-07-06 06:53] LABS: BICARBONATE 23.5 MEQ/L (21.0-32.0); CALCIUM 8.1 MG/DL (8.5-10.1); CREATININE 1.74 MG/DL (0.50-1.00)
[2017-07-06 08:00] VITALS: BP 99/50; PULSE 71; RESP 17; TEMP 98; O2SAT 97
[2017-07-06] MEDS ORDERED: POTASSIUM CHLORIDE 20 MEQ CONTROLLED RELEASE TAB PO ONE (09:00)
[2017-07-06] MEDS: SODIUM CHLORIDE 1 GRAM TAB PO SCH (09:00)
[2017-07-06] MEDS: DOCUSATE SODIUM 50 MG/SENNA 8.6 MG TAB PO SCH (09:00)
[2017-07-06] MEDS: SODIUM CHLORIDE 0.9% FLUSH 10 ML FLUSH IV FLUSH SCH (09:00)
[2017-07-06] MEDS: HEPARIN SODIUM - SQ 10,000 UNITS/ML VIAL SQ SCH (09:00)
--- NOTE | 2017-07-06 10:06 | HHI.PR ---
Subjective Remarks f/u for ARF due to dehydration for poor intake and high output ileostomy patient c/o cough and increase congestion. Denied any SOB or fevers. patient still unable to tolerate increase amount of outpatient. also complained about right foot pain from walking. denied any trauma to foot. asking for Robitussin for cough. I told patient about allergy to red dye and she stated she does okay with taking that medication. She stated its only with liquid Tylenol and she vomits no allergy. Objective Vitals Vital Signs Date Time Temp Pulse Resp B/P (MAP) Pulse Ox O2 Delivery O2 Flow Rate FiO2 07/06/17 08:00 98.0 71 17 99/50 (66) 97 07/06/17 07:29 Room Air 07/06/17 03:20 98.9 74 18 103/54 (70) 100 07/05/17 23:10 98.6 73 18 97/47 (64) 100 07/05/17 20:20 Room Air 07/05/17 19:14 98.8 76 18 94/49 (64) 100 07/05/17 16:00 98.1 71 17 121/69 (86) 100 07/05/17 12:00 98.1 70 16 108/43 (64) 100 I/O 07/05/17 07/05/17 07/05/17 07/06/17 07/06/17 07/06/17 06:59 14:59 22:59 06:59 14:59 22:59 Intake Total 480 ml 480 ml 480 ml 480 ml Output Total 500 ml Balance 480 ml -20 ml 480 ml 480 ml Intake Oral 480 ml 480 ml 480 ml 480 ml Output Stool Total 500 ml # Voids 3 5 3 3 # Bowel Movements 1 1 1 Result Diagram: 07/04/17 0849 07/06/17 0515 Objective Remarks GENERAL: in NAD CARDIOVASCULAR: Regular rate and rhythm without murmurs, gallops, or rubs. RESPIRATORY: Breath sounds equal bilaterally. No accessory muscle use. GASTROINTESTINAL: Abdomen soft, non-tender, nondistended. LLL stoma. MUSCULOSKELETAL: No cyanosis, or edema. + TTP on later portion of the right dorsum of foot. no Chente signs. BACK: Nontender without obvious deformity. No CVA tenderness. Medications and IVs Current Medications Ondansetron HCl (Zofran Inj) 4 mg ONCE ONCE IVP Last administered on 07/01/17at 17:01; Start 07/01/17 at 16:45; Stop 07/01/17 at 16:46; Status DC Sodium Chloride 1,000 ml @ 1,000 mls/hr Q1H IV Last administered on 07/01/17at 17:01; Start 07/01/17 at 16:40; Stop 07/01/17 at 17:39; Status DC Sodium Chloride (NS Flush) 2 ml UNSCH PRN IV FLUSH FLUSH AFTER USING IV ACCESS ; Start 07/01/17 at 19:15 Sodium Chloride (NS Flush) 2 ml BID IV FLUSH Last administered on 07/01/17at 20: 49; Start 07/01/17 at 21:00 Acetaminophen (Tylenol) 650 mg Q4H PRN PO TEMP > 100.4; Start 07/01/17 at 19:15 Ondansetron HCl (Zofran Inj) 4 mg Q6H PRN IVP NAUSEA OR VOMITING Last administered on 07/05/17at 16:40; Start 07/01/17 at 19:15 Naloxone HCl (Narcan Inj) 0.4 mg UNSCH PRN IV PUSH SEE LABEL COMMENTS; Start at 19:15 Senna/Docusate Sodium (Maria Del Carmen-Colace) 1 tab BID PO ; Start 07/01/17 at 21:00 Magnesium Hydroxide (Milk Of Magnesia Liq) 30 ml Q12H PRN PO Mild constipation ; Start 07/01/17 at 19:15 Sennosides (Senokot) 17.2 mg Q12H PRN PO Moderate constipation; Start 07/01/17 at 19:15 Bisacodyl (Dulcolax Supp) 10 mg DAILY PRN RECTAL SEVERE CONSITIPATION; Start at 19:15 Lactulose (Lactulose Liq) 30 ml DAILY PRN PO SEVERE CONSITIPATION; Start at 19:15 Estradiol (Estradiol) 0.5 mg DAILY PO Last administered on 07/05/17at 09:45; Start 07/02/17 at 09:00 Famotidine (Pepcid) 10 mg BID PO Last administered on 07/05/17at 20:19; Start 07/01/17 at 21:00 Fludrocortisone Acetate (Florinef) 0.1 mg DAILY PO Last administered on 09:46; Start 07/02/17 at 09:00 Fluoxetine HCl (PROzac) 20 mg DAILY PO Last administered on 07/05/17 09:45; Start 07/02/17 at 09:00 Folic Acid (Folate) 1 mg DAILY PO Last administered on 07/05/17 09:45; Start at 09:00 Levothyroxine Sodium (Synthroid) 125 mcg DAILY@0600 PO Last administered on 07/06 05:46; Start 07/02/17 at 06:00 Sodium Bicarbonate (Sodium Bicarbonate) 1,300 mg Q8HR PO Last administered on 13:14; Start 07/01/17 at 22:00; Stop 07/02/17 at 16:00; Status DC Influenza Virus Vaccine (Flu (Quadrivalent) Vaccine Inj) 0.5 ml ONCE ONCE IM Last administered on 07/02/17 11:13; Start 07/02/17 at 10:00; Stop 07/02/17 at 10: 02; Status DC Sodium Chloride 1,000 ml @ 125 mls/hr Q8H IV Last administered on 07/02/17at 11: 12; Start 07/02/17 at 01:45; Stop 07/02/17 at 16:00; Status DC Heparin Sodium (Porcine) (Heparin Inj) 5,000 units Q12HR SQ Last administered on 07/05/17 20:19; Start 07/02/17 at 09:00 Sodium Bicarbonate 75 meq/Sodium Chloride 1,075 ml @ 125 mls/hr Q8H36M IV Last administered on 07/05/17 09:45; Start 07/02/17 at 17:00; Stop 07/05/17 at 11: 09; Status DC Sodium Chloride (Sodium Chloride) 1 gm BID PO Last administered on 07/05/17 20: 19; Start 07/04/17 at 11:30 Potassium Bicarb/ Potassium Chloride (K-Lyte Cl Eff) 25 meq ONCE ONCE NG Last administered on 07/05/17 13:49; Start 07/05/17 at 12:00; Stop 07/05/17 at 12: 01; Status DC Sodium Chloride 1,000 ml @ 83 mls/hr Q12H3M IV Last administered on 07/06/17at 03:45; Start 07/05/17 at 17:00 Sodium Bicarbonate (Sodium Bicarbonate) 1,300 mg TID PO Last administered on 07/05/17at 16:36; Start 07/05/17 at 13:00 Potassium Chloride (KCl) 20 meq ONCE ONCE PO ; Start 07/06/17 at 09:00; Stop 07/06/17 at 09:01; Status DC A/P Problem List: (1) Diarrhea ICD Code: R19.7 - Diarrhea, unspecified (2) LEIGH (acute kidney injury) ICD Code: N17.9 - Acute kidney failure, unspecified Status: Acute (3) Dehydration ICD Code: E86.0 - Dehydration Status: Resolved Assessment and Plan 56-year-old female with history of ulcerative colitis diagnosed at age 17 s/p 26 abdominal surgeries including total colectomy, colostomy, failed Kock pouch, 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 LEIGH on CKD stage IV, secondary to Dehydration. Cr 3.04, previously 1.83 on 05/11. -Patient follows with engineering group leader Dr. Martinez. consulted. ff. -Improving. Avoid nephrotoxins -Per engineering group leader patient will be clear for discharge from renal point of view if she is maintaining adequate fluid intake to match enteral losses. If IV fluids discontinued recommend that patient resume her oral sodium bicarbonate as discussed with her 1300 mg 3 times a day and the fluid intake of approximately enteral fluid losses plus an additional 2500 MLS. -avoid gadolinium and NSAIDs for analgesia. -Director Sales Support sign off and stated to follow up in 2 weeks. -General Surgeon consulted recommending a possible PICC line/port. GI recommended PEG. Per general surgeon will speak with GI. Hypotension, improving with IV fluids. -Secondary to high output from ileostomy tube and unable to tolerate enough oral intake due to gastric sleeve. -Unable to tolerate oral intake. On IV fluids. Unable to tolerate sodium tablets. Sodiums tab was DC'd. Chronic diarrhea Diarrhea, Ileostomy/status post gastric sleeve -EMR reviewed, s/p EGD on 05/07/17 which showed gastritis and pathology positive for H.pylori, s/p 3weeks antibiotics treatment, completed 1 week ago -so far stool studies negative. GI ff. pending H pylori. -Per GI on discharge patient will need outpatient breath test for evaluation of resolution of H. pylori. Patient will need to be off her Pepcid and Protonix for one week before this test is done. She will then need to follow up in the GI office, Dr. Lala. URI -viral. lungs are clear. supportive care. on mucinex. asking for Robitussin will order. right foot pain -most likely due to OA. will get xray. Hypothyroidism: chronic, stable -Continue with home medication. Depression: chronic, stable -Continue home medication. DVT Prophylaxis: heparin sq . Debra Canchola MD Jul 06, 2017 10:06
--- NOTE | 2017-07-06 10:46 | RADRPT ---
EXAM DATE/TIME: 07/06/2017 10:17 [facility] COMPARISON: No previous studies available for comparison. INDICATIONS : Awoke this morning with pain along lateral side of the right foot, pain with weight bearing, denies i njury MEDICAL HISTORY : Renal failure, chronic. Gastroesophageal reflux disease. Hypothyroidism. SURGICAL HISTORY : Hysterectomy. ileostomy, Mendoza pouch, gastric sleeve ENCOUNTER: Initial ACUITY: 1 day PAIN SCORE: 6/10 LOCATION: Right foot FINDINGS: Three view examination of the right foot demonstrates no soft tissue swelling, dislocation, or fractu re. The tarsal bones appear intact. The interphalangeal and metatarsophalangeal joints are intact with minimal degenerative change with slight sclerosis. The calcaneus is intact. Bony mineralization is normal. There is a small spur off the inferior calcaneus. CONCLUSION: 1. No fracture or underlying bony abnormality. 2. Minimal osteoarthritic change. 3. Small calcaneal spur. Marcelo Jiménez MD on July 06, 2017 at 10:38 Board Certified Radiologist. This report was verified electronically.
[2017-07-06] MEDS: FLUDROCORTISONE ACETATE 0.1 MG TAB PO SCH (11:22)
[2017-07-06] MEDS: FAMOTIDINE 20 MG TAB PO SCH (11:23)
[2017-07-06] MEDS: FOLIC ACID 1 MG TAB PO SCH (11:23)
[2017-07-06] MEDS: ESTRADIOL 1 MG TAB PO SCH (11:23)
[2017-07-06] MEDS: SODIUM BICARBONATE 650 MG TAB PO SCH ×2 (11:23→11:53)
[2017-07-06] MEDS: FLUoxetine HCL 20 MG CAP PO SCH (11:24)
[2017-07-06] MEDS: guaiFENesin/CODEINE SYRUP 200 MG/20 MG/10 ML CUP PO PRN ×2 (11:31→16:00)
[2017-07-06] MEDS: ONDANSETRON HCL 4 MG/2 ML VIAL IVP PRN (11:53)
[2017-07-06 12:00] VITALS: BP 104/52; PULSE 76; RESP 17; TEMP 98.9; O2SAT 99
[2017-07-06 16:00] VITALS: BP 119/64; PULSE 77; RESP 17; TEMP 99.5; O2SAT 95
--- NOTE | 2017-07-06 16:00 | PD.CONS ---
HPI Consult Requested By Dr. Diallo Reason for Consult Possible PEG tube placement Primary Care Physician Non-Staff History of Present Illness The patient is a 56 yo [place] female who presented to the ED with dehydration and acute renal failure. She has complex GI history with an ileostomy and had sleeve gastrectomy in January. Since then she has had issues with nausea, dysphagia, and a decreased urge to drink which subsequently leads her to dehydration. Per report, ileostomy is putting out liquid stool Q1-2 hours, which she states is her baseline. Review of Systems Constitutional: DENIES: Diaphoretic episodes, Fatigue, Fever, Weight gain, Weight loss, Chills, Dizziness, Change in appetite, Night Sweats Endocrine: DENIES: Abnorml menstrual pattern, Heat/cold intolerance, Polydipsia , Polyuria, Polyphagia Eyes: DENIES: Blurred vision, Diplopia, Eye inflammation, Eye pain, Vision loss , Photosensitivity, Double Vision Ears, nose, mouth, throat: DENIES: Tinnitus, Hearing loss, Vertigo, Nasal discharge, Oral lesions, Throat pain, Hoarseness, Ear Pain, Running Nose, Epistaxis, Sinus Pain, Toothache, Odynophagia Respiratory: DENIES: Apneas, Cough, Snoring, Wheezing, Hemoptysis, Sputum production, Shortness of breath Cardiovascular: DENIES: Chest pain, Palpitations, Syncope, Dyspnea on Exertion , PND, Lower Extremity Edema, Orthopnea, Claudication Gastrointestinal: COMPLAINS OF: Diarrhea, Nausea, Difficulty Swallowing Genitourinary: DENIES: Abnormal vaginal bleeding, Dysmenorrhea, Dyspareunia, Sexual dysfunction, Urinary frequency, Urinary incontinence, Urgency, Hematuria , Dysuria, Nocturia, Vaginal discharge Musculoskeletal: DENIES: Joint pain, Muscle aches, Stiffness, Joint Swelling, Back pain, Neck pain Integumentary: DENIES: Abnormal pigmentation, Pruritus, Rash, Nail changes, Breast masses, Breast skin changes, Nipple discharge Hematologic/lymphatic: DENIES: Bruising, Lymphadenopathy Immunologic/allergic: DENIES: Eczema, Urticaria Neurologic: DENIES: Abnormal gait, Headache, Localized weakness, Paresthesias, Seizures, Speech Problems, Tremor, Poor Balance Psychiatric: DENIES: Anxiety, Confusion, Mood changes, Depression, Hallucinations, Agitation, Suicidal Ideation, Homicidal Ideation, Delusions Past Family Social History Past Medical History ulcerative colitis IBS Gastritis GERD Hypothyroidism Has BCIR from 20 years ago Ileostomy Past Surgical History total colectomy colostomy failed Kock pouch Cooper continent intestinal reservoir (BCIR) placed 20+ years ago sleeve gastrectomy January 2017 hysterectomy EGDs left breast biopsy right wrist surgery s/p fracture Reported Medications Current Medications Medications (Trade) Dose Ordered Sig/Espinoza Route Start Time Stop Time Status Last Admin (NS Flush) 2 ml UNSCH PRN IV FLUSH 07/01/17 19:15 (NS Flush) 2 ml BID IV FLUSH 07/01/17 21:00 07/01/17 20:49 (Tylenol) 650 mg Q4H PRN PO 07/01/17 19:15 (Zofran Inj) 4 mg Q6H PRN IVP 07/01/17 19:15 07/06/17 11:53 (Narcan Inj) 0.4 mg UNSCH PRN IV PUSH 07/01/17 19:15 (Maria Del Carmen-Colace) 1 tab BID PO 07/01/17 21:00 (Milk Of Magnesia Liq) 30 ml Q12H PRN PO 07/01/17 19:15 (Senokot) 17.2 mg Q12H PRN PO 07/01/17 19:15 (Dulcolax Supp) 10 mg DAILY PRN RECTAL 07/01/17 19:15 (Lactulose Liq) 30 ml DAILY PRN PO 07/01/17 19:15 (Estradiol) 0.5 mg DAILY PO 07/02/17 09:00 07/06/17 11:23 (Pepcid) 10 mg BID PO 07/01/17 21:00 07/06/17 11:23 (Florinef) 0.1 mg DAILY PO 07/02/17 09:00 07/06/17 11:22 (PROzac) 20 mg DAILY PO 07/02/17 09:00 07/06/17 11:24 (Folate) 1 mg DAILY PO 07/02/17 09:00 07/06/17 11:23 (Synthroid) 125 mcg DAILY@0600 PO 07/02/17 06:00 07/06/17 05:46 (Heparin Inj) 5,000 units Q12HR SQ 07/02/17 09:00 07/06/17 09:00 (Sodium Chloride) 1 gm BID PO 07/04/17 11:30 07/05/17 20:19 Sodium Chloride 1,000 ml @ 83 mls/hr Q12H3M IV 07/05/17 17:00 07/06/17 03:45 (Sodium Bicarbonate) 1,300 mg TID PO 07/05/17 13:00 07/06/17 11:23 (Robitussin Ac 200-20 Mg/10 ml Liq) 10 ml Q4H PRN PO 07/06/17 10:15 07/06/17 11:31 Allergies: Coded Allergies: red dye (Unverified Allergy, Severe, hives and hot flashes, 07/01/17) acetaminophen (Verified Adverse Reaction, Severe, Nausea/Vomiting, 07/01/17) Active Ordered Medications Current Medications Medications (Trade) Dose Ordered Sig/Espinoza Route Start Time Stop Time Status Last Admin (NS Flush) 2 ml UNSCH PRN IV FLUSH 07/01/17 19:15 (NS Flush) 2 ml BID IV FLUSH 07/01/17 21:00 07/01/17 20:49 (Tylenol) 650 mg Q4H PRN PO 07/01/17 19:15 (Zofran Inj) 4 mg Q6H PRN IVP 07/01/17 19:15 07/06/17 11:53 (Narcan Inj) 0.4 mg UNSCH PRN IV PUSH 07/01/17 19:15 (Maria Del Carmen-Colace) 1 tab BID PO 07/01/17 21:00 (Milk Of Magnesia Liq) 30 ml Q12H PRN PO 07/01/17 19:15 (Senokot) 17.2 mg Q12H PRN PO 07/01/17 19:15 (Dulcolax Supp) 10 mg DAILY PRN RECTAL 07/01/17 19:15 (Lactulose Liq) 30 ml DAILY PRN PO 07/01/17 19:15 (Estradiol) 0.5 mg DAILY PO 07/02/17 09:00 07/06/17 11:23 (Pepcid) 10 mg BID PO 07/01/17 21:00 07/06/17 11:23 (Florinef) 0.1 mg DAILY PO 07/02/17 09:00 07/06/17 11:22 (PROzac) 20 mg DAILY PO 07/02/17 09:00 07/06/17 11:24 (Folate) 1 mg DAILY PO 07/02/17 09:00 07/06/17 11:23 (Synthroid) 125 mcg DAILY@0600 PO 07/02/17 06:00 07/06/17 05:46 (Heparin Inj) 5,000 units Q12HR SQ 07/02/17 09:00 07/06/17 09:00 (Sodium Chloride) 1 gm BID PO 07/04/17 11:30 07/05/17 20:19 Sodium Chloride 1,000 ml @ 83 mls/hr Q12H3M IV 07/05/17 17:00 07/06/17 03:45 (Sodium Bicarbonate) 1,300 mg TID PO 07/05/17 13:00 07/06/17 11:23 (Robitussin Ac 200-20 Mg/10 ml Liq) 10 ml Q4H PRN PO 07/06/17 10:15 07/06/17 11:31 Physical Exam Vital Signs Vital Signs Date Time Temp Pulse Resp B/P (MAP) Pulse Ox O2 Delivery O2 Flow Rate FiO2 07/06/17 12:00 98.9 76 17 104/52 (69) 99 07/06/17 08:00 98.0 71 17 99/50 (66) 97 07/06/17 07:29 Room Air 07/06/17 03:20 98.9 74 18 103/54 (70) 100 07/05/17 23:10 98.6 73 18 97/47 (64) 100 07/05/17 20:20 Room Air 07/05/17 19:14 98.8 76 18 94/49 (64) 100 07/05/17 16:00 98.1 71 17 121/69 (86) 100 Laboratory Laboratory Tests Test 07/06/17 05:15 Blood Urea Nitrogen 17 Creatinine 1.74 Random Glucose 84 Calcium Level 8.1 Sodium Level 143 Potassium Level 3.2 Chloride Level 109 Carbon Dioxide Level 23.5 Anion Gap 11 Estimat Glomerular Filtration Rate 30 Date/Time Source Procedure Growth Status 07/02/17 10:55 Stool Stool Stool Occult Blood (TAMY) - Final HEMOCCULT NEGATIVE Complete Result Diagram: 07/04/17 0849 07/06/17 0515 Imaging Last Impressions Abdomen/Pelvis CT 07/02/17 0000 Signed Impressions: Service Date/Time: Sunday, July 02, 2017 17:36 - CONCLUSION: 1. Evidence for previous surgery ostomy left or quadrant. Bowel gas pattern is unremarkable 2. Bilateral renal stones as Staghorn calculus on the left, nonobstructing 3. There is no free fluid 4. There is no abscess 5. There is no free air. Shukri Venegas MD FACR Assessment and Plan Assessment and Plan 56yo F with multiple GI surgeries with frequent dehydration and ARF Patient receiving IVF, renal function improving Tolerating diet, complains of 'feeling too full for fluids" At this time PEG placement is not appropriate as she can tolerate solids. Due to total colectomy, free water flushes via PEG would most likely worsen ileostomy output and dehydration Will consider port placement if someone will monitor her fluid status as outpatient Code Status Full Discussed Condition With Patient and family at bedside Attending Statement This note was dictated on Dr. Burns's behalf Niles Fontana Jul 06, 2017 16:00
[2017-07-06] MEDS ORDERED: POTA10TA2 PO (16:29)
[2017-07-06] MEDS ORDERED: guaiFEN-COD 200-20 MG/10ML LIQ PO (16:29)
--- NOTE | 2017-07-06 16:32 | HHI.DS ---
Discharge Summary Admission Date Jul 01, 2017 at 19:11 Discharge Date: Jul 06, 2017 Admitting Diagnosis acute kidney injury (1) LEIGH (acute kidney injury) ICD Code: N17.9 - Acute kidney failure, unspecified Diagnosis: Principal Status: Acute (2) Diarrhea ICD Code: R19.7 - Diarrhea, unspecified Diagnosis: Principal (3) Dehydration ICD Code: E86.0 - Dehydration Diagnosis: Principal Status: Resolved Procedures none Brief History - From Admission 56-year-old female with history of ulcerative colitis diagnosed at age 17 s/p 26 abdominal surgeries including total colectomy, colostomy, failed Kock pouch, now with Cooper continent intestinal reservoir (BCIR) placed 20 years ago, s/p recent gastric sleeve surgery January 2017, presents with worsening ileostomy/ BCIR stool output and concern for dehydration. The patient reports ever since her gastric sleeve surgery in January2017 by Dr. Yepez, she has had problems with increased stool output, decreased oral intake. She denies any recent fevers /chills, abdominal pain, or nausea/vomiting. She states a few days ago she saw her beef breaker Dr. Martinez who recommended she come to the hospital for IVF hydration and further evaluation by gastroenterology. She states she tried to avoid admission however she continues to have increasing watery diarrhea output. She empties her BCIR every few hours. She reports occasional minimal streaks of bright red blood in the stool but none more than usual. Denies any melena. The patient reports she was recently diagnosed with H.pylori on EGD done 05/07/17, and she recently completed a 3 week course of antibiotics 1 week ago. She has been following with [facility] however does not recall the name of her treatment coordinator. The patient has no other medical complaints at this time including no headache, cough, chest pain, shortness of breath, or urinary complaints. CBC/BMP: 07/04/17 0849 07/06/17 0515 Significant Findings Laboratory Tests Test 07/03/17 18:00 07/04/17 08:49 07/05/17 12:15 07/06/17 05:15 Blood Urea Nitrogen 43 MG/DL (7-18) 34 MG/DL (7-18) 24 MG/DL (7-18) Creatinine 1.91 MG/DL (0.50-1.00) 1.60 MG/DL (0.50-1.00) 1.67 MG/DL (0.50-1.00) 1.74 MG/DL (0.50-1.00) Calcium Level 8.3 MG/DL (8.5-10.1) 8.2 MG/DL (8.5-10.1) 8.2 MG/DL (8.5-10.1) 8.1 MG/DL (8.5-10.1) Chloride Level 115 MEQ/L (98-107) 113 MEQ/L (98-107) 111 MEQ/L (98-107) 109 MEQ/L (98-107) Estimat Glomerular Filtration Rate 27 ML/MIN (>89) 33 ML/MIN (>89) 32 ML/MIN (>89) 30 ML/MIN (>89) Red Blood Count 2.91 MIL/MM3 (4.00-5.30) Hemoglobin 9.5 GM/DL (11.6-15.3) Hematocrit 27.3 % (35.0-46.0) Potassium Level 3.4 MEQ/L (3.5-5.1) 3.3 MEQ/L (3.5-5.1) 3.2 MEQ/L (3.5-5.1) Magnesium Level 1.4 MG/DL (1.5-2.5) Imaging Last Impressions Foot X-Ray 07/06/17 0000 Signed Impressions: Service Date/Time: Thursday, July 06, 2017 10:17 - CONCLUSION: 1. No fracture or underlying bony abnormality. 2. Minimal osteoarthritic change. 3. Small calcaneal spur. Marcelo Jiménez MD Abdomen/Pelvis CT 07/02/17 0000 Signed Impressions: Service Date/Time: Sunday, July 02, 2017 17:36 - CONCLUSION: 1. Evidence for previous surgery ostomy left or quadrant. Bowel gas pattern is unremarkable 2. Bilateral renal stones as Staghorn calculus on the left, nonobstructing 3. There is no free fluid 4. There is no abscess 5. There is no free air. Shukri Venegas MD FACR PE at Discharge GENERAL: in NAD CARDIOVASCULAR: Regular rate and rhythm without murmurs, gallops, or rubs. RESPIRATORY: Breath sounds equal bilaterally. No accessory muscle use. GASTROINTESTINAL: Abdomen soft, non-tender, nondistended. LLL stoma. MUSCULOSKELETAL: No cyanosis, or edema. + TTP on later portion of the right dorsum of foot but able to ambulate with no difficulty. no Chente signs. BACK: Nontender without obvious deformity. No CVA tenderness. Pt update on day of discharge spoke to patient nurse day after discharge who stated provider will not managed port and that for a big decision like that she needs to make an appointment. patient was already told this on day of discharge. discussion with surgeon patient is able to tolerate oral intake but does not drink enough fluids despite having the capability to. Encourage patient to drink fluids. Hospital Course 56-year-old female with history of ulcerative colitis diagnosed at age 17 s/p 26 abdominal surgeries including total colectomy, colostomy, failed Kock pouch, 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 LEIGH on CKD stage IV, secondary to Dehydration. Cr 3.04, previously 1.83 on 05/11. -Patient follows with beef breaker Dr. Martinez. consulted. ff. -Improved with IVFs. Avoid nephrotoxins -Per beef breaker resume her oral sodium bicarbonate as discussed with her 1300 mg 3 times a day and the fluid intake of approximately enteral fluid losses plus an additional 2500 MLS. -avoid gadolinium and NSAIDs for analgesia. -Manager Traffic sign off and stated to follow up in 2 weeks. -General Surgeon consulted recommending a possible PICC line/port. GI recommended PEG. general surgeon spoke to GI and decided port better for fluids, but not a medical necessity since patient has no reason to not take in fluids. Patient just doesn't like to drink fluids and is asymptomatic. No one to managed port if placed. patient encourage to drinks fluids. Hypotension, improving with IV fluids. -Secondary to high output from ileostomy tube and unable to tolerate enough oral intake due to gastric sleeve. -Unable to tolerate oral intake. On IV fluids. Unable to tolerate sodium tablets. Sodiums tab was DC'd. -fluids improved with IVFs and patient was Florinef. Chronic diarrhea Diarrhea, Ileostomy/status post gastric sleeve -EMR reviewed, s/p EGD on 05/07/17 which showed gastritis and pathology positive for H.pylori, s/p 3weeks antibiotics treatment, completed 1 week ago -so far stool studies negative. GI ff. pending H pylori. -Per GI on discharge patient will need outpatient breath test for evaluation of resolution of H. pylori. Patient will need to be off her Pepcid and Protonix for one week before this test is done. She will then need to follow up in the GI office, Dr. Lala. URI -viral. lungs are clear. supportive care. on mucinex. asked for Robitussin. right foot pain -most likely due to OA. xray negative. patient able to walk and no trauma. clinically exam practically normal. f/u as outpatient. Hypothyroidism: chronic, stable -Continue with home medication. Depression: chronic, stable -Continue home medication. Pt Condition on Discharge: Good Discharge Disposition: Discharge Home Discharge Time: > 30 minutes Discharge Instructions DIET: Follow Instructions for: As Tolerated, No Restrictions Activities you can perform: Regular-No Restrictions Follow up Referrals: Gastroenterology - 1 Week with Koko Lala MD Nephrology - 2 Weeks with Myah Martinez MD PCP Follow-up - 1 Week PCP Follow-up @ Surgical - 2 Weeks with tSerling Burns MD New Medications: Potassium Chloride ER (Potassium Chloride ER) 10 Meq Tab 10 MEQ PO BID for Electrolyte Replacement, #30 TAB 0 Refills [guaiFEN-COD 200-20 MG/10ML LIQ] () 10 ML SYRP 10 ML PO Q4H PRN for cough, #150 ML 0 Refills Continued Medications: Estradiol (Estradiol) 0.5 Mg Tab 0.5 MG PO DAILY for Estrogen Supplements, #30 TAB 0 Refills Famotidine (Famotidine) 20 Mg Tab 10 MG PO BID for Dyspepsia, #60 TAB Fludrocortisone (Fludrocortisone) 0.1 Mg Tab 0.1 MG PO DAILY for Blood Pressure Management, #30 TAB Fluoxetine (Fluoxetine) 20 Mg Tab 20 MG PO DAILY, #30 TAB 0 Refills Folic Acid (Folic Acid) 1 Mg Tablet 1 MG PO DAILY for gastric bypass, #31 TAB-CAP Levothyroxine (Levothyroxine) 125 Mcg Tab 125 MCG PO DAILY for Thyroid, #30 TAB 0 Refills Sodium Bicarbonate (Sodium Bicarbonate) 650 Mg Tab 1300 MG PO Q8HR for Calcium Supplement, #90 TAB Debra Canchola MD Jul 06, 2017 16:32
--- NOTE | 2017-07-06 16:32 | HHI.DCPOC ---
Discharge Care Plan Diagnosis: (1) Acute renal failure (2) Dehydration Goals to Promote Your Health * To prevent worsening of your condition and complications * To maintain your health at the optimal level Directions to Meet Your Goals Take your medications as prescribed Follow your dietary instruction Follow activity as directed Keep your appointments as scheduled Take your immunizations and boosters as scheduled If your symptoms worsen call your PCP, if no PCP go to Urgent Care Center or Emergency Room Smoking is Dangerous to Your Health. Avoid second hand smoke Call the 24-hour hour crisis hotline for domestic abuse at Debra Canchola MD Jul 06, 2017 16:32
== END 2017-07-06 17:21 | disposition home or self-care (01) | DRG 683 ==
LOC: NEPE 13:07 → NEDA 19:11 → N06A 19:41
PROVIDERS: ADMIT Hospitalist; ATTEND Hospitalist
DX: N17.9 Acute kidney failure, unspecified (principal); K51.90 Ulcerative colitis, unspecified, without complications; E87.2 Acidosis; I95.9 Hypotension, unspecified; R13.10 Dysphagia, unspecified; Z93.4 Other artificial openings of gastrointestinal tract status; E86.0 Dehydration; Z98.84 Bariatric surgery status; K21.9 Gastro-esophageal reflux disease without esophagitis; E03.9 Hypothyroidism, unspecified; N18.4 Chronic kidney disease, stage 4 (severe); F32.9 Major depressive disorder, single episode, unspecified; J06.9 Acute upper respiratory infection, unspecified; Z23 Encounter for immunization
CPT/HCPCS: 73630; 74176; 80048; 80053; 80069; 82272; 83735; 85025; 85027; 87338; 87493; 87506; 90471; 90686; 96361; 96374; G0008; J1644; J2405; J7030; Q2038